=== PATIENT | female | born 1955 | race Caucasian/White ===

== ENCOUNTER → 2020-06-14 15:06 | Outpatient (BNVA) | payer OTHER, SELFPAY | PROVIDERS: PCP Family Medicine; Visit Provider Surgery Vascular Surgery | DX: Z76.89 Persons encountering health services in other specified circumstances (principal) ==

== ENCOUNTER 2020-07-22 12:47 | Outpatient (RCR) | payer OTHER, SELFPAY | END 2020-09-01 13:28 | disposition home or self-care (01) | LOC: HO.WCC 12:47 | PROVIDERS: Visit Provider Physician Assistant | DX: E11.622 Type 2 diabetes mellitus with other skin ulcer (principal); I87.012 Postthrombotic syndrome with ulcer of left lower extremity; L97.822 Non-pressure chronic ulcer of other part of left lower leg with fat layer exposed; E11.22 Type 2 diabetes mellitus with diabetic chronic kidney disease; I12.0 Hypertensive chronic kidney disease with stage 5 chronic kidney disease or end stage renal disease; N18.6 End stage renal disease; I48.91 Unspecified atrial fibrillation; Z79.01 Long term (current) use of anticoagulants; Z87.891 Personal history of nicotine dependence; E11.40 Type 2 diabetes mellitus with diabetic neuropathy, unspecified | CPT/HCPCS: 11043; 11046; 97605; 99213 ==

== ENCOUNTER 2020-12-06 05:33 | Inpatient (IN) | payer OTHER, SELFPAY ==
[2020-12-06] VITALS (11 sets, daily range): BP systolic 101–186; BP diastolic 55–90; PULSE 78–129; RESP 15–25; TEMP 37.1–39.6; O2SAT 92–98; BMI 48.4
--- NOTE | ~2020-12-06 | XR_ITS ---
EXAMINATION: XR CHEST CLINICAL INFORMATION: Weakness. COMPARISON: Chest 10/22/2019 TECHNIQUE: Frontal view of the chest was obtained. FINDINGS: The lungs are well-expanded and clear of acute process. The heart size is enlarged. Pulmonary vascularity is within normal limits. No gross bony abnormality seen. XR/XR chest 1V IMPRESSION: Unremarkable chest exam except for mild cardiomegaly.
--- NOTE | ~2020-12-06 | CT_ITS ---
EXAMINATION: CT HEAD WITHOUT CONTRAST CLINICAL INFORMATION: Multiple falls on atelectatic versus COMPARISON: None TECHNIQUE: Contiguous axial imaging was performed from the skull base to vertex without intravenous administration of contrast. This CT examination was performed using dose optimization techniques as appropriate, variously including the following: *Automated exposure control *Adjustment of mA and/or kV according to patient size (this includes techniques or standardized protocols for targeted exams where dose is matched to indication/reason for exam; i.e. extremities or head) *Use of iterative reconstruction technique DLP: 812 mGy-cm FINDINGS: There is no evidence of acute intracranial hemorrhage or territorial infarction. No abnormal mass effect or midline shift is seen. Bass to white matter differentiation is well preserved. No extra-axial fluid collections are identified. The lateral ventricles are symmetrical in size and configuration with moderate enlargement. There is no abnormal attenuation within the brain parenchyma. The osseous structures and soft tissues are normal. There is minimal mucoperiosteal thickening right sphenoid sinus. Rest of the paranasal sinuses and mastoid air cells are well-aerated. CT/CT head/brain wo con IMPRESSION: No acute intracranial process seen. Moderate cerebral volume loss. Minimal chronic inflammatory changes right sphenoid sinus.
--- NOTE | ~2020-12-06 | US_ITS ---
EXAMINATION: RIGHT LOWER EXTREMITY DEEP VENOUS ULTRASOUND CLINICAL INFORMATION: Persistent redness/swelling of the right lower extremity. COMPARISON: Right lower extremity DVT study 10/12/2019 TECHNIQUE: Duplex Doppler imaging with compression maneuvers were performed of the right lower extremity deep venous system. FINDINGS: The visualized common femoral, femoral and popliteal veins demonstrate normal compressibility and color flow without evidence of venous thrombosis. Visualized portions of the calf veins demonstrate normal color fill-in suggesting patency. There is no evidence of a Woods's cyst. Extensive subcutaneous edema throughout the right lower extremity, particularly of the calf. US/US venous duplex LE RT IMPRESSION: No evidence of deep venous thrombosis involving the right lower extremity.
--- NOTE | 2020-12-06 05:57 | ECG_ITS ---
Test Reason : AMS Blood Pressure : / mmHG Vent. Rate : 128 BPM Atrial Rate : 258 BPM P-R Int : 000 ms QRS Dur : 084 ms QT Int : 316 ms P-R-T Axes : 000 011 098 degrees QTc Int : 461 ms Atrial fibrillation with rapid ventricular response Nonspecific T wave abnormality Abnormal ECG When compared with ECG of 12-OCT-2019 00:03, Atrial fibrillation has replaced Sinus rhythm ST now depressed in Anterior leads ST no longer elevated in Lateral leads Referred By: Kate Choe Electronically Signed By:SANTO VEGAS MD
--- NOTE | 2020-12-06 06:08 | ED_ITS ---
HPI - General Adult General Chief complaint: Weakness Stated complaint: GENERAL WEAKNESS,UNABLE TO AMBULATE Time Seen by Provider: 12/06/20 05:46 Source: patient and EMS Mode of arrival: EMS Limitations: no limitations History of Present Illness HPI narrative: Patient comes to emergency room for worsening weakness. EMS and the patient states that this morning EMS was called for lift assist at the patient's residence. Patient lives at home with her . The EMS crew is familiar with the patient, they noted that today the patient is more weak than usual. Patient agrees that she has been weaker for the last 2 weeks. Patient states that she has not been sick to her knowledge. Patient did mention that f or the last few weeks she has been falling a bit more than usual, denies hitting her head, however she is on Eliquis for atrial fibrillation. Patient is noted to have wounds on her lower extremities, states that she has visiting nurses coming to change her bandage is every other day. Patient denies dysuria, denies shortness of breath, no chest pain. Related Data Home Medications Medication Instructions Recorded Confirmed amlodipine 10 mg tablet 10 mg PO BEDTIME 06/14/20 apixaban 5 mg tablet 5 mg PO BID 06/14/20 atorvastatin 40 mg tablet 40 mg PO BEDTIME 06/14/20 fluoxetine 20 mg capsule 20 mg PO DAILY 06/14/20 gabapentin 300 mg capsule 300 mg PO TID 06/14/20 gabapentin 600 mg tablet 600 mg PO TID 06/14/20 hydroxyzine HCl 25 mg tablet mg PO 06/14/20 insulin glargine 100 unit/mL (3 78 unit SUBCUT DAILY 06/14/20 mL) subcutaneous pen insulin lispro 200 unit/mL (3 mL) unit SUBCUT 06/14/20 subcutaneous pen lisinopril 5 mg tablet 5 mg PO DAILY 06/14/20 metoprolol succinate 200 mg 200 mg PO DAILY 06/14/20 tablet,extended release 24 hr pen needle, diabetic 31 gauge x #50 ea 06/14/2010/05 penicillin V potassium 500 mg 500 mg PO BID 06/14/20 tablet trazodone 100 mg tablet 100 mg PO BEDTIME 06/14/20 Allergies Allergy/AdvReac Type Severity Reaction Status Date / Time adhesive [ADHESIVE] Allergy Intermediate RASH Verified 06/14/20 15:23 dulaglutide [Trulicity] Allergy Unknown Unknown Verified 06/14/20 15:23 Review of Systems Review of Systems: Constitutional : No Weight loss, No Fever, No Chills, No Night Sweats, chronic and worsening fatigue , worsening weakness ENT/Mouth : No Hearing loss, No Ear Pain, No Nasal Congestion, No Sinus Pain, No Hoarseness, No sore throat, No Rhinorrhea, No Swallowing Difficulty Eyes: No Eye Pain, No Swelling, No Redness, No Foreign Body, No Discharge, No Vision Changes Cardiovascular : No Chest Pain, No SOB, No Dyspnea on Exertion, No Orthopnea, No Edema, No Palpitations Respiratory : No Cough, No Sputum, No Wheezing, No Smoke Exposure, No Dyspnea Gastrointestinal : No Nausea, No Vomiting, No Diarrhea, No Constipation, No abdominal Pain, No Hematochezia, No Melena Genitourinary : no irregular bleeding, No Dysuria, No Urinary Frequency, No Hematuria, No Urinary Incontinence, No Urgency, No Flank Pain, No Urinary Flow Changes, No Hesitancy Musculoskeletal : No joint pain, No Myalgias, No Joint Swelling Skin : Chronic wounds bilaterally, Neuro : No Weakness, No Numbness, No Paresthesias, No Loss of Consciousness, No Dizziness, No Headache Psych : No Anxiety/Panic, No Depression, No SI/HI/AH/VH, No Social Issues, Heme/Lymph: No Bruising, No Bleeding,No Lymphadenopathy Endocrine : No Polyuria, No Polydipsia, No Temperature Intolerance [facility] Social History Social History Smoking Status: Current every day smoker Cigarettes Per Day: 5 Years Smoked: 15 Use of substances other than those prescribed or required for medical reasons: No Advance Directives: No Advance Directives Information Provided: No Physical Exam Vital Signs: Vital Signs: Last Vital Signs Temp 103.2 F H 12/06/20 06:19 Pulse 125 H 12/06/20 07:00 Resp 25 H 12/06/20 07:00 BP 128/75 12/06/20 07:00 Pulse Ox 98 12/06/20 07:00 Oxygen Flow Rate 2 12/06/20 06:19 Body Mass Index 48.4 Appearance: Alert. Oriented X3. No acute distress. Seems weak, has trouble sitting up due to weakness Eyes: Pupils equal, round and reactive to light. ENT: Pharynx normal. Neck: Normal inspection. Neck supple. No lymph nodes noted. No crepitus CVS: Normal heart rate and rhythm. Pulses normal. Normal S1 and S2 Respiratory: No respiratory distress. Breath sounds normal. No Wheezing. No rales Abdomen: Soft and nontender. No rigidity. No distention. Skin: Skin warm and dry. See below Extremities: Bilateral lower extremity venous stasis, left lower extremity has varicose vein ulcer covered, clean, now covered. Patient has questionable c ellulitis going up the right thigh. Nontender to touch, warmer than the rest of her skin. Patient states this is at baseline for her Neuro: Oriented X 3. No motor deficit. No sensory deficit. Moving all extermities. No slurred speech. Course Course Course Narrative: Patient is weaker than usual, has a fever, at this time we do not have a specific source of infection (615am) Patient is obese, fluids are being given on an ideal weight of 50 kg for patient's height. Patient has a heart rate of 128, at this time, the heart rate is likely secondary to fever. Labs are pending. Head CT read is pending. Sign-out given to Dr. Zimmerman. Patient will likely need admission Medical Decision Making Lab Data Result diagrams: 12/06/20 06:30 12/06/20 06:30 Labs: Lab Results 12/06/20 12/06/20 12/06/20 Range/Units 05:48 06:30 06:30 WBC 13.8 H (4.8-10.8) X10*3/uL RBC 5.04 (4.20-5.50) X10*6/uL Hgb 14.4 (12.0-16.0) g/dl Hct 44.4 (37-47) % MCV 88.1 (80-98) fL MCH 28.6 (27.0-33.0) pg MCHC 32.4 (31.0-35.0) g/dl RDW 16.2 H (11.0-16.0) % Plt Count 169 (160-400) X10*3/uL MPV 10.5 (9.4-12.3) fL Immature Gran % (Auto) 0.5 H (0.0-0.4) % Neut % (Auto) 94.7 H (45-73) % Lymph % (Auto) 2.0 L (20-40) % [place] % (Auto) 2.4 (2-11) % Eos % (Auto) 0.3 (0-4) % Baso % (Auto) 0.1 (0-2) % Lymph # (Auto) 0.3 L (1.2-4.9) X10*3/uL [place] # (Auto) 0.3 (0.1-1.2) X10*3/uL Eos # (Auto) 0.0 (0.0-0.4) X10*3/uL Baso # (Auto) 0.0 (0.0-0.2) X10*3/uL Abs Immat Gran (auto) 0.07 H (0.00-0.03) X10*3/uL Absolute Neuts (auto) 13.1 H (2.0-8.3) X10*3/uL Absolute Nucleated RBC 0.000 (0.0-0.012) X10*3/uL Nucleated RBC % (auto) 0.0 (0.0-0.2) /100WBC Smear Tech's Comments VERIFIED POC Glucose 180 H (60-115) mg/dL COVID-19 (BILLY) Negative (Negative) COVID-19 Clin Com See Note ECG Data Attestation: I personally reviewed and interpreted this ECG as follows: (Atrial fibrillation, heart rate 128, no ST segment depression or elevation, no T-wave inversion, QTC 461)
[2020-12-06] MEDS: 0.9 % Sodium Chloride 1,000 ML 999 ML IVCONT ×2 (06:35→06:36)
[2020-12-06 06:37] LABS: Basophils Percent Auto 0.1 % (0-2); Eosinophils Percent Auto 0.3 % (0-4); Hematocrit 44.4 % (37-47); Hemoglobin 14.4 g/dl (12.0-16.0); Imm Gran Abs Auto 0.07 X10*3/uL (0.00-0.03); Imm Gran Pct Auto 0.5 % (0.0-0.4); Lymphocytes Absolute Auto 0.3 X10*3/uL (1.2-4.9); MANUAL DIFF FLAG SCAN; Mean Corpuscular HGB Conc 32.4 g/dl (31.0-35.0); Mean Corpuscular Hemoglobin 28.6 pg (27.0-33.0); Mean Corpuscular Volume 88.1 fL (80-98); Mean Platelet Volume 10.5 fL (9.4-12.3); Monocytes Absolute Auto 0.3 X10*3/uL (0.1-1.2); Monocytes Percent Auto 2.4 % (2-11); Neutrophils Absolute Auto 13.1 X10*3/uL (2.0-8.3); Neutrophils Percent Auto 94.7 % (45-73); Platelet Count 169 X10*3/uL (160-400); Red Blood Count 5.04 X10*6/uL (4.20-5.50); Red Cell Distribution Width 16.2 % (11.0-16.0); SCAN SMEAR FLAG 1; White Blood Count 13.8 X10*3/uL (4.8-10.8)
--- NOTE | 2020-12-06 06:38 | PC.NURSE ---
Pt to CT at this time.
[2020-12-06 06:42] LABS: Glucose, Whole Blood 180 mg/dL (60-115)
[2020-12-06 06:50] LABS: COVID-19 Test Negative (Negative); IDNOW Serial# 9DD0AD1C
[2020-12-06 06:55] LABS: SLIDE REVIEW VERIFIED
[2020-12-06] MEDS: Acetaminophen 325 MG TABLET 650 MG PO ×2 (06:58→17:55)
[2020-12-06 07:12] LABS: B Type Natriuretic Peptide 376 pg/mL (<100)
[2020-12-06 07:13] LABS: Troponin-I High Sensitivity 10.2 ng/L (<3.5-17.0)
[2020-12-06 07:20] LABS: Lactic Acid 3.3 mmol/L (0.5-2.0)
[2020-12-06 07:20] LABS: Glucose Urine UA NEG (NEG); Leukocyte Esterase Urine TRACE (NEG); Nitrite Urine NEG (NEG); UACC Culture Trigger YES; Urine Blood 1+ (NEG); Urine Ketones NEG (NEG); Urine Protein 2+ MG/DL (NEG-TRACE)
[2020-12-06 07:24] LABS: Appearance Urine CLOUDY; Color Urine YELLOW
[2020-12-06 07:32] LABS: Bacteria Urine 3+ /LPF
[2020-12-06] MEDS: Piperacillin Sodium/Tazobactam 4.5 GM in 0.9 % Sodium Chloride 100 ML IV (07:39)
[2020-12-06 08:20] LABS: Alanine Aminotransferase 18 U/L (0-31); Albumin Level 3.5 g/dL (3.5-5.0); Alkaline Phosphatase 83 U/L (39-117); Anion Gap 14 (12-20); Aspartate Amino Transferase 10 U/L (5-31); Bilirubin Direct 0.4 mg/dL (0.0-0.5); Bilirubin Total 0.7 mg/dL (0.0-1.0); Blood Urea Nitrogen 26 mg/dL (9-16); Calcium 8.7 mg/dL (8.4-10.2); Carbon Dioxide 23 mmol/L (22-29); Chloride 106 mmol/L (96-108); Creatinine Clr Calc Pharmacy 60.9; Estimated Glomerular Filt Rate 41; Glucose Random 153 mg/dL (60-115); Potassium 3.5 mmol/L (3.3-5.1); Sodium 139 mmol/L (135-145); Total Protein 6.6 g/dL (6.5-8.0)
[2020-12-06 08:35] LABS: TSH reflex Free T4 0.47 uIU/mL (0.32-4.0)
[2020-12-06 08:35] LABS: Reflex Lactate? Lactic Acid Added
[2020-12-06 09:25] LABS: ~Lactic Acid-LAB USE ONLY 2.6 mmol/L (0.5-2.0)
[2020-12-06 10:54] LABS: Reflex Lactate? 2 Y
--- NOTE | 2020-12-06 11:42 | PM.IMHP ---
History of Present Illness Date of Service: 12/06/20 Chief Complaint: weakness Ms Israel is a 65 year-old female patient of Dr Nielsen with medical history of insulin-dependent diabetes mellitus, stage 3 chronic kidney disease, diastolic heart failure, atrial fibrillation, morbid obesity, recurrent leg cellulitis, and tobacco abuse. She was also admitted to [facility] in June 2020 and again in July-August 2020 for a polymicrobial infection of the left Achilles tendon and medial gastrocnemius myositis related to a steroid injection. The wound grew MSSA from an I+D and then Proteus mirabilis plus Enterococcus faecalis from a debridement; ultimately, the infection was treated with a prolonged course of piperacillin/tazobactam. Her changes her left Achilles wound daily with wet-to-dry dressings and the wound has been filling in well. In addition, approximately 3-4 weeks ago, she underwent cystocopy with stent exchange for a recurrent kidney stone by Dr Rothman at [facility]. She took antibiotics after the procedure but does not recall which one. She was in her usual state of health yesterday in the morning and during the day, but when she went to bed at night, she noted chills and malaise. She tried to get up to go to the bathroom but was unable to do so due to generalized weakness; she usually does require the assistance of a walker but her weakness was much greater than usual. She did not note fever, dyspnea, cough, nausea, vomiting, abdominal pain, or diarrhea. Her L Achilles wound is not draining purulent material and there is no surrounding erythema or lymphangitic streaking. The right bustillos is red and swollen but not particularly painful. She denies flank pain, hematuria, or dysuria. She completed 2 doses of a COVID-19 mRNA vaccine over 2 weeks ago. In the ED, she was noted to be septic by virtue of leukocytosis and fever; severe by virtue of lactic acidosis. She was given a dose of piperacillin/tazobactam after blood and urine cultures were sent, and a total of 2L of normal saline. Review of Systems Review of Systems: Yes all other systems are reviewed and are negative [facility] Medical History Achilles tendon infection Atrial fib/flutter, transient Chronic kidney disease Hyperlipidemia Hypertension Morbid obesity Myositis Recurrent cellulitis of lower extremity Type 2 diabetes mellitus Family History Other Hypertension Surgical History (Updated 12/06/20 @ 12:10 by Helena Au MD) H/O hysterectomy for benign disease History of incision and drainage Status post debridement Social History Household Members: Spouse Housing: Condominium Do you presently have visiting nurse or other home services: Yes (for wound dressing) Smoking Status: Current every day smoker Tobacco Type: Cigarette Cigarettes Per Day: 4 Years Smoked: 15 Smoked in Last 30 Days: Yes Patient Interested in Nicotine Replacement: No Patient Given Instructions on How to Stop Smoking: No (pt not interested) Use of substances other than those prescribed or required for medical reasons: No Currently Displaying Signs/Symptoms of Drug Intoxication Withdrawal: No Any prior treatment program specific to substance use: No Have you been hit, kicked, punched, or otherwise hurt by someone within the past year? If so, by whom?: No Do you feel safe in your current relationship?: Yes Is there a partner from a previous relationship who is making you feel unsafe now?: No Are you made to feel afraid or neglected: No Spiritual Healthcare Practices: n/a Pent[employer]ostalism Healthcare Practices: n/a Cultural Healthcare Practices: n/a Advance Directives: No Advance Directives Information Provided: No Do you have thoughts of harming others: None Do you have a plan to hurt others: No Plan Recently lost weight without trying: No Patient : No : No Poor oral hygiene: No Meds Allergies Allergy/AdvReac Type Severity Reaction Status Date / Time adhesive [ADHESIVE] Allergy Intermediate RASH Verified 06/14/20 15:23 dulaglutide [Trulicity] Allergy Unknown Unknown Verified 06/14/20 15:23 Active Medications: Current Medications Generic Name Dose Route Start Last Admin Trade Name Freq PRN Reason Stop Dose Admin Acetaminophen 650 mg 12/06/20 11:31 Acetaminophen 325 Mg Tablet PO Q6H PRN Pain, Mild (Pain Scale 1-3) Docusate Sodium 100 mg 12/06/20 11:31 Docusate Sodium 100 Mg Capsule PO BID PRN Constipation Piperacillin Sod/Tazobactam 50 mls @ 100 mls/hr 12/06/20 14:00 Sod 3.375 gm/ Sodium Chloride IV Q6H [facility] Insulin Human Lispro 0 unit 12/06/20 16:30 Insulin Lispro 100 Unit/Ml 3 Ml Vial SUBCUT QIDACHS [facility] Protocol Ondansetron HCl 4 mg 12/06/20 11:31 Ondansetron Hcl 4 Mg/2 Ml Vial IVPUSH Q8H PRN Nausea and Vomiting Pharmacy Consult 1 each 12/06/20 09:12 Consult Rx Perform Med Rec MISCELLANE ONCE PRN Consult order Pharmacy Consult 1 each 12/06/20 11:34 Consult Rx Vancomycin Dosing MISCELLANE DAILY PRN Consult order Pharmacy Consult 1 each 12/06/20 11:41 Consult Rx Perform Med Rec MISCELLANE 12/06/20 11:42 ONCE ONE Sodium Chloride 3 ml 12/06/20 16:00 0.9 % Sodium Chloride Flush 3 Ml [facility]ringe [facility] Home Medications Medication Instructions Recorded Confirmed Last Taken Type amlodipine 10 mg tablet 10 mg PO BEDTIME 06/14/20 12/06/20 Unknown History apixaban 5 mg tablet 5 mg PO BID 06/14/20 12/06/20 Unknown History atorvastatin 40 mg tablet 40 mg PO BEDTIME 06/14/20 12/06/20 Unknown History fluoxetine 20 mg capsule 20 mg PO DAILY 06/14/20 12/06/20 Unknown History gabapentin 600 mg tablet 600 mg PO TID 06/14/20 12/06/20 Unknown History hydroxyzine HCl 25 mg tablet 25 mg PO QID PRN 06/14/20 12/06/20 Unknown History insulin glargine 100 unit/mL (3 52 unit SUBCUT DAILY 06/14/20 12/06/20 Unknown History mL) subcutaneous pen insulin lispro 200 unit/mL (3 mL) See Rx Instructions .ROUTE .COMPLEX 06/14/20 12/06/20 Unknown History subcutaneous pen lisinopril 5 mg tablet 5 mg PO DAILY 06/14/20 12/06/20 Unknown History metoprolol succinate 200 mg 200 mg PO DAILY 06/14/20 12/06/20 Unknown History tablet,extended release 24 hr pen needle, diabetic 31 gauge x #50 ea 06/14/20 Unknown History 3/16 trazodone 100 mg tablet 100 mg PO BEDTIME 06/14/20 12/06/20 Unknown History amlodipine 10 mg PO BEDTIME 12/06/20 12/06/20 Unknown History apixaban 5 mg PO BID 12/06/20 12/06/20 Unknown History atorvastatin 40 mg PO BEDTIME 12/06/20 12/06/20 Unknown History fluoxetine 20 mg PO DAILY 12/06/20 12/06/20 Unknown History gabapentin 1 tab PO TID 12/06/20 12/06/20 Unknown History hydroxyzine HCl 25 mg PO QID PRN 12/06/20 12/06/20 Unknown History insulin glargine 52 unit SUBCUT DAILY 12/06/20 12/06/20 Unknown History insulin lispro See Rx Instructions .ROUTE .COMPLEX 12/06/20 12/06/20 Unknown History lisinopril 5 mg PO DAILY 12/06/20 12/06/20 Unknown History metoprolol succinate 200 mg PO DAILY 12/06/20 12/06/20 Unknown History trazodone 100 mg PO BEDTIME 12/06/20 12/06/20 Unknown History Physical Exam Vital Signs and Narrative: Vital Signs: Last Vital Signs Temp 100.1 F 12/06/20 11:09 Pulse 87 12/06/20 11:09 Resp 15 12/06/20 11:09 BP 101/63 12/06/20 11:09 Pulse Ox 98 12/06/20 11:09 Oxygen Flow Rate 2 12/06/20 06:19 Body Mass Index 48.4 Gen: in no acute distress HEENT: sclera anicteric, dry mucous membranes, no oral lesions Neck: supple, no adenopathy or goiter Lungs: clear to auscultation bilaterally Heart: irregular, no murmurs Abd: soft, obese, non-tender, non-distended Ext: 1+ nonpitting edema bilaterally Skin: left Achilles wound with good granulation tissue and no purulence or lymphangitic streaking; right bustillos with erythema and induration without fluctuance or drainage Neuro: alert and oriented x3, no focal findings Psych: appropriate affect Results Labs CBC and Chem 7: 12/06/20 06:30 12/06/20 07:35 Labs: Laboratory Results - last 24 hr 12/06/20 12/06/20 12/06/20 05:48 06:29 06:30 MCV 88.1 MCH 28.6 MCHC 32.4 RDW 16.2 H Plt Count 169 MPV 10.5 Immature Gran % (Auto) 0.5 H Neut % (Auto) 94.7 H Lymph % (Auto) 2.0 L [place] % (Auto) 2.4 Eos % (Auto) 0.3 Baso % (Auto) 0.1 Lymph # (Auto) 0.3 L [place] # (Auto) 0.3 Eos # (Auto) 0.0 Baso # (Auto) 0.0 Abs Immat Gran (auto) 0.07 H Absolute Neuts (auto) 13.1 H Absolute Nucleated RBC 0.000 Nucleated RBC % (auto) 0.0 Smear Tech's Comments VERIFIED Anion Gap Estim Creat Clear Calc Estimated GFR POC Glucose 180 H Random Glucose Lactic Acid Lactic Acid Fup @ 2Hr Calcium Total Bilirubin Direct Bilirubin AST ALT Alkaline Phosphatase Troponin I High Sens B-Natriuretic Peptide 376 H Total Protein Albumin TSH Urine Color Urine Appearance Urine pH Ur Specific [place] Urine Protein Urine Glucose (UA) Urine Ketones Urine Blood Urine Nitrite Ur Leukocyte Esterase Urine RBC Urine WBC Ur Squamous Epith Cells Urine Bacteria COVID-19 (BILLY) COVID-Poshly 12/06/20 12/06/20 12/06/20 06:30 06:30 06:30 MCV MCH MCHC RDW Plt Count MPV Immature Gran % (Auto) Neut % (Auto) Lymph % (Auto) [place] % (Auto) Eos % (Auto) Baso % (Auto) Lymph # (Auto) [place] # (Auto) Eos # (Auto) Baso # (Auto) Abs Immat Gran (auto) Absolute Neuts (auto) Absolute Nucleated RBC Nucleated RBC % (auto) Smear Tech's Comments Anion Gap Estim Creat Clear Calc Estimated GFR POC Glucose Random Glucose Lactic Acid 3.3 H* Lactic Acid Fup @ 2Hr Calcium Total Bilirubin Direct Bilirubin AST ALT Alkaline Phosphatase Troponin I High Sens 10.2 B-Natriuretic Peptide Total Protein Albumin TSH Urine Color Urine Appearance Urine pH Ur Specific [place] Urine Protein Urine Glucose (UA) Urine Ketones Urine Blood Urine Nitrite Ur Leukocyte Esterase Urine RBC Urine WBC Ur Squamous Epith Cells Urine Bacteria COVID-19 (BILLY) Negative COVID-Poshly See Note 12/06/20 12/06/20 12/06/20 07:12 07:35 07:35 MCV MCH MCHC RDW Plt Count MPV Immature Gran % (Auto) Neut % (Auto) Lymph % (Auto) [place] % (Auto) Eos % (Auto) Baso % (Auto) Lymph # (Auto) [place] # (Auto) Eos # (Auto) Baso # (Auto) Abs Immat Gran (auto) Absolute Neuts (auto) Absolute Nucleated RBC Nucleated RBC % (auto) Smear Tech's Comments Anion Gap 14 Estim Creat Clear Calc 60.9 Estimated GFR 41 POC Glucose Random Glucose 153 H Lactic Acid Lactic Acid Fup @ 2Hr Calcium 8.7 Total Bilirubin 0.7 Direct Bilirubin 0.4 AST 10 ALT 18 Alkaline Phosphatase 83 Troponin I High Sens B-Natriuretic Peptide Total Protein 6.6 Albumin 3.5 TSH 0.47 Urine Color YELLOW Urine Appearance CLOUDY Urine pH 6.0 Ur Specific [place] 1.020 Urine Protein 2+ H Urine Glucose (UA) NEG Urine Ketones NEG Urine Blood 1+ H Urine Nitrite NEG Ur Leukocyte Esterase TRACE H Urine RBC 5-9 H Urine WBC 15-29 H Ur Squamous Epith Cells NONE Urine Bacteria 3+ COVID-19 (BILLY) COVID-19 [address] 12/06/20 08:51 MCV MCH MCHC RDW Plt Count MPV Immature Gran % (Auto) Neut % (Auto) Lymph % (Auto) [place] % (Auto) Eos % (Auto) Baso % (Auto) Lymph # (Auto) [place] # (Auto) Eos # (Auto) Baso # (Auto) Abs Immat Gran (auto) Absolute Neuts (auto) Absolute Nucleated RBC Nucleated RBC % (auto) Smear Tech's Comments Anion Gap Estim Creat Clear Calc Estimated GFR POC Glucose Random Glucose Lactic Acid Lactic Acid Fup @ 2Hr 2.6 H* Calcium Total Bilirubin Direct Bilirubin AST ALT Alkaline Phosphatase Troponin I High Sens B-Natriuretic Peptide Total Protein Albumin TSH Urine Color Urine Appearance Urine pH Ur Specific [place] Urine Protein Urine Glucose (UA) Urine Ketones Urine Blood Urine Nitrite Ur Leukocyte Esterase Urine RBC Urine WBC Ur Squamous Epith Cells Urine Bacteria COVID-19 (BILLY) COVID-19 Ring [facility] Imaging Radiologist's Impressions: Impressions Chest X-Ray 12/06/20 05:57 IMPRESSION: Unremarkable chest exam except for mild cardiomegaly. Head CT 12/06/20 06:00 IMPRESSION: No acute intracranial process seen. Moderate cerebral volume loss. Minimal chronic inflammatory changes right sphenoid sinus. Assessment and Plan (1) Severe sepsis: Status: Acute Ms Israel is a 65 year-old woman with history of insulin-dependent diabetes mellitus, stage 3 chronic kidney disease, diastolic heart failure, atrial fibrillation, morbid obesity, recurrent leg cellulitis, tobacco abuse; recent I+D and debridement of polymicrobial L Achilles tendon and gastrocnemius infection, and recent stent exchange and extraction of ureteral stone, presenting with weakness and found to be septic. Sources could include RLE cellulitis or urinary source with bacteremia either way; doubt related to the L Achilles wound, which appears to be healing very well. # severe sepsis - admit to [facility] - cover broadly for skin/soft tissue and urinary sources in diabetic patient with vanco + pip/woo; follow BCx + UCx; consult ID - continue fluid resuscitation, trend LA to normal # AF - continue apixaban for anticoagulation - continue metoprolol for rate control # HTN - continue metoprolol + lisinopril + amlodipine # HFpEF - appears dry; fluids as above; continue antihypertensives as above # HLD - continue atorvastatin # DM2 - basal/bolus insulin - continue gabapentin for neuropathy # mood disorder - continue trazodone + flluoxetine + hydroxyzine # VTE ppx - apixaban # code - FULL
[2020-12-06 12:09] LABS: ~Lactic Acid-LAB USE ONLY 2.2 mmol/L (0.5-2.0)
[2020-12-06 12:14] LABS: Troponin-I High Sensitivity 12.4 ng/L (<3.5-17.0)
[2020-12-06] MEDS: vancomycin HCL 1,500 MG in 0.9 % Sodium Chloride 500 ML 333.33 MG IV (12:15)
[2020-12-06 13:16] LABS: Glucose, Whole Blood 132 mg/dL (60-115)
[2020-12-06] MEDS: Lactated Ringers 1,000 ML 100 ML IVCONT (13:20)
[2020-12-06] MEDS: Piperacillin Sodium/Tazobactam 3.375 GM in 0.9 % Sodium Chloride 50 ML IV ×2 (15:05→21:10)
[2020-12-06] MEDS: Gabapentin 600 MG TABLET PO ×2 (15:27→21:10)
[2020-12-06] MEDS: 0.9 % Sodium Chloride Flush 3 ML SYRINGE IVFLUSH ×2 (15:33→21:10)
[2020-12-06 16:12] LABS: Glucose, Whole Blood 132 mg/dL (60-115)
[2020-12-06] MEDS: hydrOXYzine HCL 25 MG TABLET PO (17:59)
[2020-12-06 20:49] LABS: Glucose, Whole Blood 154 mg/dL (60-115)
[2020-12-06] MEDS: Atorvastatin Calcium 40 MG TABLET PO (21:09)
[2020-12-06] MEDS: Apixaban 5 MG TABLET PO (21:09)
[2020-12-06] MEDS: traZODone HCL 100 MG TABLET PO (21:09)
[2020-12-06] MEDS: amLODIPine Besylate 10 MG TABLET PO (21:09)
[2020-12-06] MEDS: vancomycin HCL 1,000 MG in 0.9 % Sodium Chloride 250 ML 270 MG IV (23:15)
[2020-12-06] MEDS: Metoprolol Tartrate 5 MG/5 ML VIAL IVPUSH (23:33)
[2020-12-07] VITALS (10 sets, daily range): BP systolic 114–140; BP diastolic 60–90; PULSE 76–125; RESP 19–24; TEMP 36.1–38.4; O2SAT 91–93
[2020-12-07] MEDS: dilTIAZem HCL 125 MG in 0.9 % Sodium Chloride 100 ML 10 MG IVCONT (00:52)
[2020-12-07] MEDS: Piperacillin Sodium/Tazobactam 3.375 GM in 0.9 % Sodium Chloride 50 ML IV ×3 (01:45→13:43)
[2020-12-07 06:32] LABS: Hemoglobin 12.1 g/dl (12.0-16.0); Mean Corpuscular HGB Conc 31.8 g/dl (31.0-35.0); Mean Corpuscular Hemoglobin 28.2 pg (27.0-33.0); Mean Corpuscular Volume 88.6 fL (80-98); Mean Platelet Volume 10.7 fL (9.4-12.3); Platelet Count 140 X10*3/uL (160-400); Red Blood Count 4.29 X10*6/uL (4.20-5.50); Red Cell Distribution Width 16.6 % (11.0-16.0); White Blood Count 12.6 X10*3/uL (4.8-10.8)
[2020-12-07 07:02] LABS: Blood Urea Nitrogen 35 mg/dL (9-16); Calcium 8.3 mg/dL (8.4-10.2); Creatinine Clr Calc Pharmacy 45.4; Estimated Glomerular Filt Rate 29; Glucose Random 128 mg/dL (60-115)
[2020-12-07 07:21] LABS: Anion Gap 15 (12-20); Carbon Dioxide 21 mmol/L (22-29); Chloride 106 mmol/L (96-108); Potassium 4.4 mmol/L (3.3-5.1); Sodium 138 mmol/L (135-145)
[2020-12-07 07:30] LABS: Glucose, Whole Blood 129 mg/dL (60-115)
[2020-12-07] MEDS: FLUoxetine HCl 20 MG CAPSULE PO (08:40)
[2020-12-07] MEDS: Acetaminophen 325 MG TABLET 650 MG PO (08:40)
[2020-12-07] MEDS: Metoprolol Succinate ER 100 MG TAB.ER.24H 200 MG PO (08:40)
[2020-12-07] MEDS: lisinopriL 5 MG TABLET PO (08:40)
[2020-12-07] MEDS: Apixaban 5 MG TABLET PO ×2 (08:41→20:25)
[2020-12-07] MEDS: Gabapentin 600 MG TABLET PO ×3 (08:42→20:25)
[2020-12-07] MEDS: Insulin Glargine,Hum.rec.anlog 100 UNIT/ML 10 ML VIAL 40 UNIT SUBCUT (08:44)
[2020-12-07] MEDS: 0.9 % Sodium Chloride Flush 3 ML SYRINGE IVFLUSH ×3 (09:20→23:49)
[2020-12-07 11:12] LABS: Glucose, Whole Blood 139 mg/dL (60-115)
[2020-12-07] MEDS: vancomycin HCL 750 MG in 0.9 % Sodium Chloride 250 ML 265 MG IV (11:54)
[2020-12-07 12:01] LABS: Vancomycin Random 18.3 mcg/mL (15-20)
--- NOTE | 2020-12-07 12:02 | MHC.CM.PN ---
met with pt who lives with her pt is active [facility] she reports that she would have transportation home when dcd
--- NOTE | 2020-12-07 13:58 | P.CNID_ITS ---
History of Present Illness Data of Consult Service Date: 12/07/20 Requesting physician: Helena Au Primary Care Provider: Unknown Physician HPI Reason for consult: bacteremia,gram negative urine She presents with weakness,fatigue and fever for last week. She has no shortness of breath or COVID exposure She has right leg reddened and hot but and patient say that it is always somewhat that way She has had infection in left leg and sees [facility] she reports She has seen Wound Care and had left wound wound vac in past Review of Systems Review of Systems: Yes all other systems are reviewed and are negative PENDING SALE TO [facility] Past Medical History Medical History Achilles tendon infection Atrial fib/flutter, transient Bacteremia Chronic kidney disease Hyperlipidemia Hypertension Morbid obesity Myositis Recurrent cellulitis of lower extremity Streptococcal infection group C Type 2 diabetes mellitus Family History Family History Other Hypertension Family history: reviewed and not pertinent Surgical History Surgical History H/O hysterectomy for benign disease History of incision and drainage Status post debridement Social History Social History Household Members: Spouse Housing: Condominium Do you presently have visiting nurse or other home services: Yes (for wound dressing) Cigarettes Per Day: 4 Years Smoked: 15 service: No Meds Allergies Allergy/AdvReac Type Severity Reaction Status Date / Time adhesive [ADHESIVE] Allergy Intermediate RASH Verified 06/14/20 15:23 dulaglutide [Trulicity] Allergy Unknown Unknown Verified 06/14/20 15:23 Active Medications: Current Medications Generic Name Dose Route Start Last Admin Trade Name Freq PRN Reason Stop Dose Admin Acetaminophen 650 mg 12/06/20 11:31 12/07/20 08:40 Acetaminophen 325 Mg Tablet PO 650 mg Q6H PRN Administration Pain, Mild (Pain Scale 1-3) Amlodipine Besylate 10 mg 12/06/20 21:00 12/06/20 21:09 Amlodipine Besylate 10 Mg Tablet PO 10 mg BEDTIME PIPE Administration Protocol Apixaban 5 mg 12/06/20 21:00 12/07/20 08:41 Apixaban 5 Mg Tablet PO 5 mg BID PIPE Administration Atorvastatin Calcium 40 mg 12/06/20 21:00 12/06/20 21:09 Atorvastatin Calcium 40 Mg Tablet PO 40 mg BEDTIME PIPE Administration Docusate Sodium 100 mg 12/06/20 11:31 Docusate Sodium 100 Mg Capsule PO BID PRN Constipation Fluoxetine HCl 20 mg 12/07/20 09:00 12/07/20 08:40 Fluoxetine Hcl 20 Mg Capsule PO 20 mg DAILY PIPE Administration Gabapentin 600 mg 12/06/20 15:00 12/07/20 08:42 Gabapentin 600 Mg Tablet PO 600 mg TID PIPE Administration Guaifenesin 600 mg 12/07/20 11:45 Guaifenesin La 600 Mg Tab.Er.12h PO BID PRN cough Hydroxyzine HCl 25 mg 12/06/20 14:58 12/06/20 17:59 Hydroxyzine Hcl 25 Mg Tablet PO 25 mg QID PRN Administration Anxiety Diltiazem HCl 125 mg/ Sodium 125 mls @ 0 mls/hr 12/07/20 00:30 12/07/20 08:24 Chloride IVCONT 0 mg/hr .Q0M PIPE 0 mls/hr Titration Protocol Per Protocol Insulin Glargine 40 unit 12/07/20 09:00 12/07/20 08:44 Insulin Glargine,Hum.Rec.Anlog 100 Unit/Ml 10 Ml Vial SUBCUT 40 unit DAILY [facility] Administration Insulin Human Lispro 0 unit 12/06/20 16:30 12/07/20 11:39 Insulin Lispro 100 Unit/Ml 3 Ml Vial SUBCUT Not Given QIDACHS [facility] Protocol Lisinopril 5 mg 12/07/20 09:00 12/07/20 08:40 Lisinopril 5 Mg Tablet PO 5 mg DAILY PIPE Administration Protocol Metoprolol Succinate 200 mg 12/07/20 09:00 12/07/20 08:40 Metoprolol Succinate Er 100 Mg Tab.Er.24h PO 200 mg DAILY [facility] Administration Protocol Nicotine 7 mg 12/06/20 12:15 12/07/20 09:20 Nicotine 7 Mg Patch.Td24 TRANSDERMA Not Given DAILY [facility] Ondansetron HCl 4 mg 12/06/20 11:31 Ondansetron Hcl 4 Mg/2 Ml Vial IVPUSH Q8H PRN Nausea and Vomiting Pharmacy Consult 1 each 12/06/20 09:12 Consult Rx Perform Med Rec MISCELLANE ONCE PRN Consult order Pharmacy Consult 1 each 12/06/20 11:34 Consult Rx Vancomycin Dosing MISCELLANE DAILY PRN Consult order Pharmacy Consult 1 each 12/06/20 12:38 Consult Rx Perform Med Rec MISCELLANE ONCE PRN Consult order Sodium Chloride 3 ml 12/06/20 16:00 12/07/20 09:20 0.9 % Sodium Chloride Flush 3 Ml Syringe IVFLUSH 3 ml QSHIFT PIPE Administration Trazodone HCl 100 mg 12/06/20 21:00 12/06/20 21:09 Trazodone Hcl 100 Mg Tablet PO 100 mg BEDTIME PIPE Administration Home Medications Medication Instructions Recorded Confirmed Last Taken Type apixaban 5 mg tablet 5 mg PO BID 06/14/20 12/06/20 Unknown History insulin lispro 200 unit/mL (3 mL) See Rx Instructions .ROUTE .COMPLEX 06/14/20 12/06/20 Unknown History subcutaneous pen pen needle, diabetic 31 gauge x #50 ea 06/14/20 Unknown History 10/05 amlodipine 10 mg PO BEDTIME 12/06/20 12/06/20 Unknown History atorvastatin 40 mg PO BEDTIME 12/06/20 12/06/20 Unknown History fluoxetine 20 mg PO DAILY 12/06/20 12/06/20 Unknown History gabapentin 1 tab PO TID 12/06/20 12/06/20 Unknown History hydroxyzine HCl 25 mg PO QID PRN 12/06/20 12/06/20 Unknown History insulin glargine 52 unit SUBCUT DAILY 12/06/20 12/06/20 Unknown History insulin lispro See Rx Instructions .ROUTE .COMPLEX 12/06/20 12/06/20 Unknown History metoprolol succinate 200 mg PO DAILY 12/06/20 12/06/20 Unknown History trazodone 100 mg PO BEDTIME 12/06/20 12/06/20 Unknown History Physical Exam Vital Signs: Vital Signs: Last Vital Signs Temp 101.2 F H 12/07/20 10:50 Pulse 79 12/07/20 12:00 Resp 22 H 12/07/20 12:00 BP 114/60 12/07/20 12:00 Pulse Ox 92 12/07/20 12:00 Oxygen Flow Rate 2 12/06/20 06:19 Body Mass Index 48.4 Const: General: cooperative HENMT: Head: Yes normal to inspection Mouth: Normal oral and palatal mucosa present Eyes: General: appearance normal, both eyes and all related structures Resp: Effort & Inspection: normal respiratory effort Cardio: Rate: regular rate Rhythm: regular rhythm GI: Palpation (GI): Soft to palpation and nontender Skin: Other: right leg red, left leg wrapped Results Labs CBC & Chem 7: 12/09/20 05:28 12/12/20 06:07 Labs: Short CBC 12/07/20 Range/Units 05:43 WBC 12.6 H (4.8-10.8) X10*3/uL Hgb 12.1 (12.0-16.0) g/dl Hct 38.0 (37-47) % Plt Count 140 L (160-400) X10*3/uL BMP 12/07/20 05:43 Sodium 138 Potassium 4.4 D Chloride 106 Carbon Dioxide 21 L BUN 35 H Creatinine 1.73 H Calcium 8.3 L Microbiology Microbiology Results: Microbiology 12/06/20 07:35 Blood - Venous Blood Culture - Preliminary Streptococcus group c 12/06/20 06:30 Blood - Venous Blood Culture - Preliminary Streptococcus group c 12/06/20 Unknown Urine Catheterized - Howell Catheter Urine Culture - P reliminary Gram negative elle Assessment and Plan (1) Streptococcal infection group C: Problem details: She has still reddened leg,Group C strep Status: Acute Would give Ceftriaxone cover leg,Group C Check echo if not done She has no urinary symptoms and Ceftriaxone should cover urine likely Consult Wound Clinic for left leg wound care,not healing and doing wet to dry which may likely need adjustment Lotrimin for interdigital areas (2) Bacteremia: Status: Acute
--- NOTE | 2020-12-07 14:26 | HO.PM.IMPN ---
Subjective Subjective Date of Service: 12/07/20 Interval History: Still febrile. Minimal urinary symptoms. BCx growing group C strep, UCx growing GNRs Physical Exam Vital Signs: Vital Signs: Last Vital Signs Temp 101.2 F H 12/07/20 10:50 Pulse 79 12/07/20 12:00 Resp 22 H 12/07/20 12:00 BP 114/60 12/07/20 12:00 Pulse Ox 92 12/07/20 12:00 Oxygen Flow Rate 2 12/06/20 06:19 Body Mass Index 48.4 Gen: in no acute distress HEENT: sclera anicteric, dry mucous membranes, no oral lesions Neck: supple, no adenopathy or goiter Lungs: clear to auscultation bilaterally Heart: irregular, no murmurs Abd: soft, obese, non-tender, non-distended Ext: 1+ nonpitting edema bilaterally Skin: left Achilles wound with good granulation tissue and no purulence or lymphangitic streaking; right bustillos with erythema and induration without fluctuance or drainage Neuro: alert and oriented x3, no focal findings Psych: appropriate affect Objective Data Current Medications Generic Name Dose Route Start Last Admin Trade Name Freq PRN Reason Stop Dose Admin Acetaminophen 650 mg 12/06/20 11:31 12/07/20 08:40 Acetaminophen 325 Mg Tablet PO 650 mg Q6H PRN Administration Pain, Mild (Pain Scale 1-3) Amlodipine Besylate 10 mg 12/06/20 21:00 12/06/20 21:09 Amlodipine Besylate 10 Mg Tablet PO 10 mg BEDTIME PIPE Administration Protocol Apixaban 5 mg 12/06/20 21:00 12/07/20 08:41 Apixaban 5 Mg Tablet PO 5 mg BID PIPE Administration Atorvastatin Calcium 40 mg 12/06/20 21:00 12/06/20 21:09 Atorvastatin Calcium 40 Mg Tablet PO 40 mg BEDTIME PIPE Administration Clotrimazole 1 appl 12/07/20 21:00 Clotrimazole 1 % Cream 15 Gm Tube TOPICAL BID PIPE Protocol Docusate Sodium 100 mg 12/06/20 11:31 Docusate Sodium 100 Mg Capsule PO BID PRN Constipation Fluoxetine HCl 20 mg 12/07/20 09:00 12/07/20 08:40 Fluoxetine Hcl 20 Mg Capsule PO 20 mg DAILY PIPE Administration Gabapentin 600 mg 12/06/20 15:00 12/07/20 08:42 Gabapentin 600 Mg Tablet PO 600 mg TID [facility] Administration Guaifenesin 600 mg 12/07/20 11:45 Guaifenesin La 600 Mg Tab.Er.12h PO BID PRN cough Hydroxyzine HCl 25 mg 12/06/20 14:58 12/06/20 17:59 Hydroxyzine Hcl 25 Mg Tablet PO 25 mg QID PRN Administration Anxiety Diltiazem HCl 125 mg/ Sodium 125 mls @ 0 mls/hr 12/07/20 00:30 12/07/20 08:24 Chloride IVCONT 0 mg/hr .Q0M PIPE 0 mls/hr Titration Protocol Per Protocol Ceftriaxone Sodium 1 gm/ 50 mls @ 100 mls/hr 12/07/20 15:00 Sodium Chloride IV Q24H [facility] Insulin Glargine 40 unit 12/07/20 09:00 12/07/20 08:44 Insulin Glargine,Hum.Rec.Anlog 100 Unit/Ml 10 Ml Vial SUBCUT 40 unit DAILY [facility] Administration Insulin Human Lispro 0 unit 12/06/20 16:30 12/07/20 11:39 Insulin Lispro 100 Unit/Ml 3 Ml Vial SUBCUT Not Given QIDACHS [facility] Protocol Lisinopril 5 mg 12/07/20 09:00 12/07/20 08:40 Lisinopril 5 Mg Tablet PO 5 mg DAILY [facility] Administration Protocol Metoprolol Succinate 200 mg 12/07/20 09:00 12/07/20 08:40 Metoprolol Succinate Er 100 Mg Tab.Er.24h PO 200 mg DAILY [facility] Administration Protocol Nicotine 7 mg 12/06/20 12:15 12/07/20 09:20 Nicotine 7 Mg Patch.Td24 TRANSDERMA Not Given DAILY [facility] Ondansetron HCl 4 mg 12/06/20 11:31 Ondansetron Hcl 4 Mg/2 Ml Vial IVPUSH Q8H PRN Nausea and Vomiting Pharmacy Consult 1 each 12/06/20 09:12 Consult Rx Perform Med Rec MISCELLANE ONCE PRN Consult order Pharmacy Consult 1 each 12/06/20 11:34 Consult Rx Vancomycin Dosing MISCELLANE DAILY PRN Consult order Pharmacy Consult 1 each 12/06/20 12:38 Consult Rx Perform Med Rec MISCELLANE ONCE PRN Consult order Sodium Chloride 3 ml 12/06/20 16:00 12/07/20 09:20 0.9 % Sodium Chloride Flush 3 Ml Syringe IVFLUSH 3 ml QSHIFT PIPE Administration Trazodone HCl 100 mg 12/06/20 21:00 12/06/20 21:09 Trazodone Hcl 100 Mg Tablet PO 100 mg BEDTIME PIPE Administration Labs CBC & Chem 7: 12/07/20 05:43 12/07/20 05:43 Labs: Laboratory Results WBC 12.6 X10*3/uL (4.8-10.8) H 12/07/20 05:43 RBC 4.29 X10*6/uL (4.20-5.50) 12/07/20 05:43 Hgb 12.1 g/dl (12.0-16.0) 12/07/20 05:43 Hct 38.0 % (37-47) 12/07/20 05:43 MCV 88.6 fL (80-98) 12/07/20 05:43 MCH 28.2 pg (27.0-33.0) 12/07/20 05:43 MCHC 31.8 g/dl (31.0-35.0) 12/07/20 05:43 RDW 16.6 % (11.0-16.0) H 12/07/20 05:43 Plt Count 140 X10*3/uL (160-400) L 12/07/20 05:43 MPV 10.7 fL (9.4-12.3) 12/07/20 05:43 Immature Gran % (Auto) 0.5 % (0.0-0.4) H 12/06/20 06:30 Neut % (Auto) 94.7 % (45-73) H 12/06/20 06:30 Lymph % (Auto) 2.0 % (20-40) L 12/06/20 06:30 [place] % (Auto) 2.4 % (2-11) 12/06/20 06:30 Eos % (Auto) 0.3 % (0-4) 12/06/20 06:30 Baso % (Auto) 0.1 % (0-2) 12/06/20 06:30 Lymph # (Auto) 0.3 X10*3/uL (1.2-4.9) L 12/06/20 06:30 [place] # (Auto) 0.3 X10*3/uL (0.1-1.2) 12/06/20 06:30 Eos # (Auto) 0.0 X10*3/uL (0.0-0.4) 12/06/20 06:30 Baso # (Auto) 0.0 X10*3/uL (0.0-0.2) 12/06/20 06:30 Abs Immat Gran (auto) 0.07 X10*3/uL (0.00-0.03) H 12/06/20 06:30 Absolute Neuts (auto) 13.1 X10*3/uL (2.0-8.3) H 12/06/20 06:30 Absolute Nucleated RBC 0.000 X10*3/uL (0.0-0.012) 12/07/20 05:43 Nucleated RBC % (auto) 0.0 /100WBC (0.0-0.2) 12/07/20 05:43 Smear Tech's Comments VERIFIED 12/06/20 06:30 Sodium 138 mmol/L (135-145) 12/07/20 05:43 Potassium 4.4 mmol/L (3.3-5.1) D 12/07/20 05:43 Chloride 106 mmol/L (96-108) 12/07/20 05:43 Carbon Dioxide 21 mmol/L (22-29) L 12/07/20 05:43 Anion Gap 15 (12-20) 12/07/20 05:43 BUN 35 mg/dL (9-16) H 12/07/20 05:43 Creatinine 1.73 mg/dL (0.5-1.4) H 12/07/20 05:43 Estim Creat Clear Calc 45.4 12/07/20 05:43 Estimated GFR 29 12/07/20 05:43 POC Glucose 139 mg/dL (60-115) H 12/07/20 10:58 Random Glucose 128 mg/dL (60-115) H 12/07/20 05:43 Lactic Acid 3.3 mmol/L (0.5-2.0) H* 12/06/20 06:30 Lactic Acid Fup @ 2Hr 2.6 mmol/L (0.5-2.0) H* 12/06/20 08:51 Lactic Acid Fup @ 4Hr 2.2 mmol/L (0.5-2.0) H* 12/06/20 11:37 Calcium 8.3 mg/dL (8.4-10.2) L 12/07/20 05:43 Total Bilirubin 0.7 mg/dL (0.0-1.0) 12/06/20 07:35 Direct Bilirubin 0.4 mg/dL (0.0-0.5) 12/06/20 07:35 AST 10 U/L (5-31) 12/06/20 07:35 ALT 18 U/L (0-31) 12/06/20 07:35 Alkaline Phosphatase 83 U/L (39-117) 12/06/20 07:35 Troponin I High Sens 12.4 ng/L (<3.5-17.0) 12/06/20 11:37 B-Natriuretic Peptide 376 pg/mL (<100) H 12/06/20 06:29 Total Protein 6.6 g/dL (6.5-8.0) 12/06/20 07:35 Albumin 3.5 g/dL (3.5-5.0) 12/06/20 07:35 TSH 0.47 uIU/mL (0.32-4.0) 12/06/20 07:35 Urine Color YELLOW 12/06/20 07:12 Urine Appearance CLOUDY 12/06/20 07:12 Urine pH 6.0 (5.0-8.0) 12/06/20 07:12 Ur Specific [place] 1.020 (1.005-1.025) 12/06/20 07:12 Urine Protein 2+ MG/DL (NEG-TRACE) H 12/06/20 07:12 Urine Glucose (UA) NEG MG/DL (NEG) 12/06/20 07:12 Urine Ketones NEG MG/DL (NEG) 12/06/20 07:12 Urine Blood 1+ (NEG) H 12/06/20 07:12 Urine Nitrite NEG (NEG) 12/06/20 07:12 Ur Leukocyte Esterase TRACE (NEG) H 12/06/20 07:12 Urine RBC 5-9 /HPF (0) H 12/06/20 07:12 Urine WBC 15-29 /HPF (0-4) H 12/06/20 07:12 Ur Squamous Epith Cells NONE /LPF 12/06/20 07:12 Urine Bacteria 3+ /LPF 12/06/20 07:12 Random Vancomycin 18.3 mcg/mL (15-20) 12/07/20 11:03 COVID-19 (BILLY) Negative (Negative) 12/06/20 06:30 COVID-19 Clin Com See Note 12/06/20 06:30 Impressions Chest X-Ray 12/06/20 05:57 IMPRESSION: Unremarkable chest exam except for mild cardiomegaly. Head CT 12/06/20 06:00 IMPRESSION: No acute intracranial process seen. Moderate cerebral volume loss. Minimal chronic inflammatory changes right sphenoid sinus. Microbiology Microbiology Results: Microbiology 12/06/20 07:35 Blood - Venous Blood Culture - Preliminary Streptococcus group c 12/06/20 06:30 Blood - Venous Blood Culture - Preliminary Streptococcus group c 12/06/20 Unknown Urine Catheterized - Howell Catheter Urine Culture - Preliminary Gram negative elle Assessment and Plan (1) Bacteremia: Status: Acute (2) Streptococcal infection group C: Problem details: She has bacteremia related to leg infection She has also gram negative urine Status: Acute (3) Severe sepsis: Status: Acute Assessment and Plan: hospital d#2 65 year-old woman with DM2, CKD3, diastolic CHF, AF, morbid obesity, recurrent leg cellulitis, tobacco abuse; recent I+D and debridement of polymicrobial L Achilles tendon and gastrocnemius infection; and recent ureteral stent removal for ureterolithiasis, presenting with weakness and found to be septic- bloodstream + urinary infections # severe sepsis - treat sources as below; fluid-resuscitated and now appears euvolemic # group C strep bacteremia - ID consulted, changed vancomycin to ceftriaxone, TTE, repeat BCx tomorrow # UTI - ceftriaxone as above, follow UCx # AF - continue apixaban for anticoagulation - continue metoprolol succinate for rate control [was briefly on diltiazem gtt last night] # HTN - continue metoprolol + lisinopril + amlodipine # HFpEF - continue antihypertensives as above; not fluid overloaded # HLD - continue atorvastatin # DM2 - basal/bolus insulin - continue gabapentin for neuropathy # mood disorder - continue trazodone + flluoxetine + hydroxyzine # VTE ppx - apixaban
[2020-12-07] MEDS: cefTRIAXone sodium 1 GM in 0.9 % Sodium Chloride 50 ML IV (15:18)
[2020-12-07 16:18] LABS: Glucose, Whole Blood 143 mg/dL (60-115)
[2020-12-07 20:08] LABS: Glucose, Whole Blood 175 mg/dL (60-115)
[2020-12-07] MEDS: Insulin Lispro 100 UNIT/ML 3 ML VIAL SUBCUT (20:24)
[2020-12-07] MEDS: Atorvastatin Calcium 40 MG TABLET PO (20:25)
[2020-12-07] MEDS: amLODIPine Besylate 10 MG TABLET PO (20:25)
[2020-12-07] MEDS: traZODone HCL 100 MG TABLET PO (20:26)
[2020-12-07] MEDS: Clotrimazole 1 % Cream 15 GM TUBE 1 APPL TOPICAL (20:35)
[2020-12-08] VITALS (10 sets, daily range): BP systolic 105–152; BP diastolic 55–96; PULSE 66–110; RESP 17–18; TEMP 36.3–36.9; O2SAT 89–97
[2020-12-08 06:48] LABS: Hematocrit 37.9 % (37-47); Hemoglobin 11.8 g/dl (12.0-16.0); Mean Corpuscular HGB Conc 31.1 g/dl (31.0-35.0); Mean Platelet Volume 11.2 fL (9.4-12.3); Platelet Count 137 X10*3/uL (160-400); Red Blood Count 4.21 X10*6/uL (4.20-5.50); Red Cell Distribution Width 16.7 % (11.0-16.0); White Blood Count 8.2 X10*3/uL (4.8-10.8)
[2020-12-08 07:04] LABS: Anion Gap 15 (12-20); Blood Urea Nitrogen 48 mg/dL (9-16); C Reactive Protein 28.75 mg/dL (< or = 0.50); Calcium 8.4 mg/dL (8.4-10.2); Carbon Dioxide 22 mmol/L (22-29); Chloride 106 mmol/L (96-108); Creatinine Clr Calc Pharmacy 35.2; Estimated Glomerular Filt Rate 22; Glucose Random 122 mg/dL (60-115); Potassium 4.5 mmol/L (3.3-5.1); Sodium 138 mmol/L (135-145)
[2020-12-08 07:10] LABS: Glucose, Whole Blood 120 mg/dL (60-115)
[2020-12-08] MEDS: Metoprolol Succinate ER 100 MG TAB.ER.24H 200 MG PO (08:24)
[2020-12-08] MEDS: Gabapentin 600 MG TABLET PO ×3 (08:24→21:08)
[2020-12-08] MEDS: Apixaban 5 MG TABLET PO ×2 (08:25→21:08)
[2020-12-08] MEDS: lisinopriL 5 MG TABLET PO (08:25)
[2020-12-08] MEDS: FLUoxetine HCl 20 MG CAPSULE PO (08:25)
[2020-12-08] MEDS: Insulin Glargine,Hum.rec.anlog 100 UNIT/ML 10 ML VIAL 40 UNIT SUBCUT (08:27)
[2020-12-08] MEDS: 0.9 % Sodium Chloride 1,000 ML 150 ML IVCONT ×3 (08:38→22:50)
[2020-12-08] MEDS: Clotrimazole 1 % Cream 15 GM TUBE 1 APPL TOPICAL ×2 (08:48→21:13)
[2020-12-08] MEDS: 0.9 % Sodium Chloride Flush 3 ML SYRINGE IVFLUSH ×3 (08:48→21:13)
[2020-12-08 09:42] LABS: Creatinine Urine 77.98 mg/dL; Protein/Creatinine Ratio, Ur 1.85 (<0.2); Total Protein Urine Random 144 mg/dL (<12)
--- NOTE | 2020-12-08 10:30 | CA_ITS ---
Transthoracic Echocardiogram Patient (Last, First, Middle): Alka Israel L Gender: Female Date of : 1955 Age: 65 Procedure Date: 12/08/2020 Procedure Type: Transthoracic Echocardiogram Location: [facility] [place] Height: 167.64 cm Weight: 136.08 kg BSA: 2.38 m2 Heart Rate: bpm BP: 122 / 73 mmHg Computer Forensic Specialist: NIECY Li MD: Helena Au MD Door Repairman: Stevie Duffy MD Symptoms: GPC bacteremia Study Quality: Fair ECG Rhythm: Atrial Fibrillation Conclusions: - 1. Normal LV systolic function with mild LVH with LVEF of 55 60% 2. At least mildly dilated left atrium 3. Normal cardiac valvular Doppler is 4. Moderately elevated right ventricular systolic pressure with significantly elevated right atrial pressures 5. No gross pericardial effusion 6. Technically limited study and cardiac valve structures not well visualized and vegetation cannot be entirely ruled out on this study Findings Left Ventricle Normal left ventricular size and systolic function. There is mildly increased left ventricular wall thickness. The visually estimated ejection fraction is between 55-60%. Diastolic function is indeterminate on the basis of available data. Right Ventricle The right ventricle was not well visualized. Atria The left atrium is mildly dilated. Interatrial shunt cannot be excluded. The right atrium was not well visualized. Aortic Valve The aortic valve was not well visualized. There is no aortic valve stenosis. There is no aortic valve regurgitation. Mitral Valve The mitral valve was not well visualized. There is trace mitral valve regurgitation. There is no mitral valve stenosis. Pulmonic Valve The pulmonic valve was not well visualized. Tricuspid Valve The tricuspid valve was not well visualized. There is trace tricuspid valve regurgitation. Significantly elevated right atrial pressure. Moderate pulmonary hypertension is present. Great Vessels All visible segments of the aorta are normal in size. The pulmonary artery was not well visualized. Venous The inferior vena cava is moderately dilated and does not collapse with inspiration. Pericardium/Pleural There is no evidence of pericardial effusion. Prior Study Comparison No previous study in the last 5 years for comparison Recommendations, Care & Conclusions Consider a RENAN if clinically appropriate. Measurements 2D Linear Measurements IVSd: 1.23 0.6-0.9/0.6-1.0 cm LVIDd: 4.26 3.9-5.3/4.2-5.9 cm LVIDd Index: 1.79 2.4-3.2/2.2-3.1 cm/m2 LVIDs: 2.80 2.0-3.6 cm LVPWd: 1.24 0.7-1.1 cm Ao Root: 3.30 2.1-3.5 cm LA Diam: 4.60 2.7-3.8/3.0-4.0 cm LAIDs Index: 1.93 1.5-2.3 cm/m2 LV Mass: 236.61 67-162/88-224 g LV Mass Index: 99.42 43-95/49-115 g/m2 LVOT Diam: 2.00 3.0+(-)1.3 cm 2D Systolic Function EF 4C: 55.10 >55% EF 2C: 53.40 >55% EF BiP: 54.40 >55% Aortic Valve AoV Pk Kevin: 1.45 AoV Mn Kevin: 1.03 AoV VTI: 0.27 AoV Pk Grad: 8.00 Aov Mn Grad: 5.00 SURESH Cont.VTI: 2.00 LVOT LVOT Pk Kevin: 0.85 LVOT Mn Kevin: 0.63 LVOT VTI: 0.17 LVOT Pk Grad: 3.00 LVOT Mn Grad: 2.00 LVOT Diam: 2.00 LVOT Area: 3.14 Tricuspid Valve TR Pk Kevin: 3.01 TR Pk Grad: 36.00 RA Press: 15.00 RVSP: 51.00 Great Vessels Aorta Ao Root-2D: 3.30 2.0-3.7 cm Ao Asc: 3.70 2.1-3.4 cm Ao Arch: 3.40 Updated in Other Vendor System with Status of Final Stevie Duffy MD electronically signed on 12/08/2020 3:39:11 PM with status of Final
[2020-12-08 11:05] LABS: Glucose, Whole Blood 168 mg/dL (60-115)
[2020-12-08] MEDS: Insulin Lispro 100 UNIT/ML 3 ML VIAL SUBCUT ×3 (11:47→21:08)
--- NOTE | 2020-12-08 12:03 | MHC.CM.PN ---
per rounds pt expected dc toward end of the week dc plan remains at this time home with bsvna resumption
--- NOTE | 2020-12-08 12:11 | HO.PM.IMPN ---
Subjective Subjective Date of Service: 12/08/20 Interval History: fever resolved no N/V/abd pain no dyspnea RLE about the same in terms of redness and swelling Physical Exam Vital Signs: Vital Signs: Last Vital Signs Temp 97.6 F 12/08/20 11:27 Pulse 66 12/08/20 11:27 Resp 18 12/08/20 11:27 BP 134/74 12/08/20 11:27 Pulse Ox 94 12/08/20 11:27 Oxygen Flow Rate 2 12/06/20 06:19 Body Mass Index 48.4 Gen: in no acute distress HEENT: sclera anicteric, dry mucous membranes, no oral lesions Neck: supple, no adenopathy or goiter Lungs: clear to auscultation bilaterally Heart: irregular, no murmurs Abd: soft, obese, non-tender, non-distended Ext: 1+ nonpitting edema bilaterally Skin: left Achilles wound with granulation tissue without purulence or lymphangitic streaking; right bustillos with erythema and induration without fluctuance or drainage Neuro: alert and oriented x3, no focal findings Psych: appropriate affect Objective Data Current Medications Generic Name Dose Route Start Last Admin Trade Name Freq PRN Reason Stop Dose Admin Acetaminophen 650 mg 12/06/20 11:31 12/07/20 08:40 Acetaminophen 325 Mg Tablet PO 650 mg Q6H PRN Administration Pain, Mild (Pain Scale 1-3) Amlodipine Besylate 10 mg 12/06/20 21:00 12/07/20 20:25 Amlodipine Besylate 10 Mg Tablet PO 10 mg BEDTIME PIPE Administration Protocol Apixaban 5 mg 12/06/20 21:00 12/08/20 08:25 Apixaban 5 Mg Tablet PO 5 mg BID PIPE Administration Atorvastatin Calcium 40 mg 12/06/20 21:00 12/07/20 20:25 Atorvastatin Calcium 40 Mg Tablet PO 40 mg BEDTIME PIPE Administration Clotrimazole 1 appl 12/07/20 21:00 12/08/20 08:48 Clotrimazole 1 % Cream 15 Gm Tube TOPICAL 1 appl BID PIPE Administration Protocol Docusate Sodium 100 mg 12/06/20 11:31 Docusate Sodium 100 Mg Capsule PO BID PRN Constipation Fluoxetine HCl 20 mg 12/07/20 09:00 12/08/20 08:25 Fluoxetine Hcl 20 Mg Capsule PO 20 mg DAILY PIPE Administration Gabapentin 600 mg 12/06/20 15:00 12/08/20 08:24 Gabapentin 600 Mg Tablet PO 600 mg TID PIPE Administration Guaifenesin 600 mg 12/07/20 11:45 Guaifenesin La 600 Mg Tab.Er.12h PO BID PRN cough Hydroxyzine HCl 25 mg 12/06/20 14:58 12/06/20 17:59 Hydroxyzine Hcl 25 Mg Tablet PO 25 mg QID PRN Administration Anxiety Ceftriaxone Sodium 1 gm/ 50 mls @ 100 mls/hr 12/07/20 15:00 12/07/20 15:53 Sodium Chloride IV Infused Q24H PIPE Infusion Sodium Chloride 1,000 mls @ 150 mls/hr 12/08/20 08:00 12/08/20 08:38 Ns IVCONT 150 mls/hr .Q6H40M [facility] Administration Insulin Glargine 40 unit 12/07/20 09:00 12/08/20 08:27 Insulin Glargine,Hum.Rec.Anlog 100 Unit/Ml 10 Ml Vial SUBCUT 40 unit DAILY [facility] Administration Insulin Human Lispro 0 unit 12/06/20 16:30 12/08/20 11:47 Insulin Lispro 100 Unit/Ml 3 Ml Vial SUBCUT 2 unit QIDACHS [facility] Administration Protocol Lisinopril 5 mg 12/07/20 09:00 12/08/20 08:25 Lisinopril 5 Mg Tablet PO 5 mg DAILY [facility] Administration Protocol Metoprolol Succinate 200 mg 12/07/20 09:00 12/08/20 08:24 Metoprolol Succinate Er 100 Mg Tab.Er.24h PO 200 mg DAILY [facility] Administration Protocol Nicotine 7 mg 12/06/20 12:15 12/08/20 08:52 Nicotine 7 Mg Patch.Td24 TRANSDERMA Not Given DAILY [facility] Ondansetron HCl 4 mg 12/06/20 11:31 Ondansetron Hcl 4 Mg/2 Ml Vial IVPUSH Q8H PRN Nausea and Vomiting Pharmacy Consult 1 each 12/06/20 09:12 Consult Rx Perform Med Rec MISCELLANE ONCE PRN Consult order Pharmacy Consult 1 each 12/06/20 11:34 Consult Rx Vancomycin Dosing MISCELLANE DAILY PRN Consult order Pharmacy Consult 1 each 12/06/20 12:38 Consult Rx Perform Med Rec MISCELLANE ONCE PRN Consult order Sodium Chloride 3 ml 12/06/20 16:00 12/08/20 08:48 0.9 % Sodium Chloride Flush 3 Ml Syringe IVFLUSH 3 ml QSHIFT PIPE Administration Trazodone HCl 100 mg 12/06/20 21:00 12/07/20 20:26 Trazodone Hcl 100 Mg Tablet PO 100 mg BEDTIME PIPE Administration Labs CBC & Chem 7: 12/08/20 05:33 12/08/20 05:33 Labs: Laboratory Results - last 24 hr 12/07/20 12/07/20 12/08/20 16:09 20:02 05:33 WBC 8.2 RBC 4.21 Hgb 11.8 L Hct 37.9 MCV 90.0 MCH 28.0 MCHC 31.1 RDW 16.7 H Plt Count 137 L MPV 11.2 Absolute Nucleated RBC 0.000 Nucleated RBC % (auto) 0.0 Sodium Potassium Chloride Carbon Dioxide Anion Gap BUN Creatinine Estim Creat Clear Calc Estimated GFR POC Glucose 143 H 175 H Random Glucose Calcium C-Reactive Protein U Random Total Protein Ur Random Sodium Urine Creatinine Protein/Creatinin Ratio 12/08/20 12/08/20 12/08/20 05:33 07:05 08:55 WBC RBC Hgb Hct MCV MCH MCHC RDW Plt Count MPV Absolute Nucleated RBC Nucleated RBC % (auto) Sodium 138 Potassium 4.5 Chloride 106 Carbon Dioxide 22 Anion Gap 15 BUN 48 H Creatinine 2.23 H Estim Creat Clear Calc 35.2 Estimated GFR 22 POC Glucose 120 H Random Glucose 122 H Calcium 8.4 C-Reactive Protein 28.75 H U Random Total Protein 144 H Ur Random Sodium 54.0 Urine Creatinine 77.98 Protein/Creatinin Ratio 1.85 H 12/08/20 11:02 WBC RBC Hgb Hct MCV MCH MCHC RDW Plt Count MPV Absolute Nucleated RBC Nucleated RBC % (auto) Sodium Potassium Chloride Carbon Dioxide Anion Gap BUN Creatinine Estim Creat Clear Calc Estimated GFR POC Glucose 168 H Random Glucose Calcium C-Reactive Protein U Random Total Protein Ur Random Sodium Urine Creatinine Protein/Creatinin Ratio Microbiology Microbiology Results: Microbiology 12/06/20 06:30 Blood - Venous Blood Culture - Final Streptococcus group c 12/06/20 07:35 Blood - Venous Blood Culture - Final Streptococcus group c 12/06/20 Unknown Urine Catheterized - Howell Catheter Urine Culture - Final Raoultella planticola Assessment and Plan (1) Bacteremia: Status: Acute (2) Streptococcal infection group C: Status: Acute (3) Severe sepsis: Status: Acute Assessment and Plan: hospital d#3 65 year-old woman with DM2, CKD3, diastolic CHF, AF, morbid obesity, recurrent leg cellulitis, tobacco abuse recent I+D and debridement of polymicrobial L Achilles tendon and gastrocnemius infection; and recent ureteral stent removal for ureterolithiasis, presenting with weakness and found to be septic- bloodstream + urinary infections # severe sepsis - treat sources as below # NJ - FENa 1.1, likely septic ATN. will give more IV fluid resuscitation. consult Nephrology # group C strep bacteremia - ID consulted, changed vancomycin to ceftriaxone d#2, TTE + repeat BCx pending # Raoultella planticola UTI - ceftriaxone as above # AF - continue apixaban for anticoagulation - continue metoprolol succinate for rate control # HTN - continue metoprolol + amlodipine; hold lisinopril for now # HFpEF, chronic - continue antihypertensives as above # HLD - continue atorvastatin # DM2 - basal/bolus insulin - continue gabapentin for neuropathy # mood disorder - continue trazodone + flluoxetine + hydroxyzine # tobacco abuse - NRT # morbid obesity - consider outpt bariatrics referral # VTE ppx - apixaban
[2020-12-08 16:08] LABS: Glucose, Whole Blood 153 mg/dL (60-115)
[2020-12-08] MEDS: cefTRIAXone sodium 1 GM in 0.9 % Sodium Chloride 50 ML IV (16:12)
--- NOTE | 2020-12-08 17:14 | P.CONNP_ITS ---
History of Present Illness Reason for Consult Consult date: 12/08/20 Reason for consult: NJ Chief Complaint Chief complaint: Sever sepsis History of Present Illness Narrative: Ms Israel is a 65 year-old patient with insulin-dependent diabetes mellitus as well as stage 3 chronic kidney disease among other medical issues presented to hospital with weakness. She was also admitted to [facility] in June 2020 and again in July-August 2020 for a polymicrobial infection of the left Achilles tendon and medial gastrocnemius myositis related to a steroid injection. 3-4 weeks ago, she underwent cystocopy with stent exchange for a recurrent kidney stone by Dr Rothman at [facility]. She started to have chills, malaise with generalized weakness; She did not not have fever, dyspnea, cough, nausea, vomiting, abdominal pain, or diarrhea. Her L Achilles wound is not draining purulent material and there is no surrounding erythema or lymphangitic streaking. The right bustillos is red and swollen but not particularly painful. She denies flank pain, hematuria, or dysuria. She completed 2 doses of a COVID-19 mRNA vaccine over 2 weeks ago. In the ED, she was noted to be septic by virtue of leukocytosis and fever; severe by virtue of lactic acidosis. She was given a dose of piperacillin/tazobactam after blood and urine cultures were sent, and a total of 2L of normal saline. After hospitalization she developed NJ. Nephrology was consulted to assist in her clinical care Review of Systems Review of Systems Yes all other systems are reviewed and are negative PMFSH Past Medical History Medical History (Updated 12/08/20 @ 17:21 by Shailesh Dickens MD) Achilles tendon infection Atrial fib/flutter, transient Bacteremia Chronic kidney disease Hyperlipidemia Hypertension Morbid obesity Myositis Recurrent cellulitis of lower extremity Streptococcal infection group C Type 2 diabetes mellitus Family History Family History Other Hypertension Family history: reviewed and not pertinent Surgical History Surgical History H/O hysterectomy for benign disease History of incision and drainage Status post debridement Social History Social History Household Members: Spouse Housing: Condominium Do you presently have visiting nurse or other home services: Yes (for wound dressing) Smoking Status: Current every day smoker Tobacco Type: Cigarette Cigarettes Per Day: 4 Years Smoked: 15 Smoked in Last 30 Days: Yes Patient Interested in Nicotine Replacement: No Patient Given Instructions on How to Stop Smoking: No (pt not interested) Use of substances other than those prescribed or required for medical reasons: No Currently Displaying Signs/Symptoms of Drug Intoxication Withdrawal: No Any prior treatment program specific to substance use: No Have you been hit, kicked, punched, or otherwise hurt by someone within the past year? If so, by whom?: No Do you feel safe in your current relationship?: Yes Is there a partner from a previous relationship who is making you feel unsafe now?: No Are you made to feel afraid or neglected: No Spiritual Healthcare Practices: n/a Yazidism Healthcare Practices: n/a Cultural Healthcare Practices: n/a Advance Directives: No Advance Directives Information Provided: No Do you have thoughts of harming others: None Do you have a plan to hurt others: No Plan Recently lost weight without trying: No Patient : No : No Poor oral hygiene: No service: No Meds Allergies Allergy/AdvReac Type Severity Reaction Status Date / Time adhesive [ADHESIVE] Allergy Intermediate RASH Verified 06/14/20 15:23 dulaglutide [Trulicity] Allergy Unknown Unknown Verified 06/14/20 15:23 Active Medications: Current Medications Generic Name Dose Route Start Last Admin Trade Name Freq PRN Reason Stop Dose Admin Acetaminophen 650 mg 12/06/20 11:31 12/07/20 08:40 Acetaminophen 325 Mg Tablet PO 650 mg Q6H PRN Administration Pain, Mild (Pain Scale 1-3) Amlodipine Besylate 10 mg 12/06/20 21:00 12/07/20 20:25 Amlodipine Besylate 10 Mg Tablet PO 10 mg BEDTIME PIPE Administration Protocol Apixaban 5 mg 12/06/20 21:00 12/08/20 08:25 Apixaban 5 Mg Tablet PO 5 mg BID PIPE Administration Atorvastatin Calcium 40 mg 12/06/20 21:00 12/07/20 20:25 Atorvastatin Calcium 40 Mg Tablet PO 40 mg BEDTIME PIPE Administration Clotrimazole 1 appl 12/07/20 21:00 12/08/20 08:48 Clotrimazole 1 % Cream 15 Gm Tube TOPICAL 1 appl BID PIPE Administration Protocol Docusate Sodium 100 mg 12/06/20 11:31 Docusate Sodium 100 Mg Capsule PO BID PRN Constipation Fluoxetine HCl 20 mg 12/07/20 09:00 12/08/20 08:25 Fluoxetine Hcl 20 Mg Capsule PO 20 mg DAILY PIPE Administration Gabapentin 600 mg 12/06/20 15:00 12/08/20 16:11 Gabapentin 600 Mg Tablet PO 600 mg TID PIPE Administration Guaifenesin 600 mg 12/07/20 11:45 Guaifenesin La 600 Mg Tab.Er.12h PO BID PRN cough Hydroxyzine HCl 25 mg 12/06/20 14:58 12/06/20 17:59 Hydroxyzine Hcl 25 Mg Tablet PO 25 mg QID PRN Administration Anxiety Ceftriaxone Sodium 1 gm/ 50 mls @ 100 mls/hr 12/07/20 15:00 12/08/20 16:12 Sodium Chloride IV 100 mls/hr Q24H PIPE Administration Sodium Chloride 1,000 mls @ 150 mls/hr 12/08/20 08:00 12/08/20 16:12 Ns IVCONT 150 mls/hr .Q6H40M PIPE Administration Insulin Glargine 40 unit 12/07/20 09:00 12/08/20 08:27 Insulin Glargine,Hum.Rec.Anlog 100 Unit/Ml 10 Ml Vial SUBCUT 40 unit DAILY PIPE Administration Insulin Human Lispro 0 unit 12/06/20 16:30 12/08/20 16:28 Insulin Lispro 100 Unit/Ml 3 Ml Vial SUBCUT 2 unit QIDACHS [facility] Administration Protocol Metoprolol Succinate 200 mg 12/07/20 09:00 12/08/20 08:24 Metoprolol Succinate Er 100 Mg Tab.Er.24h PO 200 mg DAILY [facility] Administration Protocol Nicotine 7 mg 12/06/20 12:15 12/08/20 08:52 Nicotine 7 Mg Patch.Td24 TRANSDERMA Not Given DAILY [facility] Ondansetron HCl 4 mg 12/06/20 11:31 Ondansetron Hcl 4 Mg/2 Ml Vial IVPUSH Q8H PRN Nausea and Vomiting Pharmacy Consult 1 each 12/06/20 09:12 Consult Rx Perform Med Rec MISCELLANE ONCE PRN Consult order Pharmacy Consult 1 each 12/06/20 11:34 Consult Rx Vancomycin Dosing MISCELLANE DAILY PRN Consult order Pharmacy Consult 1 each 12/06/20 12:38 Consult Rx Perform Med Rec MISCELLANE ONCE PRN Consult order Sodium Chloride 3 ml 12/06/20 16:00 12/08/20 16:13 0.9 % Sodium Chloride Flush 3 Ml Syringe IVFLUSH 3 ml QSHIFT [facility] Administration Trazodone HCl 100 mg 12/06/20 21:00 12/07/20 20:26 Trazodone Hcl 100 Mg Tablet PO 100 mg BEDTIME PIPE Administration Home Medications Medication Instructions Recorded Confirmed Last Taken Type amlodipine 10 mg tablet 10 mg PO BEDTIME 06/14/20 12/06/20 Unknown History apixaban 5 mg tablet 5 mg PO BID 06/14/20 12/06/20 Unknown History atorvastatin 40 mg tablet 40 mg PO BEDTIME 06/14/20 12/06/20 Unknown History fluoxetine 20 mg capsule 20 mg PO DAILY 06/14/20 12/06/20 Unknown History gabapentin 600 mg tablet 600 mg PO TID 06/14/20 12/06/20 Unknown History hydroxyzine HCl 25 mg tablet 25 mg PO QID PRN 06/14/20 12/06/20 Unknown History insulin glargine 100 unit/mL (3 52 unit SUBCUT DAILY 06/14/20 12/06/20 Unknown History mL) subcutaneous pen insulin lispro 200 unit/mL (3 mL) See Rx Instructions .ROUTE .COMPLEX 06/14/20 12/06/20 Unknown History subcutaneous pen lisinopril 5 mg tablet 5 mg PO DAILY 06/14/20 12/06/20 Unknown History metoprolol succinate 200 mg 200 mg PO DAILY 06/14/20 12/06/20 Unknown History tablet,extended release 24 hr pen needle, diabetic 31 gauge x #50 ea 06/14/20 Unknown History 3/16 trazodone 100 mg tablet 100 mg PO BEDTIME 06/14/20 12/06/20 Unknown History amlodipine 10 mg PO BEDTIME 12/06/20 12/06/20 Unknown History apixaban 5 mg PO BID 12/06/20 12/06/20 Unknown History atorvastatin 40 mg PO BEDTIME 12/06/20 12/06/20 Unknown History fluoxetine 20 mg PO DAILY 12/06/20 12/06/20 Unknown History gabapentin 1 tab PO TID 12/06/20 12/06/20 Unknown History hydroxyzine HCl 25 mg PO QID PRN 12/06/20 12/06/20 Unknown History insulin glargine 52 unit SUBCUT DAILY 12/06/20 12/06/20 Unknown History insulin lispro See Rx Instructions .ROUTE .COMPLEX 12/06/20 12/06/20 Unknown History lisinopril 5 mg PO DAILY 12/06/20 12/06/20 Unknown History metoprolol succinate 200 mg PO DAILY 12/06/20 12/06/20 Unknown History trazodone 100 mg PO BEDTIME 12/06/20 12/06/20 Unknown History Physical Exam Vital Signs: Last Vital Signs Temp 98.5 F 12/08/20 15:01 Pulse 79 12/08/20 15:01 Resp 18 12/08/20 15:01 BP 126/75 12/08/20 15:01 Pulse Ox 93 12/08/20 15:01 Oxygen Flow Rate 2 12/06/20 06:19 Body Mass Index 48.4 Const General: alert Orientation/consciousness: patient oriented x3 Neck Neck: Yes supple Resp Auscultation: diminished lung sounds Cardio Heart sounds: no rubs GI Palpation (GI): Soft to palpation Neuro General: patient oriented x3 Results Lab Results Result Diagrams: 12/08/20 05:33 12/08/20 05:33 Lab results: Chemistry 12/06/20 12/07/20 12/08/20 07:35 05:43 05:33 Sodium 139 138 138 Potassium 3.5 4.4 D 4.5 Carbon Dioxide 23 21 L 22 BUN 26 H 35 H 48 H Creatinine 1.29 1.73 H 2.23 H Calcium 8.7 8.3 L 8.4 Hematology 12/06/20 12/07/20 12/08/20 06:30 05:43 05:33 WBC 13.8 H 12.6 H 8.2 Hgb 14.4 12.1 11.8 L Plt Count 169 140 L 137 L Urinalysis 12/06/20 07:12 Urine Color YELLOW Urine Appearance CLOUDY Urine pH 6.0 Ur Specific [place] 1.020 Urine Protein 2+ H Urine Glucose (UA) NEG Urine Ketones NEG Urine Blood 1+ H Urine Nitrite NEG Ur Leukocyte Esterase TRACE H Urine RBC 5-9 H Urine WBC 15-29 H Ur Squamous Epith Cells NONE Urine Studies 12/08/20 08:55 Urine Creatinine 77.98 Assessment and Plan (1) Acute kidney injury: Problem details: Has CKD 3 at baseline NJ due to compromise in renal perfusion due to sepsis with resultant tubular injury No diuretics/ACEI/ARB/NSAID's. All medications should be dosed for GFR DD- post infectious GN/AIN- Unlikely' If creatinine goes up, shall do a renal US S as well as C3/C4 Continue current supportive care for now. Labs AM. Shall closely follow up Status: Acute Procedures Date of Service Date of Service: 12/08/20
--- NOTE | 2020-12-08 19:11 | P.CONWO_ITS ---
History of Present Illness Data of Consult Service Date: 12/08/20 Requesting physician: Helena Au Primary Care Provider: Unknown Physician This is a 65 y/o female with a history of insulin-dependent diabetes mellitus, chronic renal insufficiency, kidney stones, atrial fibrillation and CHF Who developed weakness at home and was transported to the emergency department for evaluation. Workup revealed findings consistent with sepsis and she was admitted for treatment. She has a chronic wound over the left Achilles area. Several months ago, she developed an abscess over the left Achilles tendon. She has required multiple drainage procedures and debridement. she is followed by an orthopedic surgeon at [facility]. Recently, her has a been applying wet to dry dressings daily. Both she and her reports slow improvement in the wound. She has no complaints of pain referable to it. She gives a history of diabetic neuropathy. Review of Systems Constitutional: Constitutional: Reports fatigue and Reports weakness Cardiovascular: Cardiovascular: Denies chest pain and Denies dyspnea Respiratory: Respiratory: Denies cough and Denies dyspnea Neurologic: Reports weakness Endocrine: Endocrine: Reports fatigue PMFSH Medical History Achilles tendon infection Atrial fib/flutter, transient Bacteremia Chronic kidney disease Hyperlipidemia Hypertension Morbid obesity Myositis Recurrent cellulitis of lower extremity Streptococcal infection group C Type 2 diabetes mellitus Family History Other Hypertension Family history: reviewed and not pertinent Surgical History H/O hysterectomy for benign disease History of incision and drainage Status post debridement Social History Household Members: Spouse Housing: Condominium Do you presently have visiting nurse or other home services: Yes (for wound dressing) Smoking Status: Current every day smoker Tobacco Type: Cigarette Cigarettes Per Day: 4 Years Smoked: 15 Smoked in Last 30 Days: Yes Patient Interested in Nicotine Replacement: No Patient Given Instructions on How to Stop Smoking: No (pt not interested) Use of substances other than those prescribed or required for medical reasons: No Currently Displaying Signs/Symptoms of Drug Intoxication Withdrawal: No Any prior treatment program specific to substance use: No Have you been hit, kicked, punched, or otherwise hurt by someone within the past year? If so, by whom?: No Do you feel safe in your current relationship?: Yes Is there a partner from a previous relationship who is making you feel unsafe now?: No Are you made to feel afraid or neglected: No Spiritual Healthcare Practices: n/a Sikh Healthcare Practices: n/a Cultural Healthcare Practices: n/a Advance Directives: No Advance Directives Information Provided: No Do you have thoughts of harming others: None Do you have a plan to hurt others: No Plan Recently lost weight without trying: No Patient : No : No Poor oral hygiene: No service: No Meds Allergies Allergy/AdvReac Type Severity Reaction Status Date / Time adhesive [ADHESIVE] Allergy Intermediate RASH Verified 06/14/20 15:23 dulaglutide [Trulicity] Allergy Unknown Unknown Verified 06/14/20 15:23 Active Medications: Current Medications Generic Name Dose Route Start Last Admin Trade Name Freq PRN Reason Stop Dose Admin Acetaminophen 650 mg 12/06/20 11:31 12/07/20 08:40 Acetaminophen 325 Mg Tablet PO 650 mg Q6H PRN Administration Pain, Mild (Pain Scale 1-3) Amlodipine Besylate 10 mg 12/06/20 21:00 12/07/20 20:25 Amlodipine Besylate 10 Mg Tablet PO 10 mg BEDTIME PIPE Administration Protocol Apixaban 5 mg 12/06/20 21:00 12/08/20 08:25 Apixaban 5 Mg Tablet PO 5 mg BID PIPE Administration Atorvastatin Calcium 40 mg 12/06/20 21:00 12/07/20 20:25 Atorvastatin Calcium 40 Mg Tablet PO 40 mg BEDTIME PIPE Administration Clotrimazole 1 appl 12/07/20 21:00 12/08/20 08:48 Clotrimazole 1 % Cream 15 Gm Tube TOPICAL 1 appl BID PIPE Administration Protocol Docusate Sodium 100 mg 12/06/20 11:31 Docusate Sodium 100 Mg Capsule PO BID PRN Constipation Fluoxetine HCl 20 mg 12/07/20 09:00 12/08/20 08:25 Fluoxetine Hcl 20 Mg Capsule PO 20 mg DAILY PIPE Administration Gabapentin 600 mg 12/06/20 15:00 12/08/20 16:11 Gabapentin 600 Mg Tablet PO 600 mg TID PIPE Administration Guaifenesin 600 mg 12/07/20 11:45 Guaifenesin La 600 Mg Tab.Er.12h PO BID PRN cough Hydroxyzine HCl 25 mg 12/06/20 14:58 12/06/20 17:59 Hydroxyzine Hcl 25 Mg Tablet PO 25 mg QID PRN Administration Anxiety Ceftriaxone Sodium 1 gm/ 50 mls @ 100 mls/hr 12/07/20 15:00 12/08/20 18:13 Sodium Chloride IV Infused Q24H PIPE Infusion Sodium Chloride 1,000 mls @ 150 mls/hr 12/08/20 08:00 12/08/20 16:12 Ns IVCONT 150 mls/hr .Q6H40M PIPE Administration Insulin Glargine 40 unit 12/07/20 09:00 12/08/20 08:27 Insulin Glargine,Hum.Rec.Anlog 100 Unit/Ml 10 Ml Vial SUBCUT 40 unit DAILY PIPE Administration Insulin Human Lispro 0 unit 12/06/20 16:30 12/08/20 16:28 Insulin Lispro 100 Unit/Ml 3 Ml Vial SUBCUT 2 unit QIDACHS [facility] Administration Protocol Metoprolol Succinate 200 mg 12/07/20 09:00 12/08/20 08:24 Metoprolol Succinate Er 100 Mg Tab.Er.24h PO 200 mg DAILY PIPE Administration Protocol Nicotine 7 mg 12/06/20 12:15 12/08/20 08:52 Nicotine 7 Mg Patch.Td24 TRANSDERMA Not Given DAILY PIPE Ondansetron HCl 4 mg 12/06/20 11:31 Ondansetron Hcl 4 Mg/2 Ml Vial IVPUSH Q8H PRN Nausea and Vomiting Pharmacy Consult 1 each 12/06/20 09:12 Consult Rx Perform Med Rec MISCELLANE ONCE PRN Consult order Pharmacy Consult 1 each 12/06/20 11:34 Consult Rx Vancomycin Dosing MISCELLANE DAILY PRN Consult order Pharmacy Consult 1 each 12/06/20 12:38 Consult Rx Perform Med Rec MISCELLANE ONCE PRN Consult order Sodium Chloride 3 ml 12/06/20 16:00 12/08/20 16:13 0.9 % Sodium Chloride Flush 3 Ml Syringe IVFLUSH 3 ml QSHIFT PIPE Administration Trazodone HCl 100 mg 12/06/20 21:00 12/07/20 20:26 Trazodone Hcl 100 Mg Tablet PO 100 mg BEDTIME PIPE Administration Home Medications Medication Instructions Recorded Confirmed Last Taken Type amlodipine 10 mg tablet 10 mg PO BEDTIME 06/14/20 12/06/20 Unknown History apixaban 5 mg tablet 5 mg PO BID 06/14/20 12/06/20 Unknown History atorvastatin 40 mg tablet 40 mg PO BEDTIME 06/14/20 12/06/20 Unknown History fluoxetine 20 mg capsule 20 mg PO DAILY 06/14/20 12/06/20 Unknown History gabapentin 600 mg tablet 600 mg PO TID 06/14/20 12/06/20 Unknown History hydroxyzine HCl 25 mg tablet 25 mg PO QID PRN 06/14/20 12/06/20 Unknown History insulin glargine 100 unit/mL (3 52 unit SUBCUT DAILY 06/14/20 12/06/20 Unknown History mL) subcutaneous pen insulin lispro 200 unit/mL (3 mL) See Rx Instructions .ROUTE .COMPLEX 06/14/20 12/06/20 Unknown History subcutaneous pen lisinopril 5 mg tablet 5 mg PO DAILY 06/14/20 12/06/20 Unknown History metoprolol succinate 200 mg 200 mg PO DAILY 06/14/20 12/06/20 Unknown History tablet,extended release 24 hr pen needle, diabetic 31 gauge x #50 ea 06/14/20 Unknown History 3/16 trazodone 100 mg tablet 100 mg PO BEDTIME 06/14/20 12/06/20 Unknown History amlodipine 10 mg PO BEDTIME 12/06/20 12/06/20 Unknown History apixaban 5 mg PO BID 12/06/20 12/06/20 Unknown History atorvastatin 40 mg PO BEDTIME 12/06/20 12/06/20 Unknown History fluoxetine 20 mg PO DAILY 12/06/20 12/06/20 Unknown History gabapentin 1 tab PO TID 12/06/20 12/06/20 Unknown History hydroxyzine HCl 25 mg PO QID PRN 12/06/20 12/06/20 Unknown History insulin glargine 52 unit SUBCUT DAILY 12/06/20 12/06/20 Unknown History insulin lispro See Rx Instructions .ROUTE .COMPLEX 12/06/20 12/06/20 Unknown History lisinopril 5 mg PO DAILY 12/06/20 12/06/20 Unknown History metoprolol succinate 200 mg PO DAILY 12/06/20 12/06/20 Unknown History trazodone 100 mg PO BEDTIME 12/06/20 12/06/20 Unknown History Physical Exam Vital Signs and Narrative: Vital Signs: Last Vital Signs Temp 97.3 F 12/08/20 19:09 Pulse 86 12/08/20 19:09 Resp 18 12/08/20 19:09 BP 105/65 12/08/20 19:09 Pulse Ox 92 12/08/20 19:09 Oxygen Flow Rate 2 12/06/20 06:19 Body Mass Index 48.4 Const: Other: alert, oriented, in no apparent distress Resp: Other: clear to auscultation bilaterally Cardio: Rate: regular rate Rhythm: regular rhythm Skin: Other: there is a clean, superficial, 13 x 3 cm granulating wound over the left Achilles area. Results Labs CBC and Chem 7: 12/09/20 05:28 12/09/20 05:28 Labs: Laboratory Results - last 24 hr 12/07/20 12/08/20 12/08/20 20:02 05:33 05:33 MCV 90.0 MCH 28.0 MCHC 31.1 RDW 16.7 H Plt Count 137 L MPV 11.2 Absolute Nucleated RBC 0.000 Nucleated RBC % (auto) 0.0 Anion Gap 15 Estim Creat Clear Calc 35.2 Estimated GFR 22 POC Glucose 175 H Random Glucose 122 H Calcium 8.4 C-Reactive Protein 28.75 H U Random Total Protein Ur Random Sodium Urine Creatinine Protein/Creatinin Ratio 12/08/20 12/08/20 12/08/20 07:05 08:55 11:02 MCV MCH MCHC RDW Plt Count MPV Absolute Nucleated RBC Nucleated RBC % (auto) Anion Gap Estim Creat Clear Calc Estimated GFR POC Glucose 120 H 168 H Random Glucose Calcium C-Reactive Protein U Random Total Protein 144 H Ur Random Sodium 54.0 Urine Creatinine 77.98 Protein/Creatinin Ratio 1.85 H 12/08/20 16:04 MCV MCH MCHC RDW Plt Count MPV Absolute Nucleated RBC Nucleated RBC % (auto) Anion Gap Estim Creat Clear Calc Estimated GFR POC Glucose 153 H Random Glucose Calcium C-Reactive Protein U Random Total Protein Ur Random Sodium Urine Creatinine Protein/Creatinin Ratio Assessment and Plan (1) Non-pressure chronic ulcer of ankle: Status: Acute She has a clean, healthy appearing granulating wound of the left Achil les area that, by report, has been improving slowly with the use of daily saline dressings. Her reports that there has been minimal drainage evident when he changes the dressings and that the dressing tends to be dry. Begin daily dressing changes with protective cream to intact skin edges and Hydrogel to wound bed.
[2020-12-08 20:19] LABS: Glucose, Whole Blood 172 mg/dL (60-115)
[2020-12-08] MEDS: traZODone HCL 100 MG TABLET PO (21:08)
[2020-12-08] MEDS: Atorvastatin Calcium 40 MG TABLET PO (21:09)
[2020-12-08] MEDS: amLODIPine Besylate 10 MG TABLET PO (21:11)
[2020-12-09] VITALS (9 sets, daily range): BP systolic 134–144; BP diastolic 65–80; PULSE 75–89; RESP 18–20; TEMP 36.3–37.1; O2SAT 91–94
[2020-12-09] MEDS: 0.9 % Sodium Chloride 1,000 ML 150 ML IVCONT (05:51)
[2020-12-09 06:45] LABS: Hematocrit 36.8 % (37-47); Hemoglobin 11.3 g/dl (12.0-16.0); Mean Corpuscular HGB Conc 30.7 g/dl (31.0-35.0); Mean Corpuscular Hemoglobin 27.7 pg (27.0-33.0); Mean Corpuscular Volume 90.2 fL (80-98); Mean Platelet Volume 11.2 fL (9.4-12.3); Platelet Count 148 X10*3/uL (160-400); Red Blood Count 4.08 X10*6/uL (4.20-5.50); Red Cell Distribution Width 16.5 % (11.0-16.0); White Blood Count 7.9 X10*3/uL (4.8-10.8)
[2020-12-09 06:58] LABS: Anion Gap 15 (12-20); Blood Urea Nitrogen 45 mg/dL (9-16); Calcium 8.3 mg/dL (8.4-10.2); Carbon Dioxide 19 mmol/L (22-29); Chloride 108 mmol/L (96-108); Creatinine Clr Calc Pharmacy 38.3; Estimated Glomerular Filt Rate 24; Glucose Random 133 mg/dL (60-115); Potassium 4.4 mmol/L (3.3-5.1); Sodium 138 mmol/L (135-145)
[2020-12-09 07:06] LABS: Glucose, Whole Blood 138 mg/dL (60-115)
[2020-12-09] MEDS: Apixaban 5 MG TABLET PO ×2 (08:54→20:36)
[2020-12-09] MEDS: Metoprolol Succinate ER 100 MG TAB.ER.24H 200 MG PO (08:54)
[2020-12-09] MEDS: Gabapentin 600 MG TABLET PO ×3 (08:57→20:36)
[2020-12-09] MEDS: FLUoxetine HCl 20 MG CAPSULE PO (08:57)
[2020-12-09] MEDS: Nicotine 7 MG PATCH.TD24 TRANSDERMA (08:57)
[2020-12-09] MEDS: 0.9 % Sodium Chloride Flush 3 ML SYRINGE IVFLUSH ×2 (08:59→16:00)
[2020-12-09] MEDS: Insulin Glargine,Hum.rec.anlog 100 UNIT/ML 10 ML VIAL 40 UNIT SUBCUT (09:01)
[2020-12-09] MEDS: Clotrimazole 1 % Cream 15 GM TUBE 1 APPL TOPICAL ×2 (09:03→23:09)
--- NOTE | 2020-12-09 10:17 | PM.PNNEP ---
Subjective Subjective Date of Service: 12/09/20 Interval history: Seen AM. Events noted. All recent data reviewed Physical Exam Vital Signs: Vital Signs: Last Vital Signs Temp 97.7 F 12/09/20 07:06 Pulse 89 12/09/20 08:54 Resp 18 12/09/20 07:06 BP 140/74 H 12/09/20 08:54 Pulse Ox 94 12/09/20 07:06 Oxygen Flow Rate 2 12/06/20 06:19 Body Mass Index 48.4 Const: General: no acute distress, alert and awake Orientation/consciousness: patient oriented x3 Eyes: EOM: EOMs intact bilaterally Neck: Neck: Yes supple Resp: Auscultation: diminished lung sounds Cardio: Jugular venous distension: no JVD GI: Palpation (GI): Soft to palpation Neuro: General: patient oriented x3 and moves all extremities Objective Data Labs CBC & Chem 7: 12/09/20 05:28 12/09/20 05:28 Labs: Laboratory Results - last 24 hr 12/08/20 12/08/20 12/08/20 11:02 16:04 20:06 WBC RBC Hgb Hct MCV MCH MCHC RDW Plt Count MPV Absolute Nucleated RBC Nucleated RBC % (auto) Sodium Potassium Chloride Carbon Dioxide Anion Gap BUN Creatinine Estim Creat Clear Calc Estimated GFR POC Glucose 168 H 153 H 172 H Random Glucose Calcium 12/09/20 12/09/20 12/09/20 05:28 05:28 06:56 WBC 7.9 RBC 4.08 L Hgb 11.3 L Hct 36.8 L MCV 90.2 MCH 27.7 MCHC 30.7 L RDW 16.5 H Plt Count 148 L MPV 11.2 Absolute Nucleated RBC 0.000 Nucleated RBC % (auto) 0.0 Sodium 138 Potassium 4.4 Chloride 108 Carbon Dioxide 19 L Anion Gap 15 BUN 45 H Creatinine 2.05 H Estim Creat Clear Calc 38.3 Estimated GFR 24 POC Glucose 138 H Random Glucose 133 H Calcium 8.3 L Microbiology Microbiology Results: Microbiology 12/08/20 05:33 Blood - Venous Blood Culture - Preliminary No growth after 24 hours. 12/08/20 05:43 Blood - Venous Blood Culture - Preliminary No growth after 24 hours. 12/06/20 06:30 Blood - Venous Blood Culture - Final Streptococcus group c 12/06/20 07:35 Blood - Venous Blood Culture - Final Streptococcus group c 12/06/20 Unknown Urine Catheterized - Howell Catheter Urine Culture - Final Raoultella planticola Assessment & Plan Assessment and plan (1) Acute kidney injury: Problem details: Has CKD 3 at baseline [place] due to compromise in renal perfusion due to sepsis with resultant tubular injury( marginally better) No diuretics/ACEI/ARB/NSAID's. All medications should be dosed for GFR DD- post infectious GN/AIN- Unlikely Continue current supportive care for now Labs AM. Shall closely follow up Status: Acute Time Spent With Patient Time: Total time spent is greater than 50% in coordination of care (as documented) at patient's floor/unit and/or counseling patient: Procedures Date of Service Date of Service: 12/09/20
[2020-12-09 11:01] LABS: Glucose, Whole Blood 209 mg/dL (60-115)
[2020-12-09] MEDS: Docusate Sodium 100 MG CAPSULE PO (11:55)
[2020-12-09] MEDS: Insulin Lispro 100 UNIT/ML 3 ML VIAL SUBCUT ×3 (11:55→20:37)
[2020-12-09] MEDS: 0.9 % Sodium Chloride 1,000 ML 100 ML IVCONT ×2 (11:58→23:09)
--- NOTE | 2020-12-09 14:12 | HO.PM.IMPN ---
Subjective Subjective Date of Service: 12/09/20 Interval History: afebrile no dyspnea no N/V no abd pain RLE still quite red Physical Exam Vital Signs: Vital Signs: Last Vital Signs Temp 97.4 F 12/09/20 11:03 Pulse 85 12/09/20 11:03 Resp 19 12/09/20 11:03 BP 140/79 H 12/09/20 11:03 Pulse Ox 93 12/09/20 11:03 Oxygen Flow Rate 2 12/06/20 06:19 Body Mass Index 48.4 Gen: in no acute distress HEENT: sclera anicteric, dry mucous membranes, no oral lesions Neck: supple, no adenopathy or goiter Lungs: clear to auscultation bilaterally Heart: irregular, no murmurs Abd: soft, obese, non-tender, non-distended Ext: 1+ nonpitting edema bilaterally Skin: left Achilles wound with granulation tissue without purulence or lymphangitic streaking; right bustillos with erythema and induration without fluctuance or drainage Neuro: alert and oriented x3, no focal findings Psych: appropriate affect Objective Data Current Medications Generic Name Dose Route Start Last Admin Trade Name Freq PRN Reason Stop Dose Admin Acetaminophen 650 mg 12/06/20 11:31 12/07/20 08:40 Acetaminophen 325 Mg Tablet PO 650 mg Q6H PRN Administration Pain, Mild (Pain Scale 1-3) Amlodipine Besylate 10 mg 12/06/20 21:00 12/08/20 21:11 Amlodipine Besylate 10 Mg Tablet PO 10 mg BEDTIME PIPE Administration Protocol Apixaban 5 mg 12/06/20 21:00 12/09/20 08:54 Apixaban 5 Mg Tablet PO 5 mg BID PIPE Administration Atorvastatin Calcium 40 mg 12/06/20 21:00 12/08/20 21:09 Atorvastatin Calcium 40 Mg Tablet PO 40 mg BEDTIME PIPE Administration Clotrimazole 1 appl 12/07/20 21:00 12/09/20 09:03 Clotrimazole 1 % Cream 15 Gm Tube TOPICAL 1 appl BID PIPE Administration Protocol Docusate Sodium 100 mg 12/06/20 11:31 12/09/20 11:55 Docusate Sodium 100 Mg Capsule PO 100 mg BID PRN Administration Constipation Fluoxetine HCl 20 mg 12/07/20 09:00 12/09/20 08:57 Fluoxetine Hcl 20 Mg Capsule PO 20 mg DAILY PIPE Administration Gabapentin 600 mg 12/06/20 15:00 12/09/20 08:57 Gabapentin 600 Mg Tablet PO 600 mg TID PIPE Administration Guaifenesin 600 mg 12/07/20 11:45 Guaifenesin La 600 Mg Tab.Er.12h PO BID PRN cough Hydroxyzine HCl 25 mg 12/06/20 14:58 12/06/20 17:59 Hydroxyzine Hcl 25 Mg Tablet PO 25 mg QID PRN Administration Anxiety Ceftriaxone Sodium 1 gm/ 50 mls @ 100 mls/hr 12/07/20 15:00 12/08/20 18:13 Sodium Chloride IV Infused Q24H PIPE Infusion Sodium Chloride 1,000 mls @ 100 mls/hr 12/08/20 08:00 12/09/20 11:58 Ns IVCONT 100 mls/hr .Q10H PIPE Administration Insulin Glargine 40 unit 12/07/20 09:00 12/09/20 09:01 Insulin Glargine,Hum.Rec.Anlog 100 Unit/Ml 10 Ml Vial SUBCUT 40 unit DAILY PIPE Administration Insulin Human Lispro 0 unit 12/06/20 16:30 12/09/20 11:55 Insulin Lispro 100 Unit/Ml 3 Ml Vial SUBCUT 4 unit QIDACHS [facility]ENDING [facility] TO [facility] Administration Protocol Metoprolol Succinate 200 mg 12/07/20 09:00 12/09/20 08:54 Metoprolol Succinate Er 100 Mg Tab.Er.24h PO 200 mg DAILY PIPE Administration Protocol Nicotine 7 mg 12/06/20 12:15 12/09/20 08:57 Nicotine 7 Mg Patch.Td24 TRANSDERMA 7 mg DAILY PIPE Administration Ondansetron HCl 4 mg 12/06/20 11:31 Ondansetron Hcl 4 Mg/2 Ml Vial IVPUSH Q8H PRN Nausea and Vomiting Pharmacy Consult 1 each 12/06/20 09:12 Consult Rx Perform Med Rec MISCELLANE ONCE PRN Consult order Pharmacy Consult 1 each 12/06/20 11:34 Consult Rx Vancomycin Dosing MISCELLANE DAILY PRN Consult order Pharmacy Consult 1 each 12/06/20 12:38 Consult Rx Perform Med Rec MISCELLANE ONCE PRN Consult order Polyethylene Glycol 17 gm 12/09/20 11:22 Polyethylene Glycol 3350 17 Gm Powd.Pack PO DAILY PRN constipation Sodium Chloride 3 ml 12/06/20 16:00 12/09/20 08:59 0.9 % Sodium Chloride Flush 3 Ml Syringe IVFLUSH 3 ml QSHIFT PIPE Administration Trazodone HCl 100 mg 12/06/20 21:00 12/08/20 21:08 Trazodone Hcl 100 Mg Tablet PO 100 mg BEDTIME PIPE Administration Labs CBC & Chem 7: 12/09/20 05:28 12/09/20 05:28 Labs: Laboratory Results - last 24 hr 12/08/20 12/08/20 12/09/20 16:04 20:06 05:28 WBC 7.9 RBC 4.08 L Hgb 11.3 L Hct 36.8 L MCV 90.2 MCH 27.7 MCHC 30.7 L RDW 16.5 H Plt Count 148 L MPV 11.2 Absolute Nucleated RBC 0.000 Nucleated RBC % (auto) 0.0 Sodium Potassium Chloride Carbon Dioxide Anion Gap BUN Creatinine Estim Creat Clear Calc Estimated GFR POC Glucose 153 H 172 H Random Glucose Calcium 12/09/20 12/09/20 12/09/20 05:28 06:56 10:51 WBC RBC Hgb Hct MCV MCH MCHC RDW Plt Count MPV Absolute Nucleated RBC Nucleated RBC % (auto) Sodium 138 Potassium 4.4 Chloride 108 Carbon Dioxide 19 L Anion Gap 15 BUN 45 H Creatinine 2.05 H Estim Creat Clear Calc 38.3 Estimated GFR 24 POC Glucose 138 H 209 H Random Glucose 133 H Calcium 8.3 L TTE 12/08/20 1. Normal LV systolic function with mild LVH with LVEF of 55 60% 2. At least mildly dilated left atrium 3. Normal cardiac valvular Doppler is 4. Moderately elevated right ventricular systolic pressure with significantly elevated right atrial pressures 5. No gross pericardial effusion 6. Technically limited study and cardiac valve structures not well visualized and vegetation cannot be entirely ruled out on this study Microbiology Microbiology Results: Microbiology 12/08/20 05:33 Blood - Venous Blood Culture - Preliminary No growth after 24 hours. 12/08/20 05:43 Blood - Venous Blood Culture - Preliminary No growth after 24 hours. 12/06/20 06:30 Blood - Venous Blood Culture - Final Streptococcus group c 12/06/20 07:35 Blood - Venous Blood Culture - Final Streptococcus group c 12/06/20 Unknown Urine Catheterized - Howell Catheter Urine Culture - Final Raoultella planticola Assessment and Plan (1) Bacteremia: Status: Acute (2) Streptococcal infection group C: Status: Acute (3) Severe sepsis: Status: Acute Assessment and Plan: hospital d#3 65 year-old woman with DM2, CKD3, diastolic CHF, AF, morbid obesity, recurrent leg cellulitis, tobacco abuse recent I+D and debridement of polymicrobial L Achilles tendon and gastrocnemius infection; and recent ureteral stent removal for ureterolithiasis, presenting with weakness and found to be septic- bloodstream + urinary infections # severe sepsis - treat sources as below # group C strep bacteremia - ID consulted, changed vancomycin to ceftriaxone d#3, TTE no veg though limited study; repeat BCx pending # Raoultella planticola UTI - ceftriaxone as above # [place] - FENa 1.1, likely septic ATN, improving, continue IV fluids, hold lisinopril, Nephrology following # s/p I+D and debridement of polymicrobial L Achilles tendon and gastrocnemius infection - excellent granulation tissue. per Wound Care consult: daily dressing changes with protective cream to intact skin edges and Hydrogel to wound bed # AF - continue apixaban for anticoagulation - continue metoprolol succinate for rate control # HTN - continue metoprolol + amlodipine; hold lisinopril for now # HFpEF, chronic - continue antihypertensives as above # HLD - continue atorvastatin # DM2 - basal/bolus insulin - continue gabapentin for neuropathy # mood disorder - continue trazodone + flluoxetine + hydroxyzine # tobacco abuse - NRT # morbid obesity - consider outpt bariatrics referral # VTE ppx - apixaban # dispo - anticipate home with [facility]
[2020-12-09 15:52] LABS: Glucose, Whole Blood 189 mg/dL (60-115)
[2020-12-09] MEDS: cefTRIAXone sodium 1 GM in 0.9 % Sodium Chloride 50 ML IV (16:00)
--- NOTE | 2020-12-09 18:56 | PC.NURSE ---
Assumed care around 1500. Upon assessment, found right lower extremity to bet very warm to the tough and red. Notified . Bedside US of lower extremity ordered and completed. Awaiting results. Reported to night RN.
[2020-12-09 19:57] LABS: Glucose, Whole Blood 177 mg/dL (60-115)
[2020-12-09] MEDS: Acetaminophen 325 MG TABLET 650 MG PO (20:35)
[2020-12-09] MEDS: traZODone HCL 100 MG TABLET PO (20:35)
[2020-12-09] MEDS: guaiFENesin LA 600 MG TAB.ER.12H PO (20:35)
[2020-12-09] MEDS: Atorvastatin Calcium 40 MG TABLET PO (20:36)
[2020-12-09] MEDS: amLODIPine Besylate 10 MG TABLET PO (20:37)
[2020-12-10] VITALS (8 sets, daily range): BP systolic 113–142; BP diastolic 55–86; PULSE 68–84; RESP 18–20; TEMP 36.1–37.1; O2SAT 92–96
[2020-12-10 06:56] LABS: Anion Gap 11 (12-20); Blood Urea Nitrogen 39 mg/dL (9-16); C Reactive Protein 13.47 mg/dL (< or = 0.50); Calcium 8.5 mg/dL (8.4-10.2); Carbon Dioxide 21 mmol/L (22-29); Chloride 110 mmol/L (96-108); Creatinine Clr Calc Pharmacy 42.5; Estimated Glomerular Filt Rate 27; Glucose Random 148 mg/dL (60-115); Potassium 4.4 mmol/L (3.3-5.1); Sodium 138 mmol/L (135-145)
[2020-12-10 07:13] LABS: Glucose, Whole Blood 147 mg/dL (60-115)
[2020-12-10] MEDS: Nicotine 7 MG PATCH.TD24 TRANSDERMA (08:08)
[2020-12-10] MEDS: 0.9 % Sodium Chloride Flush 3 ML SYRINGE IVFLUSH ×3 (08:08→23:21)
[2020-12-10] MEDS: Metoprolol Succinate ER 100 MG TAB.ER.24H 200 MG PO (08:11)
[2020-12-10] MEDS: Gabapentin 600 MG TABLET PO ×3 (08:11→19:46)
[2020-12-10] MEDS: Insulin Glargine,Hum.rec.anlog 100 UNIT/ML 10 ML VIAL 40 UNIT SUBCUT (08:12)
[2020-12-10] MEDS: FLUoxetine HCl 20 MG CAPSULE PO (08:12)
[2020-12-10] MEDS: Apixaban 5 MG TABLET PO ×2 (08:12→19:46)
[2020-12-10] MEDS: Clotrimazole 1 % Cream 15 GM TUBE 1 APPL TOPICAL ×2 (08:13→20:34)
[2020-12-10] MEDS: 0.9 % Sodium Chloride 1,000 ML 50 ML IVCONT (08:28)
[2020-12-10] MEDS: guaiFENesin LA 600 MG TAB.ER.12H PO ×2 (08:28→21:00)
[2020-12-10 11:08] LABS: Glucose, Whole Blood 224 mg/dL (60-115)
[2020-12-10] MEDS: Insulin Lispro 100 UNIT/ML 3 ML VIAL SUBCUT ×3 (11:25→21:01)
--- NOTE | 2020-12-10 12:08 | MHC.CM.PN ---
per rounds dc likely on sat plan home no services
--- NOTE | 2020-12-10 12:29 | P.PNNP_ITS ---
Subjective Subjective Date of Service: 12/10/20 Interval history: Events noted. All recent data reviewed. D/W Med Attending Physical Exam 2 Vital Signs: Vital Signs: Last Vital Signs Temp 98.8 F 12/10/20 11:16 Pulse 81 12/10/20 11:16 Resp 20 12/10/20 11:16 BP 113/55 L 12/10/20 11:16 Pulse Ox 94 12/10/20 11:16 Oxygen Flow Rate 2 12/06/20 06:19 Body Mass Index 48.4 Const: General: no acute distress Orientation/consciousness: patient oriented x3 Neck: Neck: Yes supple Resp: Auscultation: diminished lung sounds Cardio: Rate: regular rate GI: Palpation (GI): Soft to palpation Neuro: General: patient oriented x3 and moves all extremities Objective Data Labs CBC & Chem 7: 12/09/20 05:28 12/10/20 05:20 Labs: Laboratory Results - last 24 hr 12/09/20 12/09/20 12/10/20 15:46 19:48 05:20 Sodium 138 Potassium 4.4 Chloride 110 H Carbon Dioxide 21 L Anion Gap 11 L BUN 39 H Creatinine 1.85 H Estim Creat Clear Calc 42.5 Estimated GFR 27 POC Glucose 189 H 177 H Random Glucose 148 H Calcium 8.5 C-Reactive Protein 13.47 H 12/10/20 12/10/20 07:01 10:54 Sodium Potassium Chloride Carbon Dioxide Anion Gap BUN Creatinine Estim Creat Clear Calc Estimated GFR POC Glucose 147 H 224 H Random Glucose Calcium C-Reactive Protein Microbiology Microbiology Results: Microbiology 12/08/20 05:33 Blood - Venous Blood Culture - Preliminary No growth after 48 hours. 12/08/20 05:43 Blood - Venous Blood Culture - Preliminary No growth after 48 hours. 12/06/20 06:30 Blood - Venous Blood Culture - Final Streptococcus group c 12/06/20 07:35 Blood - Venous Blood Culture - Final Streptococcus group c 12/06/20 Unknown Urine Catheterized - Howell Catheter Urine Culture - Final Raoultella planticola Assessment & Plan Assessment and plan (1) Acute kidney injury: Status: Acute Assessment and Plan: Has CKD 3 at baseline [place] due to compromise in renal perfusion due to sepsis with resultant tubular injury(improving) No diuretics/ACEI/ARB/NSAID's. All medications should be dosed for GFR DD- post infectious GN/AIN- Unlikely Continue current supportive care for now Labs AM. Shall closely follow up Time Spent With Patient Time: Total time spent is greater than 50% in coordination of care (as documented) at patient's floor/unit and/or counseling patient: Procedures Date of Service Date of Service: 12/10/20
--- NOTE | 2020-12-10 14:51 | P.PNIM_ITS ---
Subjective Subjective Date of Service: 12/10/20 Interval History: no fever RLE still hot, red Physical Exam Vital Signs: Vital Signs: Last Vital Signs Temp 98.8 F 12/10/20 11:16 Pulse 81 12/10/20 11:16 Resp 20 12/10/20 11:16 BP 113/55 L 12/10/20 11:16 Pulse Ox 94 12/10/20 11:16 Oxygen Flow Rate 2 12/06/20 06:19 Body Mass Index 48.4 Gen: in no acute distress HEENT: sclera anicteric, dry mucous membranes, no oral lesions Neck: supple, no adenopathy or goiter Lungs: clear to auscultation bilaterally Heart: irregular, no murmurs Abd: soft, obese, non-tender, non-distended Ext: 1+ nonpitting edema bilaterally Skin: left Achilles wound with granulation tissue without purulence or lymphangitic streaking; right bustillos with erythema and induration without fluctuance or drainage Neuro: alert and oriented x3, no focal findings Psych: appropriate affect Objective Data Current Medications Generic Name Dose Route Start Last Admin Trade Name Freq PRN Reason Stop Dose Admin Acetaminophen 650 mg 12/06/20 11:31 12/09/20 20:35 Acetaminophen 325 Mg Tablet PO 650 mg Q6H PRN Administration Pain, Mild (Pain Scale 1-3) Amlodipine Besylate 10 mg 12/06/20 21:00 12/09/20 20:37 Amlodipine Besylate 10 Mg Tablet PO 10 mg BEDTIME PIPE Administration Protocol Apixaban 5 mg 12/06/20 21:00 12/10/20 08:12 Apixaban 5 Mg Tablet PO 5 mg BID PIPE Administration Atorvastatin Calcium 40 mg 12/06/20 21:00 12/09/20 20:36 Atorvastatin Calcium 40 Mg Tablet PO 40 mg BEDTIME PIPE Administration Clotrimazole 1 appl 12/07/20 21:00 12/10/20 08:13 Clotrimazole 1 % Cream 15 Gm Tube TOPICAL 1 appl BID PIPE Administration Protocol Docusate Sodium 100 mg 12/06/20 11:31 12/09/20 11:55 Docusate Sodium 100 Mg Capsule PO 100 mg BID PRN Administration Constipation Fluoxetine HCl 20 mg 12/07/20 09:00 12/10/20 08:12 Fluoxetine Hcl 20 Mg Capsule PO 20 mg DAILY PIPE Administration Gabapentin 600 mg 12/06/20 15:00 12/10/20 08:11 Gabapentin 600 Mg Tablet PO 600 mg TID PIPE Administration Guaifenesin 600 mg 12/07/20 11:45 12/10/20 08:28 Guaifenesin La 600 Mg Tab.Er.12h PO 600 mg BID PRN Administration cough Hydroxyzine HCl 25 mg 12/06/20 14:58 12/06/20 17:59 Hydroxyzine Hcl 25 Mg Tablet PO 25 mg QID PRN Administration Anxiety Ceftriaxone Sodium 1 gm/ 50 mls @ 100 mls/hr 12/07/20 15:00 12/09/20 16:35 Sodium Chloride IV Infused Q24H PIPE Infusion Sodium Chloride 1,000 mls @ 50 mls/hr 12/08/20 08:00 12/10/20 14:24 Ns IVCONT Not Given .Q20H [facility] Insulin Glargine 40 unit 12/07/20 09:00 12/10/20 08:12 Insulin Glargine,Hum.Rec.Anlog 100 Unit/Ml 10 Ml Vial SUBCUT 40 unit DAILY [facility] Administration Insulin Human Lispro 0 unit 12/06/20 16:30 12/10/20 11:25 Insulin Lispro 100 Unit/Ml 3 Ml Vial SUBCUT 4 unit QIDACHS [facility] Administration Protocol Metoprolol Succinate 200 mg 12/07/20 09:00 12/10/20 08:11 Metoprolol Succinate Er 100 Mg Tab.Er.24h PO 200 mg DAILY [facility] Administration Protocol Nicotine 7 mg 12/06/20 12:15 12/10/20 08:08 Nicotine 7 Mg Patch.Td24 TRANSDERMA 7 mg DAILY [facility] Administration Ondansetron HCl 4 mg 12/06/20 11:31 Ondansetron Hcl 4 Mg/2 Ml Vial IVPUSH Q8H PRN Nausea and Vomiting Pharmacy Consult 1 each 12/06/20 09:12 Consult Rx Perform Med Rec MISCELLANE ONCE PRN Consult order Pharmacy Consult 1 each 12/06/20 11:34 Consult Rx Vancomycin Dosing MISCELLANE DAILY PRN Consult order Pharmacy Consult 1 each 12/06/20 12:38 Consult Rx Perform Med Rec MISCELLANE ONCE PRN Consult order Polyethylene Glycol 17 gm 12/09/20 11:22 Polyethylene Glycol 3350 17 Gm Powd.Pack PO DAILY PRN constipation Sodium Chloride 3 ml 12/06/20 16:00 12/10/20 08:08 0.9 % Sodium Chloride Flush 3 Ml Syringe IVFLUSH 3 ml QSHIFT PIPE Administration Trazodone HCl 100 mg 12/06/20 21:00 12/09/20 20:35 Trazodone Hcl 100 Mg Tablet PO 100 mg BEDTIME PIPE Administration Labs CBC & Chem 7: 12/09/20 05:28 12/10/20 05:20 Labs: Laboratory Results - last 24 hr 12/09/20 12/09/20 12/10/20 15:46 19:48 05:20 Sodium 138 Potassium 4.4 Chloride 110 H Carbon Dioxide 21 L Anion Gap 11 L BUN 39 H Creatinine 1.85 H Estim Creat Clear Calc 42.5 Estimated GFR 27 POC Glucose 189 H 177 H Random Glucose 148 H Calcium 8.5 C-Reactive Protein 13.47 H 12/10/20 12/10/20 07:01 10:54 Sodium Potassium Chloride Carbon Dioxide Anion Gap BUN Creatinine Estim Creat Clear Calc Estimated GFR POC Glucose 147 H 224 H Random Glucose Calcium C-Reactive Protein Microbiology Microbiology Results: Microbiology 12/08/20 05:33 Blood - Venous Blood Culture - Preliminary No growth after 48 hours. 12/08/20 05:43 Blood - Venous Blood Culture - Preliminary No growth after 48 hours. 12/06/20 06:30 Blood - Venous Blood Culture - Final Streptococcus group c 12/06/20 07:35 Blood - Venous Blood Culture - Final Streptococcus group c 12/06/20 Unknown Urine Catheterized - Howell Catheter Urine Culture - Final Raoultella planticola Assessment and Plan (1) Bacteremia: Status: Acute (2) Streptococcal infection group C: Status: Acute (3) Severe sepsis: Status: Acute Assessment and Plan: hospital d#4 65 year-old woman with DM2, CKD3, diastolic CHF, AF, morbid obesity, recurrent leg cellulitis, tobacco abuse recent I+D and debridement of polymicrobial L Achilles tendon and gastrocnemius infection; and recent ureteral stent removal for ureterolithiasis, presenting with weakness and found to be septic- bloodstream + urinary infections # severe sepsis - treat sources as below # group C strep bacteremia associated with cellulitis/erysipelas - ID consulted, changed vancomycin to ceftriaxone d#4, TTE no veg though limited study; repeat BCx cleared; per ID do not need to pursue RENAN; will add clindamycin to shut down toxin production from strep # Raoultella planticola UTI - ceftriaxone as above # [place] - FENa 1.1, likely septic ATN, improving; decrease IV fluids, continue to hold lisinopril, Nephrology following # s/p I+D and debridement of polymicrobial L Achilles tendon and gastrocnemius infection - excellent granulation tissue. per Wound Care consult: daily dressing changes with protective cream to intact skin edges and Hydrogel to wound bed # AF - continue apixaban for anticoagulation - continue metoprolol succinate for rate control # HTN - continue metoprolol + amlodipine; hold lisinopril for now # HFpEF, chronic - continue antihypertensives as above # HLD - continue atorvastatin # DM2 - basal/bolus insulin - continue gabapentin for neuropathy # mood disorder - continue trazodone + flluoxetine + hydroxyzine # tobacco abuse - NRT # morbid obesity - consider outpt bariatrics referral # VTE ppx - apixaban # dispo - anticipate home with [facility]
[2020-12-10] MEDS: cefTRIAXone sodium 1 GM in 0.9 % Sodium Chloride 50 ML IV (15:24)
--- NOTE | 2020-12-10 16:09 | PM.IDPN ---
Subjective Subjective Date of Service: 12/10/20 Interval History: she still has some redness right leg Critical Care Time (minutes): 15 Objective Data Labs CBC & Chem 7: 12/09/20 05:28 12/12/20 06:07 Labs: Laboratory Results - last 24 hr 12/09/20 12/10/20 12/10/20 19:48 05:20 07:01 Sodium 138 Potassium 4.4 Chloride 110 H Carbon Dioxide 21 L Anion Gap 11 L BUN 39 H Creatinine 1.85 H Estim Creat Clear Calc 42.5 Estimated GFR 27 POC Glucose 177 H 147 H Random Glucose 148 H Calcium 8.5 C-Reactive Protein 13.47 H 12/10/20 10:54 Sodium Potassium Chloride Carbon Dioxide Anion Gap BUN Creatinine Estim Creat Clear Calc Estimated GFR POC Glucose 224 H Random Glucose Calcium C-Reactive Protein Microbiology Microbiology Results: Microbiology 12/08/20 05:33 Blood - Venous Blood Culture - Preliminary No growth after 48 hours. 12/08/20 05:43 Blood - Venous Blood Culture - Preliminary No growth after 48 hours. 12/06/20 06:30 Blood - Venous Blood Culture - Final Streptococcus group c 12/06/20 07:35 Blood - Venous Blood Culture - Final Streptococcus group c 12/06/20 Unknown Urine Catheterized - Howell Catheter Urine Culture - Final Raoultella planticola Physical Exam Vital Signs: Vital Signs: Last Vital Signs Temp 97.4 F 12/10/20 15:11 Pulse 78 12/10/20 15:11 Resp 18 12/10/20 15:11 BP 139/81 12/10/20 15:11 Pulse Ox 94 12/10/20 15:11 Oxygen Flow Rate 2 12/06/20 06:19 Body Mass Index 48.4 Const: General: cooperative Eyes: General: appearance normal, both eyes and all related structures Resp: Effort & Inspection: normal respiratory effort Cardio: Rate: regular rate Rhythm: regular rhythm GI: Palpation (GI): Soft to palpation and nontender Extrem: Other: reddened right leg Assessment and Plan Assessment and plan (1) Streptococcal infection group C: Problem details: She has still reddened leg,Group C strep Status: Acute Assessment and Plan: Continue Ceftriaxone and then po Ceftin total 14 days outpatient Clindamycin 600 mg IV every 8 hours next 2-3 days and also topical steroids to leg 7 days (2) Severe sepsis: Status: Acute Time Spent With Patient Time: Total time spent is greater than 50% in coordination of care (as documented) at patient's floor/unit and/or counseling patient: Time with patient: 15 - 24 minutes
[2020-12-10] MEDS: Clindamycin Phosphate/D5W 600 MG/50 ML PIGGYBACK 100 MG IV ×2 (16:12→23:10)
[2020-12-10 16:14] LABS: Glucose, Whole Blood 163 mg/dL (60-115)
[2020-12-10] MEDS: traZODone HCL 100 MG TABLET PO (19:46)
[2020-12-10] MEDS: amLODIPine Besylate 10 MG TABLET PO (19:46)
[2020-12-10] MEDS: Atorvastatin Calcium 40 MG TABLET PO (19:46)
[2020-12-10 20:24] LABS: Glucose, Whole Blood 193 mg/dL (60-115)
[2020-12-10] MEDS: Acetaminophen 325 MG TABLET 650 MG PO (23:10)
[2020-12-11] VITALS (7 sets, daily range): BP systolic 111–138; BP diastolic 55–96; PULSE 67–79; RESP 18–22; TEMP 36–37.1; O2SAT 92–95
[2020-12-11] MEDS: Acetaminophen 325 MG TABLET 650 MG PO (05:03)
[2020-12-11] MEDS: 0.9 % Sodium Chloride 1,000 ML 50 ML IVCONT (05:03)
[2020-12-11] MEDS: Clindamycin Phosphate/D5W 600 MG/50 ML PIGGYBACK 100 MG IV ×2 (06:19→14:43)
[2020-12-11 07:44] LABS: Glucose, Whole Blood 171 mg/dL (60-115)
[2020-12-11] MEDS: Gabapentin 600 MG TABLET PO ×3 (07:54→20:52)
[2020-12-11] MEDS: FLUoxetine HCl 20 MG CAPSULE PO (07:54)
[2020-12-11] MEDS: Insulin Glargine,Hum.rec.anlog 100 UNIT/ML 10 ML VIAL 40 UNIT SUBCUT (07:54)
[2020-12-11] MEDS: Apixaban 5 MG TABLET PO ×2 (07:54→20:51)
[2020-12-11] MEDS: Insulin Lispro 100 UNIT/ML 3 ML VIAL SUBCUT ×4 (07:54→20:52)
[2020-12-11] MEDS: 0.9 % Sodium Chloride Flush 3 ML SYRINGE IVFLUSH ×3 (07:54→20:52)
[2020-12-11] MEDS: Clotrimazole 1 % Cream 15 GM TUBE 1 APPL TOPICAL ×2 (07:55→20:56)
[2020-12-11] MEDS: Metoprolol Succinate ER 100 MG TAB.ER.24H 200 MG PO (07:56)
[2020-12-11 08:17] LABS: Anion Gap 12 (12-20); Blood Urea Nitrogen 38 mg/dL (9-16); Calcium 8.4 mg/dL (8.4-10.2); Carbon Dioxide 19 mmol/L (22-29); Chloride 110 mmol/L (96-108); Creatinine Clr Calc Pharmacy 42.2; Estimated Glomerular Filt Rate 27; Glucose Random 178 mg/dL (60-115); Potassium 4.3 mmol/L (3.3-5.1); Sodium 137 mmol/L (135-145)
[2020-12-11] MEDS: Triamcinolone Acet 0.5 % Oint 15 GM TUBE 1 APPL TOPICAL ×2 (10:35→20:56)
[2020-12-11 11:22] LABS: Glucose, Whole Blood 210 mg/dL (60-115)
[2020-12-11] MEDS: cefTRIAXone sodium 1 GM in 0.9 % Sodium Chloride 50 ML IV (14:43)
--- NOTE | 2020-12-11 15:43 | HO.PM.IMPN ---
Subjective Subjective Date of Service: 12/11/20 Interval History: afebrile RLE still quite red/swollen no nausea/vomiting/diarrhea Physical Exam Vital Signs: Vital Signs: Last Vital Signs Temp 97.2 F 12/11/20 15:17 Pulse 73 12/11/20 15:17 Resp 19 12/11/20 15:17 BP 118/58 L 12/11/20 15:17 Pulse Ox 92 12/11/20 15:17 Oxygen Flow Rate 2 12/06/20 06:19 Body Mass Index 48.4 Gen: in no acute distress HEENT: sclera anicteric, dry mucous membranes, no oral lesions Neck: supple, no adenopathy or goiter Lungs: clear to auscultation bilaterally Heart: irregular, no murmurs Abd: soft, obese, non-tender, non-distended Ext: trace nonpitting edema bilaterally Skin: left Achilles wound with granulation tissue without purulence or lymphangitic streaking; right bustillos with erythema and induration without fluctuance or drainage Neuro: alert and oriented x3, no focal findings Psych: appropriate affect Objective Data Current Medications Generic Name Dose Route Start Last Admin Trade Name Freq PRN Reason Stop Dose Admin Acetaminophen 650 mg 12/06/20 11:31 12/11/20 05:03 Acetaminophen 325 Mg Tablet PO 650 mg Q6H PRN Administration Pain, Mild (Pain Scale 1-3) Amlodipine Besylate 10 mg 12/06/20 21:00 12/10/20 19:46 Amlodipine Besylate 10 Mg Tablet PO 10 mg BEDTIME PIPE Administration Protocol Apixaban 5 mg 12/06/20 21:00 12/11/20 07:54 Apixaban 5 Mg Tablet PO 5 mg BID PIPE Administration Atorvastatin Calcium 40 mg 12/06/20 21:00 12/10/20 19:46 Atorvastatin Calcium 40 Mg Tablet PO 40 mg BEDTIME PIPE Administration Clotrimazole 1 appl 12/07/20 21:00 12/11/20 07:55 Clotrimazole 1 % Cream 15 Gm Tube TOPICAL 1 appl BID PIPE Administration Protocol Docusate Sodium 100 mg 12/06/20 11:31 12/09/20 11:55 Docusate Sodium 100 Mg Capsule PO 100 mg BID PRN Administration Constipation Fluoxetine HCl 20 mg 12/07/20 09:00 12/11/20 07:54 Fluoxetine Hcl 20 Mg Capsule PO 20 mg DAILY PIPE Administration Gabapentin 600 mg 12/06/20 15:00 12/11/20 14:43 Gabapentin 600 Mg Tablet PO 600 mg TID PIPE Administration Guaifenesin 600 mg 12/07/20 11:45 12/10/20 21:00 Guaifenesin La 600 Mg Tab.Er.12h PO 600 mg BID PRN Administration cough Hydroxyzine HCl 25 mg 12/06/20 14:58 12/06/20 17:59 Hydroxyzine Hcl 25 Mg Tablet PO 25 mg QID PRN Administration Anxiety Ceftriaxone Sodium 1 gm/ 50 mls @ 100 mls/hr 12/07/20 15:00 12/11/20 15:24 Sodium Chloride IV Infused Q24H PIPE Infusion Sodium Chloride 1,000 mls @ 50 mls/hr 12/08/20 08:00 12/11/20 05:03 Ns IVCONT 50 mls/hr .Q20H PIPE Administration Clindamycin Phosphate 600 mg in 50 mls @ 100 mls/hr 12/10/20 15:00 12/11/20 15:23 Cleocin IV Infused Q8H PIPE Infusion Insulin Glargine 40 unit 12/07/20 09:00 12/11/20 07:54 Insulin Glargine,Hum.Rec.Anlog 100 Unit/Ml 10 Ml Vial SUBCUT 40 unit DAILY [facility] Administration Insulin Human Lispro 0 unit 12/06/20 16:30 12/11/20 11:39 Insulin Lispro 100 Unit/Ml 3 Ml Vial SUBCUT 4 unit QIDACHS [facility] Administration Protocol Metoprolol Succinate 200 mg 12/07/20 09:00 12/11/20 07:56 Metoprolol Succinate Er 100 Mg Tab.Er.24h PO 200 mg DAILY PIPE Administration Protocol Nicotine 7 mg 12/06/20 12:15 12/11/20 07:56 Nicotine 7 Mg Patch.Td24 TRANSDERMA Not Given DAILY [facility] Ondansetron HCl 4 mg 12/06/20 11:31 Ondansetron Hcl 4 Mg/2 Ml Vial IVPUSH Q8H PRN Nausea and Vomiting Pharmacy Consult 1 each 12/06/20 09:12 Consult Rx Perform Med Rec MISCELLANE ONCE PRN Consult order Pharmacy Consult 1 each 12/06/20 11:34 Consult Rx Vancomycin Dosing MISCELLANE DAILY PRN Consult order Pharmacy Consult 1 each 12/06/20 12:38 Consult Rx Perform Med Rec MISCELLANE ONCE PRN Consult order Polyethylene Glycol 17 gm 12/09/20 11:22 Polyethylene Glycol 3350 17 Gm Powd.Pack PO DAILY PRN constipation Sodium Chloride 3 ml 12/06/20 16:00 12/11/20 14:43 0.9 % Sodium Chloride Flush 3 Ml Syringe IVFLUSH 3 ml QSHIFT PIPE Administration Trazodone HCl 100 mg 12/06/20 21:00 12/10/20 19:46 Trazodone Hcl 100 Mg Tablet PO 100 mg BEDTIME PIPE Administration Triamcinolone Acetonide 1 appl 12/11/20 09:00 12/11/20 10:35 Triamcinolone Acet 0.5 % Oint 15 Gm Tube TOPICAL 1 appl BID PIPE Administration Labs CBC & Chem 7: 12/09/20 05:28 12/11/20 06:16 Microbiology Microbiology Results: Microbiology 12/08/20 05:33 Blood - Venous Blood Culture - Preliminary No growth after 48 hours. 12/08/20 05:43 Blood - Venous Blood Culture - Preliminary No growth after 48 hours. 12/06/20 06:30 Blood - Venous Blood Culture - Final Streptococcus group c 12/06/20 07:35 Blood - Venous Blood Culture - Final Streptococcus group c 12/06/20 Unknown Urine Catheterized - Howell Catheter Urine Culture - Final Raoultella planticola Assessment and Plan (1) Bacteremia: Status: Acute (2) Streptococcal infection group C: Status: Acute (3) Severe sepsis: Status: Acute Assessment and Plan: hospital d#6 65 year-old woman with DM2, CKD3, diastolic CHF, AF, morbid obesity, recurrent leg cellulitis, tobacco abuse recent I+D and debridement of polymicrobial L Achilles tendon and gastrocnemius infection; and recent ureteral stent removal for ureterolithiasis, presenting with weakness and found to be septic- bloodstream + urinary infections # severe sepsis - treat sources as below # group C strep bacteremia associated with cellulitis/erysipelas - ID consulted, changed vancomycin to ceftriaxone d#5, TTE no veg though limited study; repeat BCx cleared; per ID do not need to pursue RENAN; clindamcyin d#2/3 to shut down toxin production from strep # Raoultella planticola UTI - ceftriaxone as above # [place] - FENa 1.1, likely septic ATN; recheck BMP tomorrow; continue IV fluids, continue to hold lisinopril, Nephrology following # s/p I+D and debridement of polymicrobial L Achilles tendon and gastrocnemius infection - excellent granulation tissue. per Wound Care consult: daily dressing changes with protective cream to intact skin edges and Hydrogel to wound bed # AF - continue apixaban for anticoagulation - continue metoprolol succinate for rate control # HTN - continue metoprolol + amlodipine; held lisinopril # HFpEF, chronic - continue antihypertensives as above # HLD - continue atorvastatin # DM2 - basal/bolus insulin - continue gabapentin for neuropathy # mood disorder - continue trazodone + flluoxetine + hydroxyzine # tobacco abuse - NRT # morbid obesity - consider outpt bariatrics referral # VTE ppx - apixaban # dispo - anticipate home with VNA tomorrow
--- NOTE | 2020-12-11 15:51 | P.PNNP_ITS ---
Subjective Subjective Date of Service: 12/11/20 Interval history: Ongoing Abx CKD at baseline Physical Exam Vital Signs: Vital Signs: Last Vital Signs Temp 97.2 F 12/11/20 15:17 Pulse 73 12/11/20 15:17 Resp 19 12/11/20 15:17 BP 118/58 L 12/11/20 15:17 Pulse Ox 92 12/11/20 15:17 Oxygen Flow Rate 2 12/06/20 06:19 Body Mass Index 48.4 Const: General: no acute distress, alert and awake Orientation/c onsciousness: patient oriented x3 Eyes: EOM: EOMs intact bilaterally Neck: Neck: Yes supple Resp: Auscultation: diminished lung sounds Cardio: Jugular venous distension: no JVD Rate: regular rate Heart soun ds: no rubs GI: Palpation (GI): Soft to palpation Neuro: General: patient oriented x3 and moves all extremities Objective Data Labs CBC & Chem 7: 12/09/20 05:28 12/11/20 06:16 Labs: Laboratory Results - last 24 hr 12/10/20 12/10/20 12/11/20 16:05 20:21 06:16 Sodium 137 Potassium 4.3 Chloride 110 H Carbon Dioxide 19 L Anion Gap 12 BUN 38 H Creatinine 1.86 H Estim Creat Clear Calc 42.2 Estimated GFR 27 POC Glucose 163 H 193 H Random Glucose 178 H Calcium 8.4 12/11/20 12/11/20 07:24 11:15 Sodium Potassium Chloride Carbon Dioxide Anion Gap BUN Creatinine Estim Creat Clear Calc Estimated GFR POC Glucose 171 H 210 H Random Glucose Calcium Microbiology Microbiology Results: Microbiology 12/08/20 05:33 Blood - Venous Blood Culture - Preliminary No growth after 48 hours. 12/08/20 05:43 Blood - Venous Blood Culture - Preliminary No growth after 48 hours. 12/06/20 06:30 Blood - Venous Blood Culture - Final Streptococcus group c 12/06/20 07:35 Blood - Venous Blood Culture - Final Streptococcus group c 12/06/20 Unknown Urine Catheterized - Howell Catheter Urine Culture - Final Raoultella planticola Assessment & Plan Assessment and plan (1) Acute kidney injury: Status: Acute Assessment and Plan: Has CKD 3 at baseline [place] resolved Continue sepsis management Conservative care Time Spent With Patient Time: Total time spent is greater than 50% in coordination of care (as d ocumented) at patient's floor/unit and/or counseling patient: Procedures Date of Service Date of Service: 12/11/20
[2020-12-11 16:25] LABS: Glucose, Whole Blood 164 mg/dL (60-115)
--- NOTE | 2020-12-11 18:26 | PC.NURSE ---
Patient OOB to recliner with 2 assist and walker. Patient had 3 loose bowel movements today; patient has difficulty with holding it and would begin defecating before sitting on the commode. Dressings changed to lower extremities, new ointment added to assist with redness/cellulitis. No further issues.
[2020-12-11 20:27] LABS: Glucose, Whole Blood 197 mg/dL (60-115)
[2020-12-11] MEDS: amLODIPine Besylate 10 MG TABLET PO (20:51)
[2020-12-11] MEDS: Atorvastatin Calcium 40 MG TABLET PO (20:51)
[2020-12-11] MEDS: traZODone HCL 100 MG TABLET PO (20:51)
[2020-12-12] MEDS: Clindamycin Phosphate/D5W 600 MG/50 ML PIGGYBACK 100 MG IV ×2 (00:56→07:46)
[2020-12-12] MEDS: 0.9 % Sodium Chloride 1,000 ML 50 ML IVCONT ×2 (01:21→06:22)
[2020-12-12 03:16] VITALS: BP 138/64; PULSE 70; RESP 20; TEMP 37.1; O2SAT 92
[2020-12-12 07:13] LABS: Anion Gap 13 (12-20); Blood Urea Nitrogen 39 mg/dL (9-16); C Reactive Protein 6.82 mg/dL (< or = 0.50); Carbon Dioxide 20 mmol/L (22-29); Chloride 109 mmol/L (96-108); Creatinine Clr Calc Pharmacy 40.9; Estimated Glomerular Filt Rate 26; Glucose Random 149 mg/dL (60-115); Potassium 4.3 mmol/L (3.3-5.1); Sodium 138 mmol/L (135-145)
[2020-12-12 07:16] LABS: Glucose, Whole Blood 154 mg/dL (60-115)
[2020-12-12 07:20] LABS: Calcium 8.9 mg/dL (8.4-10.2)
[2020-12-12 07:33] VITALS: BP 138/74; PULSE 76; RESP 20; TEMP 36.4; O2SAT 96
[2020-12-12] MEDS: Insulin Glargine,Hum.rec.anlog 100 UNIT/ML 10 ML VIAL 40 UNIT SUBCUT (07:45)
[2020-12-12] MEDS: Insulin Lispro 100 UNIT/ML 3 ML VIAL SUBCUT ×2 (07:45→12:07)
[2020-12-12] MEDS: 0.9 % Sodium Chloride Flush 3 ML SYRINGE IVFLUSH (07:45)
[2020-12-12 07:46] VITALS: BP 138/74; PULSE 76
[2020-12-12] MEDS: Metoprolol Succinate ER 100 MG TAB.ER.24H 200 MG PO (07:46)
[2020-12-12] MEDS: FLUoxetine HCl 20 MG CAPSULE PO (07:46)
[2020-12-12] MEDS: Gabapentin 600 MG TABLET PO (07:46)
[2020-12-12] MEDS: Clotrimazole 1 % Cream 15 GM TUBE 1 APPL TOPICAL (07:47)
[2020-12-12] MEDS: Apixaban 5 MG TABLET PO (07:47)
[2020-12-12] MEDS: Triamcinolone Acet 0.5 % Oint 15 GM TUBE 1 APPL TOPICAL (07:47)
--- NOTE | 2020-12-12 10:50 | W.MHC.F2F ---
Service Date Service Date: 12/12/20 Encounter Date of encounter: 12/12/20 Reasons for Services Signs and symptoms assessed: wound care medication management Reason for penitentiary: diabetic teaching, medication management, medication treatment and teach disease management Reason for physical therapy: home safety and mobility, therapeutic exercises, restore joint function, gait/transfer training, assess need for DME, ADL training and energy conservation Homebound: Leaving the home is medically contraindicated at this time without the asist of a device and/or another person due th the listed conditions above and below. Reason homebound: unsteady gait / fall risk, immunosuppression / infection risk and weakness related to hospital stay Homebound supporting statement: wound care instructions: daily dressing changes with protective cream to intact skin edges and Hydrogel to wound bed home PT Certification: Based on the above findings, I certify that this patient is confined to the home and needs intermittent penitentiary care, physical therapy and/or speech therapy, or continues to need occupational therapy. The patient is under my care, and I have initiated the establishment of the plan of care. The patient will be followed by a physician who will periodically review the plan of care.
--- NOTE | 2020-12-12 11:12 | PM.DS ---
DS: Providers Provider Date of Service: 12/12/20 Date of admission: 12/06/20 11:32 Primary care physician: Femi Nielsen MD Consults: 12/06/20 12:11 Consult to Infectious Diseases Routine Consulting Provider: Randa Luke Reason for consultation: sepsis- urinary versus RLE cellultiis 12/07/20 14:27 Consult to Wound Care Routine Consulting Provider: [facility] Wound Care Management Reason for consultation: L achilles wound from abscess/myositis 12/08/20 07:39 Consult to Nephrology Routine Consulting Provider: [facility] Reason for consultation: [place]. ?septic ATN DS: Diagnosis Discharge Diagnosis (1) Severe sepsis: Status: Acute (2) Bacteremia: Status: Acute (3) Streptococcal infection group C: Status: Acute Problem details: She has still reddened leg,Group C strep (4) Recurrent cellulitis of lower extremity: Status: Acute (5) Achilles tendon infection: Status: Acute (6) Urinary tract infection: Status: Acute (7) Acute on chronic kidney failure: Status: Acute DS: Medications Discharge Medications Home Medications: Home Medications Medication Instructions Recorded Confirmed apixaban 5 mg tablet 5 mg PO BID 06/14/20 12/06/20 insulin lispro 200 unit/mL (3 mL) See Rx Instructions .ROUTE .COMPLEX 06/14/20 12/06/20 subcutaneous pen pen needle, diabetic 31 gauge x #50 ea 06/14/2010/05 amlodipine 10 mg PO BEDTIME 12/06/20 12/06/20 atorvastatin 40 mg PO BEDTIME 12/06/20 12/06/20 fluoxetine 20 mg PO DAILY 12/06/20 12/06/20 gabapentin 1 tab PO TID 12/06/20 12/06/20 hydroxyzine HCl 25 mg PO QID PRN 12/06/20 12/06/20 insulin glargine 52 unit SUBCUT DAILY 12/06/20 12/06/20 insulin lispro See Rx Instructions .ROUTE .COMPLEX 12/06/20 12/06/20 metoprolol succinate 200 mg PO DAILY 12/06/20 12/06/20 trazodone 100 mg PO BEDTIME 12/06/20 12/06/20 Previous Rx's Medication Instructions Recorded cefuroxime axetil 500 mg PO BID #18 tab 12/12/20 nicotine 7 mg TRANSDERMAL DAILY #30 ea 12/12/20 polyethylene glycol 3350 17 g PO DAILY PRN #30 ea 12/12/20 triamcinolone acetonide 1 appl TOPICAL BID #60 g 12/12/20 DS: Summary Hospital Course Hospital Course: From my admission history and physical 12/06/20: Ms Israel is a 65 year-old female patient of Dr Nielsen with medical history of insulin-dependent diabetes mellitus, stage 3 chronic kidney disease, diastolic heart failure, atrial fibrillation, morbid obesity, recurrent leg cellulitis, and tobacco abuse. She was also admitted to [facility] in June 2020 and again in July-August 2020 for a polymicrobial infection of the left Achilles tendon and medial gastrocnemius myositis related to a steroid injection. The wound grew MSSA from an I+D and then Proteus mirabilis plus Enterococcus faecalis from a debridement; ultimately, the infection was treated with a prolonged course of piperacillin/tazobactam. Her changes her left Achilles wound daily with wet-to-dry dressings and the wound has been filling in well. In addition, approximately 3-4 weeks ago, she underwent cystocopy with stent exchange for a recurrent kidney stone by Dr Rothman at [facility]. She took antibiotics after the procedure but does not recall which one. She was in her usual state of health yesterday in the morning and during the day, but when she went to bed at night, she noted chills and malaise. She tried to get up to go to the bathroom but was unable to do so due to generalized weakness; she usually does require the assistance of a walker but her weakness was much greater than usual. She did not note fever, dyspnea, cough, nausea, vomiting, abdominal pain, or diarrhea. Her L Achilles wound is not draining purulent material and there is no surrounding erythema or lymphangitic streaking. The right bustillos is red and swollen but not particularly painful. She denies flank pain, hematuria, or dysuria. She completed 2 doses of a COVID-19 mRNA vaccine over 2 weeks ago. In the ED, she was noted to be septic by virtue of leukocytosis and fever; severe by virtue of lactic acidosis. She was given a dose of piperacillin/tazobactam after blood and urine cultures were sent, and a total of 2L of normal saline. The patient [facility] on vancomycin and pipercaillin/tazobactam and was noted to be febrile to 103.2. Blood cultures grew Group C Streptococcus, and urine culture grew Raoultella planticola. The streptococcal bacteremia was thought secondary to RLE cellulitis. ID was consulted, and antibiotic coverage was narrowed to ceftriaxone to cover both infections. TTE did not show vegetations, though it was a very limited study. However, repeat blood culture cleared. Her fever resolved. She had persistent RLE redness and swelling and was given 3 days of clindamycin to shut down streptococcal toxin production; she was also given topical steroid. She was also noted to have NJ superimposed on CKD3, likely due to septic ATN [FENa 1.1] versus prerenal state; serum creatinine returned to baseline of around 1.8-1.9 with IV fluid hydration and stopping lisinopril. As regards her wound on her left calf from debridement of the Achilles and gastrocnemius infection, she was thought to have excellent granulation tissue and routine wound care was continued. She was discharged home with VNA services and should complete 9 more days of beta-lactam therapy with cefuroxime, for a total of 14 days of IV+PO therapy. A repeat basic metabolic panel in one week shuld be checked given her renal insufficiency. Time Spent with Patient Time attestation: Total time spent providing and/or coordinating discharge services: 40 Discharge coordination time: Greater than 30 minutes Quality: Stroke Does the patient have a stroke diagnosis?: No Physical Exam Vital Signs: Vital Signs: Last Vital Signs Temp 97.6 F 12/12/20 07:33 Pulse 76 12/12/20 07:46 Resp 20 12/12/20 07:33 BP 138/74 12/12/20 07:46 Pulse Ox 96 12/12/20 07:33 Oxygen Flow Rate 2 12/06/20 06:19 Body Mass Index 48.4 Gen: in no acute distress HEENT: sclera anicteric, dry mucous membranes, no oral lesions Neck: supple, no adenopathy or goiter Lungs: clear to auscultation bilaterally Heart: irregular, no murmurs Abd: soft, obese, non-tender, non-distended Ext: trace nonpitting edema bilaterally Skin: left Achilles wound with granulation tissue without purulence or lymphangitic streaking; right bustillos with erythema and induration without fluctuance or drainage Neuro: alert and oriented x3, no focal findings Psych: appropriate affect DS: Data Data Completed and Pending Completed studies during hospitalization [Text1]: Laboratory Results WBC 7.9 X10*3/uL (4.8-10.8) 12/09/20 05:28 RBC 4.08 X10*6/uL (4.20-5.50) L 12/09/20 05:28 Hgb 11.3 g/dl (12.0-16.0) L 12/09/20 05:28 Hct 36.8 % (37-47) L 12/09/20 05:28 MCV 90.2 fL (80-98) 12/09/20 05:28 MCH 27.7 pg (27.0-33.0) 12/09/20 05:28 MCHC 30.7 g/dl (31.0-35.0) L 12/09/20 05:28 RDW 16.5 % (11.0-16.0) H 12/09/20 05:28 Plt Count 148 X10*3/uL (160-400) L 12/09/20 05:28 MPV 11.2 fL (9.4-12.3) 12/09/20 05:28 Immature Gran % (Auto) 0.5 % (0.0-0.4) H 12/06/20 06:30 Neut % (Auto) 94.7 % (45-73) H 12/06/20 06:30 Lymph % (Auto) 2.0 % (20-40) L 12/06/20 06:30 [place] % (Auto) 2.4 % (2-11) 12/06/20 06:30 Eos % (Auto) 0.3 % (0-4) 12/06/20 06:30 Baso % (Auto) 0.1 % (0-2) 12/06/20 06:30 Lymph # (Auto) 0.3 X10*3/uL (1.2-4.9) L 12/06/20 06:30 [place] # (Auto) 0.3 X10*3/uL (0.1-1.2) 12/06/20 06:30 Eos # (Auto) 0.0 X10*3/uL (0.0-0.4) 12/06/20 06:30 Baso # (Auto) 0.0 X10*3/uL (0.0-0.2) 12/06/20 06:30 Abs Immat Gran (auto) 0.07 X10*3/uL (0.00-0.03) H 12/06/20 06:30 Absolute Neuts (auto) 13.1 X10*3/uL (2.0-8.3) H 12/06/20 06:30 Absolute Nucleated RBC 0.000 X10*3/uL (0.0-0.012) 12/09/20 05:28 Nucleated RBC % (auto) 0.0 /100WBC (0.0-0.2) 12/09/20 05:28 Smear Tech's Comments VERIFIED 12/06/20 06:30 Sodium 138 mmol/L (135-145) 12/12/20 06:07 Potassium 4.3 mmol/L (3.3-5.1) 12/12/20 06:07 Chloride 109 mmol/L (96-108) H 12/12/20 06:07 Carbon Dioxide 20 mmol/L (22-29) L 12/12/20 06:07 Anion Gap 13 (12-20) 12/12/20 06:07 BUN 39 mg/dL (9-16) H 12/12/20 06:07 Creatinine 1.92 mg/dL (0.5-1.4) H 12/12/20 06:07 Estim Creat Clear Calc 40.9 12/12/20 06:07 Estimated GFR 26 12/12/20 06:07 POC Glucose 154 mg/dL (60-115) H 12/12/20 07:01 Random Glucose 149 mg/dL (60-115) H 12/12/20 06:07 Lactic Acid 3.3 mmol/L (0.5-2.0) H* 12/06/20 06:30 Lactic Acid Fup @ 2Hr 2.6 mmol/L (0.5-2.0) H* 12/06/20 08:51 Lactic Acid Fup @ 4Hr 2.2 mmol/L (0.5-2.0) H* 12/06/20 11:37 Calcium 8.9 mg/dL (8.4-10.2) 12/12/20 06:07 Total Bilirubin 0.7 mg/dL (0.0-1.0) 12/06/20 07:35 Direct Bilirubin 0.4 mg/dL (0.0-0.5) 12/06/20 07:35 AST 10 U/L (5-31) 12/06/20 07:35 ALT 18 U/L (0-31) 12/06/20 07:35 Alkaline Phosphatase 83 U/L (39-117) 12/06/20 07:35 Troponin I High Sens 12.4 ng/L (<3.5-17.0) 12/06/20 11:37 C-Reactive Protein 6.82 mg/dL (< or = 0.50) H 12/12/20 06:07 B-Natriuretic Peptide 376 pg/mL (<100) H 12/06/20 06:29 Total Protein 6.6 g/dL (6.5-8.0) 12/06/20 07:35 Albumin 3.5 g/dL (3.5-5.0) 12/06/20 07:35 TSH 0.47 uIU/mL (0.32-4.0) 12/06/20 07:35 Urine Color YELLOW 12/06/20 07:12 Urine Appearance CLOUDY 12/06/20 07:12 Urine pH 6.0 (5.0-8.0) 12/06/20 07:12 Ur Specific [place] 1.020 (1.005-1.025) 12/06/20 07:12 Urine Protein 2+ MG/DL (NEG-TRACE) H 12/06/20 07:12 Urine Glucose (UA) NEG MG/DL (NEG) 12/06/20 07:12 Urine Ketones NEG MG/DL (NEG) 12/06/20 07:12 Urine Blood 1+ (NEG) H 12/06/20 07:12 Urine Nitrite NEG (NEG) 12/06/20 07:12 Ur Leukocyte Esterase TRACE (NEG) H 12/06/20 07:12 Urine RBC 5-9 /HPF (0) H 12/06/20 07:12 Urine WBC 15-29 /HPF (0-4) H 12/06/20 07:12 Ur Squamous Epith Cells NONE /LPF 12/06/20 07:12 Urine Bacteria 3+ /LPF 12/06/20 07:12 U Random Total Protein 144 mg/dL (<12) H 12/08/20 08:55 Ur Random Sodium 54.0 mmol/L 12/08/20 08:55 Urine Creatinine 77.98 mg/dL 12/08/20 08:55 Protein/Creatinin Ratio 1.85 (<0.2) H 12/08/20 08:55 Random Vancomycin 18.3 mcg/mL (15-20) 12/07/20 11:03 COVID-19 (BILLY) Negative (Negative) 12/06/20 06:30 COVID-19 Clin Com See Note 12/06/20 06:30 Impressions Chest X-Ray 12/06/20 05:57 IMPRESSION: Unremarkable chest exam except for mild cardiomegaly. Head CT 12/06/20 06:00 IMPRESSION: No acute intracranial process seen. Moderate cerebral volume loss. Minimal chronic inflammatory changes right sphenoid sinus. Venous Duplex 12/09/20 17:52 IMPRESSION: No evidence of deep venous thrombosis involving the right lower extremity. Discharge Plan Discharge Patient Disposition: Home Health Service Discharge Diagnosis: bacteremia, cellulitis, UTI, acute kidney injury Referrals: Randa Luke MD [Physician] - 1 Week Discharge Medications: New nicotine 7 mg/24 hr Patch 24 Hour 7 mg transdermal DAILY Qty: 30 RF: 0 polyethylene glycol 3350 17 gram Powder In Packet 17 g PO DAILY PRN (Reason: constipation) Qty: 30 RF: 0 triamcinolone acetonide 0.5 % Ointment 1 appl topical BID Qty: 60 RF: 0 cefuroxime axetil 500 mg tablet 500 mg PO BID Qty: 18 RF: 0 Continued atorvastatin 40 mg Tablet 40 mg PO BEDTIME RF: 0 gabapentin 600 mg tablet 1 tab PO TID RF: 0 insulin glargine 100 unit/mL Solution 52 unit SUBCUT DAILY RF: 0 metoprolol succinate 200 mg Tablet Extended Release 24 Hr 200 mg PO DAILY RF: 0 trazodone 100 mg Tablet 100 mg PO BEDTIME RF: 0 amlodipine 10 mg Tablet 10 mg PO BEDTIME RF: 0 hydroxyzine HCl 25 mg Tablet 25 mg PO QID PRN (Reason: Anxiety) RF: 0 fluoxetine 20 mg Capsule 20 mg PO DAILY RF: 0 insulin lispro 200 unit/mL (3 mL) Insulin Pen See Rx Instructions .ROUTE .COMPLEX RF: 0 Discontinued lisinopril 5 mg Tablet 5 mg PO DAILY RF: 0 apixaban 5 mg Tablet 5 mg PO BID RF: 0 fluoxetine 20 mg capsule 20 mg PO DAILY RF: 0 hydroxyzine HCl 25 mg tablet 25 mg PO QID PRN (Reason: Anxiety) RF: 0 lisinopril 5 mg tablet 5 mg PO DAILY RF: 0 atorvastatin 40 mg tablet 40 mg PO BEDTIME RF: 0 gabapentin 600 mg tablet 600 mg PO TID RF: 0 trazodone 100 mg tablet 100 mg PO BEDTIME RF: 0 Lantus Solostar U-100 Insulin 100 unit/mL (3 mL) insulin pen 52 unit subcut DAILY RF: 0 metoprolol succinate 200 mg tablet extended release 24 hr 200 mg PO DAILY RF: 0 amlodipine 10 mg tablet 10 mg PO BEDTIME RF: 0 Discharge Orders: Discharge Order (Routine); Ordered 12/12/20 Ordered By: Helena Au Diet: diabetic diet and low salt diet Activity on Discharge: As tolerated Stand Alone Forms: Patient Portal Discharge page, Work/School Release Other Ambulatory Orders: Basic Metabolic Panel (Routine) Timeframe: 1 Week Facility: [facility] - Location: Laboratory Ordered By: Helena Au Care Plan Goals: resolution of infection healing of left calf wound kidney health smoking cessation Health Concerns: bacteremia, cellulitis, UTI left calf wound acute/chronic kidney injury tobacco abuse Plan of Treatment: take cefuroxime 500 mg twice daily for 9 days. can apply triamcinolone cream to area of cellulitis on R leg follow up with ID specialist Coleen Luke in 1 week: [facility] [address] [place] [address], [address], [facility] [id number] wound care to left calf wound: daily dressing changes with protective cream to intact skin edges and Hydrogel to wound bed stop lisinopril. recheck basic metabolic panel in 1 week. stop smoking; use nicotine patch to help you Assessment: as above Patient Instructions: Cigarette Smoking and Your Health (GEN), Bacteremia (DC)
--- NOTE | 2020-12-12 11:49 | MHC.CM.PN ---
PT CLEARED TO DC HOME TODAY WITH PO ANTIBIOTICS. PT WILL RESUME [facility]. BS VNA NOTIFIED OF DC, AND DC SUMMARY SENT, VIA [employer].
[2020-12-12 11:56] LABS: Glucose, Whole Blood 192 mg/dL (60-115)
== END 2020-12-12 13:53 | disposition home health service (06) | DRG 720 ==
LOC: HO.ED 09:12 → HO.EDOVER 11:43 → HO.IMC 12:04
PROVIDERS: Admitting Provider Family Medicine; Emergency Provider Emergency Medicine; PCP Family Medicine; Visit Provider Family Medicine
DX: A40.8 Other streptococcal sepsis (principal); N17.0 Acute kidney failure with tubular necrosis; R65.20 Severe sepsis without septic shock; E11.22 Type 2 diabetes mellitus with diabetic chronic kidney disease; I13.0 Hypertensive heart and chronic kidney disease with heart failure and stage 1 through stage 4 chronic kidney disease, or unspecified chronic kidney disease; I50.32 Chronic diastolic (congestive) heart failure; L03.115 Cellulitis of right lower limb; N18.30 Chronic kidney disease, stage 3 unspecified; E66.01 Morbid (severe) obesity due to excess calories; N39.0 Urinary tract infection, site not specified; L97.529 Non-pressure chronic ulcer of other part of left foot with unspecified severity; I48.91 Unspecified atrial fibrillation; F39 Unspecified mood [affective] disorder; Z68.42 Body mass index [BMI] 45.0-49.9, adult; E78.5 Hyperlipidemia, unspecified; Z20.822 Contact with and (suspected) exposure to COVID-19; Z79.01 Long term (current) use of anticoagulants; Z79.4 Long term (current) use of insulin; Z79.899 Other long term (current) drug therapy
CPT/HCPCS: 36415; 70450; 71045; 80048; 80076; 80202; 81001; 81003; 82947; 83605; 83880; 84156; 84300; 84443; 84484; 85025; 85027; 86140; 87040; 87086; 87088; 87147; 87186; 87205; 87635; 93005; 93306; 93971; 96361; 96365; 96375; 97110; 97116; 97162; 97530; 99285; J0696; J2543; J3370

== ENCOUNTER 2022-12-01 12:30 | Outpatient (REF) | payer MEDICARE, OTHER, SELFPAY ==
--- NOTE | ~2022-12-01 | US_ITS ---
EXAMINATION: US VENOUS ULTRASOUND WITH DOPPLER LOWER EXTREMITY, BILATERAL US VENOUS ULTRASOUND LOWER EXTREMITY, (Reflux Exam), BILATERAL CLINICAL INFORMATION: Post bilateral RFA. COMPARISON: Previous exams most recent November 2020 TECHNIQUE: Color flow triplex imaging and compression Doppler was performed to evaluate both the deep and the superficial systems bilaterally. To evaluate the superficial system, the examination was performed in the upright position. Color-flow Doppler ultrasound and compression ultrasound were utilized. In addition, maneuvers were utilized to demonstrate reflux. FINDINGS: 1. DEEP VENOUS ULTRASOUND OF THE RIGHT LOWER EXTREMITY: Respiratory variation, normal compression and augmented flow are noted in the right common femoral vein as well as the right popliteal vein and there is no evidence of deep venous thrombosis at these locations. There is no evidence of reflux in the deep system in either the common femoral vein or the popliteal vein. There is no evidence of a Woods's cyst. 2. SUPERFICIAL ULTRASOUND WITH DOPPLER OF RIGHT LOWER EXTREMITY: The right great saphenous vein at the saphenofemoral junction measures 8 mm, at the mid thigh 2 mm, [id number]-[id number] 2 mm, [id number]-pgi-[id number] 3 mm, at mid calf 3 mm and at the ankle measures 2 mm. There is no reflux demonstrated in the right great saphenous vein. The right small saphenous vein measures 2-5 mm and shows no reflux. 2 small perforators in the proximal and mid calf measuring 3 mm without reflux. 3. DEEP VENOUS ULTRASOUND OF THE LEFT LOWER EXTREMITY: Respiratory variation, normal compression and augmented flow are noted in the left common femoral vein as well as the left popliteal vein and there is no evidence of deep venous thrombosis at these locations. There is no evidence of reflux in the deep system in either the common femoral vein or the popliteal vein. . There is no evidence of a Woods's cyst. 4. SUPERFICIAL ULTRASOUND WITH DOPPLER OF LEFT LOWER EXTREMITY: Left great saphenous vein at the saphenofemoral junction measures 8 mm, at the mid thigh 2 mm, grlwa-psi-pwvo 3 mm, eklkw-iua-[id number] 3 mm, at mid calf 4 mm and at the ankle measures 4 mm. There is reflux in the left greater saphenous vein measuring 1.3 cm at the ankle. The left small saphenous vein measures 3 mm and shows no reflux. 3 small perforators measuring 2 mm in the mid thigh and 3 mm in the mid calf without reflux. US/US venous duplex LE BI IMPRESSION: RIGHT: No evidence of DVT or deep venous reflux. Post RFA to the right greater saphenous vein. No right greater saphenous vein reflux. LEFT: No evidence of DVT or deep venous reflux. Post RFA to the left greater saphenous vein. Left greater saphenous vein reflux measuring 1.3 seconds at the ankle.
== END 2022-12-01 12:31 | disposition home or self-care (01) ==
LOC: HO.US 12:30
PROVIDERS: PCP Family Medicine; Visit Provider Surgery Vascular Surgery
DX: I83.893 Varicose veins of bilateral lower extremities with other complications (principal)
CPT/HCPCS: 93970

== ENCOUNTER → 2022-12-04 11:16 | Outpatient (BNVA) | payer OTHER, MEDICARE, SELFPAY | PROVIDERS: PCP Family Medicine; Visit Provider Surgery Vascular Surgery ==

== ENCOUNTER 2023-10-21 17:40 | Emergency (ER) | payer MEDICARE, OTHER, SELFPAY ==
--- NOTE | ~2023-10-21 | CT_ITS ---
EXAMINATION: CT CHEST WITHOUT CONTRAST CLINICAL INFORMATION: Reason for Exam abnormal chest xray haziness noted sob COMPARISON: Chest x-ray from the same day TECHNIQUE: Multidetector volumetric CT imaging of the chest was done. Axial MIP volume rendering provided. Sagittal and coronal reformatted images were obtained. This CT examination was performed using dose optimization techniques as appropriate, variously including the following: *Automated exposure control *Adjustment of mA and/or kV according to patient size (this includes techniques or standardized protocols for targeted exams where dose is matched to indication/reason for exam; i.e. extremities or head) *Use of iterative reconstruction technique DLP: 441 mGy-cm FINDINGS: LUNGS: Scattered curvilinear opacities bilaterally favor atelectasis. No additional focal consolidation is seen. MEDIASTINUM: Thyroid gland appears enlarged and multinodular. Discrete nodules are suboptimally assessed on CT though are suspected to measure up to at least 2 cm in the right lobe. There are subcentimeter mediastinal lymph nodes within the range of normal variation. Mild cardiomegaly without pericardial effusion. Scattered calcification along the aorta. CORONARY ARTERY CALCIFICATION: Present PLEURA: No pneumothorax or pleural effusion. AXILLA: No lymphadenopathy. UPPER ABDOMEN: Visualized spleen appears enlarged measuring up to approximately 14.3 cm in the axial plane. 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 OSSEOUS STRUCTURES: Multilevel degenerative changes in the spine. CT/CT chest wo IV con IMPRESSION: 1. Scattered curvilinear opacities bilaterally favor atelectasis. No additional focal consolidation. 2. Enlarged, multinodular thyroid gland. Further workup with nonemergent ultrasound is recommended. 3. Mild cardiomegaly. 4. Splenomegaly.
--- NOTE | ~2023-10-21 | XR_ITS ---
EXAMINATION: XR CHEST CLINICAL INFORMATION: Altered mental status. Shortness of breath COMPARISON: Frontal view 12/06/20 TECHNIQUE: Upright frontal portable view of the chest was obtained. FINDINGS: Devices overlie the patient. Lordotic projection with mild rotation to left. There is some tortuosity aorta. Cardiac size is mildly prominent but unchanged. There is no hilar mass. There is no alveolar edema. Hazy density in the left lower chest unchanged. No definite new focal pneumonia. No significant pleural fluid or pneumothorax. XR/XR chest 1V IMPRESSION: Unchanged hazy density in the left lower chest. No new pneumonia. No alveolar edema
--- NOTE | ~2023-10-21 | XR_ITS ---
EXAMINATION: XR FOOT, RIGHT CLINICAL INFORMATION: Right great toe pain COMPARISON: Right foot radiographs 01/29/2023 TECHNIQUE: AP, lateral, and oblique views of the right foot. FINDINGS: The previously seen ulcer at the plantar surface of the distal right great toe is no longer seen. There is an ovoid 1.6 x 0.9 cm soft tissue density seen here that slightly bulges. Please correlate with physical exam. The bones are unremarkable. No fracture. Alignment is anatomic. Joint spaces are maintained. XR/XR foot RT 2V IMPRESSION: 1. No acute osseous abnormality. 2. The previously seen ulcer at the plantar surface of the distal right great toe is no longer seen. There is an ovoid 1.6 x 0.9 cm soft tissue density seen here that slightly bulges. Please correlate with physical exam.
[2023-10-21 17:45] VITALS: BP 134/67; PULSE 66; O2SAT 94
[2023-10-21 17:46] VITALS: BP 148/63; PULSE 63; RESP 16; TEMP 37.3; O2SAT 94; BMI 46.1
--- NOTE | 2023-10-21 17:55 | ECG_ITS ---
Test Reason : AFIB Blood Pressure : / mmHG Vent. Rate : 068 BPM Atrial Rate : 068 BPM P-R Int : 142 ms QRS Dur : 088 ms QT Int : 416 ms P-R-T Axes : 075 013 044 degrees QTc Int : 442 ms Normal sinus rhythm Normal ECG When compared with ECG of 06-DEC-2020 06:03, Sinus rhythm has replaced Atrial fibrillation Vent. rate has decreased BY [address] no longer depressed in Anterior leads Nonspecific T wave abnormality, improved in Lateral leads Referred By: Generic ED Physician Electronically Signed By:SANTO VEGAS MD
--- NOTE | 2023-10-21 18:12 | ED_ITS ---
HPI - General Adult General Chief complaint: General Medical Stated complaint: FEVER (100.7), ?UTI Time Seen by Provider: 10/21/23 18:11 Source: patient, family and EMS Mode of arrival: EMS Limitations: other (poor historian ) History of Present Illness HPI narrative: 68 year old female hx of hypertension, hyperlipidemia, obesity, CKD, diabetes, atrial fibrillation and on apixaban presents from home via ambulance w/ concerns of fevers at home, fatigue, maliase, myalgias, feeling out of it and fuzzy X a few days. Also reporting a wound to the right great toe that doesnt seem to be improving has been present for months being followed by wound care for it for months. No trauma to this great toe. Denies cp, sob, nausea, vomiting, abd pain, headache, vision changes, dizziness. daughter reports troy had a fever of 100.7F today, advised mom to seek medical attention as she is prone to infections. Related Data Home Medications Medication Instructions Recorded Confirmed apixaban 5 mg tablet 5 mg PO BID 06/14/20 12/06/20 insulin lispro 200 unit/mL (3 mL) See Rx Instructions .Route .COMPLEX 06/14/20 12/06/20 subcutaneous pen pen needle, diabetic 31 gauge x #50 ea 06/14/2010/05 amlodipine 10 mg tablet 10 mg PO BEDTIME 12/06/20 12/06/20 atorvastatin 40 mg tablet 40 mg PO BEDTIME 12/06/20 12/06/20 fluoxetine 20 mg capsule 20 mg PO DAILY 12/06/20 12/06/20 gabapentin 600 mg tablet 1 tab PO TID 12/06/20 12/06/20 hydroxyzine HCl 25 mg tablet 25 mg PO QID PRN Anxiety 12/06/20 12/06/20 insulin glargine 100 unit/mL 52 unit subcut DAILY 12/06/20 12/06/20 subcutaneous solution insulin lispro 200 unit/mL (3 mL) See Rx Instructions .Route .COMPLEX 12/06/20 12/06/20 subcutaneous pen metoprolol succinate 200 mg 200 mg PO DAILY 12/06/20 12/06/20 tablet,extended release 24 hr trazodone 100 mg tablet 100 mg PO BEDTIME 12/06/20 12/06/20 silver sulfadiazine 1 % topical appl topical 12/04/22 cream Previous Rx's Medication Instructions Recorded cefuroxime axetil 500 mg tablet 500 mg PO BID #18 tabs 12/12/20 nicotine 7 mg/24 hr daily 7 mg transdermal DAILY #30 ea 12/12/20 transdermal patch polyethylene glycol 3350 17 gram 17 g PO DAILY PRN constipation #30 12/12/20 oral powder packet ea triamcinolone acetonide 0.5 % 1 appl topical BID #60 grams 12/12/20 topical ointment cefuroxime axetil 250 mg tablet 250 mg PO BID 7 days #14 tabs 10/21/23 Allergies Allergy/AdvReac Type Severity Reaction Status Date / Time adhesive [ADHESIVE] Allergy Intermediate RASH Verified 12/04/22 11:26 dulaglutide [Trulicity] Allergy Unknown Unknown Verified 12/04/22 11:26 Review of Systems 2 Review of Systems: Yes all other systems are reviewed and are negative [facility] Past Medical History Attestation statement: The following information was validated with the patient. Source: old records reviewed and nursing notes reviewed Medical History Bacteremia Streptococcal infection group C Morbid obesity Myositis Achilles tendon infection Hyperlipidemia Chronic kidney disease Recurrent cellulitis of lower extremity Hypertension Type 2 diabetes mellitus Atrial fib/flutter, transient Surgical History H/O hysterectomy for benign disease Status post debridement History of incision and drainage Family History Family History Other Hypertension Social History Social History Household Members: Spouse Housing: Condominium Do you presently have visiting nurse or other home services: Yes (for wound dressing) Cigarettes Per Day: 4 Years Smoked: 15 Smoked in Last 30 Days: Yes Use of substances other than those prescribed or required for medical reasons: No Advance Directives: No Advance Directives Information Provided: No service: No Physical Exam ED Vital Signs: Vital Signs - 24 hr 10/21/23 17:46 10/21/23 23:17 Temperature 99.2 F 98.6 F Pulse Rate 63 80 Respiratory Rate 16 14 Blood Pressure 148/63 H 153/60 H Pulse Oximetry 94 91 L Oxygen Delivery Method Room Air Room Air BMI result Body Mass Index 46.1 vss Appearance: Alert.? Oriented X3.? No acute distress.? Head: Normocephalic, atraumatic, no step-offs or deformities Eyes: Pupils equal, round and reactive to light.? CVS: Normal heart rate and rhythm.? Pulses normal.? Respiratory: No respiratory distress.? Breath sounds normal.? Abdomen: Soft and nontender.? Skin: Skin warm and dry.? Normal skin color.? Normal skin turgor.? Extremities: No lower extremity edema.? No calf ttp. 5/5 strength to bilateral upper and lower extremities + wound to r great to images below. Full rom to all toes Neuro: Oriented X 3.? No motor deficit.? No sensory deficit. CN 2-12 intact Course Reevaluation(s) Reevaluation #1: CBC unremarkable. ESR 23. Chemistry with an elevated BUN and creatinine, patient does have a slightly elevated BUN and creatinine at baseline however today slightly higher will give IV fluids this is likely secondary to poor p.o. intake/dehydration. CRP elevated at 3.49, chronically elevated once again. BNP elevated to 222, lower than baseline. Troponin 12.8 with a nonischemic EKG. Flu/COVID/RSV negative. Pending urine, chest xray, repeat trop, foot xray. Time: 20:39 Reevaluation #2: UA positive for infection. White blood cells, red blood cells, leukocyte esterases. Patient with history of complicated UTIs. Will give IV antibiotics and speak to hospitalist for admission . Time: 22:42 Reevaluation #3: Hospitalist Dr. Lazo evaluated patient states no need for admission. CT scan pending he recommends dc home as long as CT normal. Time: 23:41 Additional Reevaluation(s): CT chest scattered curve linear opacities bilaterally which favor atelectasis unlikely focal consolidation unlikely pneumonia patient without URI symptoms. Enlarged multinodular thyroid gland. Recommend outpatient ultrasound. Mild cardiomegaly. Splenomegaly. Patient 91% with sleeping. However when she wakes up saturating well on room air. Patient was seen by hospitalist do not feels though patient requires admission Educated patient on diagnosis and treatment plan, answered all question, patient verbalizes understanding. At this time patient will be discharged home, advised to return with new or worsening symptoms. Educated on worrisome signs and symptoms and when to return. At this time I feel comfortable discharge home. 0030 Nursing went to go discharge patient now stating she feels too weak to go home, daughter at bedside who states she does not live with patient. For this reason, patient will be placed into physician observation to allow more time to be evaluated by physical therapy and case management. Ceftin ordered. Medications Administered Discontinued Medications Generic Name Dose Route Start Last Admin Trade Name Freq PRN Reason Stop Dose Admin Ceftriaxone Sodium 1 gm/ 50 mls @ 100 mls/hr 10/21/23 22:42 10/21/23 23:08 Sodium Chloride IV 10/21/23 23:11 100 mls/hr ONCE ONE Administration Medical Decision Making Medical Decision Making [facility] Narrative: 1838 68 year old female presents w/ feeling fuzzy at home and r great toe diabetic ulcer that has been worsening PE- wound to r great to images below. Full ROM to all toes Hx and pE concerning for UTI and chronic r great toe diabetic ulcer. Unlikely sepsis, pylo, acute abdomen, ich, stroke, posterior stroke, osteomyelitis, cellulitis. Will rule out metabolic derangements, dysrhythmia. Will rule out viral illness. History and physical exam not consistent with meningitis or encephalitis Plan- labs, imaging, UA Differential Diagnosis Differential Diagnoses: The differential diagnosis associated with the presentation includes Hx and pE concerning for UTI and chronic r great toe diabetic ulcer. Unlikley sepsis, pylo, acute abdomen, ich, stroke, posterior stroke, osteomyelitis, cellulitis. Will rule out metabolic derangements, dysrhythmia. Will rule out viral illness. History and physical exam not consistent with meningitis or encephalitis Admission/Observation Consideration of admission/observation: Escalation of care including admission/observation considered Consult Healthcare Provider Management of the patient was discussed with: Hospitalist Lab Data [facility] Lab Attestation statement: I reviewed the patient's lab results. 10/21/23 18:41 10/21/23 18:41 Labs: Lab Results 10/21/23 10/21/23 10/21/23 Range/Units 18:31 18:41 19:36 WBC 10.7 (4.8-10.8) X10*3/uL RBC 4.27 (4.20-5.50) X10*6/uL Hgb 13.3 (12.0-16.0) g/dl Hct 39.9 (37.0-47.0) % MCV 93.4 (80.0-98.0) fL MCH 31.1 (27.0-33.0) pg MCHC 33.3 (31.0-35.0) g/dl RDW 14.1 (11.0-16.0) % Plt Count 148 L (160-400) X10*3/uL MPV 10.4 (9.4-12.3) fL Immature Gran % (Auto) 0.5 H (0.0-0.4) % Neut % (Auto) 89.4 H (45-73) % Lymph % (Auto) 3.8 L (20-40) % [place] % (Auto) 5.7 (2-11) % Eos % (Auto) 0.3 (0-4) % Baso % (Auto) 0.3 (0-2) % Lymph # (Auto) 0.4 L (1.2-4.9) X10*3/uL [place] # (Auto) 0.6 (0.1-1.2) X10*3/uL Eos # (Auto) 0.0 (0.0-0.4) X10*3/uL Baso # (Auto) 0.0 (0.0-0.2) X10*3/uL Abs Immat Gran (auto) 0.05 H (0.00-0.03) X10*3/uL Absolute Neuts (auto) 9.6 H (2.0-8.3) x10*3/uL Absolute Nucleated RBC 0.000 (0.0-0.012) X10*3/uL Nucleated RBC % (auto) 0.0 (0.0-0.2) /100WBC ESR 23 H (0-20) MM/HR Sodium 141 (135-145) mmol/L Potassium 4.5 (3.3-5.1) mmol/L Chloride 109 H (96-108) mmol/L Carbon Dioxide 25 (22-29) mmol/L Anion Gap 12 (12-20) BUN 40 H (9-16) mg/dL Creatinine 2.05 H (0.5-1.4) mg/dL Estim Creat Clear Calc 35.7 Estimated GFR 24 POC Glucose 74 (60-115) mg/dL Random Glucose 75 (60-115) mg/dL Lactic Acid 1.4 (0.5-2.0) mmol/L Calcium 9.6 D (8.4-10.2) mg/dL Magnesium 1.9 (1.6-2.6) mg/dL Total Bilirubin 0.6 (0.0-1.0) mg/dL AST 10 (5-31) U/L ALT 11 (0-31) U/L Alkaline Phosphatase 87 (39-117) U/L Total Creatine Kinase 29 (26-140) U/L Troponin I High Sens 12.8 (<3.5-17.0) ng/L C-Reactive Protein 3.49 H (< or = 0.50) mg/dL B-Natriuretic Peptide 222 H (<100) pg/mL Total Protein 7.2 (6.5-8.0) g/dL Albumin 3.6 (3.5-5.0) g/dL Urine Color Urine Appearance Urine pH (5.0-9.0) Ur Specific [place] (1.005-1.025) Urine Protein (Neg-Trace) mg/dL Urine Glucose (UA) (Negative) mg/dL Urine Ketones (Negative) mg/dL Urine Blood (Negative) Urine Nitrite (Negative) Ur Leukocyte Esterase (Negative) Urine RBC (0-2) /HPF Urine WBC (0-5) /HPF Ur Squamous Epith Cells (0-2) /HPF Urine Bacteria (None Seen) Hyaline Casts (0-2) /LPF Urine Yeast Influenza Type A (PCR) NEGATIVE (Negative) Influenza Type B (PCR) NEGATIVE (Negative) RSV RNA Qual (PCR) NEGATIVE (Negative) SARS-CoV-2 RNA (RT-PCR) NEGATIVE (Negative) 10/21/23 10/21/23 Range/Units 22:00 22:03 WBC (4.8-10.8) X10*3/uL RBC (4.20-5.50) X10*6/uL Hgb (12.0-16.0) g/dl Hct (37.0-47.0) % MCV (80.0-98.0) fL MCH (27.0-33.0) pg MCHC (31.0-35.0) g/dl RDW (11.0-16.0) % Plt Count (160-400) X10*3/uL MPV (9.4-12.3) fL Immature Gran % (Auto) (0.0-0.4) % Neut % (Auto) (45-73) % Lymph % (Auto) (20-40) % [place] % (Auto) (2-11) % Eos % (Auto) (0-4) % Baso % (Auto) (0-2) % Lymph # (Auto) (1.2-4.9) X10*3/uL [place] # (Auto) (0.1-1.2) X10*3/uL Eos # (Auto) (0.0-0.4) X10*3/uL Baso # (Auto) (0.0-0.2) X10*3/uL Abs Immat Gran (auto) (0.00-0.03) X10*3/uL Absolute Neuts (auto) (2.0-8.3) x10*3/uL Absolute Nucleated RBC (0.0-0.012) X10*3/uL Nucleated RBC % (auto) (0.0-0.2) /100WBC ESR (0-20) MM/HR Sodium (135-145) mmol/L Potassium (3.3-5.1) mmol/L Chloride (96-108) mmol/L Carbon Dioxide (22-29) mmol/L Anion Gap (12-20) BUN (9-16) mg/dL Creatinine (0.5-1.4) mg/dL Estim Creat Clear Calc Estimated GFR POC Glucose (60-115) mg/dL Random Glucose (60-115) mg/dL Lactic Acid (0.5-2.0) mmol/L Calcium (8.4-10.2) mg/dL Magnesium (1.6-2.6) mg/dL Total Bilirubin (0.0-1.0) mg/dL AST (5-31) U/L ALT (0-31) U/L Alkaline Phosphatase (39-117) U/L Total Creatine Kinase (26-140) U/L Troponin I High Sens 14.5 (<3.5-17.0) ng/L C-Reactive Protein (< or = 0.50) mg/dL B-Natriuretic Peptide (<100) pg/mL Total Protein (6.5-8.0) g/dL Albumin (3.5-5.0) g/dL Urine Color Yellow Urine Appearance Turbid Urine pH 6.0 (5.0-9.0) Ur Specific [place] 1.020 (1.005-1.025) Urine Protein 300 (3+) H (Neg-Trace) mg/dL Urine Glucose (UA) 100 H (Negative) mg/dL Urine Ketones Negative (Negative) mg/dL Urine Blood Moderate (2+) H (Negative) Urine Nitrite Negative (Negative) Ur Leukocyte Esterase Large (3+) H (Negative) Urine RBC >20 H (0-2) /HPF Urine WBC >50 H (0-5) /HPF Ur Squamous Epith Cells 3-5 (0-2) /HPF Urine Bacteria Trace (None Seen) Hyaline Casts 3-5 (0-2) /LPF Urine Yeast Present Influenza Type A (PCR) (Negative) Influenza Type B (PCR) (Negative) RSV RNA Qual (PCR) (Negative) SARS-CoV-2 RNA (RT-PCR) (Negative) Independent Interpretation I performed an independent interpretation of an: EKG (When compared with ECG of 06-DEC-2020 06:03, Sinus rhythm has replaced Atrial fibrillation Vent. rate has decreased BY [address] no longer depressed in Anterior leads Nonspecific T wave abnormality, improved in Lateral leads) and Plain X-Ray Radiology Impression Discussion of test interpretation with radiology: I have reviewed the radiologist's reading. External Record Review External record reviewed: Inpatient record, Office record, Outpatient record, Prior outpatient labs, Prior outpatient radiology, Primary care record and Outside ED record Prescription Management I considered prescription management with: Antibiotic (ceftriaxone given here ) Chronic Conditions Patient?s care impacted by: Diabetes, Hypertension and Other (Hypertension, hyperlipidemia, obesity, CKD, diabetes, atrial fibrillation and on apixaban) Critical Care Time Critical Care Time Critical Care Time: Yes Total Critical Care Time: 35 Attestation: I attest to this time spent taking care of the patient, obtaining history, physical, reviewing labs, imaging, speaking to my attending, speaking to specialist. Discharge Plan Discharge Clinical Impression: Acute UTI, Fever, [place] (acute kidney injury), Wound of foot, Thyroid nodule Patient Disposition: Still a Patient Instructions: Acute Kidney Injury (DC), Fever in Adults (ED), Wound Healing and Your Diet (ED), Thyroid Nodules (ED), Urinary Tract Infection in Older Adults (ED) Additional Instructions: Take your medications as prescribed. If you were prescribed antibiotics today, it is important that you take your medication to their entirety, do not skip any doses, do not finish them early. Follow-up with your primary care provider this week. Return to the emergency department with new or worsening symptoms. Such as fevers, chills, chest pain, shortness of breath, nausea, vomiting, dizziness, headache, vision changes, lethargy In case of emergency call 911 Please follow-up with wound care. You were noted to have a thyroid nodule, please follow-up with PCP you will likely require ultrasound for further investigation of this. You can take ibuprofen every 6 hours Tylenol every 4 as needed for fever, pain or discomfort. XR/XR chest 1V IMPRESSION: Unchanged hazy density in the left lower chest. No new pneumonia. No alveolar edema XR/XR foot RT 2V IMPRESSION: 1. No acute osseous abnormality. 2. The previously seen ulcer at the plantar surface of the distal right great toe is no longer seen. There is an ovoid 1.6 x 0.9 cm soft tissue density seen here that slightly bulges. Please correlate with physical exam. CT/CT chest wo IV con IMPRESSION: 1. Scattered curvilinear opacities bilaterally favor atelectasis. No additional focal consolidation. 2. Enlarged, multinodular thyroid gland. Further workup with nonemergent ultrasound is recommended. 3. Mild cardiomegaly. 4. Splenomegaly. Prescriptions: New cefuroxime axetil 250 mg tablet 250 mg PO BID 7 Days Qty: 14 0RF No Action atorvastatin 40 mg Tablet 40 mg PO BEDTIME gabapentin 600 mg tablet 1 tab PO TID insulin glargine 100 unit/mL Solution 52 unit SUBCUT DAILY metoprolol succinate 200 mg Tablet Extended Release 24 Hr 200 mg PO DAILY trazodone 100 mg Tablet 100 mg PO BEDTIME amlodipine 10 mg Tablet 10 mg PO BEDTIME hydroxyzine HCl 25 mg Tablet 25 mg PO QID PRN (Reason: Anxiety) fluoxetine 20 mg Capsule 20 mg PO DAILY insulin lispro 200 unit/mL (3 mL) Insulin Pen See Rx Instructions .ROUTE .COMPLEX Rx Instructions: SLIDING SCALE nicotine 7 mg/24 hr Patch 24 Hour 7 mg transdermal DAILY Qty: 30 0RF polyethylene glycol 3350 17 gram Powder In Packet 17 g PO DAILY PRN (Reason: constipation) Qty: 30 0RF triamcinolone acetonide 0.5 % Ointment 1 appl topical BID Qty: 60 0RF cefuroxime axetil 500 mg tablet 500 mg PO BID Qty: 18 0RF insulin lispro 200 unit/mL (3 mL) insulin pen See Rx Instructions .ROUTE .COMPLEX Rx Instructions: sliding scale apixaban 5 mg tablet 5 mg PO BID (DME) pen needle, diabetic 31 gauge x 3/16 needle See Rx Instructions subcut QID Qty: 50 Rx Instructions: As directed silver sulfadiazine 1 % cream topical Referrals: [facility] [place] Wound Care Management [Provider Group] - 1 day Physician,Unknown J [Primary Care Provider] - 1 day Stand Alone Forms: Work/School Release
[2023-10-21 18:47] LABS: MANUAL DIFF FLAG NO
[2023-10-21 18:47] LABS: Glucose, Whole Blood 74 mg/dL (60-115)
[2023-10-21 18:48] LABS: Basophils Percent Auto 0.3 % (0-2); Eosinophils Percent Auto 0.3 % (0-4); Hematocrit 39.9 % (37.0-47.0); Hemoglobin 13.3 g/dl (12.0-16.0); Imm Gran Abs Auto 0.05 X10*3/uL (0.00-0.03); Imm Gran Pct Auto 0.5 % (0.0-0.4); Lymphocytes Absolute Auto 0.4 X10*3/uL (1.2-4.9); Lymphocytes Percent Auto 3.8 % (20-40); Mean Corpuscular HGB Conc 33.3 g/dl (31.0-35.0); Mean Corpuscular Hemoglobin 31.1 pg (27.0-33.0); Mean Corpuscular Volume 93.4 fL (80.0-98.0); Mean Platelet Volume 10.4 fL (9.4-12.3); Monocytes Absolute Auto 0.6 X10*3/uL (0.1-1.2); Monocytes Percent Auto 5.7 % (2-11); Neutrophils Absolute Auto 9.6 x10*3/uL (2.0-8.3); Neutrophils Percent Auto 89.4 % (45-73); Platelet Count 148 X10*3/uL (160-400); Red Blood Count 4.27 X10*6/uL (4.20-5.50); Red Cell Distribution Width 14.1 % (11.0-16.0); White Blood Count 10.7 X10*3/uL (4.8-10.8)
--- NOTE | 2023-10-21 18:53 | PC.NURSE ---
Patient IV line placed, labs drawn, POC 74 oncoming nurse Shahida made aware, patient diabetic has not eaten today, alert and oriented talking in full sentences resting quietly on stretcher with daughter at bedside.
[2023-10-21 18:57] LABS: Lactic Acid 1.4 mmol/L (0.5-2.0)
[2023-10-21 19:03] LABS: Alanine Aminotransferase 11 U/L (0-31); Albumin Level 3.6 g/dL (3.5-5.0); Alkaline Phosphatase 87 U/L (39-117); Anion Gap 12 (12-20); Aspartate Amino Transferase 10 U/L (5-31); Bilirubin Total 0.6 mg/dL (0.0-1.0); Blood Urea Nitrogen 40 mg/dL (9-16); C Reactive Protein 3.49 mg/dL (< or = 0.50); Calcium 9.6 mg/dL (8.4-10.2); Carbon Dioxide 25 mmol/L (22-29); Chloride 109 mmol/L (96-108); Creatinine Clr Calc Pharmacy 35.7; Estimated Glomerular Filt Rate 24; Glucose Random 75 mg/dL (60-115); Magnesium 1.9 mg/dL (1.6-2.6); Potassium 4.5 mmol/L (3.3-5.1); Sodium 141 mmol/L (135-145); Total Protein 7.2 g/dL (6.5-8.0)
[2023-10-21 19:08] LABS: B Type Natriuretic Peptide 222 pg/mL (<100)
[2023-10-21 19:24] LABS: Influenza A PCR NEGATIVE (Negative); Influenza B PCR NEGATIVE (Negative); Resp Syncy Virus RNA Qual PCR NEGATIVE (Negative); SARS COV2 PCR INHOUSE NEGATIVE (Negative)
[2023-10-21 20:15] LABS: Troponin-I High Sensitivity 12.8 ng/L (<3.5-17.0)
[2023-10-21 20:23] LABS: Erythrocyte Sedimentation Rate 23 MM/HR (0-20)
[2023-10-21 22:13] LABS: Appearance Urine Turbid; Color Urine Yellow; Glucose Urine UA 100 mg/dL (Negative); Leukocyte Esterase Urine Large (3+) (Negative); Nitrite Urine Negative (Negative); UMIC TRIGGER UACC YES; Urine Blood Moderate (2+) (Negative); Urine Ketones Negative (Negative); Urine Protein 300 (3+) mg/dL (Neg-Trace)
[2023-10-21 22:31] LABS: Troponin-I High Sensitivity 14.5 ng/L (<3.5-17.0)
[2023-10-21 22:37] LABS: Bacteria Urine Trace (None Seen); RBC Urine >20 /HPF (0-2); UACC Culture Trigger YES; WBC Urine >50 /HPF (0-5)
[2023-10-21] MEDS: cefTRIAXone sodium 1 GM in 0.9 % Sodium Chloride 50 ML IV (23:08)
[2023-10-21 23:17] VITALS: BP 153/60; PULSE 80; RESP 14; TEMP 37; O2SAT 91
--- NOTE | 2023-10-22 00:37 | PC.NURSE ---
This RN at bedside for discharge. Pt reports feeling extremely weak, unable to get out of bed to the commode without a 2 assist. Daughter at bedside states that pt lives home alone. Pt and daughter concerned for pts safety if discharged home. T/w speaking to Shelbie who placed orders for PT/CM. Pt and daughter made aware of plan.
[2023-10-22 02:02] VITALS: BP 166/69; PULSE 79; RESP 16; TEMP 37.7; O2SAT 91
[2023-10-22 06:23] VITALS: BP 167/71; PULSE 93; RESP 16; O2SAT 90
[2023-10-22 06:29] VITALS: TEMP 37
[2023-10-22 08:01] LABS: Glucose, Whole Blood 162 mg/dL (60-115)
[2023-10-22] MEDS: cefuroxime axetiL 250 MG TABLET PO (08:32)
[2023-10-22 08:39] VITALS: BP 154/61; PULSE 83; O2SAT 95
--- NOTE | 2023-10-22 08:41 | PC.NURSE ---
Pharmacy called for med rec, will complete when able.
--- NOTE | 2023-10-22 09:30 | PHA.MEDREC ---
Pharmacy Consult ? Medication Reconciliation Pharmacy has completed the medication reconciliation. Patient able to name all medications and doses unprompted, takes most at night. Stated she is on Eliquis BID despite no recent claim history, explained that her passed and she has been using his.
--- NOTE | 2023-10-22 09:31 | PHA.MEDREC ---
Pharmacy Consult ? Medication Reconciliation Pharmacy has completed the medication reconciliation. Confirmed medications with patient. She reports that she has been using her husbands Eliquis 5mg (he this past year) so claim history does not match.
--- NOTE | 2023-10-22 10:23 | MHC.CM.ED ---
Addendum entered by Lana Bauer 10/22/23 10:45: [facility] is not able to accept patient due to staffing. [facility] is able to accept patient. Patient agreeable. Original Note: Received case management consult overnight. Patient came to the ER due to a fever. Physical therapy eval completed. Home with therapy is recommended. Met with patient in regards to discharge planning. Patient lives alone, ambulates with a walker in the house and a cane when out of the house, and has a home health aide from [facility]. PCP verified as Lacy Nielsen. Patient has received 6 Pfizer vaccines. Patient has been active with [facility] in the past and requested referral made to them. Referral made via [facility]. Patient's daughter will be here around 1045am to transport her home. Patient, Nighat RN and Briseida HEAD aware. Continue to monitor for d/c needs.
[2023-10-22 10:45] VITALS: BP 154/61; PULSE 83; RESP 20; TEMP 37.6; O2SAT 95
[2023-10-22 10:57] VITALS: BP 154/61; PULSE 80; RESP 18; TEMP 37.6; O2SAT 95
--- NOTE | 2023-10-23 08:14 | MHC.CM.ED ---
Received notification from [facility] that patient is active with [facility]. T/W reached out to [facility]. Patient is active with alf. Agency will add physical therapy.
== END 2023-10-22 11:04 | disposition home or self-care (01) ==
PROVIDERS: Physician Assistant; Emergency Provider Emergency Medicine Emergency Medical Services; PCP Family Medicine
DX: N39.0 Urinary tract infection, site not specified (principal); N17.9 Acute kidney failure, unspecified; E11.621 Type 2 diabetes mellitus with foot ulcer; L97.519 Non-pressure chronic ulcer of other part of right foot with unspecified severity; R78.81 Bacteremia; E04.1 Nontoxic single thyroid nodule; E11.22 Type 2 diabetes mellitus with diabetic chronic kidney disease; I12.9 Hypertensive chronic kidney disease with stage 1 through stage 4 chronic kidney disease, or unspecified chronic kidney disease; N18.9 Chronic kidney disease, unspecified; I48.91 Unspecified atrial fibrillation; Z79.01 Long term (current) use of anticoagulants
CPT/HCPCS: 0241U; 36415; 71045; 71250; 73620; 80053; 81001; 82550; 82947; 83605; 83735; 83880; 84484; 85025; 85652; 86140; 87040; 87086; 87147; 87205; 93005; 97161; 99285; J0696

== ENCOUNTER → 2023-10-21 17:55 | Outpatient (BNV) | payer MEDICARE, OTHER, SELFPAY | PROVIDERS: Emergency Provider Emergency Medicine Emergency Medical Services; Visit Provider Internal Medicine Cardiovascular Disease | DX: I48.91 Unspecified atrial fibrillation (principal) | CPT/HCPCS: 93010 ==

== ENCOUNTER 2023-10-25 14:14 | Inpatient (IN) | payer MEDICARE, OTHER, SELFPAY ==
--- NOTE | ~2023-10-25 | XR_ITS ---
EXAMINATION: XR CHEST CLINICAL INFORMATION: Bacteremia COMPARISON: Chest 10/21/2023 TECHNIQUE: AP upright portable view of the chest was obtained. 4:21 PM FINDINGS: The lungs are well expanded. Again seen is hazy density in the left lower chest. The cardiomediastinal silhouette is stable. No pleural effusion. No acute osseous abnormality. XR/XR chest 1V IMPRESSION: No significant change in hazy density in the left lower chest.
[2023-10-25 14:22] VITALS: BP 172/83; PULSE 60; RESP 16; TEMP 36; O2SAT 94; BMI 43.6
--- NOTE | 2023-10-25 14:31 | ED_ITS ---
HPI - Recheck/Abnormal Lab/Rx General Chief Complaint: Recheck/Abnormal Lab/Rx Stated Complaint: lab work Time Seen by Provider: 10/25/23 15:27 Source: patient and old records reviewed Mode of arrival: ambulatory Limitations: no limitations History of Present Illness HPI narrative: 68 yo female with PMH of DM, HTN, afib on eliquis, chronic R foot wounds including R great toe ulcer here with call back from positive blood culture just had labs done 10/20 and urine culture - was sent out from ED on ceftin 250mg BID - has had persistent chills and fatigue up until Sunday. She notes she is feeling better today. She has no new rash, no dysuria, no cough. CT scan of chest no focal consolidation and UA culture negative. No obvious source of infection. MD complaint: abnormal lab Initial visit (ago): day(s) (10/20) Initial visit for: other (not feeling well) Returns today for: needs IV antibiotics Symptoms since prior visit: no new symptoms Context: called for abnormal lab result Associated symptoms: none Treatments prior to arrival: other (in 250mg BID) Related Data Home Medications ?Medication ?Instructions ?Recorded ?Confirmed amlodipine 10 mg tablet 10 mg PO BEDTIME 10/22/23 10/22/23 apixaban 5 mg tablet (Eliquis) 5 mg PO BID 10/22/23 10/22/23 atorvastatin 40 mg tablet 40 mg PO BEDTIME 10/22/23 10/22/23 gabapentin 600 mg tablet 1,800 mg PO BEDTIME 10/22/23 10/22/23 hydroxyzine HCl 25 mg tablet 25 mg PO QID PRN Anxiety 10/22/23 10/22/23 insulin aspart See Protocol subcut DAILY 10/22/23 10/22/23 (niacinamide)(U-100) 100 unit/mL(3 mL) subcutaneous pen (Fiasp FlexTouch U-100 Insulin) insulin glargine 100 unit/mL (3 45 unit subcut BEDTIME 10/22/23 10/22/23 mL) subcutaneous pen (Lantus Solostar U-100 Insulin) metoprolol succinate 50 mg 75 mg PO BEDTIME 10/22/23 10/22/23 tablet,extended release 24 hr tirzepatide 5 mg/0.5 mL 5 mg subcut TU 10/22/23 10/22/23 subcutaneous pen injector (Sintia) trazodone 100 mg tablet 100 mg PO BEDTIME 10/22/23 10/22/23 Previous Rx's ?Medication ?Instructions ?Recorded cefuroxime axetil 250 mg tablet 250 mg PO BID 7 days #14 tabs 10/22/23 Allergies Allergy/AdvReac Type Severity Reaction Status Date / Time adhesive [ADHESIVE] Allergy Intermediate RASH Verified 10/25/23 14:24 amitriptyline Allergy Rash Verified 10/25/23 14:24 Review of Systems 2 Review of Systems: Constitutional : No Fever, pos Chills, pos Fatigue ENT/Mouth : No sore throat, No Rhinorrhea Eyes: No Eye Pain, No Swelling, No Redness Cardiovascular : No Chest Pain, No SOB, No Dyspnea on Exertion Respiratory : No Cough, No Sputum Gastrointestinal : No Nausea, No Vomiting, No Diarrhea, No abdominal Pain Genitourinary : No Dysuria, No Urinary Frequency, No Hematuria, Musculoskeletal : No joint pain, No Myalgias, No Joint Swelling Skin : No Skin Lesions, No rash Neuro : No Weakness, No Numbness, No Dizziness, positive Headache Psych : No Anxiety/Panic, No Depression All other systems reviewed and are negative [facility] Past Medical History Attestation statement: The following information was validated with the patient. Source: old records reviewed Medical History Bacteremia Streptococcal infection group C Morbid obesity Myositis Achilles tendon infection Hyperlipidemia Chronic kidney disease Recurrent cellulitis of lower extremity Hypertension Type 2 diabetes mellitus Atrial fib/flutter, transient Surgical History H/O hysterectomy for benign disease Status post debridement History of incision and drainage Family History Family History Other Hypertension Social History Social History Household Members: Spouse Housing: Condominium Do you presently have visiting nurse or other home services: Yes (for wound dressing) Cigarettes Per Day: 4 Years Smoked: 15 Advance Directives: No Advance Directives Information Provided: No service: No Physical Exam 2 Vital Signs: Vital Signs: Last Vital Signs Temp 97.9 F 10/25/23 15:38 Pulse 56 10/25/23 15:38 Resp 16 10/25/23 15:38 BP 152/70 H 10/25/23 15:38 Pulse Ox 95 10/25/23 15:38 O2 Del Method Room Air 10/25/23 15:38 BMI result Body Mass Index 43.6 Appearance: Alert. Oriented X3. No acute distress. Eyes: Pupils equal, round and reactive to light. ENT: Pharynx normal. Neck: Normal inspection. Neck supple. CVS: Normal heart rate and rhythm. Pulses normal. Respiratory: No respiratory distress. Breath sounds normal. Abdomen: Soft and nontender. Obese Skin: Skin warm and dry. Normal skin color. Normal skin turgor. Extremities: 1+ bilateral LE edema soles of feet no open wound other than chronic R great toe ulcer no purulence no drainage no ext erythema packed and cleaned - recovered with sterile dressing Neuro: Oriented X 3. No motor deficit. No sensory deficit. Course Course Course Narrative: RME:? 68 yo female hx of hypertension, hyperlipidemia, obesity, CKD, diabetes, atrial fibrillation and on apixaban here after receiving call for positive blood cultures showing group B strep obtained on 10/21/23. she was discharged home on ceftin for suspected UTI which she has been taking as prescribed. urine culture returned negative. she has no complaints and states symptoms have improved since being discharged. labs, lactic, blood cultures ordered Full HPI, ROS and PE to be performed by the primary ED provider. Medical Decision Making Medical Decision Making [facility] Narrative: 68 yo female with PMH of DM, HTN, afib on eliquis, chronic R foot wounds including R great toe ulcer that she is seeing wound care for - seen here 10/20 treated for UTI had chills fatigue low grade temps - UA treated with ceftin 250mg BID still felt poorly up until Sunday now blood cultures 2/2 Group B strep without a source. Culture of urine negative, no cellulitis, no known source. Will start on ceftriaxone and repeat cultures. Differential Diagnosis Differential Diagnoses: The differential diagnosis associated with the presentation includes bacteremia no known source Admission/Observation Consideration of admission/observation: Escalation of care including admission/observation considered admit for culture surveillance Consult Healthcare Provider Management of the patient was discussed with: Hospitalist (will admit) Lab Data [facility] Lab Attestation statement: I reviewed the patient's lab results. 10/25/23 14:45 10/25/23 14:45 Labs: Lab Results 10/25/23 10/25/23 Range/Units 14:45 14:46 WBC 10.0 (4.8-10.8) X10*3/uL RBC 4.23 (4.20-5.50) X10*6/uL Hgb 13.2 (12.0-16.0) g/dl Hct 39.7 (37.0-47.0) % MCV 93.9 (80.0-98.0) fL MCH 31.2 (27.0-33.0) pg MCHC 33.2 (31.0-35.0) g/dl RDW 14.0 (11.0-16.0) % Plt Count 195 D (160-400) X10*3/uL MPV 10.0 (9.4-12.3) fL Immature Gran % (Auto) 0.4 (0.0-0.4) % Neut % (Auto) 78.5 H (45-73) % Lymph % (Auto) 13.3 L (20-40) % [place] % (Auto) 5.6 (2-11) % Eos % (Auto) 1.9 (0-4) % Baso % (Auto) 0.3 (0-2) % Lymph # (Auto) 1.3 (1.2-4.9) X10*3/uL [place] # (Auto) 0.6 (0.1-1.2) X10*3/uL Eos # (Auto) 0.2 (0.0-0.4) X10*3/uL Baso # (Auto) 0.0 (0.0-0.2) X10*3/uL Abs Immat Gran (auto) 0.04 H (0.00-0.03) X10*3/uL Absolute Neuts (auto) 7.8 (2.0-8.3) x10*3/uL Absolute Nucleated RBC 0.000 (0.0-0.012) X10*3/uL Nucleated RBC % (auto) 0.0 (0.0-0.2) /100WBC Sodium 138 (135-145) mmol/L Potassium 4.3 (3.3-5.1) mmol/L Chloride 107 (96-108) mmol/L Carbon Dioxide 21 L (22-29) mmol/L Anion Gap 14 (12-20) BUN 38 H (9-16) mg/dL Creatinine 1.88 H (0.5-1.4) mg/dL Estim Creat Clear Calc 37.7 Estimated GFR 27 Random Glucose 217 H (60-115) mg/dL Lactic Acid 2.1 H* (0.5-2.0) mmol/L Calcium 9.5 (8.4-10.2) mg/dL Total Bilirubin 0.3 (0.0-1.0) mg/dL AST 12 (5-31) U/L ALT 20 (0-31) U/L Alkaline Phosphatase 85 (39-117) U/L Total Protein 7.1 (6.5-8.0) g/dL Albumin 3.5 (3.5-5.0) g/dL Independent Interpretation I performed an independent interpretation of an: Plain X-Ray (left lung haziness) and CT Scan (CT chest from 10/20 no focal consolidation) Radiology Impression Discussion of test interpretation with radiology: I have reviewed the radiologist's reading. External Record Review External record reviewed: Inpatient record Discharge Plan Discharge Clinical Impression: Bacteremia due to group B Streptococcus, Acidosis, lactic Patient Disposition: Admitted As Inpatient Prescriptions: No Action atorvastatin 40 mg tablet 40 mg PO BEDTIME gabapentin 600 mg tablet 1,800 mg PO BEDTIME metoprolol succinate 50 mg tablet extended release 24 hr 75 mg PO BEDTIME trazodone 100 mg tablet 100 mg PO BEDTIME amlodipine 10 mg tablet 10 mg PO BEDTIME hydroxyzine HCl 25 mg tablet 25 mg PO QID PRN (Reason: Anxiety) Mounjaro 5 mg/0.5 mL pen injector 5 mg subcut TU Eliquis 5 mg tablet 5 mg PO BID insulin glargine [Lantus Solostar U-100 Insulin] 100 unit/mL (3 mL) Insulin Pen 45 unit SUBCUT BEDTIME Fiasp FlexTouch U-100 Insulin 100 unit/mL (3 mL) insulin pen See Protocol SUBCUT DAILY Protocol: Insulin Correction Scale Less than or equal to 110 ---- Give (units): 0 111 to 150 Give (units): 0 151 to 200 Give (units): 2 201 to 250 Give (units): 4 251 to 300 Give (units): 6 301 to 350 Give (units): 8 Greater than 350 Give (units): 10 Call if Blood Glucose > : 350 cefuroxime axetil 250 mg tablet 250 mg PO BID 7 Days Qty: 14 0RF Print Language: Welsh
[2023-10-25 14:51] LABS: MANUAL DIFF FLAG NO
[2023-10-25 14:53] LABS: Basophils Percent Auto 0.3 % (0-2); Eosinophils Absolute Auto 0.2 X10*3/uL (0.0-0.4); Eosinophils Percent Auto 1.9 % (0-4); Hematocrit 39.7 % (37.0-47.0); Hemoglobin 13.2 g/dl (12.0-16.0); Imm Gran Abs Auto 0.04 X10*3/uL (0.00-0.03); Imm Gran Pct Auto 0.4 % (0.0-0.4); Lymphocytes Absolute Auto 1.3 X10*3/uL (1.2-4.9); Lymphocytes Percent Auto 13.3 % (20-40); Mean Corpuscular HGB Conc 33.2 g/dl (31.0-35.0); Mean Corpuscular Hemoglobin 31.2 pg (27.0-33.0); Mean Corpuscular Volume 93.9 fL (80.0-98.0); Monocytes Absolute Auto 0.6 X10*3/uL (0.1-1.2); Monocytes Percent Auto 5.6 % (2-11); Neutrophils Absolute Auto 7.8 x10*3/uL (2.0-8.3); Neutrophils Percent Auto 78.5 % (45-73); Platelet Count 195 X10*3/uL (160-400); Red Blood Count 4.23 X10*6/uL (4.20-5.50)
[2023-10-25 15:05] LABS: Lactic Acid 2.1 mmol/L (0.5-2.0)
[2023-10-25 15:15] LABS: Alanine Aminotransferase 20 U/L (0-31); Albumin Level 3.5 g/dL (3.5-5.0); Alkaline Phosphatase 85 U/L (39-117); Anion Gap 14 (12-20); Aspartate Amino Transferase 12 U/L (5-31); Blood Urea Nitrogen 38 mg/dL (9-16); Calcium 9.5 mg/dL (8.4-10.2); Carbon Dioxide 21 mmol/L (22-29); Chloride 107 mmol/L (96-108); Creatinine Clr Calc Pharmacy 37.7; Estimated Glomerular Filt Rate 27; Glucose Random 217 mg/dL (60-115); Potassium 4.3 mmol/L (3.3-5.1); Sodium 138 mmol/L (135-145); Total Protein 7.1 g/dL (6.5-8.0)
[2023-10-25 15:20] LABS: Bilirubin Total 0.3 mg/dL (0.0-1.0)
[2023-10-25 15:38] VITALS: BP 152/70; PULSE 56; RESP 16; TEMP 36.6; O2SAT 95
--- NOTE | 2023-10-25 15:40 | MHC.EDTECH ---
THIS PCT JUST ASSUMED CARE OF PATIENT ,VITALS TAKEN ,PT WANTED TO SIT IN A RECLINER INSTEAD OF THE STRETCHER .CALL ASHLEY WITHIN PT REACH .
--- NOTE | 2023-10-25 16:31 | MHC.EDTECH ---
Patient 2nd sets of blood culture drawn ,rsv/covid swab collected and sent to lab .
[2023-10-25 16:50] LABS: Reflex Lactate? Lactic Acid Added
[2023-10-25 17:12] LABS: Influenza A PCR NEGATIVE (Negative); Influenza B PCR NEGATIVE (Negative); Resp Syncy Virus RNA Qual PCR NEGATIVE (Negative); SARS COV2 PCR INHOUSE NEGATIVE (Negative)
--- NOTE | 2023-10-25 17:26 | PHA.MEDREC ---
Pharmacy Consult ? Medication Reconciliation Pharmacy has completed the medication reconciliation. Patient reported all medications. Reported 3 tablet of Gabapentin 600 mg at bedtime. Reports Irina is from [facility]. Itzel DiazD
[2023-10-25 18:00] VITALS: BP 148/68; PULSE 55; RESP 16; TEMP 36.5; O2SAT 97
[2023-10-25] MEDS: cefTRIAXone sodium 1 GM in 0.9 % Sodium Chloride 50 ML IV (18:01)
[2023-10-25 18:05] LABS: ~Lactic Acid-LAB USE ONLY 1.5 mmol/L (0.5-2.0)
[2023-10-25] MEDS: 0.9 % Sodium Chloride 500 ML IV (18:05)
--- NOTE | 2023-10-25 18:28 | P.HPHOSP_ITS ---
History of Present Illness Date of Service: 10/25/23 Chief Complaint: Bacteremia A 68 years old lady with PMH of DM, HTN, Afib on Eliquis , Rt foot wound among others who presents to the hospital after being called for positive blood culture. The patient was called home as her blood culture from 10/20 turned positive for grp B streptococcus. The patient reports that she was feeling sick until Sunday but since then she has been doing ok as she is still taking Ceftin as prescribed. No chest pain, palpitations, SOB, nausea, vomiting, diarrhea or urinary symptoms. UTI treated and symptoms resolved by Sunday. She reports right big toe ulcer that has been taken care of at the wound clinic. Admitted for further evaluation and treatment. Review of Systems 2 Review of Systems: No fever, chills or weakness No chest pain, palpitation No shortness of breath or coughing No abdominal pain, nausea or vomiting No urinary symptoms No any rash or wounds PMFSH Medical History Bacteremia Streptococcal infection group C Morbid obesity Myositis Achilles tendon infection Hyperlipidemia Chronic kidney disease Recurrent cellulitis of lower extremity Hypertension Type 2 diabetes mellitus Atrial fib/flutter, transient Family History Other Hypertension Surgical History H/O hysterectomy for benign disease Status post debridement History of incision and drainage Social History Household Members: Children [facility] Do you presently have visiting nurse or other home services: Yes Patient Tobacco Use Status: Former Tobacco user Cigarettes Per Day: 5 Years Smoked: 20 service: No Meds Allergies Allergy/AdvReac Type Severity Reaction Status Date / Time adhesive [ADHESIVE] Allergy Intermediate RASH Verified 10/25/23 14:24 amitriptyline Allergy Rash Verified 10/25/23 14:24 Active Medications: Current Medications Acetaminophen (Acetaminophen 325 Mg Tablet) 650 mg PO Q6H PRN PRN Reason: Pain, Mild (Pain Scale 1-3) Amlodipine Besylate (Amlodipine Besylate 10 Mg Tablet) 10 mg PO BEDTIME PIPE; Protocol Apixaban (Apixaban 5 Mg Tablet) 5 mg PO BID PIPE Atorvastatin Calcium (Atorvastatin Calcium 40 Mg Tablet) 40 mg PO BEDTIME PIPE Gabapentin (Gabapentin 600 Mg Tablet) 1,800 mg PO BEDTIME PIPE Hydroxyzine HCl (Hydroxyzine Hcl 25 Mg Tablet) 25 mg PO BEDTIME PIPE Ceftriaxone Sodium 1 gm/ (Sodium Chloride) 50 mls @ 100 mls/hr IV Q24H PIPE Insulin Glargine (Insulin Glargine,Hum.Rec.Anlog 100 Unit/Ml 10 Ml Vial) 35 unit SUBCUT BEDTIME PIPE Insulin Human Lispro (Insulin Lispro 100 Unit/Ml 3 Ml Vial) 0 unit SUBCUT QIDACHS PIPE; Protocol Metoprolol Succinate (Metoprolol Succinate Er 25 Mg Tab.Er.24h) 75 mg PO BEDTIME PIPE; Protocol Ondansetron HCl (Ondansetron Hcl 4 Mg/2 Ml Vial) 4 mg IVPUSH Q8H PRN PRN Reason: Nausea and Vomiting Sodium Chloride (0.9 % Sodium Chloride Flush 3 Ml Syringe) 3 ml IVFLUSH QSHIFT PIPE Trazodone HCl (Trazodone Hcl 100 Mg Tablet) 100 mg PO BEDTIME [facility] Home Medications ?Medication ?Instructions ?Recorded ?Confirmed ?Last Taken ?Type amlodipine 10 mg tablet 10 mg PO BEDTIME 10/22/23 10/25/23 10/24/23 History apixaban 5 mg tablet (Eliquis) 5 mg PO BID 10/22/23 10/25/23 10/25/23 History atorvastatin 40 mg tablet 40 mg PO BEDTIME 10/22/23 10/25/23 10/24/23 History gabapentin 600 mg tablet 1,800 mg PO BEDTIME 10/22/23 10/25/23 10/24/23 History hydroxyzine HCl 25 mg tablet 25 - 50 mg PO BEDTIME 10/22/23 10/25/23 10/24/23 History insulin aspart See Protocol subcut TIDAC 10/22/23 10/25/23 10/25/23 History (niacinamide)(U-100) 100 unit/mL(3 mL) subcutaneous pen (Fiasp FlexTouch U-100 Insulin) insulin glargine 100 unit/mL (3 45 unit subcut BEDTIME 10/22/23 10/25/23 10/24/23 History mL) subcutaneous pen (Lantus Solostar U-100 Insulin) metoprolol succinate 50 mg 75 mg PO BEDTIME 10/22/23 10/25/23 10/24/23 History tablet,extended release 24 hr tirzepatide 5 mg/0.5 mL 5 mg subcut WE 10/22/23 10/25/23 10/24/23 History subcutaneous pen injector (Mounjaro) trazodone 100 mg tablet 100 mg PO BEDTIME 10/22/23 10/25/23 10/24/23 History Probiotic 1 gummy PO DAILY 10/25/23 10/25/23 10/25/23 History Physical Exam 2 Vital Signs and Narrative: Vital Signs: Last Vital Signs Temp 97.7 F 10/25/23 18:00 Pulse 55 10/25/23 18:00 Resp 16 10/25/23 18:00 BP 148/68 H 10/25/23 18:00 Pulse Ox 97 10/25/23 18:00 O2 Del Method Room Air 10/25/23 18:00 BMI result Body Mass Index 43.6 Const: Other: Constitutional : Awake, interactive, morbidly obese, not in distress Neck : Normal inspection, Supple Cardiovascular : RRR, no JVP, no lower extremity edema Respiratory : good bilateral air entry, no crackles, wheezes or rhonchi Gastrointestinal: soft, lax, Normal bowel sounds, Non tender Skin : Warm, Dry, clean toe wound , covered with dressing Neurological : Alert & oriented x3, No focal deficit Results Labs 10/26/23 05:41 10/26/23 05:41 Labs: Laboratory Results - last 24 hr 10/25/23 10/25/23 10/25/23 14:45 14:46 16:27 MCV 93.9 MCH 31.2 MCHC 33.2 RDW 14.0 Plt Count 195 D MPV 10.0 Immature Gran % (Auto) 0.4 Neut % (Auto) 78.5 H Lymph % (Auto) 13.3 L [place] % (Auto) 5.6 Eos % (Auto) 1.9 Baso % (Auto) 0.3 Lymph # (Auto) 1.3 [place] # (Auto) 0.6 Eos # (Auto) 0.2 Baso # (Auto) 0.0 Abs Immat Gran (auto) 0.04 H Absolute Neuts (auto) 7.8 Absolute Nucleated RBC 0.000 Nucleated RBC % (auto) 0.0 Anion Gap 14 Estim Creat Clear Calc 37.7 Estimated GFR 27 Random Glucose 217 H Lactic Acid 2.1 H* Lactic Acid F/U @ 2Hr Calcium 9.5 Total Bilirubin 0.3 AST 12 ALT 20 Alkaline Phosphatase 85 Total Protein 7.1 Albumin 3.5 Influenza Type A (PCR) NEGATIVE Influenza Type B (PCR) NEGATIVE RSV RNA Qual (PCR) NEGATIVE SARS-CoV-2 RNA (RT-PCR) NEGATIVE 10/25/23 17:40 MCV MCH MCHC RDW Plt Count MPV Immature Gran % (Auto) Neut % (Auto) Lymph % (Auto) [place] % (Auto) Eos % (Auto) Baso % (Auto) Lymph # (Auto) [place] # (Auto) Eos # (Auto) Baso # (Auto) Abs Immat Gran (auto) Absolute Neuts (auto) Absolute Nucleated RBC Nucleated RBC % (auto) Anion Gap Estim Creat Clear Calc Estimated GFR Random Glucose Lactic Acid Lactic Acid F/U @ 2Hr 1.5 Calcium Total Bilirubin AST ALT Alkaline Phosphatase Total Protein Albumin Influenza Type A (PCR) Influenza Type B (PCR) RSV RNA Qual (PCR) SARS-CoV-2 RNA (RT-PCR) Imaging Radiologist's Impressions: Impressions Chest X-Ray 10/25/23 16:24 IMPRESSION: No significant change in hazy density in the left lower chest. Assessment and Plan (1) Bacteremia due to group B Streptococcus: Status: Acute Plan A 68 years old lady with PMH of DM, HTN, Afib on Eliquis , Rt foot wound among others who presents to the hospital after being called for positive blood culture. Streptococcus B bacteremia PEnding repeat cultures Ceftriaxone 2gm daily ID evaluation PAF Continue Eliquis and Metoprolol HTN Amlodipine DM 2 Insulin Gabapentin for neuropathy Mood disorder home medications Obesity advised weight loss DVT PPx Eliquis The patient will likely need 2 overnight hospital stay for Bacteremia management with IV antibiotics pending ID evaluation Quality Stroke Does the patient have a stroke diagnosis?: No VTE Prior VTE?: No VTE Risk Level:: Medical - moderate - high VTE Device Contraindication: Treatment Not Indicated VTE Drug Contraindication: N/A - Med Ordered
[2023-10-25 18:57] LABS: Glucose, Whole Blood 173 mg/dL (60-115)
[2023-10-25 19:10] LABS: Appearance Urine Cloudy; Color Urine Yellow; Glucose Urine UA 250 mg/dL (Negative); Leukocyte Esterase Urine Small (1+) (Negative); Nitrite Urine Negative (Negative); UMIC TRIGGER UACC YES; Urine Blood Small (1+) (Negative); Urine Ketones Negative (Negative); Urine Protein 300 (3+) mg/dL (Neg-Trace)
[2023-10-25 19:48] LABS: Bacteria Urine None Seen (None Seen); Hyaline Casts Urine 0-2 /LPF (0-2); UACC Culture Trigger YES; WBC Urine >50 /HPF (0-5)
[2023-10-25 20:00] VITALS: BP 155/77; PULSE 65; RESP 16; TEMP 36.8; O2SAT 94
[2023-10-25 20:06] LABS: Troponin-I High Sensitivity 4.1 ng/L (<3.5-17.0)
[2023-10-25 20:58] LABS: Glucose, Whole Blood 255 mg/dL (60-115)
[2023-10-25 21:41] VITALS: BP 151/87; PULSE 68; RESP 18; TEMP 36.3; O2SAT 95
[2023-10-25 21:48] VITALS: BMI 45.5
[2023-10-25 21:55] LABS: Glucose, Whole Blood 267 mg/dL (60-115)
[2023-10-25] MEDS: amLODIPine Besylate 10 MG TABLET PO (21:58)
[2023-10-25] MEDS: Apixaban 5 MG TABLET PO (21:58)
[2023-10-25] MEDS: Metoprolol Succinate ER 25 MG TAB.ER.24H 75 MG PO (21:58)
[2023-10-25] MEDS: Insulin Glargine,Hum.rec.anlog 100 UNIT/ML 10 ML VIAL 35 UNIT SUBCUT (21:58)
[2023-10-25] MEDS: Atorvastatin Calcium 40 MG TABLET PO (21:58)
[2023-10-25] MEDS: Gabapentin 600 MG TABLET 1800 MG PO (21:58)
[2023-10-25] MEDS: Insulin Lispro 100 UNIT/ML 3 ML VIAL SUBCUT (21:59)
[2023-10-25] MEDS: traZODone HCL 100 MG TABLET PO (23:42)
[2023-10-25] MEDS: hydrOXYzine HCL 25 MG TABLET PO (23:42)
[2023-10-26 03:12] VITALS: BP 145/73; PULSE 71; RESP 20; TEMP 36.2; O2SAT 94
[2023-10-26] MEDS: Acetaminophen 325 MG TABLET 650 MG PO (06:11)
[2023-10-26 06:22] LABS: MANUAL DIFF FLAG NO
[2023-10-26 06:28] LABS: Basophils Percent Auto 0.2 % (0-2); Eosinophils Absolute Auto 0.2 X10*3/uL (0.0-0.4); Eosinophils Percent Auto 2.1 % (0-4); Hematocrit 37.7 % (37.0-47.0); Hemoglobin 12.6 g/dl (12.0-16.0); Imm Gran Abs Auto 0.06 X10*3/uL (0.00-0.03); Imm Gran Pct Auto 0.6 % (0.0-0.4); Lymphocytes Absolute Auto 1.6 X10*3/uL (1.2-4.9); Lymphocytes Percent Auto 16.8 % (20-40); Mean Corpuscular HGB Conc 33.4 g/dl (31.0-35.0); Mean Corpuscular Hemoglobin 31.2 pg (27.0-33.0); Mean Corpuscular Volume 93.3 fL (80.0-98.0); Mean Platelet Volume 10.1 fL (9.4-12.3); Monocytes Absolute Auto 0.7 X10*3/uL (0.1-1.2); Monocytes Percent Auto 7.2 % (2-11); Neutrophils Absolute Auto 6.9 x10*3/uL (2.0-8.3); Neutrophils Percent Auto 73.1 % (45-73); Platelet Count 184 X10*3/uL (160-400); Red Blood Count 4.04 X10*6/uL (4.20-5.50); Red Cell Distribution Width 13.6 % (11.0-16.0); White Blood Count 9.4 X10*3/uL (4.8-10.8)
[2023-10-26 06:43] LABS: Anion Gap 12 (12-20); Blood Urea Nitrogen 37 mg/dL (9-16); Calcium 9.2 mg/dL (8.4-10.2); Carbon Dioxide 25 mmol/L (22-29); Chloride 109 mmol/L (96-108); Creatinine Clr Calc Pharmacy 44.8; Estimated Glomerular Filt Rate 32; Glucose Random 76 mg/dL (60-115); Potassium 3.7 mmol/L (3.3-5.1); Sodium 142 mmol/L (135-145)
[2023-10-26 07:42] VITALS: BP 146/68; PULSE 59; RESP 18; TEMP 36.2; O2SAT 92
[2023-10-26 07:47] LABS: Glucose, Whole Blood 82 mg/dL (60-115)
[2023-10-26] MEDS: Apixaban 5 MG TABLET PO (08:37)
[2023-10-26] MEDS: 0.9 % Sodium Chloride Flush 3 ML SYRINGE IVFLUSH (08:37)
--- NOTE | 2023-10-26 08:49 | MHC.CM.PN ---
IMM 10/26/23, Pt lives alone, she has home health aid services one day a week from [facility], for DME, she has a cane and a walker. HCP to be completed here. Her daughter will transport home at DC. PCP: Femi Nielsen. CM to follow and assist with DC planning.
[2023-10-26 11:36] LABS: Glucose, Whole Blood 180 mg/dL (60-115)
[2023-10-26] MEDS: Insulin Lispro 100 UNIT/ML 3 ML VIAL SUBCUT (11:42)
--- NOTE | 2023-10-26 13:02 | PM.DS ---
DS: Providers Provider Date of Service: 10/26/23 Date of admission: 10/25/23 18:22 Primary care physician: Femi Nielsen MD Consults: 10/25/23 18:15 Consult to Infectious Diseases Routine [place]ing [place] [facility] [place] Reason for consultation: Grp B strep Bacteremia, no clear source. DS: Diagnosis Discharge Diagnosis (1) Bacteremia due to group B Streptococcus: Status: Acute DS: Summary Hospital Course Hospital Course: Admission note A 68 years old lady with PMH of DM, HTN, Afib on Eliquis , Rt foot wound among others who presents to the hospital after being called for positive blood culture. The patient was called home as her blood culture from 10/20 turned positive for grp B streptococcus. The patient reports that she was feeling sick until Sunday but since then she has been doing ok as she is still taking Ceftin as prescribed. No chest pain, palpitations, SOB, nausea, vomiting, diarrhea or urinary symptoms. UTI treated and symptoms resolved by Sunday. She reports right big toe ulcer that has been taken care of at the wound clinic. Admitted for further evaluation and treatment. Hospital course The patient was admitted for evaluation of positive blood culture growing Streptococcus B from 10/20. started on Ceftriaxone 2 gm daily as Infectious specialist consulted who recommended to do another week of Ceftin PO as the patient has no sings of sepsis and has been improving steadily over the last week on PO Ceftin. Discharge Plan Continue Ceftin for 7 more days Come back to the hospital with any fever or lethargy Time Attestation Discharge Coordination Time (in mins): 34 Quality: Safe Use of Opioids Does Pt have an Active Cancer Diagnosis on the Problem List?: No Quality: Stroke Does the patient have a stroke diagnosis?: No Physical Exam Vital Signs: Vital Signs: Last Vital Signs Temp 97.2 F 10/26/23 07:42 Pulse 59 10/26/23 07:42 Resp 18 10/26/23 07:42 BP 146/68 H 10/26/23 07:42 Pulse Ox 92 10/26/23 07:42 O2 Del Method Room Air 10/26/23 07:42 BMI result Body Mass Index 45.5 Const: Other: Constitutional : Awake, interactive, morbidly obese, not in distress Neck : Normal inspection, Supple Cardiovascular : RRR, no JVP, no lower extremity edema Respiratory : good bilateral air entry, no crackles, wheezes or rhonchi Gastrointestinal: soft, lax, Normal bowel sounds, Non tender Skin : Warm, Dry, clean toe wound , covered with dressing Neurological : Alert & oriented x3, No focal deficit DS: Data Data Completed and Pending Labs on day of discharge: Laboratory Results - last 24 hr 10/25/23 10/25/23 10/25/23 14:45 14:46 16:27 WBC 10.0 RBC 4.23 Hgb 13.2 Hct 39.7 MCV 93.9 MCH 31.2 MCHC 33.2 RDW 14.0 Plt Count 195 D MPV 10.0 Immature Gran % (Auto) 0.4 Neut % (Auto) 78.5 H Lymph % (Auto) 13.3 L [place] % (Auto) 5.6 Eos % (Auto) 1.9 Baso % (Auto) 0.3 Lymph # (Auto) 1.3 [place] # (Auto) 0.6 Eos # (Auto) 0.2 Baso # (Auto) 0.0 Abs Immat Gran (auto) 0.04 H Absolute Neuts (auto) 7.8 Absolute Nucleated RBC 0.000 Nucleated RBC % (auto) 0.0 Sodium 138 Potassium 4.3 Chloride 107 Carbon Dioxide 21 L Anion Gap 14 BUN 38 H Creatinine 1.88 H Estim Creat Clear Calc 37.7 Estimated GFR 27 POC Glucose Random Glucose 217 H Lactic Acid 2.1 H* Lactic Acid F/U @ 2Hr Calcium 9.5 Total Bilirubin 0.3 AST 12 ALT 20 Alkaline Phosphatase 85 Troponin I High Sens Total Protein 7.1 Albumin 3.5 Urine Color Urine Appearance Urine pH Ur Specific Cherry Log Urine Protein Urine Glucose (UA) Urine Ketones Urine Blood Urine Nitrite Ur Leukocyte Esterase Urine RBC Urine WBC Ur Squamous Epith Cells Urine Bacteria Hyaline Casts Urine Yeast Influenza Type A (PCR) NEGATIVE Influenza Type B (PCR) NEGATIVE RSV RNA Qual (PCR) NEGATIVE SARS-CoV-2 RNA (RT-PCR) NEGATIVE 10/25/23 10/25/23 10/25/23 17:40 18:53 18:59 WBC RBC Hgb Hct MCV MCH MCHC RDW Plt Count MPV Immature Gran % (Auto) Neut % (Auto) Lymph % (Auto) [place] % (Auto) Eos % (Auto) Baso % (Auto) Lymph # (Auto) [place] # (Auto) Eos # (Auto) Baso # (Auto) Abs Immat Gran (auto) Absolute Neuts (auto) Absolute Nucleated RBC Nucleated RBC % (auto) Sodium Potassium Chloride Carbon Dioxide Anion Gap BUN Creatinine Estim Creat Clear Calc Estimated GFR POC Glucose 173 H Random Glucose Lactic Acid Lactic Acid F/U @ 2Hr 1.5 Calcium Total Bilirubin AST ALT Alkaline Phosphatase Troponin I High Sens Total Protein Albumin Urine Color Yellow Urine Appearance Cloudy Urine pH 6.0 Ur Specific Cherry Log 1.020 Urine Protein 300 (3+) H Urine Glucose (UA) 250 H Urine Ketones Negative Urine Blood Small (1+) H Urine Nitrite Negative Ur Leukocyte Esterase Small (1+) H Urine RBC 3-5 H Urine WBC >50 H Ur Squamous Epith Cells 3-5 Urine Bacteria None Seen Hyaline Casts 0-2 Urine Yeast Present Influenza Type A (PCR) Influenza Type B (PCR) RSV RNA Qual (PCR) SARS-CoV-2 RNA (RT-PCR) 10/25/23 10/25/23 10/25/23 19:41 20:55 21:51 WBC RBC Hgb Hct MCV MCH MCHC RDW Plt Count MPV Immature Gran % (Auto) Neut % (Auto) Lymph % (Auto) [place] % (Auto) Eos % (Auto) Baso % (Auto) Lymph # (Auto) [place] # (Auto) Eos # (Auto) Baso # (Auto) Abs Immat Gran (auto) Absolute Neuts (auto) Absolute Nucleated RBC Nucleated RBC % (auto) Sodium Potassium Chloride Carbon Dioxide Anion Gap BUN Creatinine Estim Creat Clear Calc Estimated GFR POC Glucose 255 H 267 H Random Glucose Lactic Acid Lactic Acid F/U @ 2Hr Calcium Total Bilirubin AST ALT Alkaline Phosphatase Troponin I High Sens 4.1 D Total Protein Albumin Urine Color Urine Appearance Urine pH Ur Specific Cherry Log Urine Protein Urine Glucose (UA) Urine Ketones Urine Blood Urine Nitrite Ur Leukocyte Esterase Urine RBC Urine WBC Ur Squamous Epith Cells Urine Bacteria Hyaline Casts Urine Yeast Influenza Type A (PCR) Influenza Type B (PCR) RSV RNA Qual (PCR) SARS-CoV-2 RNA (RT-PCR) 10/26/23 10/26/23 10/26/23 05:41 07:41 11:30 WBC 9.4 RBC 4.04 L Hgb 12.6 Hct 37.7 MCV 93.3 MCH 31.2 MCHC 33.4 RDW 13.6 Plt Count 184 MPV 10.1 Immature Gran % (Auto) 0.6 H Neut % (Auto) 73.1 H Lymph % (Auto) 16.8 L [place] % (Auto) 7.2 Eos % (Auto) 2.1 Baso % (Auto) 0.2 Lymph # (Auto) 1.6 [place] # (Auto) 0.7 Eos # (Auto) 0.2 Baso # (Auto) 0.0 Abs Immat Gran (auto) 0.06 H Absolute Neuts (auto) 6.9 Absolute Nucleated RBC 0.000 Nucleated RBC % (auto) 0.0 Sodium 142 Potassium 3.7 Chloride 109 H Carbon Dioxide 25 Anion Gap 12 BUN 37 H Creatinine 1.62 H Estim Creat Clear Calc 44.8 Estimated GFR 32 POC Glucose 82 180 H Random Glucose 76 Lactic Acid Lactic Acid F/U @ 2Hr Calcium 9.2 Total Bilirubin AST ALT Alkaline Phosphatase Troponin I High Sens Total Protein Albumin Urine Color Urine Appearance Urine pH Ur Specific Cherry Log Urine Protein Urine Glucose (UA) Urine Ketones Urine Blood Urine Nitrite Ur Leukocyte Esterase Urine RBC Urine WBC Ur Squamous Epith Cells Urine Bacteria Hyaline Casts Urine Yeast Influenza Type A (PCR) Influenza Type B (PCR) RSV RNA Qual (PCR) SARS-CoV-2 RNA (RT-PCR) Imaging Chest x-ray: Radiologist's impression: ITS Impressions Chest X-Ray 10/25/23 16:24 IMPRESSION: No significant change in hazy density in the left lower chest. Discharge Plan Discharge Anticipated Discharge Date/Time: 10/26/23 12:59 Patient Disposition: Home, Self-Care Discharge Diagnosis: Streptococcus bacteremia Referrals: Femi Nielsen MD [Primary Care Provider] - 1 Week Discharge Medications: New cefuroxime axetil 500 mg tablet 500 mg PO BID Qty: 14 0RF Continued atorvastatin 40 mg tablet 40 mg PO BEDTIME gabapentin 600 mg tablet 1,800 mg PO BEDTIME metoprolol succinate 50 mg tablet extended release 24 hr 75 mg PO BEDTIME trazodone 100 mg tablet 100 mg PO BEDTIME amlodipine 10 mg tablet 10 mg PO BEDTIME hydroxyzine HCl 25 mg tablet 25 - 50 mg PO BEDTIME Mounjaro 5 mg/0.5 mL pen injector 5 mg subcut WE Eliquis 5 mg tablet 5 mg PO BID insulin glargine [Lantus Solostar U-100 Insulin] 100 unit/mL (3 mL) Insulin Pen 45 unit SUBCUT BEDTIME Fiasp FlexTouch U-100 Insulin 100 unit/mL (3 mL) insulin pen See Protocol SUBCUT TIDAC Protocol: Insulin Correction Scale Less than or equal to 110 ---- Give (units): 0 111 to 150 Give (units): 0 151 to 200 Give (units): 2 201 to 250 Give (units): 4 251 to 300 Give (units): 6 301 to 350 Give (units): 8 Greater than 350 Give (units): 10 Call MD if Blood Glucose > : 350 Probiotic 1 gummy PO DAILY Discontinued cefuroxime axetil 250 mg tablet 250 mg PO BID 7 Days Qty: 14 0RF Rx Instructions: x 7 days, finish 10/28/22 Discharge Orders: Discharge Order (Routine); Ordered 10/26/23 Ordered By: Aneesh Denise Diet: Advance to usual diet Activity on Discharge: As tolerated Stand Alone Forms: Patient Portal Discharge page Print Language: French Care Plan Goals: Read below Health Concerns: Read below Plan of Treatment: Read below Assessment: Continue Ceftin for 7 more days for treatment of positive blood culture growing Group B Streptococcus Come back to the hospital with any fever or lethargy
--- NOTE | 2023-10-26 13:02 | MHC.CM.PN ---
Pt has been medically cleared for DC, her daughter will come to pick her up and she will resume her prior home care services.
[2023-10-26] MEDS: cefuroxime axetiL 500 MG TABLET PO (13:20)
== END 2023-10-26 15:10 | disposition home health service (06) | DRG 872 ==
LOC: HO.ED 16:52 → HO.EDOVER 18:28 → HO.IMC 20:02
PROVIDERS: Physician Assistant Medical; Admitting Provider Student in an Organized Health Care Education/Training Program; Emergency Provider Emergency Medicine; PCP Family Medicine; Visit Provider Student in an Organized Health Care Education/Training Program
DX: R78.81 Bacteremia (principal); Z68.42 Body mass index [BMI] 45.0-49.9, adult; B95.1 Streptococcus, group B, as the cause of diseases classified elsewhere; E66.01 Morbid (severe) obesity due to excess calories; I10 Essential (primary) hypertension; E11.621 Type 2 diabetes mellitus with foot ulcer; L97.519 Non-pressure chronic ulcer of other part of right foot with unspecified severity; I48.0 Paroxysmal atrial fibrillation; Z20.822 Contact with and (suspected) exposure to COVID-19; Z87.891 Personal history of nicotine dependence; Z79.4 Long term (current) use of insulin; Z79.01 Long term (current) use of anticoagulants; Z79.899 Other long term (current) drug therapy
CPT/HCPCS: 0241U; 36415; 71045; 80048; 80053; 81001; 82947; 83605; 84484; 85025; 87040; 87086; 99285; J0696

== ENCOUNTER → 2023-10-25 18:22 | Outpatient (BNV) | payer MEDICARE, OTHER, SELFPAY | PROVIDERS: Admitting Provider Student in an Organized Health Care Education/Training Program; Emergency Provider Emergency Medicine; PCP Family Medicine; Visit Provider Student in an Organized Health Care Education/Training Program | DX: R78.81 Bacteremia (principal); B95.1 Streptococcus, group B, as the cause of diseases classified elsewhere | CPT/HCPCS: 99223; 99239 ==

== ENCOUNTER → 2024-01-09 15:54 | Outpatient (RCR) | payer MEDICARE, OTHER, SELFPAY ==
--- NOTE | ~2024-01-09 | XR_ITS ---
EXAMINATION: XR FOOT, RIGHT CLINICAL INFORMATION: Nonhealing wound right foot, attention great toe COMPARISON: None available. TECHNIQUE: AP, lateral, and oblique views of the right foot. FINDINGS: The bones are normal. No fracture. Alignment is anatomic. Joint spaces are maintained. Best visualized on lateral radiograph there is a soft tissue ulcer at the plantar surface of the right great toe at the level of the interphalangeal joint. There is no soft tissue gas. There is no radiopaque foreign body. There is no clear extension to the level of the bone. There are no bony erosions or abnormal lucency. XR/XR foot RT min 3V IMPRESSION: Soft tissue ulcer at the plantar surface of the right great toe without bony abnormality.
== END | disposition home or self-care (01) ==
LOC: HO.WCC 12-19 13:55
PROVIDERS: PCP Family Medicine; Visit Provider Physician Assistant
DX: Z09 Encounter for follow-up examination after completed treatment for conditions other than malignant neoplasm (principal); E11.22 Type 2 diabetes mellitus with diabetic chronic kidney disease; I12.9 Hypertensive chronic kidney disease with stage 1 through stage 4 chronic kidney disease, or unspecified chronic kidney disease; N18.9 Chronic kidney disease, unspecified; E11.40 Type 2 diabetes mellitus with diabetic neuropathy, unspecified; Z87.891 Personal history of nicotine dependence; Z87.2 Personal history of diseases of the skin and subcutaneous tissue
CPT/HCPCS: 11042; 15275; 17250; 73630; 97597; 99212; 99213; Q4187

== ENCOUNTER 2025-03-10 14:40 | Inpatient (IN) | payer MEDICARE, OTHER, SELFPAY ==
--- OUTSIDE RECORDS SUMMARY | 2024-06-12 11:15 | XMS_ITS ---
Author Organization [facility] Address [address] [place] [address] Care Team Providers Care Stay Cutter Name Role Phone Femi Nielsen MD Primary Care Provider Unavail able Taylor Jiménez Unavailable [phone] Shreya Rich Unavailable [phone] Encounters Encounter Location Date Provider Diagnosis [address] [address] 06/12/2024 Shreya Rich Plan Of Treatment No Information Progress Notes * Alka ISRAEL LDOB:1955 (69 yo F)Acc No.[id number]:06/12/2024 Progress Note Patient: Emory BERMUDEZAGAlka Emory Provider: Alverto Rich DPM :1955 A ge:68 Y S ex:Female Date:06/12/2024 Address:[address] [place], [place] [phone] Pcp:Femi Nielsen MD Subjective: * Chief Complaints: * * Medical History: Objective: * Vitals: Assessment: Plan: * Treatment: * Images: * The named appointment provid er may or may not be the originator of this progress note, and it is not deemed complete until electronically signed by the appointment provider. Sign off status: Pending * Provider: Alverto Rich DPM Date: 1 08/12/2023 Generated for Printi ng/Famary aliceg/eTransmitting on: 0 03/10/2025 05:50 PM EDT
[2025-03-10] VITALS (7 sets, daily range): BP systolic 136–147; BP diastolic 51–111; PULSE 46–54; RESP 16–20; TEMP 36.4–36.6; O2SAT 95–99; BMI 44.2; BMI 42.9
--- NOTE | ~2025-03-10 | XR_ITS ---
EXAMINATION: XR TOES, RIGHT CLINICAL INFORMATION: 2nd toe ?osteo COMPARISON: October 21, 2023 TECHNIQUE: 3 views of the right toes were obtained. FINDINGS: There is diffuse osteopenia. There is a healed fracture involving the neck of the third metatarsal. The cortex is slightly indistinct along the lateral aspect of the second metatarsophalangeal joint involving the base of the proximal phalanx and head of the metatarsal. XR/XR toe RT min 2V IMPRESSION: Indistinct cortical margin involving the lateral aspect of the second MTP joint, erosion/osteomyelitis and septic arthritis is not ruled out. However, on the prior examination, this area was slightly indistinct as well and so suspicion is low. Electronically signed by: Serafin Schwab MD 03/10/2025 04:29 PM EDT
--- NOTE | ~2025-03-10 | XR_ITS ---
EXAMINATION: XR CHEST CLINICAL INFORMATION: hypoxia COMPARISON: March 10, 2025 at 4:48 PM TECHNIQUE: Frontal view of the chest was obtained. FINDINGS: Prominence of the interstitial markings. Patchy opacity in the periphery of the right hemithorax. No pneumothorax. No gross pleural effusion. Cardiomediastinal silhouette size is large. Multilevel spondylosis. Degenerative changes in the shoulders. Probable soft tissue calcifications overlapping the left acromiohumeral joint. XR/XR chest 1V IMPRESSION: Pulmonary edema. Atelectasis versus airspace disease, right lung. Cardiomegaly versus pericardial effusion. Electronically signed by: Ta Min MD 03/11/2025 07:50 AM EDT
--- NOTE | ~2025-03-10 | XR_ITS ---
EXAMINATION: XR CHEST CLINICAL INFORMATION: eval for edema COMPARISON: October 25, 2023. TECHNIQUE: Frontal view of the chest was obtained. FINDINGS: Prominence of the interstitial markings in the perihilar regions. Poor inspiration. No gross pneumothorax or pleural effusion. Cardiac mediastinal silhouette size is prominent, unchanged. Multilevel thoracic spondylosis. Degenerative changes in the shoulders. XR/XR chest 1V IMPRESSION: Pulmonary edema in the correct clinical settings. Cardiomegaly versus pericardial effusion. Electronically signed by: Ta Min MD 03/11/2025 07:49 AM EDT
--- NOTE | 2025-03-10 14:44 | ECG_ITS ---
Test Reason : jean cardia Blood Pressure : */* mmHG Vent. Rate : 44 BPM Atrial Rate : 44 BPM P-R Int : 166 ms QRS Dur : 92 ms QT Int : 520 ms P-R-T Axes : 66 10 34 degrees QTcB Int : 444 ms Marked sinus bradycardia Abnormal ECG When compared with ECG of 21-Oct-2023 18:03, Vent. rate has decreased by 24 bpm Referred By: Generic ED Physician Electronically Signed By: SANTO VEGAS MD
--- NOTE | 2025-03-10 15:42 | ED.ARRPALP ---
HPI - Arrhythmia/Palpitations General Chief Complaint: Arrhythmia/Palpitations Stated Complaint: from wound care, irregular heart rate Time Seen by Provider: 03/10/25 15:05 Source: patient and old records reviewed Mode of arrival: ambulatory Limitations: no limitations History of Present Illness ED Provider: OREN HPI narrative: 69 yo female with PMH of DM, HTN, 10/20/24 group B strep bacteremia, afib on eliquis as well as 75mg metoprolol succinate daily, she has known R toe wound and redness on her R foot as well - states she has been on bactrim since 03/03 for her R great toe. She notes over the past week her HR has been lower in the 50s she notes her VNa today noted HR in 40s and BP was 106/60 she is normally much higher than that. She denies change in medications other than bactrim, she has normal UOP. No fevers, GIB. She notes she just feels tired and weak like she is in a fog. She has not taken any extra medications. Onset (ago): week(s) (1) Duration: constant Severity: moderate Context: occurred during rest and occurred during exertion Arrhythmia history: atrial fibrillation Associated symptoms: other (weakness, and rash on R toe) Related Data Home Medications ?Medication ?Instructions ?Recorded ?Confirmed amlodipine 10 mg tablet 10 mg PO BEDTIME 10/22/23 03/10/25 apixaban 5 mg tablet (Eliquis) 5 mg PO BID 10/22/23 03/10/25 atorvastatin 40 mg tablet 40 mg PO BEDTIME 10/22/23 03/10/25 gabapentin 600 mg tablet 1,800 mg PO BEDTIME 10/22/23 03/10/25 hydroxyzine HCl 25 mg tablet 25 mg PO QID PRN Anxiety/Itching 10/22/23 03/10/25 metoprolol succinate 50 mg 75 mg PO BEDTIME 10/22/23 03/10/25 tablet,extended release 24 hr tirzepatide 5 mg/0.5 mL 5 mg subcut TH 10/22/23 03/10/25 subcutaneous pen injector (Sintia) trazodone 100 mg tablet 100 mg PO BEDTIME 10/22/23 03/10/25 Probiotic 1 gummy PO DAILY 10/25/23 03/10/25 gabapentin 300 mg capsule 300 mg PO BID PRN NEUROPATHY 03/10/25 03/10/25 insulin glargine 100 unit/mL (3 40 unit subcut BEDTIME 03/10/25 03/10/25 mL) subcutaneous pen (Basaglar KwikPen U-100 Insulin) insulin lispro 100 unit/mL See Protocol subcut TIDAC PRN 03/10/25 03/10/25 subcutaneous pen (Admelog SoloStar Hyperglycemia U-100 Insulin lispro) sulfamethoxazole 800 2 tab PO BID 03/10/25 03/10/25 mg-trimethoprim 160 mg tablet urea 20 % topical cream 1 appl topical DAILY PRN Wound Care 03/10/25 03/10/25 Allergies Allergy/AdvReac Type Severity Reaction Status Date / Time adhesive (ADHESIVE) Allergy Intermediate RASH Verified 03/10/25 15:24 amitriptyline Allergy Rash Verified 03/10/25 15:24 Review of Systems Review of Systems: Constitutional : No Fever, No Chills, pos Fatigue ENT/Mouth : No sore throat, No Rhinorrhea Eyes: No Eye Pain, No Swelling, No Redness Cardiovascular : No Chest Pain, No SOB, No Dyspnea on Exertion Respiratory : No Cough, No Sputum Gastrointestinal : No Nausea, No Vomiting, No Diarrhea, No abdominal Pain Genitourinary : No Dysuria, No Urinary Frequency, No Hematuria, Musculoskeletal : No joint pain, No Myalgias, No Joint Swelling Skin : pos Skin Lesions, pos rash Neuro : pos Weakness, No Numbness, No Dizziness, no Headache All other systems reviewed and are negative PMFSH Past Medical History Attestation statement: The following information was validated with the patient. Source: old records reviewed Medical History Bacteremia Streptococcal infection group C Morbid obesity Myositis Achilles tendon infection Hyperlipidemia Chronic kidney disease Recurrent cellulitis of lower extremity Hypertension Type 2 diabetes mellitus Atrial fib/flutter, transient Surgical History H/O hysterectomy for benign disease Status post debridement History of incision and drainage Family History Family History Other Hypertension Social History Social History Household Members: Children Housing: Condominium Do you presently have visiting nurse or other home services: Yes Alcohol intake: current Alcohol intake frequency: holidays/special occasions only Patient Tobacco Use Status: Former Tobacco user Cigarettes Per Day: 5 Years Smoked: 20 Smoked in Last 30 Days: Yes Use of substances other than those prescribed or required for medical reasons: No Advance Directives: No Advance Directives Information Provided: No service: No Physical Exam Vital Signs: Vital Signs: Last Vital Signs Temp 97.7 F 03/11/25 06:13 Pulse 58 03/11/25 08:11 Resp 16 03/11/25 08:11 BP 138/57 L 03/11/25 08:11 Pulse Ox 90 L 03/11/25 08:11 O2 Del Method Room Air 03/11/25 08:11 O2 Flow Rate 15 03/11/25 06:13 BMI result Body Mass Index 42.9 Appearance: Alert. Oriented X3. No acute distress. Eyes: Pupils equal, round and reactive to light. ENT: Pharynx normal. Neck: Normal inspection. Neck supple. CVS: bradycardic heart rate and rhythm. Pulses normal. Respiratory: No respiratory distress. Breath sounds normal. Abdomen: Soft and nontender. Obese Skin: Skin warm and dry. Normal skin color. Extremities: no edema but bilateral legs venous stasis skin changes with desquamation of the skin on top of R foot down to R toe with ulceration on top of R toe with some thin exudate noted, L lateral calf area there is peelling of skin but no signs of infection. She had tube stockings on that we removed and dry gauze on the R toe Neuro: Oriented X 3. No motor deficit. No sensory deficit. CN2-12 intact Medications Administered Generic Name Dose Route Start Last Admin Trade Name Vaughnq PRN Reason Stop Dose Admin Amlodipine Besylate 10 mg 03/10/25 21:00 03/10/25 21:24 Amlodipine Besylate 10 Mg Tablet PO 10 mg BEDTIME PIPE Administration Protocol Apixaban 5 mg 03/10/25 21:00 03/11/25 08:09 Apixaban 5 Mg Tablet PO 5 mg BID PIPE Administration Atorvastatin Calcium 40 mg 03/10/25 21:00 03/10/25 21:24 Atorvastatin Calcium 40 Mg Tablet PO 40 mg BEDTIME PIPE Administration Sodium Chloride 1,000 mls @ 75 mls/hr 03/10/25 17:00 03/11/25 07:11 Ns IVCONT 75 mls/hr .[id number] PIPE Administration Insulin Glargine 30 unit 03/10/25 21:00 03/10/25 21:25 Insulin Glargine,Hum.Rec.Anlog 100 Unit/Ml 10 Ml Vial SUBCUT 30 unit BEDTIME PIPE Administration Insulin Human Lispro 0 unit 03/10/25 21:00 03/11/25 07:39 Insulin Lispro 100 Unit/Ml 3 Ml Vial SUBCUT Not Given QIDACHS REPLACED BY [facility] Protocol Sodium Chloride 3 ml 03/11/25 00:00 03/11/25 08:10 0.9 % Sodium Chloride Flush 3 Ml Syringe IVFLUSH Not Given QSHIFT REPLACED BY [facility] Trazodone HCl 100 mg 03/10/25 21:00 03/10/25 21:24 Trazodone Hcl 100 Mg Tablet PO 100 mg BEDTIME PIPE Administration Discontinued Medications Generic Name Dose Route Start Last Admin Trade Name Freq PRN Reason Stop Dose Admin Apixaban 5 mg 03/10/25 21:00 03/10/25 21:24 Apixaban 5 Mg Tablet PO 5 mg BID PIPE Administration Piperacillin Sod/Tazobactam 50 mls @ 100 mls/hr 03/10/25 15:43 03/10/25 17:00 Sod 3.375 gm/ Sodium Chloride IV 03/10/25 16:12 Infused ONCE ONE Infusion Sodium Chloride 500 mls @ 500 mls/hr 03/10/25 17:00 03/10/25 18:07 Ns IV 03/10/25 17:59 Infused .Q1H PIPE Infusion Medical Decision Making Medical Decision Making MDM Narrative: 69 yo female with PMH of DM, HTN, 10/20/24 group B strep bacteremia, afib on eliquis as well as 75mg metoprolol succinate daily now here with bradycardia and feeling tired but BP is stable would lower metoprolol. She also has R toe signs of infection I did order labs, cultures, xray and IV zosyn. Likely admit. Could be nephrotoxicity from bactrim as well. Differential Diagnosis Differential Diagnoses: The differential diagnosis associated with the presentation includes cellulitis, bradycardia, lyte abnormality, osteo Admission/Observation Consideration of admission/observation: Escalation of care including admission/observation considered admit given NJ and BNP she does not appear volume overloaded discussed with hospitalist could be cardiorenal at this time will admit for further management Consult Healthcare Provider Management of the patient was discussed with: Hospitalist (will admit) Lab Data MDM Lab Attestation statement: I reviewed the patient's lab results. 03/11/25 04:09 03/11/25 04:09 Labs: Lab Results 03/10/25 Range/Units 15:56 WBC 9.4 (4.8-10.8) X10*3/uL RBC 2.96 L D (4.20-5.50) X10*6/uL Hgb 9.3 L D (12.0-16.0) g/dl Hct 28.9 L D (37.0-47.0) % MCV 97.6 (80.0-98.0) fL MCH 31.4 (27.0-33.0) pg MCHC 32.2 (31.0-35.0) g/dl RDW 13.5 (11.0-16.0) % Plt Count 237 D (160-400) X10*3/uL MPV 10.4 (9.4-12.3) fL Immature Gran % (Auto) 0.7 H (0.0-0.4) % Neut % (Auto) 80.8 H (45-73) % Lymph % (Auto) 12.8 L (20-40) % [place] % (Auto) 3.9 (2-11) % Eos % (Auto) 1.5 (0-4) % Baso % (Auto) 0.3 (0-2) % Lymph # (Auto) 1.2 (1.2-4.9) X10*3/uL [place] # (Auto) 0.4 (0.1-1.2) X10*3/uL Eos # (Auto) 0.1 (0.0-0.4) X10*3/uL Baso # (Auto) 0.0 (0.0-0.2) X10*3/uL Abs Immat Gran (auto) 0.07 H (0.00-0.03) X10*3/uL Absolute Neuts (auto) 7.6 (2.0-8.3) x10*3/uL Absolute Nucleated RBC 0.000 (0.0-0.012) X10*3/uL Nucleated RBC % (auto) 0.0 (0.0-0.2) /100WBC ESR 58 H (0-20) MM/HR Sodium 135 (135-145) mmol/L Potassium 4.9 D (3.3-5.1) mmol/L Chloride 105 (96-108) mmol/L Carbon Dioxide 19 L (22-29) mmol/L Anion Gap 16 (12-20) BUN 59 H (9-16) mg/dL Creatinine 3.70 H (0.5-1.4) mg/dL Estim Creat Clear Calc 18.7 Estimated GFR 12 Random Glucose 215 H (60-115) mg/dL Lactic Acid 1.9 (0.5-2.0) mmol/L Calcium 9.2 (8.4-10.2) mg/dL Magnesium 2.4 (1.6-2.6) mg/dL Total Bilirubin 0.3 (0.0-1.0) mg/dL Direct Bilirubin 0.1 (0.0-0.5) mg/dL AST 18 (5-31) U/L ALT 14 (0-31) U/L Alkaline Phosphatase 101 (39-117) U/L Troponin I High Sens 9.0 D (<3.5-17.0) ng/L C-Reactive Protein 0.48 (< or = 0.50) mg/dL B-Natriuretic Peptide 752 H (<100) pg/mL Total Protein 7.0 (6.5-8.0) g/dL Albumin 3.9 (3.5-5.0) g/dL Procalcitonin 0.04 ng/mL TSH 0.81 (0.32-4.0) uIU/mL Independent Interpretation I performed an independent interpretation of an: EKG and Plain X-Ray (no clear osteo) Interpretation: Rate: 44 Rhythm: sinus bradycardia [place]: normal Normal P waves. Normal FELIBERTO. Normal QRS complex. ST T wave : normal no NORA qTC: 444 prior studies: The study has been interpreted contemporaneously by me. . Radiology Impression Discussion of test interpretation with radiology: I have reviewed the radiologist's reading. External Record Review External record reviewed: Outpatient record, Prior outpatient labs and Prior outpatient radiology Discharge Plan Discharge Clinical Impression: NJ (acute kidney injury), Bradycardia Cellulitis Qualifiers: Site of cellulitis: extremity Site of cellulitis of extremity: lower extremity Laterality: right Qualified Code(s): L03.115 - Cellulitis of right lower limb Patient Disposition: Admitted As Inpatient Interventions: Admission Worksheet (ED) Last Done: 03/10/25 23:46
[2025-03-10 16:04] LABS: MANUAL DIFF FLAG NO
[2025-03-10 16:06] LABS: Hematocrit 28.9 % (37.0-47.0); Hemoglobin 9.3 g/dl (12.0-16.0); Imm Gran Abs Auto 0.07 X10*3/uL (0.00-0.03); Imm Gran Pct Auto 0.7 % (0.0-0.4); Lymphocytes Absolute Auto 1.2 X10*3/uL (1.2-4.9); Mean Corpuscular HGB Conc 32.2 g/dl (31.0-35.0); Mean Corpuscular Hemoglobin 31.4 pg (27.0-33.0); Mean Corpuscular Volume 97.6 fL (80.0-98.0); NRBC Abs Auto 0.000 X10*3/uL (0.0-0.012); NRBC Pct Auto 0.0 /100WBC (0.0-0.2); Platelet Count 237 X10*3/uL (160-400); Red Blood Count 2.96 X10*6/uL (4.20-5.50); White Blood Count 9.4 X10*3/uL (4.8-10.8)
[2025-03-10 16:29] LABS: B Type Natriuretic Peptide 752 pg/mL (<100); Troponin-I High Sensitivity 9.0 ng/L (<3.5-17.0)
[2025-03-10 16:32] LABS: Alanine Aminotransferase 14 U/L (0-31); Albumin Level 3.9 g/dL (3.5-5.0); Alkaline Phosphatase 101 U/L (39-117); Anion Gap 16 (12-20); Aspartate Amino Transferase 18 U/L (5-31); Blood Urea Nitrogen 59 mg/dL (9-16); Calcium 9.2 mg/dL (8.4-10.2); Carbon Dioxide 19 mmol/L (22-29); Chloride 105 mmol/L (96-108); Creatinine Clr Calc Pharmacy 18.7; Estimated Glomerular Filt Rate 12; Magnesium 2.4 mg/dL (1.6-2.6); Potassium 4.9 mmol/L (3.3-5.1); Sodium 135 mmol/L (135-145); Total Protein 7.0 g/dL (6.5-8.0)
[2025-03-10 17:08] LABS: Procalcitonin 0.04 ng/mL
--- NOTE | 2025-03-10 17:27 | P.HPHOSP_ITS ---
History of Present Illness Date of Service: 03/10/25 Chief Complaint: Low heart rate 69-year-old woman with a history of diabetes mellitus type 2, hypertension, group B strep bacteremia, AFib on Eliquis and beta-juan carlos. She has a history of bilateral leg wounds more specifically right toe wound with redness. She was started on Bactrim and 03/03/2025 for her right great toe. She also noted over the last week her heart rate has been lower mainly in the 50s but her visiting nurse came today and found to be in the 40s. Blood pressure has been normal although low-normal as she usually runs higher than the 100s. She had denied any fever, chills, nausea, vomiting, diarrhea. She did report feeling tired and weak. She denied taking any extra medications specifically beta-blockers. In the ER, heart rate was noted to be in the 40s, 50s., creatinine 3.70, last creatinine in October 21.. Plan will be to admit patient for further management and treatment of NJ and bradycardia. Review of Systems 2 Review of Systems: Denies any recent fever chills or decrease in appetite respiratory denied shortness breath cardiovascular denied chest pain gastrointestinal denies any dysphagia abdominal pain nausea vomiting or diarrhea genitourinary denies any dysuria frequency or hematuria musculoskeletal denies any joint pain or swelling neuropsych denies any weakness or seizures all other systems reviewed are negative [facility] Medical History Bacteremia Streptococcal infection group C Morbid obesity Myositis Achilles tendon infection Hyperlipidemia Chronic kidney disease Recurrent cellulitis of lower extremity Hypertension Type 2 diabetes mellitus Atrial fib/flutter, transient Family History Other Hypertension Surgical History H/O hysterectomy for benign disease Status post debridement History of incision and drainage Social History Household Members: Children Housing: Condominium Do you presently have visiting nurse or other home services: Yes Alcohol intake: current Alcohol intake frequency: holidays/special occasions only Patient Tobacco Use Status: Former Tobacco user Cigarettes Per Day: 5 Years Smoked: 20 Smoked in Last 30 Days: Yes Use of substances other than those prescribed or required for medical reasons: No Advance Directives: No Advance Directives Information Provided: No service: No Meds Allergies Allergy/AdvReac Type Severity Reaction Status Date / Time adhesive (ADHESIVE) Allergy Intermediate RASH Verified 03/10/25 15:24 amitriptyline Allergy Rash Verified 03/10/25 15:24 Active Medications: Current Medications Acetaminophen (Acetaminophen 325 Mg Tablet) 650 mg PO Q6H PRN PRN Reason: Pain, Mild 1-3,fever,headache Calcium Carbonate (Calcium Carbonate 750 Mg Tab.Chew) 750 mg PO Q4H PRN PRN Reason: Heartburn Dextrose (Dextrose 50 % 25 Gm/50 Ml Syringe) 25 gm IVPUSH Q15M PRN; Protocol PRN Reason: per Hypoglycemia Standing Ord. Glucose (Glucose Gel 15 Gm Gel..Gram.) 15 gm PO Q15M PRN; Protocol PRN Reason: per Hypoglycemia Standing Ord. Heparin Sodium (Porcine) (Heparin Sodium,Porcine 5,000 Unit/Ml Vial) 5,000 unit SUBCUT Q12H [facility] Sodium Chloride (Ns) 500 mls @ 500 mls/hr IV .Q1H [facility] Stop: 03/10/25 17:59 Last Admin: 03/10/25 17:05 Dose: 500 mls/hr Sodium Chloride (Ns) 1,000 mls @ 75 mls/hr IVCONT .[id number] [facility] Last Admin: 03/10/25 17:05 Dose: 75 mls/hr Insulin Human Lispro (Insulin Lispro 100 Unit/Ml 3 Ml Vial) 0 unit SUBCUT QIDACHS [facility]; Protocol Magnesium Hydroxide (Milk Of Magnesia 30 Ml Oral.Susp) 30 ml PO DAILY PRN PRN Reason: Constipation Melatonin (Melatonin 3 Mg Tablet) 6 mg PO BEDTIME PRN PRN Reason: Insomnia Ondansetron HCl (Ondansetron Hcl 4 Mg/2 Ml Vial) 4 mg IVPUSH Q8H PRN PRN Reason: Nausea and Vomiting Sodium Chloride (0.9 % Sodium Chloride Flush 3 Ml Syringe) 3 ml [facility] Home Medications ?Medication ?Instructions ?Recorded ?Confirmed ?Last Taken ?Type amlodipine 10 mg tablet 10 mg PO BEDTIME 10/22/2310/24/23 History apixaban 5 mg tablet (Eliquis) 5 mg PO BID 10/22/2310/25/23 History atorvastatin 40 mg tablet 40 mg PO BEDTIME 10/22/2310/24/23 History gabapentin 600 mg tablet 1,800 mg PO BEDTIME 10/22/23 10/25/23 10/24/23 History hydroxyzine HCl 25 mg tablet 25 - 50 mg PO BEDTIME 08/1510/25/23 10/24/23 History insulin aspart See Protocol subcut TIDAC 10/25/23 10/25/23 History (niacinamide)(U-100) 100 unit/mL(3 mL) subcutaneous pen (Fiasp FlexTouch U-100 Insulin) insulin glargine 100 unit/mL (3 45 unit subcut BEDTIME 10/22/23 10/25/23 10/24/23 History mL) subcutaneous pen (Lantus Solostar U-100 Insulin) metoprolol succinate 50 mg 75 mg PO BEDTIME 10/22/23 0 10/25/23 10/24/23 History tablet,extended release 24 hr tirzepatide 5 mg/0.5 mL 5 mg subcut WE 10/22/23 04/0 11/1310/24/23 History subcutaneous pen injector (Sintia) trazodone 100 mg tablet 100 mg PO BEDTIME 10/22/23 0 10/25/23 10/24/23 History Probiotic 1 gummy PO DAILY 10/25/2310/25/23 History Physical Exam 2 Vital Signs and Narrative: Vital Signs: Last Vital Signs Temp 97.6 F 03/10/25 15:20 Pulse 53 03/10/25 17:04 Resp 18 03/10/25 17:04 BP 137/111 H 03/10/25 17:04 Pulse Ox 96 03/10/25 17:04 O2 Del Method Room Air 03/10/25 17:04 BMI result Body Mass Index 42.9 Appearing in no acute distress head is normocephalic atraumatic eyes pupils are PERRLA sclera is anicteric mouth throat mucous membranes are intact and moist neck is supple no lymphadenopathy, no JVD noted lung sounds are clear to auscultation heart regular rate rhythm, clear S1, S2 positive bowel sounds, abdomen is soft, nontender, obese neuro patient is alert x3, no focal deficits Bilateral chronic lower extremity wounds Results Labs 03/10/25 15:56 03/10/25 15:56 Labs: Laboratory Results - last 24 hr 03/10/25 15:56 MCV 97.6 MCH 31.4 MCHC 32.2 RDW 13.5 Plt Count 237 D MPV 10.4 Immature Gran % (Auto) 0.7 H Neut % (Auto) 80.8 H Lymph % (Auto) 12.8 L [place] % (Auto) 3.9 Eos % (Auto) 1.5 Baso % (Auto) 0.3 Lymph # (Auto) 1.2 [place] # (Auto) 0.4 Eos # (Auto) 0.1 Baso # (Auto) 0.0 Abs Immat Gran (auto) 0.07 H Absolute Neuts (auto) 7.6 Absolute Nucleated RBC 0.000 Nucleated RBC % (auto) 0.0 ESR 58 H Anion Gap 16 Estim Creat Clear Calc 18.7 Estimated GFR 12 Random Glucose 215 H Lactic Acid 1.9 Calcium 9.2 Magnesium 2.4 Total Bilirubin 0.3 Direct Bilirubin 0.1 AST 18 ALT 14 Alkaline Phosphatase 101 C-Reactive Protein 0.48 B-Natriuretic Peptide 752 H Total Protein 7.0 Albumin 3.9 Procalcitonin 0.04 TSH 0.81 Imaging Radiologist's Impressions: Impressions Toe X-Ray 03/10/25 15:11 IMPRESSION: Indistinct cortical margin involving the lateral aspect of the second MTP joint, erosion/osteomyelitis and septic arthritis is not ruled out. However, on the prior examination, this area was slightly indistinct as well and so suspicion is low. Electronically signed by: Serafin Schwab MD 03/10/2025 04:29 PM EDT RP Assessment and Plan (1) Bradycardia: Status: Acute Plan 69-year-old woman admitted with NJ and bradycardia NJ on CKD 3 Who possibly secondary to recent Bactrim use Stopped Bactrim Received 2 L of IV fluids in the ER Avoid nephrotoxins Follow BMP If no improvement consider Nephrology consultation Bradycardia Possibly secondary to Bactrim with NJ increasing beta blockade effect Hold metoprolol Monitor on telemetry If no improvement consider Cardiology consultation History of atrial fibrillation/flutter/transient On anticoagulant and beta-juan carlos Hold beta-juan carlos due to bradycardia Diabetes mellitus type 2 Sliding scale ADA diet Diabetic neuropathy Hold gabapentin for now in light of NJ Hypertension Continue home medications DVT prophylaxis with Eliquis Full code Quality Stroke Does the patient have a stroke diagnosis?: No VTE Prior VTE?: No VTE Risk Level:: Medical - moderate - high VTE Device Contraindication: Treatment Not Indicated VTE Drug Contraindication: N/A - Med Ordered
--- OUTSIDE RECORDS SUMMARY | 2025-03-10 17:50 | XMS_ITS | Encounter Summary ---
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 Name Role Phone Ivana Cheung Primary Care Provider Femi Nielsen MD Primary Care Provider [phone] Encounter Details Date Type Department Care Team (Late st Contact Info) Description 01/20/2020 Procedure Pass [facility] [address] [place], [place] [id number] Social History Tobacco Use Types Packs/Day Years Used Date Smoking Tobacco: Former Smokeless Tobacco: Never Alcohol Use Standard Drinks/Week Comments Yes 0 (1 standard drink = 0.6 oz pur e alcohol) biweekly Comments Unknown Sex and Gender Information Value Date Recorded Sex Assigned at Female 12/26/2019 12:14 PM EDT Legal Sex Female 9:56 PM EDT Gender Identity Female 12/26/2019 12:14 PM EDT Sexual Orientation Straight 12/26/2019 12 :14 PM EDT documented as of this encounter Plan of Treatment Upcoming Encounters Date Type Department Care Team (Late Contact Info) Description 04/07/2025 1:20 PM EDT Office Visit [facility] [address] [place] [id number] Amanda Quinteros MD [address] [place] [address] [email or web address] documented as of this encounter Visit Diagnoses Not on filedocumented in this encounter Additional Health Concerns Infection Onset Date Last Indicated Resolved Time CoV-Exposed Comment:Recent close contact 05/27/2020 05/27/2020 06/10/2020 1:25 AM EST documented as of this encounter Care Teams Nuclear Plant Equipment Operator Relationship Specialty Start Date End Date Ivana Cheung PA [address] [place] [id number] PCP - General Unknown Provider Specialty 12/26/19 Femi Nielsen MD [address] [place] [phone] [email or web address] PCP - General Family Medicine 12/09/21 documented as of this encounter Additional Source Comments The information contained in this document represents components of the legal health record. It is not the complete legal health record.[facility]
--- OUTSIDE RECORDS SUMMARY | 2025-03-10 17:51 | XMS_ITS | Patient Health Record ---
Author Organization [facility] davin Address [address] [place] [address] Care Team Providers Care Helpdesk Analyst Name Role Phone Femi Nielsen Primary Care Provider [phone] Betzy [facility]ipp[facility] Unavailable [phone] Trung Collins Unavailable [phone] Allergies Allergen (clinical drug ingredient) Drug/Non Drug Allergy documented on EMR Reaction Allergy Type Onset Date Status amitriptyline Amitriptyline HCl Unknown Drug Allergy Active Semaglutide stomach upset Drug Allergy A ctive metformin metFORMIN stomach upset Drug Allergy Act kacy Reason For Referral No Information Medications Medication SIG (Take, Route, Frequency, Duration) Notes Start Date End Date Status Cyanocobalamin 1000 MCG/ML Solution as directed intramuscularly once a month monthly 05/03/2023 Active FLUoxetine HCl 20 MG Capsule 1 cap(s) orally once a day; Duration: 30 Active Basaglar KwikPen 100 UNIT/ML Solution Pen-injector 60 units subcutaneously once a day; Duration: 90 days 40units Active D3-50 1250 MCG CAPSULE TAKE 1 CAPSULE ONCE A WEEK FOR 84 Active Metoprolol Succinate ER 50 MG Tablet Extended Release 24 Hour TAKE 1 AND 1/2 TABLETS DAILY BY MOUTH; Duration: 90 days Active Tylenol 325 MG Tablet 2 tab(s) orally every 4 hours 500mg, PRN Active Eliquis 5 MG Tablet 1 tab Orally twice a day; Duration: 90 days Active Admelog Active Gabapentin 300 MG Capsule 1 cap(s) orally 2 times a day as needed for neuropathy pain; Duration: 90 days As needed breakthru pain PRN for breakthrough pain Active traZODone HCl 100 MG Tablet TAKE 1 TABLET BY MOUTH EVERYDAY AT BEDTIME; Duration: 90 Active Fiasp FlexTouch 100 UNITS/ML SOLUTION DIRECTED SUBCUTANEOUSLY 3 TIMES A DAY (BEFORE MEALS) *Please review and pick correct strength-formulati on from Xerion Advanced Battery options. If intended option is not shown, discontinue and re-order from Quick Search* Active Clotrimazole 1 % Cream 1 kaylynn applied topically 2 times a day PRN Active MOBILITY SCOOTER MOBILITY DEVICE - DIRECTED - DEEMED NECESSARY; Duration: 365 DAYS Ht: 65 in; Wt: 277 lbs; Dx: Z91.81 History of falling *Please review for potential replacement for e-prescription and drug interaction check* 11/04/2021 Active amLODIPine Besylate 10 MG Tablet 1 tab(s) orally once a day; Duration: 90 days Active Triamcinolone Acetonide 0.1 % Cream 1 kaylynn applied topically 3 times a day prn leg rash; Duration: 30 days PRN Active Atorvastatin Calcium 40 MG Tablet 1 tablet Orally Once a day; Duration: 90 days Active Gabapentin 600 MG Tablet 3 tab(s) orally Once a day at bedtime; Duration: 90 days Active hydrOXYzine HCl 25 MG Tablet 1 tab(s) orally 4 times a day PRN; Duration: 15 days Active BD NEEDLE 20G 1.5 , 100 DIRECTED 3 TIMES A DAY; Duration: 30 DAYS 05/02/2022 Active Immunizations Vaccine Route Administration Date Status Comme nts TDAP history Unknown 07/23/2010 Administered RSV VACC HISTORY ADULT Unknown 04/19/2023 Administered PREVNAR 20 PURCHASED IM Intramuscular 02/26/2024 Administered PPD reading Unknown 12/22/2022 Administered PPD planted ID Intradermal 12/20/2022 Administered PCV15 Purchased (Vaxneuvance) IM Intramuscular 12/20/2022 Administered FLUZONE HIGH DOSE 65+ PURCHASED IM Intramuscular 03/31/2020 Administered FLUZONE HIGH DOSE 65+ PURCHASED IM Intramuscular 04/14/2023 Administered Flu Vaccine; History Unknown 04/22/2016 Administered Flu Vaccine; History Unknown 06/07/2017 Administered Flu Vaccine; History Unknown 05/06/2018 Administered Flu Vaccine; History Unknown 10/01/2018 Administered COVID-19 Vaccine, Moderna, State Supplied IM Intramuscular 09/17/2020 Administered COVID-19 Vaccine, Moderna, State Supplied IM Intramuscular 10/15/2020 Administered COVID-19 Vaccine (Moderna), History IM Intramuscular 11/10/2021 Administered LOT NUMBER: [id number] COVID Vacc BIVALENT 12+ Pfizer IM Intramuscular 11/27/2022 Administered COVID VACC 19+ PFIZER PURCHASED IM Intramuscular 04/14/2023 Administered VACCINE GIVEN IN PT'S HOME Covid Vac Bivalent Moderna,History Unknown 04/08/2022 Administered Social History Tobacco Use: Social History Observation Description Date Details (start date - stop date) Former Smoker 06/22/1978 - 09/21/2019 Social History Social History Social Info Question Answer Notes Smoking Smart Form: Are you a: former smoker When did you start smoking? 06/22/1978 When did you stop smoking? 09/21/2019 How long has it been since you last smoked? 1-5 years Additional Findings: Tobacco Non-User Ex-light c igarette smoker (1-9/day) Smoking: Former Smoker: Yes Additional Details Category Social Info Options Details Social History Occupation: Retired 2020 Alcohol: Occasional alcoh ol Drug use: No drugs Exercise: not much Caffeine: averages 2 cups a day coffee Marital Status: Partner Naif rowell ssekorey away (11/06/22) Children: 1, Daughter and Son, live locally, grandkids Pets: Fish: lives in [place] alone Ed: [employer] school Section Notes: getting Meals on Wheels - De c 2022 getting Meals on Wheels - De c 2022 getting Meals on Wheels - De c 2022 getting Meals on Wheels - De c 2022 getting Meals on Wheels - De c 2022 Problems Problem Type SNOMED Code ICD Code Onset Dates Problem Status W/U Status Risk Notes Problem Depression (64307718) Depression (F32.9) Active confirmed Problem Venous stasis ulcer of unspecified site (I83.009) Active confirmed Problem Hyperlipidemia (32210078) Hyperlipidemia, unspecified (E78.5) Active confirmed Problem Essential hypertension (31828575) Hypertension, essential (I10) Active confirmed Problem Atrial fibrillation (08330292) Atrial fibrillation, unspecified (I48.91) Active confirmed Problem Body mass index 40+ - severely obese (975047142) BMI 45.0-49.9, adult (Z68.42) Active confirmed Problem Acute vaginitis (83964510) Vaginitis acute (N76.0) Active confirmed Problem Vitamin D deficiency (75343316) Vitamin D deficiency, unspecified (E55.9) Active confirmed High Problem Cellulitis of left lower limb (45823884443241856) Cellulitis lower limb, left (L03.116) Active confirmed Problem Ulcer Non-pressure chronic other part of right foot with fat layer exposed (L97.512) Active confirmed Problem Hydronephrosis with renal and ureteral calculous obstruction (N13.2) Active confirmed Problem Menopause (241872322) Menopausal and female climacteric states (N95.1) Active confirmed Problem Other specified injury of left Achilles tendon, subsequent encounter (S86.092D) Active confirmed Problem Long-term current use of insulin (802597166) ocean transportation intermediary (current) use of insulin (Z79.4) Active confirmed Problem History of fall (248781523) History of falling (Z91.81) Active confirmed Problem Hypertension (93250460) HTN (I10) Active confirmed Problem Urinary frequency (848911341) Urinary frequency (R35.0) Active confirmed Problem Urinary incontinence (258919678) Urinary incontinence, unspecified (R32) Active confirmed Problem Osteoporosis (45463559) Osteoporosis NOS (M81.0) Active confirmed Problem Pure hyperglyceridemia (592339566) Hypertriglyceride isai, essential (E78.1) Active confirmed Problem Hyperglycemia due to type 2 diabetes mellitus (311562123169011) Type 2 diabetes mellitus with hyperglycemia (E11.65) Active confirmed Problem Urinary incontinence (882303565) Incontinence urinary (R32) Active confirmed Problem Disorder due to type 2 diabetes mellitus (704659126) Type 2 diabetes mellitus with unspecified complications (E11.8) Active confirmed Problem Diabetic renal disease (533751399) Type 2 diabetes mellitus with diabetic chronic kidney disease (E11.22) Active confirmed Problem Chronic kidney disease stage 4 (642892216) Chronic kidney disease, stage 4 (severe) (N18.4) Active confirmed Problem Hyperosmolarity due to secondary diabetes mellitus (570932895420460) Type 2 diabetes mellitus with hyperosmolarity without nonketotic hyperglycemic-hyp erosmolar coma (NKHHC) (E11.00) Active confirmed Problem Dermopathy due to type 2 diabetes mellitus (disorder) (1490616640610) 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) Active confirmed Problem Skin ulcer associated with diabetes mellitus (302614924) Type 2 diabetes mellitus with other skin ulcer (E11.622) Active confirmed Problem Anemia (579091306) Anemia NOS (D64.9) Active confirmed Problem Dermopathy due to type 2 diabetes mellitus (disorder) (3880853576172) Type 2 diabetes mellitus with other skin complications (E11.628) Active confirmed Problem Long-term current use of anticoagulant (555155669) ocean transportation intermediary (current) use of anticoagulants (Z79.01) Active confirmed Problem Chronic kidney disease stage 3B (disorder) (418376558) Chronic kidney disease, stage 3b (N18.32) 021 Active confirmed Problem Body mass index 40+ - severely obese (554438470) Body mass index [BMI] 45.0-49.9, adult (Z68.42) Active confirmed Problem Kidney disease chronic stage 3B (N18.32) Active confirmed Vital Signs Temperature 97.5 degrees Fahrenheit 12/23/2024 Oximetry 99 12/23/2024 Blood pressure diastolic 76 mm Hg 12/23/2024 Height 65 in 04/03/2024 Blood pressure systolic 122 mm Hg 12/23/2024 Encounters Encounter Location Date Provider Diagnosis [facility] [address] [place] [address] 03/10/2025 Femi Nielsen [facility] [address] [place] [address] 03/25/2024 Femi Nielsen [facility] [address] [place] [address] 04/10/2024 Femi Nielsen [facility] [place] [address] [place] [address] 04/17/2024 Femi Nielsen [facility] [address] [place] [address] 04/21/2024 Femi Nielsen [facility] [place] [address] [place] [address] 05/16/2024 Femi Nielsen [place] [address] [place] [address] 05/16/2024 Femi Nielsen [facility] [address] [place] [address] 05/21/2024 Femi Nielsen [facility] [address] [place] [address] 05/22/2024 Femi Nielsen [facility] [address] [place] [address] 05/26/2024 Femi Nielsen [facility] [address] [place], [place] [address] 07/08/2024 Femi Nielsen [facility] [address] [place] [address] 07/08/2024 Femi Nielsen [facility] [address] [place] [address] 07/14/2024 Femi Nielsen [facility] [address] [place] [address] 07/14/2024 Femi Nielsen [facility] [address] [place] [address] 07/15/2024 Femi Nielsen [facility] [address] [place] [address] 07/15/2024 Femi Nielsen [facility] [address] [place] [address] 07/25/2024 Femi Nielsen [facility] [address] [place], [place] [address] 07/25/2024 Femi Nielsen [facility] [address] [place] [address] 08/06/2024 Femi Nielsen [facility] [address] [place] [address] 08/06/2024 Femi Nielsen [facility] [address] [place] [address] 08/12/2024 Femi Nielsen [facility] [address] [place] [address] 08/25/2024 Femi Nielsen [facility] [address] [place] [address] 09/17/2024 Femi Nielsen [facility] [address] [place] [address] 09/18/2024 Femi Nielsen [facility] [address] [place] [address] 09/19/2024 Betzy Phipps [facility] [address] [place], [place] [address] 09/19/2024 Betzy Phipps [facility] [address] [place] [address] 09/22/2024 Betzy Phipps [facility] [address] [place] [address] 09/24/2024 Femi Nielsen [facility] [address] [place] [address] 11/07/2024 Femi Nielsen [facility] [address] [place] [address] 11/13/2024 Femi Nielsen Fatigue R53.83 ; Vitamin D deficiency, unspecified E55.9 ; HTN I10 ; Hyperlipidemia, unspecified E78.5 and Hypertriglyceridemia, essential E78.1 [facility] [address] [place] [address] 11/18/2024 Femi Nielsen [facility] [address] [place] [address] 11/19/2024 Femi Nielsen [facility] [address] [place] [address] 11/19/2024 Femi Nielsen [facility] [address] [place] [address] 11/19/2024 Femi Nielsen [facility] [address] [place] [address] 11/24/2024 Femi Neilsen [facility] [address] [place] [address] 12/02/2024 Femi Nielsen [facility] [address] [place] [address] 12/08/2024 Femi Nielsen [facility] [address] [place] [address] 12/09/2024 Betzy [facility]ipps [facility] [address] [place] [address] 12/09/2024 Betzy Phipps [facility] [address] [place] [address] 01/06/2025 Femi Nielsen [facility] [address] [place] [address] 01/09/2025 Femi Nielsen [facility] [address] [place] [address] 01/14/2025 Femi Nielsen [facility] [address] [place] [address] 01/20/2025 Femi Nielsen [facility] [address] [place] [address] 01/26/2025 Femi Nielsen [facility] [address] [place] [address] 02/12/2025 Femi Nielsen [facility] [address] [place] [address] 02/20/2025 Femi Nielsen [facility] [address] [place] [address] 03/10/2024 Femi Nielsen [facility] [address] [place] [address] 03/28/2024 Femi Nielsen [facility] [address] [place] [address] 04/14/2024 Femi Nielsen [facility] [address] [place] [address] 07/09/2024 Femi Nielsen [facility] [address] [place] [address] 07/16/2024 Femi Nielsen [facility] [address] [place] [address] 12/04/2024 Femi Nielsen [facility] [address] [place] [address] 12/05/2024 Femi Nielsen [facility] [address] [place] [address] 02/23/2025 Femi Nielsen [facility] [address] [place] [address] 02/23/2025 Femi Nielsen [facility] [address] [place] [address] 04/03/2024 Femi Nielsen Type 2 diabetes mellitus with unspecified complications E11.8 ; Fatigue R53.83 and Type 2 diabetes mellitus with other skin ulcer E11.622 [facility] [address] [place] [address] 12/23/2024 Trung Masseyriveau Anemia NOS D64.9 Assessments Encounter Date Diagnosis (ICD Code) Assessment Notes Treatment Notes Treatment Clinical Notes Section Notes 04/03/2024 Fatigue (ICD-10 - R53.83) Her mood seems great today. Getting out and doing more with family and having some obligations to helping the grandkids that seems to be good for her. 04/03/2024 Type 2 diabetes mellitus with unspecified complications (ICD-10 - E11.8) It may be possible to titrate up on her Mounjaro at some point, but will be deferred to diabetes mngt team. Has ulcer on the RIGHT toe, for which she gets excellent treatment care from [facility] wound care team, including in-house nursing support 12/23/2024 Anemia NOS (ICD-10 - D64.9) -Normocytic on recent labs. The remaining labs from her order, including ferritin, etc, we do not have results for. I advised she reach out to lab to try and get those results. I will send message to NNB here as well to try and obtain labs. -Denies blood in stool. -Advised pt f/up with PCP to review labs once we have them. -Provided s/sx to contact us, when to f/up. 11/13/2024 Vitamin D deficiency, unspecified (ICD-10 - E55.9) 11/13/2024 Fatigue (ICD-10 - R53.83) 11/13/2024 HTN (ICD-10 - I10) 04/03/2024 Type 2 diabetes mellitus with other skin ulcer (ICD-10 - E11.622) 11/13/2024 Hyperlipidemia, unspecified (ICD-10 - E78.5) 11/13/2024 Hypertriglyceride isai, essential (ICD-10 - E78.1) 04/03/2024 Other Medical decision-making was shared with the patient, and all questions were addressed. Please excuse any typos or grammatical errors. Contact our office for clarification if needed Relationship and Coordination of Care: We are the medical home for this patient. This visit is part of our ongoing, continuous relationship to manage and coordinate the patient's chronic conditions. which is essential for ensuring optimal health outcomes through comprehensive and coordinated care. Plan Of Treatment Pending Test Test Name Order Date Urine Dip --in house 03/23/2022 Bone density 10/13/2021 Bone density 09/15/2019 Mammogram 12/20/2022 URINE CULTURE ([facility]) 03/23/2022 Foot Exam (DM) 06/14/2022 Foot Exam (DM) 11/20/2023 Mammogram, routine annual screening 09/21 Mammogram, routine annual screening 08/2020 stool: FECAL LEUKOCYTE STAIN 12/08/2019 hemoglobin A1C 06/14/2022 hemoglobin A1C 10/13/2021 CK (Creatine Kinase) ,TOTAL ONLY 021 FERRITIN 11/01/2020 FERRITIN 02/15/2023 FERRITIN 10/13/2021 FOLIC ACID 10/13/2021 FOLIC ACID 02/15/2023 FOLIC ACID 11/01/2020 IRON & TIBC 11/01/2020 IRON & TIBC 02/15/2023 PHOSPHORUS 11/01/2020 VITAMIN B12 11/01/2020 VITAMIN B12 10/13/2021 VITAMIN B12 02/15/2023 HEMOGLOBIN A1C 10/13/2021 HEMOGLOBIN A1C 05/03/2020 HEMOGLOBIN A1C 02/15/2023 HEMOGLOBIN A1C 08/29/2022 HEMOGLOBIN A1C 09/21/2020 ERYTHROPOIETIN 11/01/2020 ERYTHROPOIETIN 02/15/2023 HSCRP 05/03/2020 HSCRP 10/13/2021 HSCRP 02/15/2023 HSCRP 11/01/2020 BASIC METABOLIC PANEL 10/18/2020 COMPREHENSIVE METABOLIC PANL 09/21/2020 COMPREHENSIVE METABOLIC PANL 11/01/2020 COMPREHENSIVE METABOLIC PANL 10/13/2021 COMPREHENSIVE METABOLIC PANL 05/03/2020 COMPREHENSIVE METABOLIC PANL 02/15/2023 COMPREHENSIVE METABOLIC PANL 07/31/2023 RENAL FUNCTION PANEL 08/29/2022 LIPID PANEL 02/15/2023 LIPID PANEL 05/03/2020 LIPID PANEL 09/21/2020 HOMOCYSTEINE,PLASMA/SERUM 02/15/2023 TSH WITH REFLEX TO T4 02/15/2023 TSH WITH REFLEX TO T4 05/03/2020 TSH WITH REFLEX TO T4 10/13/2021 MICROALBUMIN 05/03/2020 MICROALBUMIN 10/13/2021 MICROALBUMIN 08/29/2022 MICROALBUMIN 06/14/2022 MICROALBUMIN 09/21/2020 Vitamin D25 OH 11/01/2020 Vitamin D25 OH 02/15/2023 Vitamin D25 OH 10/13/2021 CBC AUTO DIFF 10/13/2021 CBC AUTO DIFF 05/03/2020 CBC AUTO DIFF 02/15/2023 CBC AUTO DIFF 07/31/2023 CBC AUTO DIFF 09/21/2020 CBC AUTO DIFF 11/01/2020 SED RATE 11/01/2020 TRINA (ANTI-NUCLEAR ANTIBODY SCREEN) USE THIS ONE 11/01/2020 COMPLEMENT COMPONENT C3C 11/01/2020 COMPLEMENT C4 11/01/2020 CRP 11/01/2020 URINE CULTURE 10/05/2022 URINE CULTURE 08/29/2022 URINE CULTURE 03/10/2022 URINE CULTURE 12/08/2021 URINE CULTURE 03/24/2021 URINALYSIS, COMPLETE 07/03/2023 URINALYSIS, COMPLETE 12/08/2021 URINALYSIS, COMPLETE 08/29/2022 URINALYSIS, COMPLETE 10/05/2022 Dexa Bone Density (Axial) 10/13/2021 SODIUM, URINE MMOL/L 11/01/2020 MAGNESIUM RBC 11/01/2020 MAGNESIUM RBC 10/13/2021 IMMUNOFIXATION SERUM 11/01/2020 SERUM ELECTROPHERESIS (SPEP) 11/01/2020 TSH with reflex 11/13/2024 COMP MET PANEL 11/13/2024 LIPID PANEL 11/13/2024 Urinalysis 11/13/2024 Urinalysis 03/24/2021 25-OH vitamin D 11/13/2024 Folate 11/13/2024 Vitamin B12 11/13/2024 CBC AND DIFFERENTIAL 11/13/2024 IRON, TIBC AND FERRITIN PANEL 11/13/2024 CREATININE, URINE, QUANT 11/01/2020 EOSINOPHILS, URINE 11/01/2020 LIPID PANEL, REFLEX TO DIRECT LDL 2021 PROTEIN, URINE 11/01/2020 UREA NITROGEN, URINE, QUANT 11/01/2020 URINE MICROSCOPIC 11/01/2020 COMPLETE URINALYSIS 07/31/2023 mammogram screening , bilateral breast 0 02/26/2024 Urine Culture, Routine-[id number] ([place]) 02/26/2024 MICROALBUMIN, URINE 11/13/2024 Future Test Test Name Order Date URINE CULTURE 02/03/2021 URINALYSIS, COMPLETE 02/03/2021 Next Appt Details Provider Name:Femi hdz, 03/19/2025 02:30:00 PM, [address] [place] [address], [id number], Insurance Providers Payer Name Payer Address Payer Phone Subscriber Number Group Number Insured Name Patient Relationship to Insured Coverage Start Date Coverage End Date MEDICARE [address] [place] [phone] [id number] JOSE FRANCISCO LEIJA Self - patient is the insured [facility] [place] [address] [id number] JOSE FRANCISCO LEIJA Self - patient is the insured 1 Medical (General) History Medical History History ICD Code Ortho: Edin Marinelli MD at [facility] NEPHROLOGY - Dr. Starks for CKD4 ID - Dr Luke (), Dr. Andres ([facility] ) Type 2 DM - previously Dr. Leticia jenkins, now sees [facility] DM Center as of 2021 Dr. Quinteros, on insulin, failed several orals, uses CGM hyperlipidemia on statin HTN on 3 agents ASCVD 15.3% (on statin) November 2021 hx of a fib in ~2009- conver monet in ER and has been on metoprolol since; no palpitations, on Eliquis - not renal dosing/borderline Cr a fib in hospital 12/2019 tobacco smoker - quit 09/2019 eczema venous stasis with dermatitis insomnia sepsis 10/12/2019, 12/26/2019, 01/16/2020, 0 12/06/2020 left lower leg- achilles ten don abscess and rupture 06/26/2020- [facility] ortho debridement left UPJ kidney stone s/p stent placemen t [facility] ER - dr sullivan 08/17/2020 nonhealing left lower leg infection- hos pital stay and I&D x2 07/2020 - [facility] urinary incontinence nephrolithiasis, requiring stent frequent UTIs frequent yeast vaginitis deconditioned, Home PT 2020 - quad cane, walker, scooter normal Cologuard October 2021, due 2024 wound care / [facility] [place] 2022 right great toe severe vit D deficiency (Mar 2023) b12 def (Mar 2023) elevated homocysteine hypertriglyceridemia, low HDL Cr increased to 2.0 (Jun 2023), eGFR 27 (Sep 2023) CXR (10/25/23): hazy density LEFT Lower ch est NUT TIGHTENER on Mondays - Navya Hurley [facility] 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 Yves castaneda 06/23/2020 kidney stent placed 08/17/2020 I&D of left lower leg/achill es tendon infected wound at [facility]- Dr. Ladonna castaneda 08/19/2020 kidney stones removed/lasered @ [facility] 10/08 kidney stent removed 10/18/2020 Hospitalization History Reason Date(Month/Year) [facility]- weakness, UTI 10/21/23 [place] due to sepsis on rig ht leg, she was on antibiotics and completed cefuroxime. 12/06-12/03/2020 [facility] for obstructing UPJ boni ey stone & stent then transfered to [facility] for infected left lower leg wound 08/17/20 James Ruiz transferred to [facility] - left lower leg/achilles tendon abscess Jun 2020 [facility] sepsis 01/16/20 [facility] sepsis 12/26/19 [facility] sepsis 10/12/19 Lithotripsy (? 4 years ago) Unknown Nephrolithiasis Multiple
--- OUTSIDE RECORDS SUMMARY | 2025-03-10 17:51 | XMS_ITS | Encounter Summary ---
Author Organization [facility] Address [address] [place] [address] Care Team Providers Care Ignition Specialist Name Role Phone Lacy Nielsen Primary Care Provider [phone] Encounter Details Date Type Department Care Team (Latest Contact Info) Description 12/17/2024 Lab Requisition [facility] - Main Lab [address] [facility] [place] [address] [address] Nielsen [address] Other fatigue; Vitamin D deficiency, unspecified; Essential (primary) hypertension; Hyperlipidemia, unspecified; Pure hyperglyceridemia Social History Tobacco Use Types Packs/Day Years Used Date Smoking Tobacco: Never Assessed Comments Unknown Sex and Gender Information Value Date Recorded Sex Assigned at Not on file Legal Sex Female 10:35 PM EST Gender Identity Not on file Sexual Orientation Not on file documented as of this encounter Plan of Treatment Not on file documented as of this encounter Procedures Procedure Name Priority Date/Time Associated Diagnosis Comments THYROID STIMULATING HORMONE WITH REFLEX TO FREE T4 AND FREE T3 Routine 12/17/2024 7:45 AM EDT Other fatigue Vitamin D deficiency, unspecified Essential (primary) hypertension Hyperlipidemia, unspecified Pure hyperglyceridemia LIPID PANEL WITH REFLEX TO DIRECT LDL Routine 12/17/2024 7:45 AM EDT Other fatigue Vitamin D deficiency, unspecified Essential (primary) hypertension Hyperlipidemia, unspecified Pure hyperglyceridemia CBC WITH AUTO DIFFERENTIAL Routine 12/17/2024 7:45 AM EDT Other fatigue Vitamin D deficiency, unspecified Essential (primary) hypertension Hyperlipidemia, unspecified Pure hyperglyceridemia IRON AND TIBC Routine 12/17/2024 7:45 AM EDT Other fatigue Vitamin D deficiency, unspecified Essential (primary) hypertension Hyperlipidemia, unspecified Pure hyperglyceridemia VITAMIN D 25 HYDROXY Routine 12/17/2024 7:45 AM EDT Other fatigue Vitamin D deficiency, unspecified Essential (primary) hypertension Hyperlipidemia, unspecified Pure hyperglyceridemia CBC AND DIFFERENTIAL Routine 12/17/2024 7:45 AM EDT Other fatigue Vitamin D deficiency, unspecified Essential (primary) hypertension Hyperlipidemia, unspecified Pure hyperglyceridemia FOLATE Routine 12/17/2024 7:45 AM EDT Other fatigue Vitamin D deficiency, unspecified Essential (primary) hypertension Hyperlipidemia, unspecified Pure hyperglyceridemia FERRITIN Routine 12/17/2024 7:45 AM EDT Other fatigue Vitamin D deficiency, unspecified Essential (primary) hypertension Hyperlipidemia, unspecified Pure hyperglyceridemia VITAMIN B12 Routine 12/17/2024 7:45 AM EDT Other fatigue Vitamin D deficiency, unspecified Essential (primary) hypertension Hyperlipidemia, unspecified Pure hyperglyceridemia COMPREHENSIVE METABOLIC PANEL Routine 12/17/2024 7:45 AM EDT Other fatigue Vitamin D deficiency, unspecified Essential (primary) hypertension Hyperlipidemia, unspecified Pure hyperglyceridemia documented in this encounter Results * (ABNORMAL) CBC auto differential (12/17/2024 7:45 AM EDT) [facility] WBC 9.0 4.8 - 10.8 K/mcL LAB HEMETOLOGY METHOD 12/17/2024 11:[address] [facility] RBC 3.30(L) 3.80 - 4.80 M/mcL LAB HEMETOLOGY METHOD 12/17/2024 11:[address] [facility] Hemoglobin 10.1(L) 11.5 - 16.0 g/dL LAB HEMETOLOGY METHOD 12/17/2024 11:24 AM [facility] Hematocrit 32.2(L) 35.0 - 47.0 % LAB HEMETOLOGY METHOD 12/17/2024 11:24 AM [facility] MCV 98.8(H) 79.0 - 98.0 FL LAB HEMETOLOGY METHOD 12/17/2024 11:24 AM [facility] MCH 31.0 27.0 - 32.0 pcg LAB HEMETOLOGY METHOD 12/17/2024 11:24 AM [facility] MCHC 31.4(L) 32.0 - 37.0 g/dL LAB HEMETOLOGY METHOD 12/17/2024 11:24 AM [facility] RDW 13.2 11.0 - 15.0 % LAB HEMETOLOGY METHOD 12/17/2024 11:24 AM [facility] Platelets 254 130 - 400 K/mcL LAB HEMETOLOGY METHOD 12/17/2024 11:24 AM [facility] MPV 10.5 7.0 - 11.0 FL LAB HEMETOLOGY METHOD 12/17/2024 11:24 AM [facility] NRBC 0.0 <1.0 % LAB HEMETOLOGY METHOD 12/17/2024 11:24 AM [facility] NRBC Absolute 0.00 <0.10 K/mcL LAB HEMETOLOGY METHOD 12/17/2024 11:24 AM [facility] Neutrophils Relative 72.6 % LAB HEMETOLOGY METHOD 12/17/2024 11:24 AM [facility] Lymphocytes Relative 18.6 % LAB HEMETOLOGY METHOD 12/17/2024 11:24 AM [facility] Monocytes Relative 5.6 % LAB HEMETOLOGY METHOD 12/17/2024 11:24 AM [facility] Eosinophils Relative 2.5 % LAB HEMETOLOGY METHOD 12/17/2024 11:[address] [facility] Basophils Relative 0.3 % LAB HEMETOLOGY METHOD 12/17/2024 11:[address] [facility] Immature Granulocytes Relative 0.4 % LAB HEMETOLOGY METHOD 12/17/2024 11:[address] [facility] Neutrophils Absolute 6.55 1.50 - 7.00 K/mcL LAB HEMETOLOGY METHOD 12/17/2024 11:[address] [facility] Lymphocytes Absolute 1.68 1.00 - 5.00 K/mcL LAB HEMETOLOGY METHOD 12/17/2024 11:[address] [facility] Monocytes Absolute 0.51 0.20 - 1.00 K/mcL LAB HEMETOLOGY METHOD 12/17/2024 11:[address] [facility] Eosinophils Absolute 0.23 0.00 - 0.50 K/mcL LAB HEMETOLOGY METHOD 12/17/2024 11:[address] [facility] Basophils Absolute 0.03 0.00 - 0.20 K/mcL LAB HEMETOLOGY METHOD 12/17/2024 11:[address] [facility] Immature Granulocytes Absolute 0.04(H) 0.00 - 0.03 K/mcL LAB HEMETOLOGY METHOD 12/17/2024 11:[address] [facility] Blood Venous blood specimen / Unknown Venipuncture / Unknown 12/17/2024 7:45 AM EDT 12/17/2024 9:51 AM EDT us Lacy Nielsen LAB BLOOD ORDERABLES Final Resul t [facility] [address] [place] [address], * Ferritin (12/17/2024 7:45 AM EDT) Ferritin 99 8 - 252 ng/mL LAB CHEMISTRY METHOD 12/17/2024 12:[address] [facility] Blood Venous blood specimen / Unknown Venipuncture / Unknown 12/17/2024 7:45 AM EDT 12/17/2024 9:[facility]LOOD ORDER[facility] Final Resul t [facility] [address] [place] [address], [place] [phone] * (ABNORMAL) Iron and TIBC (12/17/2024 7:45 AM EDT) Pathologist [facility] Iron 72 40 - 150 mcg/dL LAB CHEMISTRY METHOD 12/17/2024 12:[address] [facility] TIBC 227(L) 250 - 450 mcg/dL LAB CHEMISTRY METHOD 12/17/2024 12:[address] [facility] Iron Saturation 32 15 - 50 % LAB CHEMISTRY METHOD 12/17/2024 12:[address] [facility] Blood Venous blood specimen / Unknown Venipuncture / Unknown 12/17/2024 7:45 AM EDT 12/17/2024 9:51 AM EDT Lacy Nielsen LAB BLOOD ORDERABLES Final Resul t [facility] [address] [place] [address], [place] [phone] * Vitamin B12 (12/17/2024 7:45 AM EDT) Pathologist [facility] Vitamin B-12 331 250 - 900 pcg/mL LAB CHEMISTRY METHOD 12/17/2024 12:[address] [facility] Blood Venous blood specimen / Unknown Venipuncture / Unknown 12/17/2024 7:45 AM EDT 12/17/2024 9:51 AM EDT Lacy Nielsen LAB BLOOD ORDERABLES Final Resul t Performing Organization Address City/[facility]/ZIP Co de Phone Number [facility] [address] [place] [address], [place] [phone] * Folate (12/17/2024 7:45 AM EDT) Folate 6.3 2.8 - 17.0 ng/ml LAB CHEMISTRY METHOD 12/17/2024 12:[address] [facility] Blood Venous blood specimen / Unknown Venipuncture / Unknown 12/17/2024 7:45 AM EDT 12/17/2024 9:51 AM EDT Lacy Delvinandreina LAB BLOOD ORDERABLES Final Resul t Performing Organization Address City/[facility]/ZIP Co de Phone Number [facility] [address] [place] [address], [place] [phone] * (ABNORMAL) Vitamin D 25 hydroxy (12/17/2024 7:45 AM EDT) Pathologist [facility] Vit D, 25-Hydroxy 21.7(L) 30.0 - 80.0 ng/mL LAB CHEMISTRY METHOD 12/17/2024 3:[address] [facility] Blood Venous blood specimen / Unknown Venipuncture / Unknown 12/17/2024 7:45 AM EDT 12/17/2024 9:51 AM EDT Lacy Nielsen LAB BLOOD ORDERABLES Final Resul t Performing Organization Address City/[facility]/ZIP Co de Phone Number [facility] [address] [place] [address], [place] [phone] * (ABNORMAL) Lipid panel with reflex to direct LDL (12/17/2024 7:45 AM EDT) Cholesterol 115 0 - 200 mg/dL LAB CHEMISTRY METHOD 12/17/2024 12:[address] [facility] Triglycerides 135 0 - 150 mg/dL LAB CHEMISTRY METHOD 12/17/2024 12:[address] [facility] HDL 36(L) >=40 mg/dL LAB CHEMISTRY METHOD 12/17/2024 12:[address] [facility] LDL Calculated 52 0 - 100 mg/dL LAB CHEMISTRY METHOD 12/17/2024 12:[address] [facility] VLDL Cholesterol Fabian 27 mg/dL LAB CHEMISTRY METHOD 12/17/2024 12:58 PM [facility] Non HDL Chol. (LDL+VLDL) 79 <145 mg/dL LAB CHE[facility]STRY [facility] Chol/HDL Ratio 3.2 0.0 - 4.4 LAB CHEMISTRY METHOD 12/17/2024 12:58 PM [facility] Blood Venous blood specimen / Unknown Venipuncture / Unknown 12/17/2024 7:45 AM EDT 12/17/2024 9:51 AM EDT us Lacy Nielsen LAB BLOOD ORDERABLES Final Resul t [facility] [address] [place] [address], * (ABNORMAL) Comprehensive metabolic panel (12/17/2024 7:45 AM EDT) Sodium 139 133 - 145 mmol/L LAB CHEMISTRY METHOD 12/17/2024 12:58 PM [facility] Potassium 4.2 3.5 - 5.5 mmol/L LAB CHEMISTRY METHOD 12/17[facility]2024 [facility] Chloride 106 96 - 110 mmol/L LAB CHEMISTRY METHOD 12/17/2024 12:58 PM [facility] CO2 20(L) 21 - 32 mmol/L LAB CHEMISTRY METHOD 12/17/2024 12:58 PM [facility] Anion Gap 13(H) 3 - 11 LAB CHEMISTRY METHOD 12/17/2024 12:58 PM [facility] Glucose 86 70 - 100 mg/dL LAB CHEMISTRY METHOD 12/17/2024 12:58 PM [facility] BUN 43(H) 5 - 25 mg/dL LAB CHEMISTRY METHOD 12/17/2024 12:58 PM [facility] Creatinine 2.33(H) 0.50 - 1.10 mg/dL LAB CHEMISTRY METHOD 12/17/2024 12:58 PM [facility] eGFR 22(L) >=60 mL/min/1. 73m2 LAB CHEMISTRY METHOD 12/17/2024 12:58 PM [facility] Comment:Calculation based on the Chronic Kidney Disease Epidemiology Collaboration (CKD-EPI) equation refit without adjustment for race. BUN/Creatinine Ratio 18.5 LAB CHEMISTRY METHOD 12/17/2024 12:58 PM [facility] Calcium 9.0 8.5 - 10.5 mg/dL LAB CHEMISTRY METHOD 12/17/2024 12:58 PM [facility] AST (SGOT) 8(L) 10 - 42 unit/L LAB CHEMISTRY METHOD 12/17/2024 12:58 PM [facility] ALT (SGPT) 13 10 - 60 unit/L LAB CHEMISTRY METHOD 12/17/2024 12:58 PM [facility] Alkaline Phosphatase 102 42 - 121 unit/L LAB CHEMISTRY METHOD 12/17/2024 12:58 PM [facility] Total Protein 6.6 6.0 - 8.0 g/dL LAB CHEMISTRY METHOD 12/17/2024 12:58 PM [facility] Albumin 2.8(L) 3.2 - 5.0 g/dL LAB CHEMISTRY METHOD 12/17/2024 12:[address] [facility] Total Bilirubin 0.4 0.0 - 1.4 mg/dL LAB CHEMISTRY METHOD 12/17/2024 12:[address] [facility] Blood Venous blood specimen / Unknown Venipuncture / Unknown 12/17/2024 7:45 AM EDT 12/17/2024 9:51 AM EDT Lacy Delvinandreina LAB BLOOD ORDERABLES Final Resul t Performing Organization Address City/[facility]/ZIP Co de Phone Number [facility] [address] [place] [address], [place] [phone] * Thyroid stimulating hormone with reflex to free t4 and free t3 (12/17/2024 7:45 AM EDT) TSH 1.59 0.40 - 4.00 mcIU/mL LAB CHEMISTRY METHOD 12/17/2024 3:[address] [facility] Blood Venous blood specimen / Unknown Venipuncture / Unknown 12/17/2024 7:45 AM EDT 12/17/2024 9:51 AM EDT Lacy Nielsen LAB BLOOD ORDERABLES Final Resul t Performing Organization Address City/[facility]/ZIP Co de Phone Number [facility] [address] [place] [address], [place] [phone] documented in this encounter Visit Diagnoses Diagnosis Other fatigue Vitamin D deficiency, unspecified Essential (primary) hypertension Unspecified essential hypertension Hyperlipidemia, unspecified Pure hyperglyceridemia documented in this encounter Care Teams Ignition Specialist Relationship Specialty Start Date End Date Lacy Nielsen [address] PCP - General Family Medicine 12/17/24 documented as of this encounter
--- OUTSIDE RECORDS SUMMARY | 2025-03-10 17:51 | XMS_ITS | Clinical Summary ---
Author Organization [facility], Address [address] [place] [address] [place] [phone] Phone Care Team Providers Care Echo Vascular Technologist Name Role Phone Betzy Phipps MD Primary Care Provider + Allergies Active Allergy Reactions Criticality Noted Date Comments Amitriptyline Rash Low 01/16/2020 Medications traZODone (DESYREL) 100 MG tablet Take 1 tablet by mouth at bed time 11/16/2016 Active metoprolol succinate XL (TOPROL-XL) 200 MG 24 hr tablet Take 200 mg by mouth 1 (one) time each day Active insulin lispro (HumaLOG KWIKPEN) 200 UNIT/ML solution pen-injector injection Comments: Filled Date: Dec 12 2016 12:00AM 03/22/2016 Active insulin glargine (Lantus SoloStar) 100 UNIT/ML injection Comments: Filled Date: Nov 27 2016 12:00AM 08/21/2016 Active amLODIPine (NORVASC) 10 MG tablet 12/26/2020 Active Eliquis 5 MG tablet 10/24/2020 Active atorvastatin (LIPITOR) 40 MG tablet Take 40 mg by mouth 1 (one) time each day 11/30/2020 Active FLUoxetine (PROzac) 20 MG capsule Take by mouth 1 (one) time each day 12/08/2020 Active hydrOXYzine (ATARAX) 25 MG tablet TAKE 1 TABLET BY MOUTH FOUR TIMES A DAY NEEDED 09/29/2020 Active lisinopril 5 MG tablet TAKE 1 TABLET BY MOUTH EVERY DAY 90 tablet 2 12/14/2022 Active Active Problems Problem Noted Date Diagnosed Date Stage 3b chronic kidney disease 12/29/2020 Renal osteodystrophy 12/29/2020 Chronic kidney disease due to benign hypertensio n 12/29/2020 Acute nontraumatic kidney injury 12/28/2020 Atrial fibrillation with rapid ventricular respo nse 12/28/2020 Overview (12/28/2020): Last Assessment & Plan: Rapid response likely in the setting of sepsis and obstructive uropathy / pyelonephritis. Continue IV fluid hydration tonight and monitor on telemetry. Continue metoprolol succinate 200 mg daily starting tomorrow morning. We can use small doses of IV metoprolol as needed for sustained ventricular response greater than 110. 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 Last hemoglobin A1c 8.6, 2 months ago. Continue Lantus insulin, we will give half the dose this evening (28 units) as she has not been eating in the setting of her illness today. Monitor [id number] with insulin sliding scale coverage. Type 2 diabetes mellitus 12/28/2020 Acute pyelonephritis 08/17/2020 Overview (12/28/2020): Last Assessment & Plan: In the setting of an obstructing left UPJ stone. Pain improved after urologic procedure. Blood pressure remains stable. 1. Admit to the medical floor, continuous EKG monitoring, continuous pulse oximetry monitoring 2. Continue Rocephin 1 g IV daily, follow-up urine culture 3. Continue IV fluid hydration with LR at 125 cc/h 4. Monitor CBC with differential, electrolytes, and renal function 5. Hydromorphone 0.2 to 0.5 mg IV every 4 hours as needed for moderate to severe pain Infectious agent in bloodstream 08/17/2020 Overview (12/28/2020): Last Assessment & Plan: I suspect secondary to urinary source with obstructing left-sided stone. Criteria for sepsis includes T-max 102.4, tachycardia, tachypnea, and elevated lactic acid level. Her blood pressure has remained stable. She is mentating normally postoperatively, but somnolent. Lactic acid level has risen from 2.31 to 2.39, after 1700 cc normal saline IV bolusing in the emergency room, which is less than protocol 30 mL/kg. Continue IV fluid hydration with LR at 125 cc/h, monitor serial lactic acid levels. IV antibiotics as outlined. Follow-up CBC with differential and comprehensive metabolic panel. Follow-up urine and blood cultures. Monitor urine output with Howell catheter to gravity. Hold sedating medications including gabapentin and trazodone this evening until somnolence improves, monitor respiratory status closely with pain medication. Obstructive uropathy 08/17/2020 Overview (12/28/2020): Last Assessment & Plan: Baseline creatinine appears to be 1.3-1.4 over the last 6 months. Today's value is at 1.4. Urology has placed a left ureteral stent today in the operating room. We will continue to monitor renal function with IV fluid hydration as outlined. Hydromorphone 0.2 to 0.5 mg IV every 4 hours as needed for moderate to severe pain with continuous pulse oximetry monitoring. Patient will need outpatient urology follow-up. Open wound 06/23/2020 Overview (12/28/2020): Last Assessment & Plan: Several weeks of pain at the left posterior ankle/Achilles area, has been wearing Unna boots and has neuropathy. Last night, noticed an open lesion which was drained for a large amount of purulent fluid tonight and sent for culture CT shows large fluid collection surrounding the Achilles, no fracture seen on CT or x-ray No fevers at home, no leukocytosis on presentation, blood pressure and heart rate are stable. CK is low at 43. On exam, patient has full range of motion of the foot and ankle. Posterior left lower extremity with edema and erythema. Both lower extremities have chronic appearing hyperpigmentation, skin thickening, lichenification and in places, fissures. No significant open lesions. History of 2 admissions over the summer with group A strep bacteremia and cellulitis, patient has been taking prophylactic penicillin, 500 mg twice daily and following with Dr. Mckenna Castano was called by the ER, he has requested patient be n.p.o. after midnight in case of need for surgery/washout Plan: -Wound culture has been obtained -Will obtain blood cultures now -Lactate, procalcitonin -orthopedic consult -ID consult -N.p.o. after midnight -Hold Eliquis -Check left lower extremity ultrasound -Follow-up CBC, CMP, ESR and CRP a.m. -Vancomycin 1500 mg IV every 12 hours, will have pharmacy double check renal dosing and assist with management. Will hold off of further ceftriaxone tonight- follow cultures tomorrow -Elevate -Analgesia Last Assessment & Plan: Patient has a wound VAC in place on the left lower extremity with intact bandaging. Consult wound care in the hospital as needed. Dyspnea 01/19/2020 Overview (12/28/2020): Last Assessment & Plan: Some dyspnea with RVR, improved with rest and resolution of tachycardia. X-ray on 01/18 did not show any oh edema or airspace disease --She is off IV fluids. Could consider trial of Lasix if she has further exertional dyspnea. Given resolving NJ, will plan to continue observation for now Atopic dermatitis 01/18/2020 Recurrent falls 01/17/2020 Overview (12/28/2020): Last Assessment & Plan: Continue PT and efforts to mobilize Bacteremia caused by Gram-positive bacteria 12/22 Overview (12/28/2020): Last Assessment & Plan: Strep pyogenes bacteremia, likely due to right lower extremity cellulitis. She has improved clinically, demonstrating clearance of the bacteremia --Case discussed with Dr. Andres --She was started on oral penicillin today, 1000 mg every 6 hours --She has appointment with Dr. Andres on 01/26 and plan is to continue this regimen until ID follow-up. If continued improvement, would anticipate she will start prophylactic regimen at that point --Continue wound care as scheduled Hypoxia 12/28/2019 Overview (12/28/2020): Last Assessment & Plan: -Patient placed on oxygen by ambulance Weaned off yesterday. However she did have desaturations in the mid 80s last night. Suspect this is due to sleep apnea not sepsis. -Check oxygen saturations levels overnight tonight ifstill hypoxic may need home overnight oximetry to get oxygen and sleep study Hypertension 12/27/2019 Overview (12/28/2020): Last Assessment & Plan: Continue amlodipine, lisinopril, and metoprolol starting tomorrow after monitoring blood pressure trend. Monitor renal function. Sepsis 12/26/2019 Overview (12/28/2020): Last Assessment & Plan: Etiology cellulitis of the left leg, mainly in her left thigh.-Evidenced by pain erythema, warmth,. Doppler negative for DVT -Improving rapidly since admitted-alert, white count better, pain improving, blood pressure better -Blood culture has strep pyogenes, this would be consistent with a cellulitic source. Sensitivities done today. Will change to ampicillin. -Repeat blood culture done today -if this is negative suggest patient take amoxicillin 875 twice daily when ready for discharge to complete a 10-day course of antibiotics -decrease rate IV fluid, continue to hold Lasix Family History Medical History Relation Comments Cancer Father adenoid carcinom a of unknown primary Gout Father Hypertension Father Kidney disease Father kidney stones Hypertension Mother Kidney disease Sibling kidney stones Relation Status Comments Father Mother Sibling Social History Tobacco Use Types Packs/Day Years Used Date Smoking Tobacco: Every Day Cigarettes Alcohol Use Standard Drinks/Week Comments Yes 0 (1 standard drink = 0.6 oz pure alcohol) Alcoholic Drinks/day: Occasional social drink Comments Unknown Sex and Gender Information Value Date Recorded Sex Assigned at Not on file Legal Sex Female 4:35 PM EST Gender Identity Not on file Sexual Orientation Not on file Last Filed Vital Signs Vital Sign Reading Time Taken Comments Blood Pressure 138/65 12/29/2020 10:21 AM EDT Pulse 78 12/29/2020 10:21 AM EDT Temperature - - Respiratory Rate - - Oxygen Saturation 96% 12/29/2020 10:21 AM EDT Inhaled Oxygen Concentration - - Weight - - Height - - Body Mass Index - - Plan of Treatment Health Maintenance Due Date Last Done Comments Breast Cancer Screening 1955 Pneumococcal Vaccine: 50+ Ye ars (1 of 2 - PCV) 1973 Colorectal Cancer Screening: Annual FOBT 2003 Colorectal Cancer Screening: Colonoscopy 2003 Colorectal Cancer Screening: Sigmoidoscopy 2003 Diabetes: Ophthalmology Exam 10/13/2019 Diabetes: Pedal Pulse Checked 10/13/2019 Diabetes: Sensory Foot Exam 10/13/2019 Diabetes: Visual Foot Exam 10/13/2019 Diabetes: Hemoglobin A1C 09/03/2020 06/03/2020 Influenza Vaccine (#1) 2025 Hepatitis B Vaccine Aged Out No longe r eligible based on patient's age to complete this topic Procedures Procedure Name Priority Date/Time Associated Diagnosis Comments BLOOD PANEL (HC) Routine 06/03/2020 12:0 0 AM EST from Last 3 Months or Most Recently Relevant to Health Maintenance Results * (ABNORMAL) Blood Panel (06/03/2020 12:00 AM EST) Calcium 9.1 8.4 - 10.2 mg/dl [facility] Hematocrit 42.1 38 - 50 % [facility] Triglycerides 161(H) <150 mg/dl [facility] HDL 35(L) >40 mg/dl [facility] Hemoglobin A1C 8.5(H) <5 % [facility] eGFR Non- 36(L) >60 ml/min [facility] eGFR 42(L) >60 ml/min [facility] LDL,Direct 58 <130 mg/dl [facility] Hgb 12.7(L) 13.0 - 16.5 g/dl [facility] Sodium 139 137 - 145 mmol/L [facility] Potassium 5.1 3.5 - 5.1 mmol/L [facility] BUN 33(H) 9 - 20 mg/dl [facility] Creatinine 1.5(H) 0.70 - 1.30 mg/dl [facility] Cholesterol 125 <200 mg/dl [facility] 06/03/2020 us [facility] [id number] LICITED RESULTS Final Result [facility] from Last 3 Months or Most Recently Relevant to Health Maintenance Insurance [employer] Care Teams Echo Vascular Technologist Relationship Specialty Start Date End Date Betzy Phipps MD [address] [place] [phone] PCP - General 08/02/20
--- OUTSIDE RECORDS SUMMARY | 2025-03-10 20:00 | XMS_ITS | Clinical Summary ---
Author Organization Unknown Care Team Providers Care Manager Rfid Name Role Phone ABDOUALYE MAN, JOE Unavailable Unavailable YI RN, BETTIE Unavailable Unavaila masha FLORES RN, YAHAIRA Unavailable Unavailable VON MARIELENA MOLD CAPPER HELPER, JESSA Unavailable Unavail able TANG RN, MOISE Unavailable Unavailable MARCIO KRAFT LPN, FAY Unavailable Kam TOWNSEND RN, MEDARDO Unavailable Unavailable Payers Payer Name Policy Type Policy Number Effective Date Expira tion Date MEDICARE - [facility] [place] - PDGM [id number] Problems Condition Name Condition Details Condition Category Status Onset Date Resolution Date Last Treatment Date Treating Clinician Comments TYPE 2 DIABETES W DIABETIC PERIPHERAL ANGIOPATH W/O GANGRENE Active 07-23 00:00: 00 UNSPECIFIED ATRIAL FIBRILLATION Active 07-23 00:00: 00 TYPE 2 DIABETES MELLITUS WITH DIABETIC NEUROPATHY, UNSP Active 07-23 00:00: 00 TYPE 2 DIABETES MELLITUS W DIABETIC CHRONIC KIDNEY DISEASE Active 07-23 00:00: 00 HYPERTENSIVE CHRONIC KIDNEY DISEASE W STG 1-4/UNSP CHR KDNY Active 07-23 00:00: 00 CHRONIC KIDNEY DISEASE, STAGE 4 (SEVERE) Active 07-23 00:00: 00 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 Active 07-23 00:00: 00 IRRITANT CNTCT DERM D/T FECAL, URINRY OR DUAL INCONTINENCE Active 07-23 00:00: 00 VENOUS INSUFFICIENC Y (CHRONIC) (PERIPHERAL) Active 07-23 00:00: 00 AGE-RELATED OSTEOPOROSIS W/O CURRENT PATHOLOGICAL FRACTURE Active 07-23 00:00: 00 HYPERLIPIDEM IA, UNSPECIFIED Active 07-23 00:00: 00 DEPRESSION, UNSPECIFIED Active 07-23 00:00: 00 OBESITY, UNSPECIFIED Active 07-23 00:00: 00 BODY MASS INDEX [BMI] 39.0-39.9, ADULT Active 07-23 00:00: 00 PERSONAL HISTORY OF NICOTINE DEPENDENCE Active 07-23 00:00: 00 RESIDENTIAL (CURRENT) USE OF ANTICOAGULAN TS Active 07-23 00:00: 00 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 Ordering Clinician Indication Dosage Frequency Signature (SIG) Comments Components metoprolol succinate ER 200 mg tablet,exte nded release 24 hr 12-07 00:00: 00 04-17 23:59 :00 No [id number] 1 tablet DAILY 1 tablet DAILY (route: oral) Med Classific ation: Cardiovas cular Therapy Agents metoprolol succinate ER 200 mg tablet,exte nded release 24 hr 12-07 00:00: 00 12-20 00:00 :00 No [id number] Per instruc tions Per instructio ns (route: oral) Med Classific ation: Cardiovas cular Therapy Agents Trulicity 3 mg/0.5 mL subcutaneou s pen injector 12-07 00:00: 00 08-13 23:59 :00 No [id number] Per instruc tions EVERY 7 DAYS Per instructio ns EVERY 7 DAYS (route: subcutaneo us) Med Classific ation: Endocrine hydroxyzine HCl 25 mg tablet 11-30 00:00: 00 03-12 23:59 :00 No [id number] Per instruc tions NEEDED Per instructio ns NEEDED (route: oral) Med Classific ation: Central Nervous System Agents hydroxyzine HCl 25 mg tablet 11-30 00:00: 00 12-20 00:00 :00 No [id number] Per instruc tions Per instructio ns (route: oral) Med Classific ation: Central Nervous System Agents triamcinolo ne acetonide 0.1 % topical cream 11-30 00:00: 00 03-12 23:59 :00 No [id number] Per instruc tions 3 TIMES A DAY Per instructio ns 3 TIMES A DAY (route: topical) Med Classific ation: Dermatolo gical amlodipine 10 mg tablet 12-20 00:00: 00 03-12 23:59 :00 No [id number] 1 tablet DAILY 1 tablet DAILY (route: oral) Med Classific ation: Cardiovas cular Therapy Agents atorvastati n 40 mg tablet 12-20 00:00: 00 03-12 23:59 :00 No [id number] 1 tablet DAILY 1 tablet DAILY (route: oral) Med Classific ation: Cardiovas cular Therapy Agents Basaglar KwikPen U-100 Insulin 100 unit/mL (3 mL) subcutaneou s 12-20 00:00: 00 01-08 23:59 :00 No [id number] 62 unit DAILY 62 unit DAILY (route: subcutaneo us) Med Classific ation: Endocrine cephalexin 250 mg capsule 12-20 00:00: 00 07-02 23:59 :00 No [id number] 1 capsule DAILY 1 capsule DAILY (route: oral) Med Classific ation: Anti-Infe ctive Agents Eliquis 5 mg tablet 12-20 00:00: 00 03-12 23:59 :00 No [id number] 1 tablet 2 TIMES DAILY 1 tablet 2 TIMES DAILY (route: oral) Med Classific ation: Hematolog ical Agents fluoxetine 20 mg capsule 12-20 00:00: 00 03-12 23:59 :00 No [id number] 1 capsule DAILY 1 capsule DAILY (route: oral) Med Classific ation: Central Nervous System Agents gabapentin 300 mg capsule 12-20 00:00: 00 08-13 23:59 :00 No [id number] 1 capsule 3 TIMES DAILY 1 capsule 3 TIMES DAILY (route: oral) Med Classific ation: Central Nervous System Agents gabapentin 600 mg tablet 12-20 00:00: 00 03-12 23:59 :00 No [id number] 1 tablet 3 TIMES DAILY 1 tablet 3 TIMES DAILY (route: oral) Med Classific ation: Central Nervous System Agents Humalog KwikPen U-200 Insulin 200 unit/mL (3 mL) subcutaneou s 12-20 00:00: 00 07-02 23:59 :00 No [id number] 20 unit 3 TIMES DAILY 20 unit 3 TIMES DAILY ([facility] Med Classific ation: Endocrine lisinopril 5 mg tablet 12-20 00:00: 00 04-17 23:59 :00 No [id number] 1 tablet DAILY 1 tablet DAILY (route: oral) Med Classific ation: Cardiovas cular Therapy Agents Macrobid 100 mg capsule 12-20 00:00: 00 04-17 23:59 :00 No [id number] 1 capsule 2 TIMES DAILY 1 capsule 2 TIMES DAILY (route: oral) Med Classific ation: Genitouri nary Therapy trazodone 100 mg tablet 12-20 00:00: 00 03-12 23:59 :00 No [id number] 1 tablet BEDTIME 1 tablet BEDTIME (route: oral) Med Classific ation: Central Nervous System Agents Basaglar KwikPen U-100 Insulin 100 unit/mL (3 mL) subcutane s 6-19 00:00: 00 07-02 23:59 :00 No [id number] 45 unit BEDTIME 45 unit BEDTIME ([facility] Med Classific ation: Endocrine metoprolol tartrate 75 mg tablet 9-28 00:00: 00 03-12 23:59 :00 No [id number] 1 tablet DAILY 1 tablet DAILY (route: oral) Med Classific ation: Cardiovas cular Therapy Agents Fiasp FlexTouch U-100 Insulin 100 unit/mL (3 mL) subcutaneou s pen 2022-07 2- 00:00: 00 03-12 23:59 :00 No [id number] Per instruc tions DIRECTED Per instructio ns DIRECTED (route: [facility]) Med Classific ation: Endocrine Lantus Solostar U-100 Insulin 100 unit/mL (3 mL) subcutaneou s pen 2022-07 2-11 00:00: 00 12-09 23:59 :00 No [id number] 37 unit EVERY 12 HOURS 37 unit EVERY 12 HOURS (route[facility]) Med Classific ation: Endocrine gabapentin 300 mg capsule 08-17 00:00: 00 03-12 23:59 :00 No [id number] 1 capsule NEEDED 1 capsule NEEDED (route: oral) Med Classific ation: Central Nervous System Agents Mounjaro 5 mg/0.5 mL subcutaneou s pen injector 08-17 00:00: 00 12-06 23:59 :00 No [id number] 5 mg WEEKLY 5 mg WEEKLY (route: [facility]) Med Classific ation: Endocrine Mounjaro 7.5 mg/0.5 mL subcutaneou s pen injector 12-06 00:00: 00 03-12 23:59 :00 No [id number] Per instruc tions WEEKLY Per instructio ns WEEKLY (route: [facility]) Med Classific ation: Endocrine Lantus Solostar U-100 Insulin 100 unit/mL (3 mL) subcutaneou s pen 12-14 00:00: 00 03-12 23:59 :00 No [id number] 40 unit BEDTIME 40 unit BEDTIME (route: [facility]) Med Classific ation: Endocrine Basaglar KwikPen U-100 Insulin 100 unit/mL (3 mL) subcutaneou s 03-13 00:00: 00 Yes [id number] 40 unit BEDTIME 40 unit [facility] Med Classific ation: Endocrine gabapentin 300 mg capsule 03-11 00:00: 00 Yes [id number] 1 capsule DIRECTED 1 capsule DIRECTED (route: oral) Med Classific ation: Central Nervous System Agents gabapentin 600 mg tablet 03-11 00:00: 00 Yes [id number] 600 mg BEDTIME 600 mg BEDTIME (route: oral) Med Classific ation: Central Nervous System Agents amlodipine 10 mg tablet 8-13 00:00: 00 Yes [id number] 1 tablet DAILY 1 tablet DAILY (route: oral) Med Classific ation: Cardiovas cular Therapy Agents trazodone 100 mg tablet 8-12 00:00: 00 Yes [id number] 1 tablet BEDTIME 1 tablet BEDTIME (route: oral) Med Classific ation: Central Nervous System Agents Mounjaro 7.5 mg/0.5 mL subcutaneou s pen injector 7-29 00:00: 00 11-21 23:59 :00 No [id number] Per instruc tions ONCE A WEEK Per instructio ns ONCE A WEEK (route: subcutaneo us) Med Classific ation: Endocrine atorvastati n 40 mg tablet 8- 00:00: 00 Yes [id number] 1 tablet BEDTIME 1 tablet BEDTIME (route: oral) Med Classific ation: Cardiovas cular Therapy Agents Eliquis 5 mg tablet 03-17 00:00: 00 Yes [id number] 1 tablet 2 TIMES DAILY 1 tablet 2 TIMES DAILY (route: oral) Med Classific ation: Hematolog ical Agents metoprolol tartrate 75 mg tablet 8- 00:00: 00 Yes [id number] 1 tablet DAILY 1 tablet DAILY (route: oral) Med Classific ation: Cardiovas cular Therapy Agents cephalexin 500 mg capsule 1-27 00:00: 00 09-15 23:59 :00 No [id number] lle cellulitis 1 capsule 3 TIMES DAILY 1 capsule 3 TIMES DAILY (route: oral) Med Classific ation: Anti-Infe ctive Agents hydroxyzine HCl 25 mg tablet 4-25 00:00: 00 Yes [id number] 1 tablet 4 TIMES DAILY 1 tablet 4 TIMES DAILY (route: oral) Med Classific ation: Central Nervous System Agents Mounjaro 10 mg/0.5 mL subcutaneou s pen injector 5-02 00:00: 00 Yes [id number] 10 mg WEEKLY 10 mg WEEKLY (route: subcutaneo us) Med Classific ation: Endocrine urea 40 % lotion 02-16 00:00: 00 Yes [id number] Per instruc tions DIRECTED Per instructio ns DIRECTED (route: topical) Med Classific ation: Dermatolo gical Bactrim DS 800 mg-160 mg tablet 03-05 00:00: 00 Yes [id number] 2 tablet 2 TIMES DAILY 2 tablet 2 TIMES DAILY (route: oral) Med Classific ation: Anti-Infe ctive Agents Immunizations Ordered Immunization Name Filled Immunization Name Date Status Comments Refusal Reason INFLUENZA, TIV (INACTIVATED) 2023-05-02 00:00:00 Vital Signs Vital Name Observation Time Observation Value Commen ts Temperature 2025-03-06 15:02:00.000 98.1 [degF] Temperature 2025-02-27 14:25:00.000 98 [degF] Temperature 2025-02-22 14:44:00.000 97.9 [degF] Temperature 2025-02-20 12:26:00.000 97.6 [degF] Temperature 2025-02-16 09:16:00.000 97.2 [degF] Temperature 2025-02-13 09:22:00.000 98 [degF] Temperature 2025-02-09 12:29:00.000 97.4 [degF] Temperature 2025-02-06 10:07:00.000 98.3 [degF] Temperature 2025-02-02 12:02:00.000 97.6 [degF] Temperature 2025-01-30 08:32:00.000 97 [degF] Temperature 2025-01-26 18:22:00.000 98.1 [degF] Temperature 2025-01-22 15:53:00.000 98.3 [degF] Temperature 2025-01-19 13:19:00.000 98.1 [degF] Temperature 2025-01-15 15:27:00.000 97.2 [degF] Pulse 2025-03-06 15:02:00.000 58 /min Pulse 2025-02-27 14:25:00.000 58 /min Pulse 2025-02-22 14:44:00.000 60 /min Pulse 2025-02-20 12:26:00.000 60 /min Pulse 2025-02-16 09:16:00.000 60 /min Pulse 2025-02-13 09:22:00.000 60 /min Pulse 2025-02-09 12:29:00.000 54 /min Pulse 2025-02-06 10:07:00.000 60 /min Pulse 2025-02-02 12:02:00.000 56 /min Pulse 2025-01-30 08:32:00.000 70 /min Pulse 2025-01-26 18:22:00.000 58 /min Pulse 2025-01-19 13:19:00.000 58 /min Pulse 2025-01-15 15:27:00.000 55 /min Pulse 2025-01-12 13:15:00.000 58 /min O2 Saturation (%) 2025-02-27 14:25:00.000 98 % O2 Saturation (%) 2025-02-22 14:44:00.000 97 % O2 Saturation (%) 2025-02-20 12:26:00.000 96 % O2 Saturation (%) 2025-02-16 09:16:00.000 98 % O2 Saturation (%) 2025-02-13 09:22:00.000 97 % O2 Saturation (%) 2025-02-09 12:29:00.000 97 % O2 Saturation (%) 2025-02-06 10:07:00.000 97 % O2 Saturation (%) 2025-02-02 12:02:00.000 95 % O2 Saturation (%) 2025-01-30 08:32:00.000 97 % O2 Saturation (%) 2025-01-26 18:22:00.000 98 % O2 Saturation (%) 2025-01-22 15:53:00.000 98 % O2 Saturation (%) 2025-01-19 13:19:00.000 98 % O2 Saturation (%) 2025-01-15 15:27:00.000 96 % O2 Saturation (%) 2025-01-12 13:15:00.000 98 % Respirations 2025-03-06 15:02:00.000 18 /min Respirations 2025-02-27 14:25:00.000 18 /min Respirations 2025-02-20 12:26:00.000 18 /min Respirations 2025-02-16 09:16:00.000 18 /min Respirations 2025-02-09 12:29:00.000 18 /min Respirations 2025-02-02 12:02:00.000 18 /min Respirations 2025-01-30 08:32:00.000 18 /min Respirations 2025-01-15 15:27:00.000 18 /min Respirations 2025-01-12 13:15:00.000 18 /min Systolic Blood Pressure 2025-03-06 15:02:00.000 106 mm [Hg] Systolic Blood Pressure 2025-02-27 14:25:00.000 118 mm [Hg] Systolic Blood Pressure 2025-02-22 14:44:00.000 108 mm [Hg] Systolic Blood Pressure 2025-02-20 12:26:00.000 122 mm [Hg] Systolic Blood Pressure 2025-02-16 09:16:00.000 120 mm [Hg] Systolic Blood Pressure 2025-02-13 09:22:00.000 110 mm [Hg] Systolic Blood Pressure 2025-02-09 12:29:00.000 120 mm [Hg] Systolic Blood Pressure 2025-02-06 10:07:00.000 110 mm [Hg] Systolic Blood Pressure 2025-02-02 12:02:00.000 128 mm [Hg] Systolic Blood Pressure 2025-01-30 08:32:00.000 132 mm [Hg] Systolic Blood Pressure 2025-01-26 18:22:00.000 108 mm [Hg] Systolic Blood Pressure 2025-01-19 13:19:00.000 124 mm [Hg] Systolic Blood Pressure 2025-01-15 15:27:00.000 128 mm [Hg] Systolic Blood Pressure 2025-01-12 13:15:00.000 110 mm [Hg] Diastolic Blood Pressure 2025-03-06 15:02:00.000 58 mm [Hg] Diastolic Blood Pressure 2025-02-27 14:25:00.000 62 mm [Hg] Diastolic Blood Pressure 2025-02-22 14:44:00.000 60 mm [Hg] Diastolic Blood Pressure 2025-02-20 12:26:00.000 76 mm [Hg] Diastolic Blood Pressure 2025-02-16 09:16:00.000 64 mm [Hg] Diastolic Blood Pressure 2025-02-13 09:22:00.000 68 mm [Hg] Diastolic Blood Pressure 2025-02-09 12:29:00.000 68 mm [Hg] Diastolic Blood Pressure 2025-02-06 10:07:00.000 68 mm [Hg] Diastolic Blood Pressure 2025-02-02 12:02:00.000 68 mm [Hg] Diastolic Blood Pressure 2025-01-30 08:32:00.000 64 mm [Hg] Diastolic Blood Pressure 2025-01-26 18:22:00.000 62 mm [Hg] Diastolic Blood Pressure 2025-01-19 13:19:00.000 72 mm [Hg] Diastolic Blood Pressure 2025-01-15 15:27:00.000 70 mm [Hg] Diastolic Blood Pressure 2025-01-12 13:15:00.000 62 mm [Hg] Plan of Treatment Planned Activity Planned Date Details Comments Future Scheduled Test SKILLED NU RSE TO EVALUATE PATIENT, IDENTIFY PRIMARY AND CO-MORBID CONDITIONS CODED PER CODING GUIDELINES, AND DEVELOP PATIENT SPECIFIC PLAN OF CARE THAT INCLUDES PATIENT GOAL FOR HOME HEALTH. [code = SKILLED NURSE TO EVALUATE PATIENT, IDENTIFY PRIMARY AND CO-MORBID CONDITIONS CODED PER CODING GUIDELINES, AND DEVELOP PATIENT SPECIFIC PLAN OF CARE THAT INCLUDES PATIENT GOAL FOR HOME HEALTH.] Future Scheduled Test SKILLED NU RSE FOR O/A, TEACHING, AND MANAGEMENT OF HT, HLD. [code = SKILLED NURSE FOR O/A, TEACHING, AND MANAGEMENT OF HT, HLD.] Future Scheduled Test SKILLED NU RSE FOR O/A, TEACHING AND MANAGEMENT OF CKD FOR EARLY IDENTIFICATION OF EXACERBATION OF DISEASE PROCESS [code = SKILLED NURSE FOR O/A, TEACHING AND MANAGEMENT OF CKD FOR EARLY IDENTIFICATION OF EXACERBATION OF DISEASE PROCESS] Future Scheduled Test NEED FOR S KILLED TEACHING AND INTERVENTION RELATED TO VENOUS STASIS ULCER RIGHT 2ND TOE SKILLED NURSE OR TRAINED PATIENT/CAREGIVER TO PERFORM WOUND CARE USING CLEAN TECHNIQUE, CLEANSE/IRRIGATE WITH NORMAL SALINE PAT DRY WITH GAUZE, APPLY PURACOL PLUS COLLAGEN TO WOUND BED, COVER WITH GAUZE, WRAP WITH ROLLED GAUZE SECURE WITH DRESSING RETENTION TAPE. WOUND CARE TO BE PERFORMED 3X AND PRN IF SOILED OR DISLODGED. 1-2 PRN SKILLED NURSE VISITS FOR WOUND CARE DUE TO COMPLICATIONS. SKILLED NURSE TO OBTAIN WOUND CULTURE PRN S/S OF INFECTION. BLE 2 SYSTEM COBAN WRAPS PLACED BY WOUND CLINIC TO REMAIN IN PLACE UNTIL CLINIC APPT. WOUND CARE WILL BE PERFORMED BY TRAINED CAREGIVER ON DAYS WHEN SKILLED NURSE IS NOT SCHEDULED FOR A VISIT. DISCONTINUE WOUND CARE/SUPPLIES ONCE WOUND IS HEALED. [code = NEED FOR SKILLED TEACHING AND INTERVENTION RELATED TO VENOUS STASIS ULCER RIGHT 2ND TOE SKILLED NURSE OR TRAINED PATIENT/CAREGIVER TO PERFORM WOUND CARE USING CLEAN TECHNIQUE, CLEANSE/IRRIGATE WITH NORMAL SALINE PAT DRY WITH GAUZE, APPLY PURACOL PLUS COLLAGEN TO WOUND BED, COVER WITH GAUZE, WRAP WITH ROLLED GAUZE SECURE WITH DRESSING RETENTION TAPE. WOUND CARE TO BE PERFORMED 3X AND PRN IF SOILED OR DISLODGED. 1-2 PRN SKILLED NURSE VISITS FOR WOUND CARE DUE TO COMPLICATIONS. SKILLED NURSE TO OBTAIN WOUND CULTURE PRN S/S OF INFECTION. BLE 2 SYSTEM COBAN WRAPS PLACED BY WOUND CLINIC TO REMAIN IN PLACE UNTIL CLINIC APPT. WOUND CARE WILL BE PERFORMED BY TRAINED CAREGIVER ON DAYS WHEN SKILLED NURSE IS NOT SCHEDULED FOR A VISIT. DISCONTINUE WOUND CARE/SUPPLIES ONCE WOUND IS HEALED.] Future Scheduled Test SKILLED NU RSE TO OBTAIN BLOOD SUGAR PRN FOR SIGNS AND SYMPTOMS OF HYPO/HYPERGLYCEMIA. IF OBTAINED BY PATIENT/CAREGIVER PRIOR TO VISIT AND PATIENT IS NOT SYMPTOMATIC, SKILLED NURSE TO RECORD READING FROM PATIENT LOG. [code = SKILLED NURSE TO OBTAIN BLOOD SUGAR PRN FOR SIGNS AND SYMPTOMS OF HYPO/HYPERGLYCEMIA. IF OBTAINED BY PATIENT/CAREGIVER PRIOR TO VISIT AND PATIENT IS NOT SYMPTOMATIC, SKILLED NURSE TO RECORD READING FROM PATIENT LOG.] Future Scheduled Test SKILLED NU RSE FOR O/A AND SKILLED TEACHING IN MANAGEMENT OF PVD CIRCULATORY/VASCULAR DISEASE. [code = SKILLED NURSE FOR O/A AND SKILLED TEACHING IN MANAGEMENT OF PVD CIRCULATORY/VASCULAR DISEASE.] Future Scheduled Test SKILLED NU RSE TO INSTRUCT PATIENT/CAREGIVER ON SIGNS AND SYMPTOMS, RISK FACTORS, COMPLICATIONS, AND MANAGEMENT OF ATRIAL FIBRILLATION. [code = SKILLED NURSE TO INSTRUCT PATIENT/CAREGIVER ON SIGNS AND SYMPTOMS, RISK FACTORS, COMPLICATIONS, AND MANAGEMENT OF ATRIAL FIBRILLATION.] Future Scheduled Test SKILLED NU RSE FOR O/A AND TEACHING OF DIABETIC MANAGEMENT INCLUDING BLOOD SUGAR MONITORING/USE OF GLUCOMETER, DIABETIC DIET, LOWER EXTREMITY SKIN INSPECTION, PROPER SKIN/FOOT CARE, AND SIGNS AND SYMPTOMS HYPO/HYPERGLYCEMIA TO REPORT. [code = SKILLED NURSE FOR O/A AND TEACHING OF DIABETIC MANAGEMENT INCLUDING BLOOD SUGAR MONITORING/USE OF GLUCOMETER, DIABETIC DIET, LOWER EXTREMITY SKIN INSPECTION, PROPER SKIN/FOOT CARE, AND SIGNS AND SYMPTOMS HYPO/HYPERGLYCEMIA TO REPORT.] Future Scheduled Test SKILLED NU RSE FOR O/A AND SKILLED TEACHING RELATED TO SIGNS AND SYMPTOMS AND MANAGEMENT OF AGE-RELATED OSTEOPOROSIS. [code = SKILLED NURSE FOR O/A AND SKILLED TEACHING RELATED TO SIGNS AND SYMPTOMS AND MANAGEMENT OF AGE-RELATED OSTEOPOROSIS.] Future Scheduled Test PATIENT ALFARO S A RISK OF HOSPITALIZATION AND ED USE. SKILLED NURSE TO ESTABLISH SUPPORT MEASURES TO MINIMIZE RISK OF HOSPITALIZATION AND ED USE, AND INSTRUCT PATIENT/CAREGIVER ON METHODS TO REDUCE AVOIDABLE HOSPITALIZATION AND ED USE. [code = PATIENT HAS A RISK OF HOSPITALIZATION AND ED USE. SKILLED NURSE TO ESTABLISH SUPPORT MEASURES TO MINIMIZE RISK OF HOSPITALIZATION AND ED USE, AND INSTRUCT PATIENT/CAREGIVER ON METHODS TO REDUCE AVOIDABLE HOSPITALIZATION AND ED USE.] Future Scheduled Test SKILLED NU RSE TO PROVIDE INSTRUCTION TO PATIENT/CAREGIVER RELATED TO DISCHARGE PLANNING. [code = SKILLED NURSE TO PROVIDE INSTRUCTION TO PATIENT/CAREGIVER RELATED TO DISCHARGE PLANNING.] Future Scheduled Test SKILLED NU RSE TO PERFORM ENVIRONMENTAL SAFETY RISK ASSESSMENT AND FALL RISK ASSESSMENT AND PROVIDE INSTRUCTION TO IMPLEMENT ENVIRONMENTAL SAFETY AND FALL PREVENTION STRATEGIES THROUGHOUT THE CERTIFICATION PERIOD. SKILLED NURSE WILL MAINTAIN SITUATIONAL AWARENESS AND WILL NOTIFY CLINICAL CIDER PRESS OPERATOR AND PHYSICIAN/PROVIDER WITH ANY CHANGE IN CONDITION. [code = SKILLED NURSE TO PERFORM ENVIRONMENTAL SAFETY RISK ASSESSMENT AND FALL RISK ASSESSMENT AND PROVIDE INSTRUCTION TO IMPLEMENT ENVIRONMENTAL SAFETY AND FALL PREVENTION STRATEGIES THROUGHOUT THE CERTIFICATION PERIOD. SKILLED NURSE WILL MAINTAIN SITUATIONAL AWARENESS AND WILL NOTIFY CLINICAL CIDER PRESS OPERATOR AND PHYSICIAN/PROVIDER WITH ANY CHANGE IN CONDITION.] Future Scheduled Test SKILLED NU RSE FOR OBSERVATION AND ASSESSMENT OF PATIENTS PAIN LEVEL AND EFFECTIVENESS OF PAIN MANAGEMENT REGIMEN. SKILLED NURSE TO INSTRUCT PATIENT/CAREGIVER REGARDING PHARMACOLOGIC AND NON-PHARMACOLOGIC PAIN CONTROL MEASURES. SKILLED NURSE TO REPORT TO PHYSICIAN IF PAIN LEVEL IS OUTSIDE OF ESTABLISHED PARAMETERS. [code = SKILLED NURSE FOR OBSERVATION AND ASSESSMENT OF PATIENTS PAIN LEVEL AND EFFECTIVENESS OF PAIN MANAGEMENT REGIMEN. SKILLED NURSE TO INSTRUCT PATIENT/CAREGIVER REGARDING PHARMACOLOGIC AND NON-PHARMACOLOGIC PAIN CONTROL MEASURES. SKILLED NURSE TO REPORT TO PHYSICIAN IF PAIN LEVEL IS OUTSIDE OF ESTABLISHED PARAMETERS.] Future Scheduled Test SKILLED NU RSE TO ASSESS PATIENT'S SKIN INTEGRITY AND INSTRUCT PATIENT/CAREGIVER ON MEASURES TO PREVENT PRESSURE ULCERS. [code = SKILLED NURSE TO ASSESS PATIENT'S SKIN INTEGRITY AND INSTRUCT PATIENT/CAREGIVER ON MEASURES TO PREVENT PRESSURE ULCERS.] Future Scheduled Test SKILLED NU RSE TO PROVIDE ASSESSMENT AND TEACHING/REINFORCEMENT OF MANAGEMENT OF DEPRESSION INCLUDING DISEASE PROCESS, MEDICATION MANAGEMENT, COPING SKILLS AND IDENTIFY CHANGES ASSOCIATED WITH DEPRESSIVE DISORDERS FOR EARLY INTERVENTION. [code = SKILLED NURSE TO PROVIDE ASSESSMENT AND TEACHING/REINFORCEMENT OF MANAGEMENT OF DEPRESSION INCLUDING DISEASE PROCESS, MEDICATION MANAGEMENT, COPING SKILLS AND IDENTIFY CHANGES ASSOCIATED WITH DEPRESSIVE DISORDERS FOR EARLY INTERVENTION.] Future Scheduled Test SKILLED NU RSE TO INSTRUCT PATIENT/CAREGIVER ON S/S OF NEUROPATHY AND METHODS TO MANAGE. [code = SKILLED NURSE TO INSTRUCT PATIENT/CAREGIVER ON S/S OF NEUROPATHY AND METHODS TO MANAGE.] Future Scheduled Test SKILLED NU RSE TO REVIEW PATIENT MEDICATIONS (PRESCRIPTION/OTC). INSTRUCT PATIENT/CAREGIVER ON ALL MEDICATIONS INCLUDING PURPOSE, WHEN TO TAKE, IMPORTANCE OF MEDICATION ADHERENCE, MONITORING OF EFFECTIVENESS, ADVERSE DRUG REACTIONS, POSSIBLE SIDE EFFECTS, AND WHEN TO NOTIFY AGENCY OR PHYSICIAN/PROVIDER OF ANY CONCERNS. [code = SKILLED NURSE TO REVIEW PATIENT MEDICATIONS (PRESCRIPTION/OTC). INSTRUCT PATIENT/CAREGIVER ON ALL MEDICATIONS INCLUDING PURPOSE, WHEN TO TAKE, IMPORTANCE OF MEDICATION ADHERENCE, MONITORING OF EFFECTIVENESS, ADVERSE DRUG REACTIONS, POSSIBLE SIDE EFFECTS, AND WHEN TO NOTIFY AGENCY OR PHYSICIAN/PROVIDER OF ANY CONCERNS.] Goal 2024-05-12 Patient Goal - H EAL SO IT WONT TURN INTO A BIG WOUND LIKE BEFORE Goal 2024-07-11 Patient Goal - H EAL SO IT WONT TURN INTO A BIG WOUND LIKE BEFORE Goal 2024-09-08 Patient Goal - H EAL SO IT WONT TURN INTO A BIG WOUND LIKE BEFORE Goal 2024-11-07 Patient Goal - H EAL SO IT WONT TURN INTO A BIG WOUND LIKE BEFORE Goal 2025-01-09 Patient Goal - H EAL SO IT WONT TURN INTO A BIG WOUND LIKE BEFORE Goal Patient Goal - H EAL SO IT WONT TURN INTO A BIG WOUND LIKE BEFORE Goal Provider Goal - A PLAN OF CARE WILL BE ESTABLISHED THAT MEETS PATIENT'S LONGTERM NEEDS AND INCLUDES PATIENT GOAL FOR HOME HEALTH. Goal Provider Goal - PATIENT/CAREGIVER WILL VERBALIZE/DEMONSTRATE MANAGEMENT OF CARDIAC DISEASE PROCESS AND EXACERBATIONS WILL BE IDENTIFIED AND PROMPTLY REPORTED THROUGHOUT THE CERTIFICATION PERIOD. Goal Provider Goal - PATIENT/CAREGIVER WILL VERBALIZE UNDERSTANDING OF GENITOURINARY DISEASE PROCESS, AND EXACERBATIONS OF GENITOURINARY DISEASE WILL BE PROMPTLY IDENTIFIED FOR EARLY INTERVENTION THROUGHOUT THE CERTIFICATION PERIOD. Goal Provider Goal - WOUND CARE WILL BE COMPLETED AND PATIENT WILL HAVE IMPROVED WOUND STATUS EVIDENCED BY NO SIGNS AND SYMPTOMS OF INFECTION, DECREASED WOUND SIZE, AND/OR NO COMPLICATIONS BY THE END OF THE CERTIFICATION PERIOD. Goal Provider Goal - BLOOD SUGAR READING WILL BE OBTAINED ORDERED THROUGHOUT CERTIFICATION PERIOD. Goal Provider Goal - PATIENT/CAREGIVER WILL VERBALIZE/DEMONSTRATE THE ABILITY TO MANAGE CIRCULATORY DISEASE PROCESS AND EXACERBATIONS WILL BE IDENTIFIED FOR EARLY INTERVENTION THROUGHOUT THE CERTIFICATION PERIOD. Goal Provider Goal - PATIENT/CAREGIVER WILL VERBALIZE UNDERSTANDING OF SIGNS AND SYMPTOMS, COMPLICATIONS, AND MANAGEMENT OF ATRIAL FIBRILLATION THROUGHOUT THE CERTIFICATION PERIOD. Goal Provider Goal - PATIENT/CAREGIVER WILL VERBALIZE/DEMONSTRATE KNOWLEDGE OF DIABETIC MANAGEMENT. CHANGES IN DIABETIC STATUS WILL BE IDENTIFIED AND REPORTED TO PHYSICIAN FOR PROMPT INTERVENTION THROUGHOUT THE CERTIFICATION PERIOD. Goal Provider Goal - PATIENT/CAREGIVER WILL VERBALIZE UNDERSTANDING OF MUSCULOSKELETAL DISEASE INCLUDING SIGNS AND SYMPTOMS, MANAGEMENT, AND PRESCRIBED TREATMENT REGIMEN BY END OF EPISODE. Goal Provider Goal - PATIENT WILL HAVE SUPPORT MEASURES ESTABLISHED TO PREVENT HOSPITALIZATION AND ED USE AND PATIENT/CAREGIVER WILL VERBALIZE/DEMONSTRATE METHODS TO REDUCE AVOIDABLE HOSPITALIZATION AND ED USE BY END OF EPISODE. Goal Provider Goal - PATIENT/CAREGIVER WILL VERBALIZE UNDERSTANDING OF DISCHARGE PLANNING INSTRUCTIONS BY DATE OF DISCHARGE. Goal Provider Goal - PATIENT/CAREGIVER WILL VERBALIZE/DEMONSTRATE EFFECTIVE ENVIRONMENTAL SAFETY AND FALL PREVENTION STRATEGIES, WILL REMAIN SAFE IN THE COMMUNITY, AND WILL BE FREE OF DANGER TO SELF AND OTHERS THROUGHOUT THE CERTIFICATION PERIOD. Goal Provider Goal - PATIENT/CAREGIVER WILL DEMONSTRATE UNDERSTANDING OF PHARMACOLOGIC AND NONPHARMACOLOGIC PAIN CONTROL MEASURES AND PATIENT WILL HAVE IMPROVEMENT IN PAIN INTERFERING WITH ACTIVITY EVIDENCED BY PAIN AT A LEVEL THAT IS ACCEPTABLE TO THE PATIENT AND PAIN LEVEL WITHIN ESTABLISHED PARAMETERS BY END OF CERTIFICATION PERIOD. Goal Provider Goal - PATIENT/CAREGIVER WILL VERBALIZE UNDERSTANDING OF PRESSURE ULCER PREVENTION BY END OF THE EPISODE. Goal Provider Goal - PATIENT/CAREGIVER WILL VERBALIZE/DEMONSTRATE UNDERSTANDING OF THE MANAGEMENT OF DEPRESSION THROUGHOUT THE CERTIFICATION PERIOD AND SYMPTOMS ARE IDENTIFIED AND MANAGED TO MAINTAIN PATIENT SAFETY IN THE HOME. Goal Provider Goal - PATIENT/CAREGIVER WILL VERBALIZE S/S OF NEUROPATHY AND METHODS TO MANAGE BY END OF CERTIFICATION PERIOD. Goal Provider Goal - PATIENT/CAREGIVER WILL VERBALIZE UNDERSTANDING OF EDUCATION PROVIDED ON MEDICATIONS BY THE END OF THE CERTIFICATION PERIOD. Progress Notes Progress Notes <paragraph>[Visit Date: 2024 by FAY KRAFT LPN]:</paragraph><paragraph>SNV 03/06 ABNORMAL VITALS: FBS 147 FALLS: NO FALLS MEDICATION CHANGES: START BACTRIM DS OBSERVATION AND ASSESSMENT PROVIDED: UPON ARRIVAL, PATIENT IS ALERT AND ORIENTED X3, SITTING IN RECLINER WATCHING TV. PATIENT REPORTED NEW ANTIBIOTIC PRESCRIBED BY WOUND CARE CLINIC. PATIENT STARTED TAKING ANTIBIOTIC YESTERDAY AND IS EXPERIENCING DIARRHEA A SIDE EFFECT. ADVISED TO EAT YOGURT TWICE A DAY TO HELP MITIGATE GI SIDE EFFECTS DUE TO ANTIBIOTIC. PATIENT MENTIONED THAT X-RAYS WERE ORDERED AT THE WOUND CARE CLINIC BUT HAVE NOT YET BEEN COMPLETED. PT SAYS SHE HAD A BUS TO [place] BUT WILL DO THE BEST I CAN TO COMPLETE X-RAYS NEXT WEEK. PATIENT'S VITAL SIGNS ARE WITHIN BASELINE RANGE, NO FEVER. PATIENT DENIES ANY BOWEL OR BLADDER ISSUES. APPETITE ADEQUATE. WOUND CARE WAS PROVIDED ORDERED. PATIENT TOLERATED WELL. EDUCATION: . NEW RX FOR BACTRIM HAS BEEN ADDED TO MEDICATION PROFILE. DISCUSSED EFFECTS AND USES WITH PATIENT. EDUCATED ON PROBIOTICS TO ADDRESS DIARRHEA. REINFORCED IMPORTANCE OF COMPLETING X-RAYS SAMANTHA. ENCOURAGED PATIENT TO KEEP WOUNDS COVERED AND FOLLOW WOUND CARE INSTRUCTIONS INTERVENTIONS NEEDED AT NEXT VISIT: ASSESSMENT WOUND CARE NEXT MD APPOINTMENT: WOUND CARE CLINIC PT AND CAREGIVER INSTRUCTED TO CALL [facility] WITH ANY QUESTIONS OR CONCERNS AND/OR CHANGES IN CONDITION. FAY KRAFT LPN</paragraph> Encounters Start Date/Time End Date/Time Encounter Type Admission Type Attending [facility] Care Facility Care Department Encounter ID Discharge Date Discharge Status Discharge Condition Discharge Reason Percent Goals Met 2025-01-11 00:00:00 2025-03-11 00:00:00 Outpatient RECERTIFIC ATION [facility] [id number] 39.29
--- NOTE | 2025-03-10 20:25 | PHA.MEDREC ---
Addendum entered by Joel Sargent, PharmD 03/10/25 20:55: MED REC CHECKED BY [facility] Original Note: Pharmacy Consult ? Medication Reconciliation Pharmacy has completed the medication reconciliation. Spoke with pt and she confirmed her medications. Pt confirmed she is taking Eliquis 5mg tabs and filling them though [facility], she takes her Basaglar insulin 40 units at bedtime and Admelog TIDAC per sliding scale as needed for Hyperglycemia, Randellunsethro once a week on (pt took it last ) and she started the Sulfa-Methoxazole 03/05.
[2025-03-10 20:36] LABS: Glucose, Whole Blood 174 mg/dL (60-115)
[2025-03-10] MEDS: Insulin Glargine,Hum.rec.anlog 100 UNIT/ML 10 ML VIAL 30 UNIT SUBCUT (21:25)
[2025-03-11] VITALS (8 sets, daily range): BP systolic 123–161; BP diastolic 46–66; PULSE 55–61; RESP 16–20; TEMP 36.4–36.7; O2SAT 90–100
--- NOTE | 2025-03-11 00:34 | PC.NURSE ---
Pt resting quietly. Pt took medications without issue. Purewick in place. Callbell in reach.
[2025-03-11 04:49] LABS: MANUAL DIFF FLAG NO
[2025-03-11 04:55] LABS: Hematocrit 28.4 % (37.0-47.0); Hemoglobin 9.0 g/dl (12.0-16.0); Imm Gran Abs Auto 0.04 X10*3/uL (0.00-0.03); Imm Gran Pct Auto 0.4 % (0.0-0.4); Lymphocytes Absolute Auto 1.4 X10*3/uL (1.2-4.9); Mean Corpuscular HGB Conc 31.7 g/dl (31.0-35.0); Mean Corpuscular Hemoglobin 30.9 pg (27.0-33.0); Mean Corpuscular Volume 97.6 fL (80.0-98.0); NRBC Abs Auto 0.000 X10*3/uL (0.0-0.012); NRBC Pct Auto 0.0 /100WBC (0.0-0.2); Platelet Count 224 X10*3/uL (160-400); Red Blood Count 2.91 X10*6/uL (4.20-5.50); White Blood Count 9.7 X10*3/uL (4.8-10.8)
[2025-03-11 05:13] LABS: Anion Gap 15 (12-20); Blood Urea Nitrogen 55 mg/dL (9-16); Calcium 9.3 mg/dL (8.4-10.2); Carbon Dioxide 19 mmol/L (22-29); Chloride 110 mmol/L (96-108); Creatinine Clr Calc Pharmacy 20.1; Estimated Glomerular Filt Rate 13; Potassium 4.5 mmol/L (3.3-5.1); Sodium 139 mmol/L (135-145)
[2025-03-11 05:18] LABS: B Type Natriuretic Peptide 864 pg/mL (<100)
--- NOTE | 2025-03-11 06:30 | PC.NURSE ---
astro technician checkled O2 and found patient to be in the upper 60s to low 70s on room air. Placed on NC with no real change. Placed on oxymask at 10L and O2 sat up to mid 80s. Pt placed on nonrebreather at 15L and O2 in mid to upper 90s. Dr. Lazo made aware. Orders received.
--- NOTE | 2025-03-11 06:32 | PM.EVENT ---
Event Note Date of Service: 03/11/25 Event Note: Nurse reported hypoxia. Will obtain CXR and VBG Time Spent With Patient Time: Total time managing care of this patient today ____ minutes.
[2025-03-11 06:45] LABS: Venous Blood Gas Refer to POC result
[2025-03-11 06:50] LABS: VBG HCO3 21 mmol/L (22-26); VBG O2 % Saturation 71.0 %
[2025-03-11 07:32] LABS: Glucose, Whole Blood 138 mg/dL (60-115)
--- NOTE | 2025-03-11 11:00 | MHC.CM.PN ---
Attempted to meet with patient in regards to discharge planning. Patient currently sleeping. No family present. Will attempt to meet again.
--- NOTE | 2025-03-11 11:13 | HO.PM.IMPN ---
Subjective Subjective Date of Service: 03/11/25 Review of Systems Follow up Heart failure, NJ feeling ok today no pain, nausea or vomiting Physical Exam Exam: Exam: Appearing in no acute distress lung sounds are clear to auscultation heart regular rate rhythm, clear S1, S2 positive bowel sounds, abdomen is soft, nontender neuro patient is alert x3, no focal deficits Vital Signs: Vital Signs: Last Vital Signs Temp 97.7 F 03/11/25 06:13 Pulse 58 03/11/25 08:11 Resp 16 03/11/25 08:11 BP 138/57 L 03/11/25 08:11 Pulse Ox 90 L 03/11/25 08:11 O2 Del Method Room Air 03/11/25 08:11 O2 Flow Rate 15 03/11/25 06:13 BMI result Body Mass Index 42.9 Objective Data Active Medications Acetaminophen (Acetaminophen 325 Mg Tablet) 650 mg PO Q6H PRN PRN Reason: Pain, Mild 1-3,fever,headache Amlodipine Besylate (Amlodipine Besylate 10 Mg Tablet) 10 mg PO BEDTIME [facility]; Protocol Last Admin: 03/10/25 21:24 Dose: 10 mg Documented By: REHANA Apixaban (Apixaban 5 Mg Tablet) 5 mg PO BID [facility] Last Admin: 03/11/25 08:09 Dose: 5 mg Documented By: LAYO Atorvastatin Calcium (Atorvastatin Calcium 40 Mg Tablet) 40 mg PO BEDTIME [facility] Last Admin: 03/10/25 21:24 Dose: 40 mg Documented By: REHANA Calcium Carbonate (Calcium Carbonate 750 Mg Tab.Chew) 750 mg PO Q4H PRN PRN Reason: Heartburn Dextrose (Dextrose 50 % 25 Gm/50 Ml Syringe) 25 gm IVPUSH Q15M PRN; Protocol PRN Reason: per Hypoglycemia Standing Ord. Furosemide (Furosemide 40 Mg/4 Ml Vial) 40 mg IVPUSH BID@0900,1800 [facility]; Protocol Glucose (Glucose Gel 15 Gm Gel..Gram.) 15 gm PO Q15M PRN; Protocol PRN Reason: per Hypoglycemia Standing Ord. Hydroxyzine HCl (Hydroxyzine Hcl 25 Mg Tablet) 25 mg PO QID PRN PRN Reason: Anxiety/Itching Sodium Chloride (Ns) 1,000 mls @ 75 mls/hr IVCONT .[id number] [facility] Last Admin: 03/11/25 07:11 Dose: 75 mls/hr Documented By: REHANA Insulin Glargine (Insulin Glargine,Hum.Rec.Anlog 100 Unit/Ml 10 Ml Vial) 30 unit SUBCUT BEDTIME [facility] Last Admin: 03/10/25 21:25 Dose: 30 unit Documented By: REHANA Insulin Human Lispro (Insulin Lispro 100 Unit/Ml 3 Ml Vial) 0 unit SUBCUT QIDACHS [facility]; Protocol Last Admin: 03/11/25 07:39 Dose: Not Given Documented By: LAYO Non-Admin Reason: No Insulin Coverage Magnesium Hydroxide (Milk Of Magnesia 30 Ml Oral.Susp) 30 ml PO DAILY PRN PRN Reason: Constipation Melatonin (Melatonin 3 Mg Tablet) 6 mg PO BEDTIME PRN PRN Reason: Insomnia Ondansetron HCl (Ondansetron Hcl 4 Mg/2 Ml Vial) 4 mg IVPUSH Q8H PRN PRN Reason: Nausea and Vomiting Sodium Chloride (0.9 % Sodium Chloride Flush 3 Ml Syringe) 3 ml IVFLUSH QSHIFT [facility] Last Admin: 03/11/25 08:10 Dose: Not Given Documented By: LAYO Non-Admin Reason: IV Running Trazodone HCl (Trazodone Hcl 100 Mg Tablet) 100 mg PO BEDTIME [facility] Last Admin: 03/10/25 21:24 Dose: 100 mg Documented By: REHANA Labs 03/11/25 04:09 03/11/25 04:09 Labs: Laboratory Results - last 24 hr 03/10/25 03/10/25 03/11/25 15:56 20:30 04:09 MCV 97.6 97.6 MCH 31.4 30.9 MCHC 32.2 31.7 RDW 13.5 13.7 Plt Count 237 D 224 MPV 10.4 10.6 Immature Gran % (Auto) 0.7 H 0.4 Neut % (Auto) 80.8 H 79.0 H Lymph % (Auto) 12.8 L 14.0 L [place] % (Auto) 3.9 4.1 Eos % (Auto) 1.5 2.1 Baso % (Auto) 0.3 0.4 Lymph # (Auto) 1.2 1.4 [place] # (Auto) 0.4 0.4 Eos # (Auto) 0.1 0.2 Baso # (Auto) 0.0 0.0 Abs Immat Gran (auto) 0.07 H 0.04 H Absolute Neuts (auto) 7.6 7.6 Absolute Nucleated RBC 0.000 0.000 Nucleated RBC % (auto) 0.0 0.0 ESR 58 H VBG pH VBG pCO2 VBG pO2 VBG HCO3 VBG O2 Saturation VBG Base Excess Anion Gap 16 15 Estim Creat Clear Calc 18.7 20.1 Estimated GFR 12 13 POC Glucose 174 H Random Glucose 215 H 114 Lactic Acid 1.9 Calcium 9.2 9.3 Magnesium 2.4 Total Bilirubin 0.3 Direct Bilirubin 0.1 AST 18 ALT 14 Alkaline Phosphatase 101 C-Reactive Protein 0.48 B-Natriuretic Peptide 752 H 864 H Total Protein 7.0 Albumin 3.9 Procalcitonin 0.04 TSH 0.81 03/11/25 03/11/25 06:44 07:28 MCV MCH MCHC RDW Plt Count MPV Immature Gran % (Auto) Neut % (Auto) Lymph % (Auto) [place] % (Auto) Eos % (Auto) Baso % (Auto) Lymph # (Auto) [place] # (Auto) Eos # (Auto) Baso # (Auto) Abs Immat Gran (auto) Absolute Neuts (auto) Absolute Nucleated RBC Nucleated RBC % (auto) ESR VBG pH 7.29 L VBG pCO2 43 VBG pO2 45 VBG HCO3 21 L VBG O2 Saturation 71.0 VBG Base Excess -5.1 Anion Gap Estim Creat Clear Calc Estimated GFR POC Glucose 138 H Random Glucose Lactic Acid Calcium Magnesium Total Bilirubin Direct Bilirubin AST ALT Alkaline Phosphatase C-Reactive Protein B-Natriuretic Peptide Total Protein Albumin Procalcitonin TSH Assessment and Plan (1) Bradycardia: Status: Acute Plan 69-year-old woman admitted with NJ and bradycardia Fluid overload, possible CHF, unspecified Chest x-ray showing pulmonary edema, cardiomegaly versus pericardial effusion started Lasix 40 mg BID Echocardiogram results pending daily weights strict intake and output Cardiology consultation pending NJ on CKD 3 could possibly secondary to recent Bactrim use vs CHF Stopped Bactrim Received 2 L of IV fluids in the ER Avoid nephrotoxins Follow BMP Nephrology consultation>stop fluids, continue diuresis Bradycardia. Resolving Possibly secondary to Bactrim with NJ increasing beta blockade effect. Hold metoprolol Monitor on telemetry History of atrial fibrillation/flutter/transient On anticoagulant and beta-juan carlos Hold beta-juan carlos due to bradycardia Diabetes mellitus type 2 Sliding scale ADA diet Diabetic neuropathy Hold gabapentin for now in light of NJ Hypertension Continue home medications Morbid obesity. BMI 42.9 Discussed importance of weight management as this may be contributing to worsening of other comorbidities DVT prophylaxis with Eliquis Full code Quality Stroke Does the patient have a stroke diagnosis?: No VTE Prior VTE?: No VTE Risk Level:: Medical - moderate - high VTE Device Contraindication: Treatment Not Indicated VTE Drug Contraindication: N/A - Med Ordered
[2025-03-11] MEDS: Furosemide 40 MG/4 ML VIAL IVPUSH ×2 (11:48→18:25)
[2025-03-11 11:59] LABS: Glucose, Whole Blood 196 mg/dL (60-115)
--- NOTE | 2025-03-11 12:00 | CA_ITS ---
Transthoracic Echocardiogram Patient (Last, First, Middle): Alka Israel L Gender: F Date of : 1955 Age: 69 Procedure Date: 03/11/2025 Procedure Type: Transthoracic Echocardiogram Location: ER Height: 167.64 cm Weight: 120.2 kg BSA: 2.25 m2 Heart Rate: bpm BP: 130 / 64 mmHg [employer] Assistant Manager: TO/RC Referring MD: Simona Woods NP Computer Technology Instructor: Stevie Duffy MD Symptoms: I50.9 CHF Study Quality: Adequate ECG Rhythm: Sinus Conclusions: - 1. Normal LV ejection fraction of 60 65% with at least grade 2 diastolic dysfunction 2. Moderately dilated left atrium 3. Mild mitral regurgitation 4. Moderately elevated right ventricular systolic pressure with significantly elevated right atrial pressures 5. Small pericardial effusion Findings Left Ventricle Normal left ventricular size, thickness, and systolic function. The visually estimated ejection fraction is between 60-65%. Spectral Doppler is indicative of a pseudonormal filling pattern. E/E prime ratio is >15, consistent with elevated filling pressures. Evidence suggests grade II (moderate) diastolic dysfunction. Right Ventricle Normal right ventricular cavity size and systolic function. Atria The left atrium is moderately dilated. There is no evidence of interatrial shunt. The right atrium is mildly dilated. Aortic Valve The aortic valve was not well visualized. There is mild calcification of the aortic valve. There is no aortic valve stenosis. There is no aortic valve regurgitation. Mitral Valve The mitral valve was not well visualized. There is mild mitral valve regurgitation. There is no mitral valve stenosis. Pulmonic Valve The pulmonic valve was not well visualized. There is mild pulmonic valve regurgitation. Tricuspid Valve Normal tricuspid valve structure. There is mild to moderate tricuspid valve regurgitation. The right ventricular systolic pressure is 56 mmHg. Significantly elevated right atrial pressure. Moderate pulmonary hypertension is present. Great Vessels The pulmonary artery was not well visualized. There is mild dilatation of the ascending aorta measuring 4.00 cm. Venous The inferior vena cava is moderately dilated and collapses less than 50% with inspiration. Pericardium/Pleural There is a small circumferential pericardial effusion. Measurements 2D Linear Measurements IVSd: 1.08 0.6-0.9/0.6-1.0 cm LVIDd: 5.63 3.9-5.3/4.2-5.9 cm LVIDd Index: 2.50 2.4-3.2/2.2-3.1 cm/m2 LVIDs: 3.45 2.0-3.6 cm LVPWd: 0.92 0.7-1.1 cm Ao Root: 3.30 2.1-3.5 cm LA Diam: 4.60 2.7-3.8/3.0-4.0 cm LAIDs Index: 2.04 1.5-2.3 cm/m2 LV Mass: 276.55 67-162/88-224 g LV Mass Index: 122.91 43-95/49-115 g/m2 LVOT Diam: 2.00 3.0+(-)1.3 cm 2D Systolic Function EF 4C: 66.30 >55% EF 2C: 64.10 >55% Mitral Valve MV Pk E: 0.99 MV PK A: 0.33 MV Decel Time: 271.00 E/A: 3.10 E'Lateral: 6.64 E'Medial: 4.90 E/E' Med: 20.30 E/E' Lat: 15.00 PHT: 80.00 MVA PHT: 2.75 Decel [place]: 3.66 Aortic Valve AoV Pk Kevin: 1.48 AoV Mn Kevin: 0.96 AoV VTI: 0.38 AoV Pk Grad: 9.00 Aov Mn Grad: 4.00 SURESH Cont.VTI: 2.37 LVOT LVOT Pk Kevin: 1.15 LVOT Mn Kevin: 0.72 LVOT VTI: 0.29 LVOT Pk Grad: 5.00 LVOT Mn Grad: 2.00 LVOT Diam: 2.00 LVOT Area: 3.14 Diastolic Function MV Pk E: 0.99 MV Pk A: 0.33 E/A: 3.10 E'Medial: 4.90 E/E' Med: 20.30 E' Laterial: 6.64 E/E' Lat: 15.00 Right Ventricle TAPSE (mm): 20.00 TVS' Kevin: 17.00 Tricuspid Valve TR Pk Kevin: 3.21 TR Pk Grad: 41.00 RA Press: 15.00 RVSP: 56.00 Great Vessels Aorta Ao Root-2D: 3.30 2.0-3.7 cm Ao Asc: 4.00 2.1-3.4 cm Pulmonary Valve PV Pk Kevin: 1.18 Peak PV Grad: 6.00 Updated in Other Vendor System with Status of Final Stevie Duffy MD electronically signed on 03/11/2025 4:41:24 PM with status of Final
--- NOTE | 2025-03-11 12:39 | PM.CNNEP ---
History of Present Illness Reason for Consult Consult date: 03/11/25 Chief Complaint Chief complaint: NJ History of Present Illness Narrative: 69 year old patient with history of CKD admitted with NJ and bradycardia. In summary she presented with low heart rate, after she was seen by her visiting nurse. At the time of the consultation she denies chest pain, shortness of breath, nausea vomiting or diarrhea. She complains of leg wounds and had been on Bactrim. Review of Systems Review of Systems 10 points ROS negative except for pertinent in HPI PMFSH Past Medical History Medical History Bacteremia Streptococcal infection group C Morbid obesity Myositis Achilles tendon infection Hyperlipidemia Chronic kidney disease Recurrent cellulitis of lower extremity Hypertension Type 2 diabetes mellitus Atrial fib/flutter, transient Family History Family History Other Hypertension Surgical History Surgical History H/O hysterectomy for benign disease Status post debridement History of incision and drainage Social History Social History Household Members: Children Housing: [facility] Do you presently have visiting nurse or other home services: Yes Alcohol intake: current Alcohol intake frequency: holidays/special occasions only Patient Tobacco Use Status: Former Tobacco user Cigarettes Per Day: 5 Years Smoked: 20 Smoked in Last 30 Days: Yes Use of substances other than those prescribed or required for medical reasons: No Advance Directives: No Advance Directives Information Provided: No service: No Meds Allergies Allergy/AdvReac Type Severity Reaction Status Date / Time adhesive (ADHESIVE) Allergy Intermediate RASH Verified 03/10/25 15:24 amitriptyline Allergy Rash Verified 03/10/25 15:24 Active Medications: Current Medications Acetaminophen (Acetaminophen 325 Mg Tablet) 650 mg PO Q6H PRN PRN Reason: Pain, Mild 1-3,fever,headache Amlodipine Besylate (Amlodipine Besylate 10 Mg Tablet) 10 mg PO BEDTIME [facility]; Protocol Last Admin: 03/10/25 21:24 Dose: 10 mg Apixaban (Apixaban 5 Mg Tablet) 5 mg PO BID [facility] Last Admin: 03/11/25 08:09 Dose: 5 mg Atorvastatin Calcium (Atorvastatin Calcium 40 Mg Tablet) 40 mg PO BEDTIME [facility] Last Admin: 03/10/25 21:24 Dose: 40 mg Calcium Carbonate (Calcium Carbonate 750 Mg Tab.Chew) 750 mg PO Q4H PRN PRN Reason: Heartburn Dextrose (Dextrose 50 % 25 Gm/50 Ml Syringe) 25 gm IVPUSH Q15M PRN; Protocol PRN Reason: per Hypoglycemia Standing Ord. Furosemide (Furosemide 40 Mg/4 Ml Vial) 40 mg IVPUSH BID@0900,1800 [facility]; Protocol Last Admin: 03/11/25 11:48 Dose: 40 mg Glucose (Glucose Gel 15 Gm Gel..Gram.) 15 gm PO Q15M PRN; Protocol PRN Reason: per Hypoglycemia Standing Ord. Hydroxyzine HCl (Hydroxyzine Hcl 25 Mg Tablet) 25 mg PO QID PRN PRN Reason: Anxiety/Itching Sodium Chloride (Ns) 1,000 mls @ 75 mls/hr IVCONT .[id number] [facility] Last Admin: 03/11/25 07:11 Dose: 75 mls/hr Insulin Glargine (Insulin Glargine,Hum.Rec.Anlog 100 Unit/Ml 10 Ml Vial) 30 unit SUBCUT BEDTIME [facility] Last Admin: 03/10/25 21:25 Dose: 30 unit Insulin Human Lispro (Insulin Lispro 100 Unit/Ml 3 Ml Vial) 0 unit SUBCUT QIDACHS [facility]; Protocol Last Admin: 03/11/25 07:39 Dose: Not Given Magnesium Hydroxide (Milk Of Magnesia 30 Ml Oral.Susp) 30 ml PO DAILY PRN PRN Reason: Constipation Melatonin (Melatonin 3 Mg Tablet) 6 mg PO BEDTIME PRN PRN Reason: Insomnia Ondansetron HCl (Ondansetron Hcl 4 Mg/2 Ml Vial) 4 mg IVPUSH Q8H PRN PRN Reason: Nausea and Vomiting Sodium Chloride (0.9 % Sodium Chloride Flush 3 Ml Syringe) 3 ml IVFLUSH QSHIFT [facility] Last Admin: 03/11/25 08:10 Dose: Not Given Trazodone HCl (Trazodone Hcl 100 Mg Tablet) 100 mg PO BEDTIME [facility] Last Admin: 03/10/25 21:24 Dose: 100 mg Home Medications ?Medication ?Instructions ?Recorded ?Confirmed ?Last Taken ?Type amlodipine 10 mg tablet 10 mg PO BEDTIME 10/22/23 03/10/25 03/09/25 History apixaban 5 mg tablet (Eliquis) 5 mg PO BID 10/22/23 03/10/25 03/09/25 History atorvastatin 40 mg tablet 40 mg PO BEDTIME 10/22/23 03/10/25 03/09/25 History gabapentin 600 mg tablet 1,800 mg PO BEDTIME 10/22/23 03/10/25 03/09/25 History hydroxyzine HCl 25 mg tablet 25 mg PO QID PRN Anxiety/Itching 10/22/23 03/10/25 10/24/23 History metoprolol succinate 50 mg 75 mg PO BEDTIME 10/22/23 03/10/25 03/09/25 History tablet,extended release 24 hr tirzepatide 5 mg/0.5 mL 5 mg subcut TH 10/22/23 03/10/25 03/05/25 History subcutaneous pen injector (Sintia) trazodone 100 mg tablet 100 mg PO BEDTIME 10/22/23 03/10/25 03/09/25 History Probiotic 1 gummy PO DAILY 10/25/23 03/10/25 03/09/25 History gabapentin 300 mg capsule 300 mg PO BID PRN NEUROPATHY 03/10/25 03/10/25 Unknown History insulin glargine 100 unit/mL (3 40 unit subcut BEDTIME 03/10/25 03/10/25 03/09/25 History mL) subcutaneous pen (Basaglar KwikPen U-100 Insulin) insulin lispro 100 unit/mL See Protocol subcut TIDAC PRN 03/10/25 03/10/25 03/09/25 History subcutaneous pen (Admelog SoloStar Hyperglycemia U-100 Insulin lispro) sulfamethoxazole 800 2 tab PO BID 03/10/25 03/10/25 03/09/25 History mg-trimethoprim 160 mg tablet urea 20 % topical cream 1 appl topical DAILY PRN Wound Care 03/10/25 03/10/25 Unknown History Physical Exam Vital Signs: Last Vital Signs Temp 97.7 F 03/11/25 06:13 Pulse 55 03/11/25 11:50 Resp 16 03/11/25 11:50 BP 130/64 03/11/25 11:50 Pulse Ox 98 03/11/25 11:50 O2 Del Method Nasal Cannula 03/11/25 11:50 O2 Flow Rate 2 03/11/25 11:50 BMI result Body Mass Index 42.9 Const General: alert and awake Neck Neck: Yes supple Resp Auscultation: diminished lung sounds Cardio Heart sounds: S1 normal heart sound present and S2 normal heart sound present GI Palpation (GI): Soft to palpation and nontender Extrem Right lower extremity: edema Left lower extremity: edema Results Lab Results 03/11/25 04:09 03/11/25 04:09 Lab results: Chemistry 03/10/25 03/11/25 15:56 04:09 Sodium 135 139 Potassium 4.9 D 4.5 Carbon Dioxide 19 L 19 L BUN 59 H 55 H Creatinine 3.70 H 3.43 H Calcium 9.2 9.3 Hematology 03/10/25 03/11/25 15:56 04:09 WBC 9.4 9.7 Hgb 9.3 L D 9.0 L Plt Count 237 D 224 Assessment and Plan (1) NJ (acute kidney injury): Status: Acute (2) Chronic kidney disease: Status: Acute Plan multifactorial NJ: -TMP/SMX effect blocking tubular secretion of creatinine -nephrosarca and renal hypopefusion c/w cardio renal syndrome known CKD baseline Scr ~ 1.6 mg/dl volume status above dry weight CXR c/w pulmonary edema REC Netta IV diuresis DC IVF monitor urine output follow kidney function and electrolytes Procedures Date of Service Date of Service: 03/11/25
--- NOTE | 2025-03-11 13:42 | MHC.CM.PN ---
Met with patient in regards to discharge planning. Patient lives at senior housing at [facility], uses a motorized scooter for mobility, has [employer] through [facility], and fpc through [facility]. Patient is currently on oxygen but does not use oxygen at home. PCP verified. Copy of HCP verified to be on file. IMM explained and signed. Patient feels she can safely return home with resumption of services when medically stable. If discharged Sunday through Sunday during 1st shift, patient will be able to utilize the [facility] van. However she will need to give 1 days notice. Continue to monitor for d/c needs.
--- NOTE | 2025-03-11 16:09 | P.CDIM_ITS ---
PROVIDER RESPONSE TEXT: To clarify, the appropriate diagnosis supported by the clinical indicators: Obesity Due to excess calories QUERY TEXT: PHYSICIAN'S DOCUMENTATION REQUEST Date of Query: 03/11/2025 09:16 AM EDT Patient Name: JOSE FRANCISCO LEIJA Admit Date: 03/10/2025 Dear Simona Woods ENERGY CONSERVATION REPRESENTATIVE, A review of the medical record indicates additional documentation may be needed. Please review below and update the documentation accordingly. Clinical Indicators: Height: ( ) 5'6 Weight: ( ) 120.5 kg BMI: ( ) 42.9 Other Clinical Notes Supporting Significance of the BMI: If possible, please provide an associated diagnosis related to the abnormal BMI, such as: Overweight Obesity Due to excess calories Obesity Drug induced Obesity Due to other cause Specify the other cause Severe or Morbid Obesity With alveolar hypoventilation Severe or Morbid Obesity Without alveolar hypoventilation BMI is not significant Other (explain) Clinically unable to determine (explain) Thank you, Apoorva Romeo RN Use of terms such as suspected, likely, concern for, or probable (associated with a specific diagnosis that is being evaluated, monitored, or treated as if it exists) are acceptable and can be coded in the inpatient setting, when documented at the time of discharge. Please use your independent medical judgment in providing your response. THIS QUERY IS PART OF THE PERMANENT MEDICAL RECORD
[2025-03-11 16:25] LABS: Glucose, Whole Blood 182 mg/dL (60-115)
[2025-03-11] MEDS: 0.9 % Sodium Chloride Flush 3 ML SYRINGE IVFLUSH (16:42)
--- NOTE | 2025-03-11 19:01 | PC.NURSE ---
this rn assumed care of pt, pt resting in bed, no acute distress noted, sinus jean on tele
[2025-03-11 21:05] LABS: Glucose, Whole Blood 166 mg/dL (60-115)
[2025-03-11] MEDS: Insulin Glargine,Hum.rec.anlog 100 UNIT/ML 10 ML VIAL 30 UNIT SUBCUT (21:12)
--- NOTE | 2025-03-11 21:15 | PC.NURSE ---
pt medicated per mar, tolerated whole well with water. pt assisted with bed change and purewick care. vss
[2025-03-12] VITALS (11 sets, daily range): BP systolic 137–155; BP diastolic 50–88; PULSE 65–76; RESP 16–23; TEMP 36.1–37.2; O2SAT 92–97; BMI 43.6
[2025-03-12 07:49] LABS: Glucose, Whole Blood 124 mg/dL (60-115)
[2025-03-12] MEDS: 0.9 % Sodium Chloride Flush 3 ML SYRINGE IVFLUSH ×2 (09:40→18:02)
[2025-03-12] MEDS: Furosemide 40 MG/4 ML VIAL IVPUSH (09:40)
[2025-03-12 09:56] LABS: Hematocrit 25.7 % (37.0-47.0); Hemoglobin 8.5 g/dl (12.0-16.0); Mean Corpuscular HGB Conc 33.1 g/dl (31.0-35.0); Mean Corpuscular Hemoglobin 31.7 pg (27.0-33.0); Mean Corpuscular Volume 95.9 fL (80.0-98.0); NRBC Abs Auto 0.000 X10*3/uL (0.0-0.012); NRBC Pct Auto 0.0 /100WBC (0.0-0.2); Platelet Count 211 X10*3/uL (160-400); Red Blood Count 2.68 X10*6/uL (4.20-5.50); White Blood Count 8.8 X10*3/uL (4.8-10.8)
[2025-03-12 10:13] LABS: Anion Gap 13 (12-20); Blood Urea Nitrogen 46 mg/dL (9-16); Calcium 8.6 mg/dL (8.4-10.2); Carbon Dioxide 22 mmol/L (22-29); Chloride 110 mmol/L (96-108); Creatinine Clr Calc Pharmacy 23.6; Estimated Glomerular Filt Rate 16; Potassium 4.4 mmol/L (3.3-5.1); Sodium 141 mmol/L (135-145)
--- NOTE | 2025-03-12 10:16 | PM.CNCAR ---
History of Present Illness History of Present Illness Date of Service: 03/12/25 Requesting physician: Simona Woods Chief complaint: NJ Narrative: I was consulted to see and in cardiology consultation today for findings of congestive heart failure and chest x-ray and BNP. Patient was 69-year-old currently living in [facility] and independent facility but with very limited activity level, mostly gets around in his electronic chair. Patient was says she came to the hospital because she felt out of body. She was getting short of breath and short of breath laying down. She also felt strange and fast heart beat but not similar to her atrial fibrillation in the past. She was prior history of diabetes type 2, hypertension, prior paroxysmal atrial fibrillation on Eliquis with chronic bilateral leg wounds. She was no known history of congestive heart failure as per her as well as no history of vascular or coronary disease. She does have chronic kidney disease. On admission she was noted to have heart rate in the 40s. Since then her metoprolol has been withheld and heart rate is in his 70s now. Blood pressure is stable. She is currently on Lasix IV push b.i.d.. Chest x-ray shows pulmonary edema repeated testing. She was also has elevated creatinine in the 3 range. She also noted to have BNP in the 700 today in the 800 range. She does have leg swelling but does not complain of any abdominal distension. She overall says she does not feel well without any specific symptoms. Review of Systems Constitutional: Constitutional: Reports fatigue, Reports malaise and Reports weakness Eyes: Eyes: Reports no additional eye complaints Cardiovascular: Cardiovascular: Denies chest pain, Reports leg edema, Denies lightheadedness, Denies Loss of Consciousness, Reports palpitations and Reports orthopnea Respiratory: Respiratory: Reports no additional respiratory complaints Musculoskeletal: Musculoskeletal: Reports no additional musculoskeletal complaints Integumentary/Breasts: Skin/Breast: Reports system reviewed and no additional complaints, except as docu Neurologic: Reports system reviewed and no additional complaints, except as documented and Reports weakness Endocrine: Endocrine: Reports fatigue and Reports palpitations PMFSH Past Medical History Medical History Bacteremia Streptococcal infection group C Morbid obesity Myositis Achilles tendon infection Hyperlipidemia Chronic kidney disease Recurrent cellulitis of lower extremity Hypertension Type 2 diabetes mellitus Atrial fib/flutter, transient Family History Family History Other Hypertension Surgical History Surgical History H/O hysterectomy for benign disease Status post debridement History of incision and drainage Social History Social History Household Members: None Housing: Assisted Living Facility Do you presently have visiting nurse or other home services: Yes Alcohol intake: current Alcohol intake frequency: holidays/special occasions only Patient Tobacco Use Status: Current everyday Tobacco user Tobacco use type: Cigarette Cigarettes Per Day: 4 Years Smoked: 20 e-Cigarette/Vaping Use: Currently Using Second Hand Smoke Exposure: No service: No Meds Allergies Allergy/AdvReac Type Severity Reaction Status Date / Time adhesive (ADHESIVE) Allergy Intermediate RASH Verified 03/10/25 15:24 amitriptyline Allergy Rash Verified 03/10/25 15:24 Active Medications: Current Medications Acetaminophen (Acetaminophen 325 Mg Tablet) 650 mg PO Q6H PRN PRN Reason: Pain, Mild 1-3,fever,headache Amlodipine Besylate (Amlodipine Besylate 10 Mg Tablet) 10 mg PO BEDTIME PIPE; Protocol Last Admin: 03/11/25 21:12 Dose: 10 mg Apixaban (Apixaban 5 Mg Tablet) 5 mg PO BID PIPE Last Admin: 03/12/25 09:40 Dose: 5 mg Atorvastatin Calcium (Atorvastatin Calcium 40 Mg Tablet) 40 mg PO BEDTIME PIPE Last Admin: 03/11/25 21:12 Dose: 40 mg Calcium Carbonate (Calcium Carbonate 750 Mg Tab.Chew) 750 mg PO Q4H PRN PRN Reason: Heartburn Dextrose (Dextrose 50 % 25 Gm/50 Ml Syringe) 25 gm IVPUSH Q15M PRN; Protocol PRN Reason: per Hypoglycemia Standing Ord. Furosemide (Furosemide 40 Mg/4 Ml Vial) 40 mg IVPUSH BID@0900,1800 PIPE; Protocol Last Admin: 03/12/25 09:40 Dose: 40 mg Glucose (Glucose Gel 15 Gm Gel..Gram.) 15 gm PO Q15M PRN; Protocol PRN Reason: per Hypoglycemia Standing Ord. Hydroxyzine HCl (Hydroxyzine Hcl 25 Mg Tablet) 25 mg PO QID PRN PRN Reason: Anxiety/Itching Insulin Glargine (Insulin Glargine,Hum.Rec.Anlog 100 Unit/Ml 10 Ml Vial) 30 unit SUBCUT BEDTIME [facility] Last Admin: 03/11/25 21:12 Dose: 30 unit Insulin Human Lispro (Insulin Lispro 100 Unit/Ml 3 Ml Vial) 0 unit SUBCUT QIDACHS [facility]; Protocol Last Admin: 03/12/25 07:57 Dose: Not Given Magnesium Hydroxide (Milk Of Magnesia 30 Ml Oral.Susp) 30 ml PO DAILY PRN PRN Reason: Constipation Melatonin (Melatonin 3 Mg Tablet) 6 mg PO BEDTIME PRN PRN Reason: Insomnia Ondansetron HCl (Ondansetron Hcl 4 Mg/2 Ml Vial) 4 mg IVPUSH Q8H PRN PRN Reason: Nausea and Vomiting Sodium Chloride (0.9 % Sodium Chloride Flush 3 Ml Syringe) 3 ml IVFLUSH QSHIFT [facility] Last Admin: 03/12/25 09:40 Dose: 3 ml Trazodone HCl (Trazodone Hcl 100 Mg Tablet) 100 mg PO BEDTIME [facility] Last Admin: 03/11/25 21:12 Dose: 100 mg Home Medications ?Medication ?Instructions ?Recorded ?Confirmed ?Last Taken ?Type amlodipine 10 mg tablet 10 mg PO BEDTIME 10/22/23 03/10/25 03/09/25 History apixaban 5 mg tablet (Eliquis) 5 mg PO BID 10/22/23 03/10/25 03/09/25 History atorvastatin 40 mg tablet 40 mg PO BEDTIME 10/22/23 03/10/25 03/09/25 History gabapentin 600 mg tablet 1,800 mg PO BEDTIME 10/22/23 03/10/25 03/09/25 History hydroxyzine HCl 25 mg tablet 25 mg PO QID PRN Anxiety/Itching 10/22/23 03/10/25 10/24/23 History metoprolol succinate 50 mg 75 mg PO BEDTIME 10/22/23 03/10/25 03/09/25 History tablet,extended release 24 hr tirzepatide 5 mg/0.5 mL 5 mg subcut TH 10/22/23 03/10/25 03/05/25 History subcutaneous pen injector (Sintia) trazodone 100 mg tablet 100 mg PO BEDTIME 10/22/23 03/10/25 03/09/25 History Probiotic 1 gummy PO DAILY 10/25/23 03/10/25 03/09/25 History gabapentin 300 mg capsule 300 mg PO BID PRN NEUROPATHY 03/10/25 03/10/25 Unknown History insulin glargine 100 unit/mL (3 40 unit subcut BEDTIME 03/10/25 03/10/25 03/09/25 History mL) subcutaneous pen (Basaglar KwikPen U-100 Insulin) insulin lispro 100 unit/mL See Protocol subcut TIDAC PRN 03/10/25 03/10/25 03/09/25 History subcutaneous pen (Admelog SoloStar Hyperglycemia U-100 Insulin lispro) sulfamethoxazole 800 2 tab PO BID 03/10/25 03/10/25 03/09/25 History mg-trimethoprim 160 mg tablet urea 20 % topical cream 1 appl topical DAILY PRN Wound Care 03/10/25 03/10/25 Unknown History Physical Exam Vital Signs: Vital Signs: Last Vital Signs Temp 97.0 F 03/12/25 09:22 Pulse 70 03/12/25 09:22 Resp 18 03/12/25 09:22 BP 142/88 H 03/12/25 09:22 Pulse Ox 95 03/12/25 09:22 O2 Del Method Nasal Cannula 03/12/25 09:22 O2 Flow Rate 2 03/12/25 09:22 BMI result Body Mass Index 43.6 Const: General: cooperative, comfortable, alert and awake Nutritional Appearance: obese centrally obese Orientation/consciousness: patient oriented x3 HEENT: Head: Yes normocephalic and Yes atraumatic Neck: Neck: Yes trachea midline, Yes supple and Yes other (Difficult to evaluate JVD) Resp: Effort & Inspection: decreased respiratory effort Auscultation: no crackles, no rales and diminished lung sounds Cardio: Rate: regular rate Rhythm: regular rhythm Heart sounds: S1 normal heart sound present, S2 normal heart sound present, no click, no gallops and no murmurs GI: Auscultation: normal bowel sounds Skin: General skin exam: no rashes or lesions noted Neuro: General: patient oriented x3 and no focal motor deficits Extrem: General: No clubbing, No cyanosis, Yes edema and Yes venous stasis dermatitis Objective Labs and Meds 03/12/25 09:43 03/12/25 09:43 Lab results: Laboratory Results - last 24 hr 03/11/25 03/11/25 03/11/25 11:47 16:20 21:01 WBC RBC Hgb Hct MCV MCH MCHC RDW Plt Count MPV Absolute Nucleated RBC Nucleated RBC % (auto) Sodium Potassium Chloride Carbon Dioxide Anion Gap BUN Creatinine Estim Creat Clear Calc Estimated GFR POC Glucose 196 H 182 H 166 H Random Glucose Calcium 03/12/25 03/12/25 07:45 09:43 WBC 8.8 RBC 2.68 L Hgb 8.5 L Hct 25.7 L MCV 95.9 MCH 31.7 MCHC 33.1 RDW 13.7 Plt Count 211 MPV 10.2 Absolute Nucleated RBC 0.000 Nucleated RBC % (auto) 0.0 Sodium 141 Potassium 4.4 Chloride 110 H Carbon Dioxide 22 Anion Gap 13 BUN 46 H Creatinine 2.95 H Estim Creat Clear Calc 23.6 Estimated GFR 16 POC Glucose 124 H Random Glucose 133 H Calcium 8.6 D Assessment and Plan (1) Decompensated heart failure: Status: Acute Decompensated congestive heart failure, heart failure preserved ejection fraction in this elderly woman who has very overall poor functional status with risk factors of diabetes and hypertension with predominantly right heart failure syndrome. Could be Pickwickian syndrome related to chronic hypoventilation in his addition to diastolic dysfunction as possible sleep apnea. Clinically difficult to assess fluid volume although chest x-ray as well as BNP as till elevated. BNP may take longer time to clear due to her renal insufficiency. Her worsening kidney function could be from cardiorenal syndrome. At this point time I think she requires further diuresis. She was no prior history of heart failure as reported. I would start her on Lasix drip. Strict intake and output chart needs to be pursued. Also monitor renal function closely and trend BNP. Continue aggressive blood pressure control, currently optimized on amlodipine therapy. Will continue to monitor. (2) Paroxysmal atrial fibrillation: Status: Acute Paroxysmal atrial fibrillation without any obvious clinical recurrence at this point time. Continue full disclosure cardiac monitoring. Can withhold Eliquis for 1 day given her worsening renal function. Once her renal function is back to baseline can resume her Eliquis dosing.. (3) Bradycardia: Status: Acute Bradycardia on admission most likely due to medical therapy with metoprolol. Continue full disclosure cardiac monitoring. If heart rate remains stable can gradually reintroduce metoprolol at a lower dose of 25 mg daily to reduce risk of recurrent atrial fibrillation. No indication for pacing. Will follow with you Procedures Date of Service Date of Service: 03/12/25
[2025-03-12] MEDS: Furosemide 200 MG in 0.9 % Sodium Chloride 80 ML IVCONT (11:00)
[2025-03-12 11:42] LABS: Glucose, Whole Blood 136 mg/dL (60-115)
--- NOTE | 2025-03-12 13:08 | P.PNIM_ITS ---
Subjective Subjective Date of Service: 03/12/25 Interval History: Seen and examined this morning Follow-up for NJ, CHF no SOB Review of Systems Review of Systems: Yes all other systems are reviewed and are negative Constitutional Constitutional: Denies chills and Denies fever(s) Cardiovascular Cardiovascular: Denies chest pain, Denies palpitations and Denies dyspnea Respiratory Respiratory: Denies cough and Denies dyspnea Gastrointestinal Gastrointestinal: Denies abdominal pain Endocrine Endocrine: Denies palpitations Physical Exam 2 Vital Signs: Vital Signs: Last Vital Signs Temp 98.0 F 03/12/25 11:27 Pulse 66 03/12/25 11:27 Resp 18 03/12/25 11:27 BP 138/57 L 03/12/25 11:27 Pulse Ox 94 03/12/25 11:27 O2 Del Method Nasal Cannula 03/12/25 11:27 O2 Flow Rate 2 03/12/25 11:27 BMI result Body Mass Index 43.6 Const: Other: forgetful General: cooperative, comfortable, alert and awake Nutritional Appearance: obese Resp: Effort & Inspection: normal respiratory effort, able to speak in complete sentences, no respiratory distress and no use of accessory muscles Cardio: Rate: regular rate GI: Inspection: No distended and Yes obesity Skin: Other: Bilateral lower extremity venous stasis, dry scaly skin, erythema right 2nd toe, nontender due to neuropathy, limited feeling in feet Neuro: Other: Grossly nonfocal General: moves all extremities Objective Data Active Medications Acetaminophen (Acetaminophen 325 Mg Tablet) 650 mg PO Q6H PRN PRN Reason: Pain, Mild 1-3,fever,headache Amlodipine Besylate (Amlodipine Besylate 10 Mg Tablet) 10 mg PO BEDTIME [facility]; Protocol Last Admin: 03/11/25 21:12 Dose: 10 mg Documented By: RIOS Apixaban (Apixaban 5 Mg Tablet) 5 mg PO BID [facility] Last Admin: 03/12/25 09:40 Dose: 5 mg Documented By: FARIDA Atorvastatin Calcium (Atorvastatin Calcium 40 Mg Tablet) 40 mg PO BEDTIME [facility] Last Admin: 03/11/25 21:12 Dose: 40 mg Documented By: RIOS Calcium Carbonate (Calcium Carbonate 750 Mg Tab.Chew) 750 mg PO Q4H PRN PRN Reason: Heartburn Dextrose (Dextrose 50 % 25 Gm/50 Ml Syringe) 25 gm IVPUSH Q15M PRN; Protocol PRN Reason: per Hypoglycemia Standing Ord. Glucose (Glucose Gel 15 Gm Gel..Gram.) 15 gm PO Q15M PRN; Protocol PRN Reason: per Hypoglycemia Standing Ord. Hydroxyzine HCl (Hydroxyzine Hcl 25 Mg Tablet) 25 mg PO QID PRN PRN Reason: Anxiety/Itching Furosemide 200 mg/ Sodium (Chloride) 100 mls @ 2.5 mls/hr IVCONT .Q24H [facility] Last Admin: 03/12/25 11:00 Dose: 5 mg/hr, 2.5 mls/hr Documented By: FARIDA Insulin Glargine (Insulin Glargine,Hum.Rec.Anlog 100 Unit/Ml 10 Ml Vial) 30 unit SUBCUT BEDTIME [facility] Last Admin: 03/11/25 21:12 Dose: 30 unit Documented By: RIOS Insulin Human Lispro (Insulin Lispro 100 Unit/Ml 3 Ml Vial) 0 unit SUBCUT QIDACHS [facility]; Protocol Last Admin: 03/12/25 11:51 Dose: Not Given Documented By: FARIDA Non-Admin Reason: No Insulin Coverage Magnesium Hydroxide (Milk Of Magnesia 30 Ml Oral.Susp) 30 ml PO DAILY PRN PRN Reason: Constipation Melatonin (Melatonin 3 Mg Tablet) 6 mg PO BEDTIME PRN PRN Reason: Insomnia Ondansetron HCl (Ondansetron Hcl 4 Mg/2 Ml Vial) 4 mg IVPUSH Q8H PRN PRN Reason: Nausea and Vomiting Sodium Chloride (0.9 % Sodium Chloride Flush 3 Ml Syringe) 3 ml IVFLUSH QSHIFT [facility] Last Admin: 03/12/25 09:40 Dose: 3 ml Documented By: FARIDA Trazodone HCl (Trazodone Hcl 100 Mg Tablet) 100 mg PO BEDTIME [facility] Last Admin: 03/11/25 21:12 Dose: 100 mg Documented By: RIOS Labs 03/12/25 09:43 03/12/25 09:43 Labs: Laboratory Results - last 24 hr 03/11/25 03/11/25 03/12/25 16:20 21:01 07:45 MCV MCH MCHC RDW Plt Count MPV Absolute Nucleated RBC Nucleated RBC % (auto) Anion Gap Estim Creat Clear Calc Estimated GFR POC Glucose 182 H 166 H 124 H Random Glucose Calcium 08/21/25 08/21/25 09:43 11:35 MCV 95.9 MCH 31.7 MCHC 33.1 RDW 13.7 Plt Count 211 MPV 10.2 Absolute Nucleated RBC 0.000 Nucleated RBC % (auto) 0.0 Anion Gap 13 Estim Creat Clear Calc 23.6 Estimated GFR 16 POC Glucose 136 H Random Glucose 133 H Calcium 8.6 D Microbiology Microbiology Results: Microbiology 03/10/25 15:56 Blood Culture - Preliminary Blood - Venous No growth after 24 hours. 03/10/25 15:56 Blood Culture - Preliminary Blood - Venous No growth after 24 hours. Assessment and Plan (1) Decompensated heart failure: Status: Acute (2) Bradycardia: Status: Acute (3) Cellulitis of right lower extremity: Status: Acute Plan This is a 69-year-old woman with history of diabetes, hypertension, atrial fibrillation on Eliquis, chronic lower leg wounds admitted with NJ and bradycardia Decompensated HFpEF Chest x-ray showing pulmonary edema, cardiomegaly Echocardiogram with preserved ejection fraction, at least grade 2 diastolic dysfunction significantly elevated right sided pressure Initially treated with IV push Lasix, we will transitioned to Lasix drip daily weights strict intake and output Cardiology following NJ on CKD 3 possibly secondary to recent Bactrim use vs cardiorenal Stopped Bactrim. Received 2 L of IV fluids in the ER Avoid nephrotoxins Follow BMP Nephrology consultation>stop fluids, continue diuresis Right foot cellulitis No sepsis Bactrim stopped due to NJ Outpatient cultures growing MRSA Will treat with doxycycline Blood cultures negative Normocytic anemia No recent baseline Follow CBC Bradycardia. Resolving Possibly secondary to NJ increasing beta blockade effect. Hold metoprolol Monitor on telemetry History of atrial fibrillation/flutter/transient Continue Eliquis for anticoagulation Hold beta-juan carlos due to bradycardia Diabetes mellitus type 2 Continue Lantus Sliding scale ADA diet Diabetic neuropathy Hold gabapentin for now in light of NJ Hypertension Continue Norvasc, metoprolol on home as above Morbid obesity. BMI 42.9 Discussed importance of weight management as this may be contributing to worsening of other comorbidities DVT prophylaxis with Eliquis Full code Requires ongoing inpatient stay for diuresis with Lasix drip, specialist evaluation Quality Stroke Does the patient have a stroke diagnosis?: No VTE Prior VTE?: No VTE Risk Level:: Medical - moderate - high VTE Device Contraindication: Treatment Not Indicated VTE Drug Contraindication: N/A - Med Ordered
--- NOTE | 2025-03-12 15:48 | P.PNNP_ITS ---
Subjective Subjective Date of Service: 03/12/25 Interval history: Seen and examined, events noted Physical Exam 2 Vital Signs: Vital Signs: Last Vital Signs Temp 97.3 F 03/12/25 15:36 Pulse 70 03/12/25 15:36 Resp 18 03/12/25 15:36 BP 147/67 H 03/12/25 15:36 Pulse Ox 94 03/12/25 15:36 O2 Del Method Nasal Cannula 03/12/25 15:36 O2 Flow Rate 2 03/12/25 15:36 BMI result Body Mass Index 43.6 Const: General: alert and awake Neck: Neck: Yes supple Resp: Auscultation: diminished lung sounds Cardio: Heart sounds: S1 normal heart sound present and S2 normal heart sound present GI: Palpation (GI): Soft to palpation and nontender Extrem: Right lower extremity: edema Left lower extremity: edema Objective Data Labs 03/12/25 09:43 03/12/25 09:43 Labs: Laboratory Results - last 24 hr 03/11/25 03/11/25 03/12/25 16:20 21:01 07:45 WBC RBC Hgb Hct MCV MCH MCHC RDW Plt Count MPV Absolute Nucleated RBC Nucleated RBC % (auto) Sodium Potassium Chloride Carbon Dioxide Anion Gap BUN Creatinine Estim Creat Clear Calc Estimated GFR POC Glucose 182 H 166 H 124 H Random Glucose Calcium 03/12/25 03/12/25 09:43 11:35 WBC 8.8 RBC 2.68 L Hgb 8.5 L Hct 25.7 L MCV 95.9 MCH 31.7 MCHC 33.1 RDW 13.7 Plt Count 211 MPV 10.2 Absolute Nucleated RBC 0.000 Nucleated RBC % (auto) 0.0 Sodium 141 Potassium 4.4 Chloride 110 H Carbon Dioxide 22 Anion Gap 13 BUN 46 H Creatinine 2.95 H Estim Creat Clear Calc 23.6 Estimated GFR 16 POC Glucose 136 H Random Glucose 133 H Calcium 8.6 D Microbiology Microbiology Results: Microbiology 03/10/25 15:56 Blood - Venous Blood Culture - Preliminary No growth after 24 hours. 03/10/25 15:56 Blood - Venous Blood Culture - Preliminary No growth after 24 hours. Procedures Date of Service Date of Service: 03/12/25 Assessment & Plan Assessment and plan (1) NJ (acute kidney injury): Status: Acute (2) Chronic kidney disease: Status: Acute Plan NJ: grad improvement with diuresis c/w CRsyn another consideration is the trimethoprim component of bactrim interference with Cr tubular secrtion CKD 3/4: Bsl Scr 1.5 to 2.0 longstnading and most c/w DN/HTN renal dis Proteinuria: need to repeat and track Hypervol: d/t Card-Renal; interstingly her BNP is not that elevated Chronic venous disease REC: cont diuresis, urine studies, sero as ordereed, avoid Ntoxins, adjsut meds for GFR of 20 ml/min Will follow pieter w team Time Spent With Patient Time: Total time managing care of this patient today ____ minutes. Progress Note: Quality Stroke Does the patient have a stroke diagnosis?: No
[2025-03-12 16:02] LABS: Glucose, Whole Blood 170 mg/dL (60-115)
[2025-03-12 17:38] LABS: Albumin Level 3.4 g/dL (3.5-5.0)
[2025-03-12 17:48] LABS: Parathyroid Hormone Intact 376.9 pg/mL (8.7-77.1)
--- NOTE | 2025-03-12 17:52 | ECG_ITS ---
Test Reason : CP Blood Pressure : */* mmHG Vent. Rate : 65 BPM Atrial Rate : 65 BPM P-R Int : 146 ms QRS Dur : 90 ms QT Int : 458 ms P-R-T Axes : 58 14 78 degrees QTcB Int : 476 ms Sinus rhythm with Premature atrial complexes Nonspecific T wave abnormality Prolonged QT Abnormal ECG When compared with ECG of 10-Mar-2025 14:59, Premature atrial complexes are now Present Vent. rate has increased by 21 bpm Nonspecific T wave abnormality now evident in Lateral leads Referred By: Helena Au Electronically Signed By: SANTO VEGAS MD
[2025-03-12 18:04] LABS: Total Protein Urine Random 74 mg/dL (<12)
[2025-03-12 20:24] LABS: Glucose, Whole Blood 250 mg/dL (60-115)
[2025-03-12] MEDS: Insulin Glargine,Hum.rec.anlog 100 UNIT/ML 10 ML VIAL 30 UNIT SUBCUT (21:15)
[2025-03-13] MEDS: 0.9 % Sodium Chloride Flush 3 ML SYRINGE IVFLUSH ×3 (00:09→17:01)
[2025-03-13 03:46] VITALS: BP 134/60; PULSE 71; RESP 20; TEMP 36.4; O2SAT 93
[2025-03-13 07:05] VITALS: BP 138/63; PULSE 71; RESP 16; TEMP 36.1; O2SAT 93
[2025-03-13 07:20] LABS: Glucose, Whole Blood 121 mg/dL (60-115)
[2025-03-13 08:03] LABS: Hematocrit 27.4 % (37.0-47.0); Hemoglobin 8.8 g/dl (12.0-16.0); Mean Corpuscular HGB Conc 32.1 g/dl (31.0-35.0); Mean Corpuscular Hemoglobin 31.2 pg (27.0-33.0); Mean Corpuscular Volume 97.2 fL (80.0-98.0); NRBC Abs Auto 0.000 X10*3/uL (0.0-0.012); NRBC Pct Auto 0.0 /100WBC (0.0-0.2); Platelet Count 213 X10*3/uL (160-400); Red Blood Count 2.82 X10*6/uL (4.20-5.50); White Blood Count 6.3 X10*3/uL (4.8-10.8)
[2025-03-13 08:05] LABS: HBS Num1 0.31 mIU/mL (0-7.99); HBc Num1 0.18 S/CO (0.00-0.79); HBsAGNum1 0.50 S/CO (0.00-0.99); Hepatitis B Surface Antigen Negative (Negative); ~HepC Num1 0.18 S/CO (0.00-0.79); ~Hepatitis B Surface Antibody NONREACTIVE (Nonreactive); ~Hepatitis C Antibody Nonreactive (Nonreactive)
[2025-03-13 08:18] LABS: Anion Gap 13 (12-20); Blood Urea Nitrogen 49 mg/dL (9-16); Calcium 8.6 mg/dL (8.4-10.2); Carbon Dioxide 24 mmol/L (22-29); Chloride 109 mmol/L (96-108); Creatinine Clr Calc Pharmacy 24.2; Estimated Glomerular Filt Rate 16; Potassium 4.0 mmol/L (3.3-5.1); Sodium 142 mmol/L (135-145)
[2025-03-13 08:34] VITALS: BMI 41.5
[2025-03-13 11:23] LABS: Glucose, Whole Blood 193 mg/dL (60-115)
[2025-03-13] MEDS: Furosemide 200 MG in 0.9 % Sodium Chloride 80 ML IVCONT (11:30)
[2025-03-13 11:48] VITALS: BP 128/60; PULSE 78; RESP 16; TEMP 36.2; O2SAT 95
--- NOTE | 2025-03-13 11:49 | PM.PNCARD ---
Subjective Subjective Date of Service: 03/13/25 Principal diagnosis: CHF, paroxysmal atrial fibrillation. Interval history: Patient says she is feeling better. She does not feel as much shortness of breath or out of body. No overnight atrial fibrillation. Has diuresed well. Creatinine is improving. Review of Systems Constitutional: Reports no additional constitutional complaints Cardiovascular: Denies chest pain, Denies palpitations and Reports orthopnea (Improving) Gastrointestinal: Reports no additional gastrointestinal complaints Musculoskeletal: Reports no additional musculoskeletal complaints Skin/Breast: Reports system reviewed and no additional complaints, except as docu Endocrine: Denies palpitations Physical Exam Vital Signs: Last Vital Signs Temp 97.0 F 03/13/25 07:05 Pulse 71 03/13/25 07:05 Resp 16 03/13/25 07:05 BP 138/63 03/13/25 07:05 Pulse Ox 93 03/13/25 07:05 O2 Del Method Nasal Cannula 03/13/25 07:05 O2 Flow Rate 1 03/13/25 07:05 BMI result Body Mass Index 41.5 Neck Neck: Yes trachea midline, Yes supple and Yes JVD Resp Effort & Inspection: normal respiratory effort Auscultation: diminished lung sounds Cardio Jugular venous distension: JVD Rate: regular rate Rhythm: regular rhythm Heart sounds: S1 normal heart sound present, S2 normal heart sound present, no click and no gallops GI Inspection: Yes obesity Auscultation: normal bowel sounds Extrem General: No clubbing, No cyanosis and Yes edema Objective Labs and Meds 03/13/25 06:37 03/13/25 06:37 Lab results: Laboratory Results - last 24 hr 03/12/25 03/12/25 03/12/25 15:55 17:01 17:02 WBC RBC Hgb Hct MCV MCH MCHC RDW Plt Count MPV Absolute Nucleated RBC Nucleated RBC % (auto) Sodium Potassium Chloride Carbon Dioxide Anion Gap BUN Creatinine Estim Creat Clear Calc Estimated GFR POC Glucose 170 H Random Glucose Calcium Albumin 3.4 L PTH Intact 376.9 H U Random Total Protein Urine Creatinine Hep Bs Antigen Negative Hep Bs Antibody NONREACTIVE Hep B Core Total Ab Nonreactive Hepatitis C Ab (EIA) Nonreactive 03/12/25 03/12/25 03/13/25 20:20 Unknown 06:37 WBC 6.3 RBC 2.82 L Hgb 8.8 L Hct 27.4 L MCV 97.2 MCH 31.2 MCHC 32.1 RDW 13.8 Plt Count 213 MPV 10.5 Absolute Nucleated RBC 0.000 Nucleated RBC % (auto) 0.0 Sodium 142 Potassium 4.0 Chloride 109 H Carbon Dioxide 24 Anion Gap 13 BUN 49 H Creatinine 2.88 H Estim Creat Clear Calc 24.2 Estimated GFR 16 POC Glucose 250 H Random Glucose 124 H Calcium 8.6 Albumin PTH Intact U Random Total Protein 74 H Urine Creatinine 27.06 Hep Bs Antigen Hep Bs Antibody Hep B Core Total Ab Hepatitis C Ab (EIA) 03/13/25 03/13/25 07:16 11:16 WBC RBC Hgb Hct MCV MCH MCHC RDW Plt Count MPV Absolute Nucleated RBC Nucleated RBC % (auto) Sodium Potassium Chloride Carbon Dioxide Anion Gap BUN Creatinine Estim Creat Clear Calc Estimated GFR POC Glucose 121 H 193 H Random Glucose Calcium Albumin PTH Intact U Random Total Protein Urine Creatinine Hep Bs Antigen Hep Bs Antibody Hep B Core Total Ab Hepatitis C Ab (EIA) Progress Note: A&P Assessment and plan (1) Decompensated heart failure: Status: Acute Assessment and Plan: Decompensated congestive heart failure predominantly right heart failure with significant right atrial pressure enlargement. Responding well to treatment. Has cardiorenal syndrome due to renal capsule congestion. Continue IV diuresis. Strict intake and output chart needs to be pursued. Continue monitor renal function electrolytes as well as monitor BNP tomorrow. Continue aggressive blood pressure control. If kidney function improves consider addition of Jardiance 10 mg to her regimen in addition to oral Lasix drip. Strict intake and output chart needs to be pursued. Continue rhythm control approach. (2) Paroxysmal atrial fibrillation: Status: Acute Assessment and Plan: Paroxysmal atrial fibrillation remained suppressed. As kidney function improves can resume Eliquis Mibi tomorrow. Continue rhythm control approach. Will follow with you Time Spent With Patient Time: Total time managing care of this patient today ____ minutes. Progress Note: Quality Stroke Does the patient have a stroke diagnosis?: No Procedures Date of Service Date of Service: 03/13/25
--- NOTE | 2025-03-13 12:05 | MHC.CM.PN ---
EMR reviewed and per MD rounds, pt is not medically cleared for discharge due to management of HF, pt on lasix gtt.
[2025-03-13 12:28] LABS: Kappa/Lambda Lt Ch Free Ratio 1.11 (0.26-1.65)
--- NOTE | 2025-03-13 14:52 | HO.PM.IMPN ---
Subjective Subjective Date of Service: 03/13/25 Interval History: breathing improved, off O2 at this point negative 1.3L cumulatively thus far Review of Systems Review of Systems: Yes all other systems are reviewed and are negative Physical Exam Vital Signs: Vital Signs: Last Vital Signs Temp 97.1 F 03/13/25 11:48 Pulse 78 03/13/25 11:48 Resp 16 03/13/25 11:48 BP 128/60 03/13/25 11:48 Pulse Ox 95 03/13/25 11:48 O2 Del Method Room Air 03/13/25 11:48 O2 Flow Rate 1 03/13/25 07:05 BMI result Body Mass Index 41.5 Gen: in no acute distress HEENT: sclera anicteric, moist mucus membranes Neck: supple, JVD Lungs: clear to auscultation bilaterally Heart: regular rate and rhythm, no murmurs Abd: soft, non-tender, non-distended, obese Ext: 1+ bialteral edema Skin: warm/well-perfused, extensive scaling of bilateral legs with patchy erythema, R 2nd toe erythematous as well Neuro: alert and oriented x3, no focal findings Psych: appropriate affect Objective Data Active Medications Acetaminophen (Acetaminophen 325 Mg Tablet) 650 mg PO Q6H PRN PRN Reason: Pain, Mild 1-3,fever,headache Last Admin: 03/12/25 13:45 Dose: 650 mg Documented By: FARIDA Amlodipine Besylate (Amlodipine Besylate 10 Mg Tablet) 10 mg PO BEDTIME PIPE; Protocol Last Admin: 03/12/25 21:17 Dose: 10 mg Documented By: RENATA Apixaban (Apixaban 5 Mg Tablet) 5 mg PO BID [facility] Last Admin: 03/13/25 08:21 Dose: 5 mg Documented By: SAMMY Atorvastatin Calcium (Atorvastatin Calcium 40 Mg Tablet) 40 mg PO BEDTIME PIPE Last Admin: 03/12/25 21:16 Dose: 40 mg Documented By: RENATA Calcium Carbonate (Calcium Carbonate 750 Mg Tab.Chew) 750 mg PO Q4H PRN PRN Reason: Heartburn Dextrose (Dextrose 50 % 25 Gm/50 Ml Syringe) 25 gm IVPUSH Q15M PRN; Protocol PRN Reason: per Hypoglycemia Standing Ord. Doxycycline Monohydrate (Doxycycline Monohydrate 100 Mg Capsule) 100 mg PO Q12H [facility] Last Admin: 03/13/25 13:03 Dose: 100 mg Documented By: SAMMY Glucose (Glucose Gel 15 Gm Gel..Gram.) 15 gm PO Q15M PRN; Protocol PRN Reason: per Hypoglycemia Standing Ord. Hydroxyzine HCl (Hydroxyzine Hcl 25 Mg Tablet) 25 mg PO QID PRN PRN Reason: Anxiety/Itching Last Admin: 03/13/25 08:21 Dose: 25 mg Documented By: SAMMY Furosemide 200 mg/ Sodium (Chloride) 100 mls @ 2.5 mls/hr IVCONT .Q24H PIPE Last Admin: 03/13/25 11:30 Dose: 5 mg/hr, 2.5 mls/hr Documented By: SAMMY Insulin Glargine (Insulin Glargine,Hum.Rec.Anlog 100 Unit/Ml 10 Ml Vial) 30 unit SUBCUT BEDTIME [facility] Last Admin: 03/12/25 21:15 Dose: 30 unit Documented By: RENATA Insulin Human Lispro (Insulin Lispro 100 Unit/Ml 3 Ml Vial) 0 unit SUBCUT QIDACHS [facility]; Protocol Last Admin: 03/13/25 11:30 Dose: 2 unit Documented By: SAMMY Magnesium Hydroxide (Milk Of Magnesia 30 Ml Oral.Susp) 30 ml PO DAILY PRN PRN Reason: Constipation Melatonin (Melatonin 3 Mg Tablet) 6 mg PO BEDTIME PRN PRN Reason: Insomnia Metoprolol Succinate (Metoprolol Succinate Er 25 Mg Tab.Er.24h) 25 mg PO BEDTIME [facility]; Protocol Nystatin (Nystatin Powder 15 Gm Bottle) 1 appl TOPICAL TID [facility]; Protocol Last Admin: 03/13/25 11:30 Dose: 1 appl Documented By: SAMMY Ondansetron HCl (Ondansetron Hcl 4 Mg/2 Ml Vial) 4 mg IVPUSH Q8H PRN PRN Reason: Nausea and Vomiting Sodium Chloride (0.9 % Sodium Chloride Flush 3 Ml Syringe) 3 ml IVFLUSH QSHIFT [facility] Last Admin: 03/13/25 08:22 Dose: 3 ml Documented By: SAMMY Trazodone HCl (Trazodone Hcl 100 Mg Tablet) 100 mg PO BEDTIME [facility] Last Admin: 03/12/25 21:16 Dose: 100 mg Documented By: RENATA Labs 03/13/25 06:37 03/13/25 06:37 Labs: Laboratory Results - last 24 hr 03/12/25 03/12/25 03/12/25 15:55 17:01 17:02 MCV MCH MCHC RDW Plt Count MPV Absolute Nucleated RBC Nucleated RBC % (auto) Anion Gap Estim Creat Clear Calc Estimated GFR POC Glucose 170 H Random Glucose Calcium Albumin 3.4 L PTH Intact 376.9 H U Random Total Protein Urine Creatinine Complement C3 134 Complement C4 29 Free [place] LC, Quant 79.6 H Free [place]ambda LC, Quant 71.6 H Free [place]/Lambda Ratio 1.11 Hep Bs Antigen Negative Hep Bs Antibody NONREACTIVE Hep B Core Total Ab Nonreactive Hepatitis C Ab (EIA) Nonreactive 03/12/25 03/12/25 03/13/25 20:20 Unknown 06:37 MCV 97.2 MCH 31.2 MCHC 32.1 RDW 13.8 Plt Count 213 MPV 10.5 Absolute Nucleated RBC 0.000 Nucleated RBC % (auto) 0.0 Anion Gap 13 Estim Creat Clear Calc 24.2 Estimated GFR 16 POC Glucose 250 H Random Glucose 124 H Calcium 8.6 Albumin PTH Intact U Random Total Protein 74 H Urine Creatinine 27.06 Complement C3 Complement C4 Free [place] LC, Quant Free Lambda LC, Quant Free [place]/Lambda Ratio Hep Bs Antigen Hep Bs Antibody Hep B Core Total Ab Hepatitis C Ab (EIA) 03/13/25 03/13/25 07:16 11:16 MCV MCH MCHC RDW Plt Count MPV Absolute Nucleated RBC Nucleated RBC % (auto) Anion Gap Estim Creat Clear Calc Estimated GFR POC Glucose 121 H 193 H Random Glucose Calcium Albumin PTH Intact U Random Total Protein Urine Creatinine Complement C3 Complement C4 Free [place] LC, Quant Free [place]ambda LC, Quant Free [place]/Lambda Ratio Hep Bs Antigen Hep Bs Antibody Hep B Core Total Ab Hepatitis C Ab (EIA) Microbiology Microbiology Results: Microbiology 03/10/25 15:56 Blood Culture - Preliminary Blood - Venous No growth after 48 hours. 03/10/25 15:56 Blood Culture - Preliminary Blood - Venous No growth after 48 hours. Assessment and Plan (1) Decompensated heart failure: Status: Acute (2) Bradycardia: Status: Acute (3) Cellulitis of right lower extremity: Status: Acute Plan d4, 69yo F with AF on apixaban, DM2, HTN, chronic venous stasis admitted with NJ + bradycardia + decompensated HF decompensated heart failure, HFpEF/R-sided HF - continue IV furosemide infusion, Cardiology following, monitor I/O + weights + lytes + BNP NJ/CKD3 - thought initially due to recent Bactrim use but more likely cardiorenal syndrome, Nephrology following, continue diuresis R 2nd toe cellulitis - wound Cx 02/24 grew MRSA, changed to doxycycline 03/12-, BCx negative normocytic anemia - likely due to CKD, H+H stable bradycardia - resume metoprolol succinate but at lower dose pAF - resume metoprolol as above; apixaban DM2 - basal-bolus insulin HTN - amlodipine + metoiprolol succinate morbid obesity - diet/exercise counseling VTE ppx - apixaban dispo - PT eval prior to d/c In my clinical judgment, the patient requires continued inpatient hospitalization for the following reasons: IV diuresis Total time managing care of this patient today: 45 minutes. Quality Stroke Does the patient have a stroke diagnosis?: No VTE Prior VTE?: No VTE Risk Level:: Medical - moderate - high VTE Device Contraindication: Treatment Not Indicated VTE Drug Contraindication: N/A - Med Ordered
[2025-03-13 15:48] VITALS: BP 137/63; PULSE 64; RESP 16; TEMP 36.8; O2SAT 94
[2025-03-13 16:13] LABS: Glucose, Whole Blood 173 mg/dL (60-115)
--- NOTE | 2025-03-13 18:20 | HO.SKINPHOTO ---
Location: Category: Stage: Length: Width: Depth: cm Location: Category: Stage: Length: Width: Depth: cm Location: Category: Stage: Length: Width: Depth: cm Location: Category: Stage: Length: Width: Depth: cm Location: Category: Stage: Length: Width: Depth: cm Location: Category: Stage: Length: Width: Depth: cm
[2025-03-13 19:36] VITALS: BP 136/63; PULSE 73; RESP 20; TEMP 36.4; O2SAT 93
[2025-03-13 20:38] LABS: Glucose, Whole Blood 220 mg/dL (60-115)
[2025-03-13] MEDS: Insulin Glargine,Hum.rec.anlog 100 UNIT/ML 10 ML VIAL 30 UNIT SUBCUT (21:39)
[2025-03-14] VITALS (11 sets, daily range): BP systolic 113–144; BP diastolic 56–65; PULSE 58–77; RESP 16–20; TEMP 35.8–36.4; O2SAT 93–98
[2025-03-14 07:56] LABS: B Type Natriuretic Peptide 151 pg/mL (<100)
[2025-03-14 07:57] LABS: Glucose, Whole Blood 175 mg/dL (60-115)
[2025-03-14 08:01] LABS: Anion Gap 13 (12-20); Blood Urea Nitrogen 47 mg/dL (9-16); Calcium 9.1 mg/dL (8.4-10.2); Carbon Dioxide 26 mmol/L (22-29); Chloride 107 mmol/L (96-108); Creatinine Clr Calc Pharmacy 23.7; Estimated Glomerular Filt Rate 16; Magnesium 1.7 mg/dL (1.6-2.6); Potassium 3.7 mmol/L (3.3-5.1); Sodium 142 mmol/L (135-145)
[2025-03-14] MEDS: 0.9 % Sodium Chloride Flush 3 ML SYRINGE IVFLUSH ×3 (08:34→20:37)
--- NOTE | 2025-03-14 10:20 | P.PNCA_ITS ---
Subjective Subjective Date of Service: 03/14/25 Principal diagnosis: CHF, paroxysmal atrial fibrillation. Interval history: Patient was says she feels a lot better. Has remained in sinus rhythm. He was diuresed. Creatinine has remained stable more or less. Her BNP is downtrending significantly. Review of Systems Review of Systems Yes all other systems are reviewed and are negative Physical Exam Vital Signs: Last Vital Signs Temp 96.4 F L 03/14/25 07:04 Pulse 72 03/14/25 07:04 Resp 16 03/14/25 07:04 BP 144/65 H 03/14/25 07:04 Pulse Ox 95 03/14/25 07:04 O2 Del Method Room Air 03/14/25 07:04 O2 Flow Rate 2 03/14/25 03:42 BMI result Body Mass Index 41.5 Neck Neck: Yes trachea midline, Yes supple and Yes no JVD Resp Effort & Inspection: normal respiratory effort Auscultation: diminished lung sounds Cardio Jugular venous distension: no JVD Rate: regular rate Rhythm: regular rhythm Heart sounds: S1 normal heart sound present, S2 normal heart sound present, no click and no gallops GI Inspection: Yes obesity Auscultation: normal bowel sounds Extrem General: No clubbing, No cyanosis and Yes edema Objective Labs and Meds 03/13/25 06:37 03/14/25 06:59 Lab results: Laboratory Results - last 24 hr 03/12/25 03/13/25 03/13/25 17:02 11:16 16:01 Hold Purple Top Sodium Potassium Chloride Carbon Dioxide Anion Gap BUN Creatinine Estim Creat Clear Calc Estimated GFR POC Glucose 193 H 173 H Random Glucose Calcium Magnesium B-Natriuretic Peptide Complement C3 134 Complement C4 29 Free [place] LC, Quant 79.6 H Free Lambda LC, Quant 71.6 H Free [place]/Lambda Ratio 1.11 03/13/25 03/14/25 03/14/25 20:34 06:59 07:20 Hold Purple Top SEE NOTE Sodium 142 Potassium 3.7 Chloride 107 Carbon Dioxide 26 Anion Gap 13 BUN 47 H Creatinine 2.86 H Estim Creat Clear Calc 23.7 Estimated GFR 16 POC Glucose 220 H Random Glucose 174 H Calcium 9.1 Magnesium 1.7 B-Natriuretic Peptide 151 H Complement C3 Complement C4 Free [place] LC, Quant Free [place]ambda LC, Quant Free [place]/Lambda Ratio 03/14/25 07:53 Hold Purple Top Sodium Potassium Chloride Carbon Dioxide Anion Gap BUN Creatinine Estim Creat Clear Calc Estimated GFR POC Glucose 175 H Random Glucose Calcium Magnesium B-Natriuretic Peptide Complement C3 Complement C4 Free [place] LC, Quant Free [place]ambda LC, Quant Free [place]/Lambda Ratio Progress Note: A&P Assessment and plan (1) Decompensated heart failure: Status: Acute Assessment and Plan: Decompensated congestive heart failure in this elderly woman with much improved BNP and much improved symptoms. At this point time can switch her to oral diuretics at 2 mg b.i.d.. Very difficult to assess her overall volume status given her body habitus. She was significant risk factors and has component of obesity hypoventilation as well as possible sleep apnea. Needs to be worked up for sleep apnea as outpatient. Add Jardiance 10 mg to regimen to help with heart failure management. Continue rhythm control approach. Continue aggressive blood pressure control. Consider close follow up with Nephrology. (2) Paroxysmal atrial fibrillation: Status: Acute Assessment and Plan: Paroxysmal atrial fibrillation which has remained suppressed. Continue metoprolol therapy. Can resume Eliquis 5 mg b.i.d.. Monitor renal function closely. Will sign of the case and follow as outpatient if she was willing. Thank you for allowing me to partake in her care Time Spent With Patient Time: Total time managing care of this patient today ____ minutes. Progress Note: Quality Stroke Does the patient have a stroke diagnosis?: No Procedures Date of Service Date of Service: 03/14/25
--- NOTE | 2025-03-14 10:52 | P.PNIM_ITS ---
Subjective Subjective Date of Service: 03/14/25 Interval History: breathing improved, negative 2.6L thus far Review of Systems Review of Systems: Yes all other systems are reviewed and are negative Physical Exam 2 Vital Signs: Vital Signs: Last Vital Signs Temp 96.4 F L 03/14/25 07:04 Pulse 72 03/14/25 07:04 Resp 16 03/14/25 07:04 BP 144/65 H 03/14/25 07:04 Pulse Ox 95 03/14/25 07:04 O2 Del Method Room Air 03/14/25 07:04 O2 Flow Rate 2 03/14/25 03:42 BMI result Body Mass Index 41.5 Gen: in no acute distress HEENT: sclera anicteric, moist mucus membranes Neck: supple Lungs: clear to auscultation bilaterally Heart: regular rate and rhythm, no murmurs Abd: soft, non-tender, non-distended, obese Ext: 1+ bilateral edema Skin: warm/well-perfused, extensive scaling of bilateral legs with patchy erythema, R 2nd toe less erythematous Neuro: alert and oriented x3, no focal findings Psych: appropriate affect Objective Data Active Medications Acetaminophen (Acetaminophen 325 Mg Tablet) 650 mg PO Q6H PRN PRN Reason: Pain, Mild 1-3,fever,headache Last Admin: 03/13/25 22:48 Dose: 650 mg Documented By: STANTON Amlodipine Besylate (Amlodipine Besylate 10 Mg Tablet) 10 mg PO BEDTIME [facility]; Protocol Last Admin: 03/13/25 20:10 Dose: 10 mg Documented By: STANTON Apixaban (Apixaban 5 Mg Tablet) 5 mg PO BID [facility] Last Admin: 03/14/25 08:33 Dose: 5 mg Documented By: CHANTELLE Atorvastatin Calcium (Atorvastatin Calcium 40 Mg Tablet) 40 mg PO BEDTIME [facility] Last Admin: 03/13/25 20:10 Dose: 40 mg Documented By: STANTON Calcium Carbonate (Calcium Carbonate 750 Mg Tab.Chew) 750 mg PO Q4H PRN PRN Reason: Heartburn Dextrose (Dextrose 50 % 25 Gm/50 Ml Syringe) 25 gm IVPUSH Q15M PRN; Protocol PRN Reason: per Hypoglycemia Standing Ord. Doxycycline Monohydrate (Doxycycline Monohydrate 100 Mg Capsule) 100 mg PO Q12H [facility] Last Admin: 03/14/25 00:36 Dose: 100 mg Documented By: STANTON Glucose (Glucose Gel 15 Gm Gel..Gram.) 15 gm PO Q15M PRN; Protocol PRN Reason: per Hypoglycemia Standing Ord. Hydroxyzine HCl (Hydroxyzine Hcl 25 Mg Tablet) 25 mg PO QID PRN PRN Reason: Anxiety/Itching Last Admin: 03/13/25 17:00 Dose: 25 mg Documented By: SAMMY Furosemide 200 mg/ Sodium (Chloride) 100 mls @ 2.5 mls/hr IVCONT .Q24H PIPE Last Admin: 03/13/25 11:30 Dose: 5 mg/hr, 2.5 mls/hr Documented By: SAMMY Insulin Glargine (Insulin Glargine,Hum.Rec.Anlog 100 Unit/Ml 10 Ml Vial) 30 unit SUBCUT BEDTIME PIPE Last Admin: 03/13/25 21:39 Dose: 30 unit Documented By: STANTON Insulin Human Lispro (Insulin Lispro 100 Unit/Ml 3 Ml Vial) 0 unit SUBCUT QIDACHS [facility]; Protocol Last Admin: 03/14/25 08:33 Dose: 2 unit Documented By: CHANTELLE Magnesium Hydroxide (Milk Of Magnesia 30 Ml Oral.Susp) 30 ml PO DAILY PRN PRN Reason: Constipation Melatonin (Melatonin 3 Mg Tablet) 6 mg PO BEDTIME PRN PRN Reason: Insomnia Metoprolol Succinate (Metoprolol Succinate Er 25 Mg Tab.Er.24h) 25 mg PO BEDTIME PIPE; Protocol Last Admin: 03/13/25 20:11 Dose: Not Given Documented By: STANTON Non-Admin Reason: per MD hold med Nystatin (Nystatin Powder 15 Gm Bottle) 1 appl TOPICAL TID PIPE; Protocol Last Admin: 03/14/25 08:34 Dose: 1 appl Documented By: CHANTELLE Ondansetron HCl (Ondansetron Hcl 4 Mg/2 Ml Vial) 4 mg IVPUSH Q8H PRN PRN Reason: Nausea and Vomiting Sodium Chloride (0.9 % Sodium Chloride Flush 3 Ml Syringe) 3 ml IVFLUSH QSHIFT [facility] Last Admin: 03/14/25 08:34 Dose: 3 ml Documented By: CHANTELLE Trazodone HCl (Trazodone Hcl 100 Mg Tablet) 100 mg PO BEDTIME PIPE Last Admin: 03/13/25 20:10 Dose: 100 mg Documented By: STANTON Labs 03/13/25 06:37 03/14/25 06:59 Labs: Laboratory Results - last 24 hr 03/12/25 03/13/25 03/13/25 17:02 11:16 16:01 Hold Purple Top Anion Gap Estim Creat Clear Calc Estimated GFR POC Glucose 193 H 173 H Random Glucose Calcium Magnesium B-Natriuretic Peptide Complement C3 134 Complement C4 29 Free [place] LC, Quant 79.6 H Free [place]ambda LC, Quant 71.6 H Free [place]/Lambda Ratio 1.11 03/13/25 03/14/25 03/14/25 20:34 06:59 07:20 Hold Purple Top SEE NOTE Anion Gap 13 Estim Creat Clear Calc 23.7 Estimated GFR 16 POC Glucose 220 H Random Glucose 174 H Calcium 9.1 Magnesium 1.7 B-Natriuretic Peptide 151 H Complement C3 Complement C4 Free [place] LC, Quant Free [place]ambda LC, Quant Free [place]/Lambda Ratio 03/14/25 07:53 Hold Purple Top Anion Gap Estim Creat Clear Calc Estimated GFR POC Glucose 175 H Random Glucose Calcium Magnesium B-Natriuretic Peptide Complement C3 Complement C4 Free [place] LC, Quant Free [place] LC, Quant Free [place]/Lambda Ratio Assessment and Plan (1) Decompensated heart failure: Status: Acute (2) Bradycardia: Status: Acute (3) Cellulitis of right lower extremity: Status: Acute Plan d5, 69yo F with AF on apixaban, DM2, HTN, chronic venous stasis admitted with NJ + bradycardia + decompensated HF decompensated heart failure, HFpEF/R-sided HF - transition from IV furosemide infusion to PO bumetanide, Cardiology following, monitor I/O + weights + lytes + BNP NJ/CKD3 - thought initially due to recent Bactrim use but more likely cardiorenal syndrome, Nephrology following, diuresis as above, possibly new baseline Cr R 2nd toe cellulitis - wound Cx 02/24 grew MRSA, changed to doxycycline 03/12-, BCx negative normocytic anemia - likely due to CKD, H+H stable bradycardia - resumed metoprolol succinate but at lower dose pAF - resumed metoprolol as above; apixaban DM2 - basal-bolus insulin HTN - amlodipine + metoprolol succinate morbid obesity - diet/exercise counseling VTE ppx - apixaban dispo - PT eval In my clinical judgment, the patient requires continued inpatient hospitalization for the following reasons: renal insufficiency, HF Total time managing care of this patient today: 35 minutes. Quality Stroke Does the patient have a stroke diagnosis?: No VTE Prior VTE?: No VTE Risk Level:: Medical - moderate - high VTE Device Contraindication: Treatment Not Indicated VTE Drug Contraindication: N/A - Med Ordered
[2025-03-14 11:37] LABS: Glucose, Whole Blood 220 mg/dL (60-115)
[2025-03-14 16:07] LABS: Glucose, Whole Blood 230 mg/dL (60-115)
--- NOTE | 2025-03-14 17:14 | P.PNNP_ITS ---
Subjective Subjective Date of Service: 03/14/25 Principal diagnosis: CHF, paroxysmal atrial fibrillation. Interval history: breathing improved, negative 2.6L thus far Physical Exam 2 Exam: Exam: cvs: s1s2 RS; cta ABd; soft Vital Signs: Vital Signs: Last Vital Signs Temp 97 F 03/14/25 15:14 Pulse 77 03/14/25 15:14 Resp 18 03/14/25 15:14 BP 133/61 03/14/25 16:12 Pulse Ox 97 03/14/25 15:14 O2 Del Method Room Air 03/14/25 15:14 O2 Flow Rate 2 03/14/25 03:42 BMI result Body Mass Index 41.5 Objective Data Labs 03/13/25 06:37 03/14/25 06:59 Labs: Laboratory Results - last 24 hr 03/13/25 03/14/25 03/14/25 20:34 06:59 07:20 Hold Purple Top SEE NOTE Sodium 142 Potassium 3.7 Chloride 107 Carbon Dioxide 26 Anion Gap 13 BUN 47 H Creatinine 2.86 H Estim Creat Clear Calc 23.7 Estimated GFR 16 POC Glucose 220 H Random Glucose 174 H Calcium 9.1 Magnesium 1.7 B-Natriuretic Peptide 151 H 03/14/25 03/14/25 03/14/25 07:53 11:29 15:55 Hold Purple Top Sodium Potassium Chloride Carbon Dioxide Anion Gap BUN Creatinine Estim Creat Clear Calc Estimated GFR POC Glucose 175 H 220 H 230 H Random Glucose Calcium Magnesium B-Natriuretic Peptide Microbiology Microbiology Results: Microbiology 03/10/25 15:56 Blood - Venous Blood Culture - Preliminary No growth after 48 hours. 03/10/25 15:56 Blood - Venous Blood Culture - Preliminary No growth after 48 hours. Procedures Date of Service Date of Service: 03/14/25 Assessment & Plan Assessment and plan (1) Chronic kidney disease: Status: Acute (2) Acute on chronic kidney failure: Status: Acute Plan NJ: grad improvement with diuresis c/w CRsyn another consideration is the trimethoprim component of bactrim interference with Cr tubular secrtion CKD 3/4: Bsl Scr 1.5 to 2.0 longstnading and most c/w DN/HTN renal dis Proteinuria: need to repeat and track Hypervol: d/t Card-Renal; interstingly her BNP is not that elevated Chronic venous disease cr 3.7---> 2.8--> 2.8 REC: cont diuresis, urine studies, sero as ordereed, avoid Ntoxins, adjsut meds for GFR of 20 ml/min Will follow pieter gutierres team Time Spent With Patient Time: Total time managing care of this patient today ____ minutes. Progress Note: Quality Stroke Does the patient have a stroke diagnosis?: No
[2025-03-14 20:32] LABS: Glucose, Whole Blood 232 mg/dL (60-115)
[2025-03-14] MEDS: Insulin Glargine,Hum.rec.anlog 100 UNIT/ML 10 ML VIAL 30 UNIT SUBCUT (20:36)
[2025-03-15 03:29] VITALS: BP 136/63; PULSE 64; RESP 18; TEMP 36.5; O2SAT 95
[2025-03-15 07:03] VITALS: BP 136/61; PULSE 76; RESP 20; TEMP 36.4; O2SAT 94
[2025-03-15 07:05] LABS: Glucose, Whole Blood 164 mg/dL (60-115)
[2025-03-15 07:30] VITALS: BP 136/61
[2025-03-15] MEDS: 0.9 % Sodium Chloride Flush 3 ML SYRINGE IVFLUSH (07:31)
[2025-03-15 07:41] LABS: Anion Gap 18 (12-20); Blood Urea Nitrogen 49 mg/dL (9-16); Calcium 9.1 mg/dL (8.4-10.2); Carbon Dioxide 24 mmol/L (22-29); Chloride 105 mmol/L (96-108); Creatinine Clr Calc Pharmacy 24.5; Estimated Glomerular Filt Rate 17; Magnesium 1.7 mg/dL (1.6-2.6); Potassium 3.8 mmol/L (3.3-5.1); Sodium 143 mmol/L (135-145)
[2025-03-15 07:44] LABS: B Type Natriuretic Peptide 104 pg/mL (<100)
[2025-03-15 11:04] VITALS: BP 127/85; PULSE 69; RESP 20; TEMP 36.1; O2SAT 100
[2025-03-15 11:04] LABS: Glucose, Whole Blood 220 mg/dL (60-115)
--- NOTE | 2025-03-15 13:28 | W.MHC.F2F ---
Service Date Service Date: 03/15/25 Encounter Date of encounter: 03/15/25 Reasons for Services Signs and symptoms assessed: CHF Reason for long-term: medication management, medication treatment and teach disease management Reason for physical therapy: home safety and mobility, therapeutic exercises, gait/transfer training, assess need for DME, ADL training and energy conservation MD Overseeing Care: Femi Nielsen Homebound: Leaving the home is medically contraindicated at this time without the asist of a device and/or another person due th the listed conditions above and below. Reason homebound: unsteady gait / fall risk and weakness related to hospital stay Certification: Based on the above findings, I certify that this patient is confined to the home and needs intermittent long-term care, physical therapy and/or speech therapy, or continues to need occupational therapy. The patient is under my care, and I have initiated the establishment of the plan of care. The patient will be followed by a physician who will periodically review the plan of care. Time Spent With Patient Time: Total time managing care of this patient today ____ minutes.
--- NOTE | 2025-03-15 13:40 | PM.DS ---
DS: Providers Provider Date of Service: 03/15/25 Date of admission: 03/10/25 17:24 Date of discharge: 03/15/25 Primary care physician: Femi Nielsen MD Consults: 03/11/25 08:06 Consult to Nephrology Routine Consulting Provider: [facility] Reason for consultation: nj ON CKD Has provider been notified: No 03/11/25 11:16 Consult to Cardiology Routine Consulting Provider: [facility] Reason for consultation: bradycardia, CHF 03/13/25 16:06 Consult to Wound Care Routine Reason for consultation: open wound to vaginal area DS: Diagnosis Discharge Diagnosis (1) Acute on chronic kidney failure: Status: Acute (2) Decompensated heart failure: Status: Acute (3) Acute right-sided heart failure: Status: Acute (4) Bradycardia: Status: Acute (5) Morbid obesity: Status: Acute (6) Cellulitis: Status: Acute DS: Summary Hospital Course Hospital Course: From the history and physical by the admitting hospitalist, AMANUEL Woods, 03/10/25: 69-year-old woman with a history of diabetes mellitus type 2, hypertension, group B strep bacteremia, AFib on Eliquis and beta-juan carlos. She has a history of bilateral leg wounds more specifically right toe wound with redness. She was started on Bactrim and 03/03/2025 for her right great toe. She also noted over the last week her heart rate has been lower mainly in the 50s but her visiting nurse came today and found to be in the 40s. Blood pressure has been normal although low-normal as she usually runs higher than the 100s. She had denied any fever, chills, nausea, vomiting, diarrhea. She did report feeling tired and weak. She denied taking any extra medications specifically beta-blockers. In the ER, heart rate was noted to be in the 40s, 50s., creatinine 3.70, last creatinine in October 21.62. Plan will be to admit patient for further management and treatment of NJ and bradycardia. 69yo F with AF on apixaban, CKD3, DM2, HTN, and chronic venous stasis admitted to the telemetry unit with NJ + bradycardia + decompensated HF. Hospital course by problem: decompensated heart failure, HFpEF/R-sided HF - Cardiology consulted. TTE 03/11/25: 1. Normal LV ejection fraction of 60 65% with at least grade 2 diastolic dysfunction 2. Moderately dilated left atrium 3. Mild mitral regurgitation 4. Moderately elevated right ventricular systolic pressure with significantly elevated right atrial pressures 5. Small pericardial effusion Diuresed net negative 2.7L with IV furosemide infusion with resolution of dyspnea. Started on bumetanide 2 mg bid plus empagliflozin 10 mg daily. Discharged home with VNA services and will follow up with [facility] Cardiology. NJ/CKD3 - Nephrology consulted. Thought initially due to recent Bactrim use [inhibition of tubular secretion of creatinine by trimethoprim] but more likely cardiorenal syndrome. Creatinine on discharge 2.77 which may be her new baseline. Will repeat BMP in 1 week and she should follow up with her child development teacher in 2 weeks. R 2nd toe cellulitis - wound Cx 02/24 grew MRSA, treated with doxycycline 03/12-, BCx negative; discharged on 2 more days of doxycycline normocytic anemia - likely due to CKD, H+H stable bradycardia - resumed metoprolol succinate but at lower dose of 25 mg daily rather than 75 mg Time Attestation Discharge Coordination Time (in mins): 45 Quality: Safe Use of Opioids Does Pt have an Active Cancer Diagnosis on the Problem List?: No Quality: Stroke Does the patient have a stroke diagnosis?: No Physical Exam Vital Signs: Vital Signs: Last Vital Signs Temp 97.0 F 03/15/25 11:04 Pulse 69 03/15/25 11:04 Resp 20 03/15/25 11:04 BP 127/85 03/15/25 11:04 Pulse Ox 100 03/15/25 11:04 O2 Del Method Room Air 03/15/25 11:04 O2 Flow Rate 2 03/14/25 03:42 BMI result Body Mass Index 41.5 Gen: in no acute distress HEENT: sclera anicteric, moist mucus membranes Neck: supple Lungs: clear to auscultation bilaterally Heart: regular rate and rhythm, no murmurs Abd: soft, non-tender, non-distended, obese Ext: edema resolved Skin: warm/well-perfused, extensive scaling of bilateral legs with patchy erythema, R 2nd toe less erythematous Neuro: alert and oriented x3, no focal findings Psych: appropriate affect DS: Data Data Completed and Pending Completed studies during hospitalization [Text1]: Laboratory Results WBC 6.3 X10*3/uL (4.8-10.8) 03/13/25 06:37 RBC 2.82 X10*6/uL (4.20-5.50) L 03/13/25 06:37 Hgb 8.8 g/dl (12.0-16.0) L 03/13/25 06:37 Hct 27.4 % (37.0-47.0) L 03/13/25 06:37 MCV 97.2 fL (80.0-98.0) 03/13/25 06:37 MCH 31.2 pg (27.0-33.0) 03/13/25 06:37 MCHC 32.1 g/dl (31.0-35.0) 03/13/25 06:37 RDW 13.8 % (11.0-16.0) 03/13/25 06:37 Plt Count 213 X10*3/uL (160-400) 03/13/25 06:37 MPV 10.5 fL (9.4-12.3) 03/13/25 06:37 Immature Gran % (Auto) 0.4 % (0.0-0.4) 03/11/25 04:09 Neut % (Auto) 79.0 % (45-73) H 03/11/25 04:09 Lymph % (Auto) 14.0 % (20-40) L 03/11/25 04:09 [place] % (Auto) 4.1 % (2-11) 03/11/25 04:09 Eos % (Auto) 2.1 % (0-4) 03/11/25 04:09 Baso % (Auto) 0.4 % (0-2) 03/11/25 04:09 Lymph # (Auto) 1.4 X10*3/uL (1.2-4.9) 03/11/25 04:09 [place] # (Auto) 0.4 X10*3/uL (0.1-1.2) 03/11/25 04:09 Eos # (Auto) 0.2 X10*3/uL (0.0-0.4) 03/11/25 04:09 Baso # (Auto) 0.0 X10*3/uL (0.0-0.2) 03/11/25 04:09 Abs Immat Gran (auto) 0.04 X10*3/uL (0.00-0.03) H 03/11/25 04:09 Absolute Neuts (auto) 7.6 x10*3/uL (2.0-8.3) 03/11/25 04:09 Absolute Nucleated RBC 0.000 X10*3/uL (0.0-0.012) 03/13/25 06:37 Nucleated RBC % (auto) 0.0 /100WBC (0.0-0.2) 03/13/25 06:37 ESR 58 MM/HR (0-20) H 03/10/25 15:56 Hold Purple Top SEE NOTE 03/14/25 07:20 VBG pH 7.29 (7.32-7.43) L 03/11/25 06:44 VBG pCO2 43 mmHg 03/11/25 06:44 VBG pO2 45 mmHg 03/11/25 06:44 VBG HCO3 21 mmol/L (22-26) L 03/11/25 06:44 VBG O2 Saturation 71.0 % 03/11/25 06:44 VBG Base Excess -5.1 mmol/L 03/11/25 06:44 Sodium 143 mmol/L (135-145) 03/15/25 07:06 Potassium 3.8 mmol/L (3.3-5.1) 03/15/25 07:06 Chloride 105 mmol/L (96-108) 03/15/25 07:06 Carbon Dioxide 24 mmol/L (22-29) 03/15/25 07:06 Anion Gap 18 (12-20) 03/15/25 07:06 BUN 49 mg/dL (9-16) H 03/15/25 07:06 Creatinine 2.77 mg/dL (0.5-1.4) H 03/15/25 07:06 Estim Creat Clear Calc 24.5 03/15/25 07:06 Estimated GFR 17 03/15/25 07:06 POC Glucose 220 mg/dL (60-115) H 03/15/25 10:53 Random Glucose 176 mg/dL (60-115) H 03/15/25 07:06 Lactic Acid 1.9 mmol/L (0.5-2.0) 03/10/25 15:56 Calcium 9.1 mg/dL (8.4-10.2) 03/15/25 07:06 Magnesium 1.7 mg/dL (1.6-2.6) 03/15/25 07:06 Total Bilirubin 0.3 mg/dL (0.0-1.0) 03/10/25 15:56 Direct Bilirubin 0.1 mg/dL (0.0-0.5) 03/10/25 15:56 AST 18 U/L (5-31) 03/10/25 15:56 ALT 14 U/L (0-31) 03/10/25 15:56 Alkaline Phosphatase 101 U/L (39-117) 03/10/25 15:56 Troponin I High Sens 9.0 ng/L (<3.5-17.0) D 03/10/25 15:56 C-Reactive Protein 0.48 mg/dL (< or = 0.50) 03/10/25 15:56 B-Natriuretic Peptide 104 pg/mL (<100) H 03/15/25 07:06 Total Protein 7.0 g/dL (6.5-8.0) 03/10/25 15:56 Albumin 3.4 g/dL (3.5-5.0) L 03/12/25 17:02 Procalcitonin 0.04 ng/mL 03/10/25 15:56 TSH 0.81 uIU/mL (0.32-4.0) 03/10/25 15:56 PTH Intact 376.9 pg/mL (8.7-77.1) H 03/12/25 17:01 U Random Total Protein 74 mg/dL (<12) H 03/12/25 Unknown Urine Creatinine 27.06 mg/dL 03/12/25 Unknown Complement C3 134 mg/dL (83-193) 03/12/25 17:02 Complement C4 29 mg/dL (15-57) 03/12/25 17:02 Free Treynor LC, Quant 79.6 mg/L (3.3-19.4) H 03/12/25 17:02 Free Lambda LC, Quant 71.6 mg/L (5.7-26.3) H 03/12/25 17:02 Free Treynor/Lambda Ratio 1.11 (0.26-1.65) 03/12/25 17:02 Hep Bs Antigen Negative (Negative) 03/12/25 17:02 Hep Bs Antibody NONREACTIVE (Nonreactive) 03/12/25 17:02 Hep B Core Total Ab Nonreactive (Nonreactive) 03/12/25 17:02 Hepatitis C Ab (EIA) Nonreactive (Nonreactive) 03/12/25 17:02 Impressions Toe X-Ray 03/10/25 15:11 IMPRESSION: Indistinct cortical margin involving the lateral aspect of the second MTP joint, erosion/osteomyelitis and septic arthritis is not ruled out. However, on the prior examination, this area was slightly indistinct as well and so suspicion is low. Electronically signed by: Serafin Schwab MD 03/10/2025 04:29 PM EDT RP Chest X-Ray 03/11/25 05:42 IMPRESSION: Pulmonary edema. Atelectasis versus airspace disease, right lung. Cardiomegaly versus pericardial effusion. Electronically signed by: Ta Min MD 03/11/2025 07:50 AM EDT RP Discharge Plan Discharge Anticipated Discharge Date/Time: 03/15/25 13:30 Patient Disposition: Home Health Service Discharge Diagnosis: CHF exacerbation acute kidney injury/chronic kidney disease bradycardia cellulitis of R 2nd toe Referrals: [facility] [Outside] - 1 Week Stevie Duffy MD [Physician, Cardiology] - 2 Weeks Yonas Starks MD [Physician, Nephrology] - 2 Weeks Femi Nielsen MD [Primary Care Provider, Family Practice] - 1 Week Discharge Medications: New doxycycline monohydrate 100 mg Capsule 100 mg PO Q12H Qty: 4 0RF metoprolol succinate 25 mg Tablet Extended Release 24 Hr 25 mg PO BEDTIME Qty: 30 0RF Protocol: Hold for SBP/HR < HOLD for SBP < : 90 HOLD for HR < : 60 Jardiance 10 mg Tablet 10 mg PO DAILY Qty: 30 0RF bumetanide 1 mg Tablet 2 mg PO BID@0800,1700 Qty: 60 0RF Protocol: Hold for SBP< HOLD for SBP < : 90 Continued atorvastatin 40 mg tablet 40 mg PO BEDTIME gabapentin 600 mg tablet 1,800 mg PO BEDTIME trazodone 100 mg tablet 100 mg PO BEDTIME amlodipine 10 mg tablet 10 mg PO BEDTIME hydroxyzine HCl 25 mg tablet 25 mg PO QID PRN (Reason: Anxiety/Itching) Mounjaro 5 mg/0.5 mL pen injector 5 mg subcut TH Eliquis 5 mg tablet 5 mg PO BID Probiotic 1 gummy PO DAILY urea 20 % cream 1 appl topical DAILY PRN (Reason: Wound Care) insulin glargine [Basaglar KwikPen U-100 Insulin] 100 unit/mL (3 mL) insulin pen 40 unit subcut BEDTIME gabapentin 300 mg capsule 300 mg PO BID PRN (Reason: NEUROPATHY ) insulin lispro [Admelog SoloStar U-100 Insulin] 100 unit/mL insulin pen See Protocol SUBCUT TIDAC PRN (Reason: Hyperglycemia) Protocol: Insulin Correction Scale Less than or equal to 110 ---- Give (units): 0 111 to 150 Give (units): 0 151 to 200 Give (units): 2 201 to 250 Give (units): 4 251 to 300 Give (units): 6 301 to 350 Give (units): 8 Greater than 350 Give (units): 10 Call MD if Blood Glucose > : 350 Discontinued metoprolol succinate 50 mg tablet extended release 24 hr 75 mg PO BEDTIME sulfamethoxazole-trimethoprim 800-160 mg tablet 2 tab PO BID Discharge Orders: Discharge Order (Routine); Ordered 03/15/25 Ordered By: Helena Au Diet: Low salt diet Activity on Discharge: As tolerated Stand Alone Forms: Patient Portal Discharge page Print Language: Arabic Other Ambulatory Orders: Basic Metabolic Panel (Routine) Timeframe: 1 Week Facility: [facility] - Location: Laboratory Ordered By: Helena Au Care Plan Goals: heart and kidney health Health Concerns: CHF exacerbation acute kidney injury/chronic kidney disease bradycardia cellulitis of R 2nd toe Plan of Treatment: Home with VNA Low-sodium diet: less than 2000 mg of sodium daily. Weigh yourself daily and call your doctor if your weight goes up by more than 3 lb/day or 5 lb/week. Start bumetanide 2 mg twice daily plus empagliflozin 10 mg daily Decrease metoprolol succinate from 75 to 25 mg daily Follow up with [facility] Cardiology in 2 weeks; follow up with you kidney specialist Dr Starks in 2 weeks Repeat BMP in 1 week Take doxycycline 100 mg twice daily x 2 days Please follow up with your primary care doctor within 1 week. Return to the hospital if you experience recurrent or worsening symptoms. Assessment: See Discharge Summary.
--- NOTE | 2025-03-15 13:44 | MHC.CM.PN ---
Patient has been medically cleared for dc to home today([facility] [place])with services. Patient is active with [facility] and they have been notified of today's dc. IMM was addressed with Patient and the original was given to her and a copy has been placed on the chart. Patient's Daughter will transport to home.
[2025-03-16 11:08] LABS: Anti Nuclear Antibody Screen NEGATIVE (NEGATIVE)
== END 2025-03-15 15:19 | disposition home health service (06) | DRG 291 ==
LOC: HO.ED 16:58 → HO.EDOVER 17:29 → HO.IMC 03-12 08:14
PROVIDERS: Internal Medicine Nephrology; Physician Assistant Medical; Student in an Organized Health Care Education/Training Program; Admitting Provider Nurse Practitioner Acute Care; Emergency Provider Emergency Medicine; PCP Family Medicine; Visit Provider Family Medicine
DX: I13.0 Hypertensive heart and chronic kidney disease with heart failure and stage 1 through stage 4 chronic kidney disease, or unspecified chronic kidney disease (principal); I50.33 Acute on chronic diastolic (congestive) heart failure; N17.9 Acute kidney failure, unspecified; Z68.41 Body mass index [BMI] 40.0-44.9, adult; T36.8X5A Adverse effect of other systemic antibiotics, initial encounter; E11.40 Type 2 diabetes mellitus with diabetic neuropathy, unspecified; N18.30 Chronic kidney disease, stage 3 unspecified; E66.01 Morbid (severe) obesity due to excess calories; Z71.3 Dietary counseling and surveillance; F17.210 Nicotine dependence, cigarettes, uncomplicated; I48.0 Paroxysmal atrial fibrillation; Z71.6 Tobacco abuse counseling; R00.1 Bradycardia, unspecified; D63.1 Anemia in chronic kidney disease; L03.031 Cellulitis of right toe; I34.0 Nonrheumatic mitral (valve) insufficiency; T44.7X5A Adverse effect of beta-adrenoreceptor antagonists, initial encounter; I87.8 Other specified disorders of veins; I50.813 Acute on chronic right heart failure; Z79.4 Long term (current) use of insulin; Z79.01 Long term (current) use of anticoagulants; Z79.85 Long-term (current) use of injectable non-insulin antidiabetic drugs; Z79.899 Other long term (current) drug therapy
CPT/HCPCS: 36415; 71045; 73660; 80048; 80076; 82040; 82570; 82784; 82803; 82947; 83521; 83605; 83735; 83880; 83970; 84145; 84156; 84443; 84484; 85025; 85027; 85652; 86038; 86140; 86160; 86334; 86704; 86706; 86803; 87040; 87340; 93005; 93306; 97162; 99285; J1938; J2543; Q9957

== ENCOUNTER → 2025-03-10 14:44 | Outpatient (BNV) | payer MEDICARE, OTHER, SELFPAY | PROVIDERS: Admitting Provider Nurse Practitioner Acute Care; Emergency Provider Emergency Medicine; PCP Family Medicine; Visit Provider Internal Medicine Cardiovascular Disease | DX: R00.1 Bradycardia, unspecified (principal) | CPT/HCPCS: 93010 ==

== ENCOUNTER → 2025-03-10 15:21 | Outpatient (BNV) | payer MEDICARE, OTHER, SELFPAY | PROVIDERS: Emergency Provider Emergency Medicine; PCP Family Medicine; Visit Provider Radiology Diagnostic Radiology | DX: R09.02 Hypoxemia (principal) | CPT/HCPCS: 71045 ==

== ENCOUNTER 2025-03-10 17:24 | Outpatient (BNV) | payer MEDICARE, OTHER, SELFPAY | END 2025-03-11 06:32 | PROVIDERS: Admitting Provider Nurse Practitioner Acute Care; Emergency Provider Emergency Medicine; PCP Family Medicine; Visit Provider Radiology Diagnostic Radiology | DX: R09.02 Hypoxemia (principal) | CPT/HCPCS: 71045 ==

== ENCOUNTER 2025-03-10 17:24 | Outpatient (BNV) | payer MEDICARE, OTHER, SELFPAY | END 2025-03-12 17:52 | PROVIDERS: Admitting Provider Nurse Practitioner Acute Care; Emergency Provider Emergency Medicine; PCP Family Medicine; Visit Provider Internal Medicine Cardiovascular Disease | DX: I49.1 Atrial premature depolarization (principal) | CPT/HCPCS: 93010 ==

== ENCOUNTER 2025-03-10 17:24 | Outpatient (BNV) | payer MEDICARE, OTHER, SELFPAY | END 2025-03-11 12:00 | PROVIDERS: Admitting Provider Nurse Practitioner Acute Care; Emergency Provider Emergency Medicine; PCP Family Medicine; Visit Provider Internal Medicine Cardiovascular Disease | DX: I34.0 Nonrheumatic mitral (valve) insufficiency (principal); I35.8 Other nonrheumatic aortic valve disorders; I37.1 Nonrheumatic pulmonary valve insufficiency; I51.89 Other ill-defined heart diseases | CPT/HCPCS: 93306 ==

== ENCOUNTER → 2025-03-10 17:24 | Outpatient (BNV) | payer MEDICARE, OTHER, SELFPAY | PROVIDERS: Admitting Provider Nurse Practitioner Acute Care; Emergency Provider Emergency Medicine; PCP Family Medicine; Visit Provider Internal Medicine Cardiovascular Disease | DX: I50.9 Heart failure, unspecified (principal); I48.0 Paroxysmal atrial fibrillation | CPT/HCPCS: 99233 ==

== ENCOUNTER → 2025-03-10 17:24 | Outpatient (BNV) | payer MEDICARE, OTHER, SELFPAY | PROVIDERS: Admitting Provider Nurse Practitioner Acute Care; Emergency Provider Emergency Medicine; PCP Family Medicine; Visit Provider Nurse Practitioner Acute Care | DX: N17.9 Acute kidney failure, unspecified (principal); N18.9 Chronic kidney disease, unspecified; I50.9 Heart failure, unspecified; I50.811 Acute right heart failure; R00.1 Bradycardia, unspecified; E66.01 Morbid (severe) obesity due to excess calories; L03.115 Cellulitis of right lower limb | CPT/HCPCS: 99223; 99232; 99233; 99239; 99499; G0180 ==

== ENCOUNTER 2025-03-18 13:44 | Emergency (ER) | payer MEDICARE, OTHER, SELFPAY ==
--- OUTSIDE RECORDS SUMMARY | 2024-05-07 10:00 | XMS_ITS ---
Author Organization [facility] Address [address] [place] [address] Care Team Providers Care Concessions Manager Name Role Phone Morales MAN, Femi Primary Care Provider Unavail able Taylor Jiménez Unavailable [phone] Shreya Rich Unavailable [phone] Tejada Encounters Encounter Location Date Provider Diagnosis [facility] [address] [place] [address] 05/07/2024 Shreya Rich Plan Of Treatment No Information Progress Notes * Alka ISRAEL LDOB:1955 (69 yo F)Acc No.[id number]:05/07/2024 Progress Note Patient: Emory BERMUDEZAlka LUONG Provider: Alverto Rich DPM :1955 A ge:68 Y S ex:Female Date:05/07/2024 Address:[address] [place], [place] [id number] Pcp:Femi Nielsen MD Subjective: * Chief Complaints: * [address] Tejada. * Medical History: Objective: * Vitals: Assessment: Plan: * Treatment: * Images: * The named appointment provid er may or may not be the originator of this progress note, and it is not deemed complete until electronically signed by the appointment provider. Sign off status: Pending * Provider: Alverto Rich DPM Date: 1 Generated for Printi ng/Famary aliceg/eTransmitting on: 0 03/18/2025 04:47 PM EDT
--- OUTSIDE RECORDS SUMMARY | 2024-05-09 09:00 | XMS_ITS ---
Author Organization [facility] Address [address] [place] [address] Care Team Providers Care Day Care Worker Name Role Phone Femi Nilesen MD Primary Care Provider Unavail able Taylor Jiménez Unavailable [phone] Shreya Rich Unavailable [phone] Encounters Encounter Location Date Provider Diagnosis [address] [address] 05/09/2024 Shreya Rich Plan Of Treatment No Information Progress Notes * Alka ISRAEL LDOB:1955 (69 yo F)Acc No.[id number]:05/09/2024 Progress Note Patient: Emory BERMUDEZAGAlka Emory Provider: Alverto Rich DPM :1955 A ge:68 Y S ex:Female Date:05/09/2024 Address:[address] [place], [place] [id number] Pcp:Femi Nielsen MD Subjective: * Chief Complaints: [...] for Printi ng/Famary aliceg/eTransmitting on: 0 03/18/2025 04:49 PM EDT
--- OUTSIDE RECORDS SUMMARY | 2024-06-12 11:15 | XMS_ITS ---
Author Organization [facility] Address [address] [place] [address] Care Team Providers Care Armature Inspector Name Role Phone Femi Nielsen MD Primary Care Provider Unavail able Taylor Jiménez Unavailable [phone] Shreya Rich Unavailable [phone] Encounters Encounter Location Date Provider Diagnosis [address] [address] 06/12/2024 Shreya Rich Plan Of Treatment No Information Progress Notes * Alka ISRAEL LDOB:1955 (69 yo F)Acc No.[id number]:06/12/2024 Progress Note Patient: Emory BERMUDEZAGAlka Emory Provider: Alverto Rich DPM :1955 A ge:68 Y S ex:Female Date:06/12/2024 Address:[address] [place], [place] [phone] Pcp:Femi Nielsen MD Subjective: * Chief Complaints: * * Medical History: Objective: * Vitals: Assessment: Plan: * Treatment: * Images: * The named appointment provid er may or may not be the originator of this progress note, and it is not deemed complete until electronically signed by the appointment provider. Sign off status: Pending * Provider: Alverto Rich DPM Date: 08/12/2023 Generated for Printi ng/Famary aliceg/eTransmitting on: 0 03/18/2025 04:47 PM EDT
--- OUTSIDE RECORDS SUMMARY | 2025-03-05 07:30 | XMS_ITS ---
Author Organization [facility] Address [address] [place] [address] Care Team Providers Care Configuration Management Architect Name Role Phone Femi Nielsen Primary Care Provider REASON FOR VISIT CPE- fu, PHQ9:, HCP:, IMMS: due for Tdap, shingrix and covid (checked only in [facility]), COLONOSCOPY: 11/03/21 cologuard negative- due, BONE DENSITY: no records, LAST A1C: 06/27/23= 7.4%- overdue, LAST MICROALBUMIN: 03/28/23= 2569.0- overdue, LAST FOOT EXAM:10/13/21 POOR- overdue, BS: PP: Encounters Encounter Location Date Provider Diagnosis [facility] [address] [place] [phone] 03/05/2025 Femi Nielsen Adult physical JENNYFER L Z00.00 Assessments Encounter Date Diagnosis (ICD Code) Assessment Notes Treatment Notes Treatment Clinical Notes Section Notes 03/05/2025 Adult physical NORMAL (ICD-10 - Z00.00) Plan Of Treatment Next Appt Details Follow Up: 1 year next CPE, Reason: Provider Name:Femi hdz, 03/19/2025 02:30:00 PM, [address] [place] [address], [phone], History and Physical Notes * HPI (History of Present Illness) Category Sub-Category Detail Notes Category Not es Well Senior Visit Mental Status Review Mood Assessment:: D one Functional Ability Review Activities of Daily Li ving Assessment:: Done Falls Risk Assessment:: Done Home Safety Assessment:: Done End of Life Care End of Life Care:: Discussed BMI Review BMI Review:: Done Decision Maker: Name/Relationship se e chart Physical Examination Category Sub-Category Detail Notes Section Note s HEENT Head: normocephalic Tympanic membrane(s): clear and flat albertina aterally Mouth: moist mucus membrane s, no lesions NECK General: supple Cervical lymph nodes: normal Carotid bruit: none bilaterally , n one bilaterally JVD: none , none EXTREMITIES Edema: no Cyanosis: Clubbing: Tremors: Pulses: Skin: HEART PMI: normal Rhythm: regular Murmurs: no Heart sounds: normal S1S2 Clicks: ABDOMEN General: normoactive eloina l sounds, soft, nontender, no masses or hepatosplenomegaly NEUROLOGICAL General: alert and orient ed, no cerebellar ataxia or pronator drift. MUSCULOSKELETAL General: normal strength and ROM n oted GENITOURINARY - FEMALE General: SKIN Moles: benign appearing General: warm, moist GENERAL General Appearence: well-appearing, alert and oriented LYMPH NODES Cervical: none Axillary: none , none LUNGS General: no wheezes or ra les. good airflow throughout , no wheezes or rales. good airflow throughout BREASTS General: no masses, tenderness, skin changes, or nipple abnormality Axilla: no lymphadenopathy , no lymphadenopathy EYES Conjunctiva: no conjunctival injections. LINDA, EOMI bilaterally Mental status exam Orientation fully oriented Progress Notes * JOSE FRANCISCO LEIJADOB:1955 ( 69 yo F)Acc No.[id number]:03/05/2025 Progress Notes Patient: Emory BERMUDEZJOSE FRANCISCO LUONG Provider: Imer Nielsen MD :1955 A ge:69 Y S ex:Female Date:03/05/2025 C HN#:[id number] Address:[address] [place] [address] [facility] Subjective: * Chief Complaints: * C PE- fuPHQ9:HCP:IMMS: due for Tdap, shingrix and covid (checked only in [facility])COLONOSCOPY: 11/03/21 cologuard negative- dueBONE DENSITY: no recordsLAST A1C: 06/27/23= 7.4%- overdueLAST MICROALBUMIN: 03/28/23= 2569.0- overdueLAST FOOT EXAM:10/13/21 POOR- overdueBS: PP: * HPI: W fred Senior Visit: Mental Status Review M ood Assessment: D one Functional Ability Review A ctivities of Daily Living Assessment: D one F alls Risk Assessment: D one H ome Safety Assessment: D one End of Life Care E nd of Life Care: D iscussed BMI Review B FL Review: D one Decision Maker: N chu/Relationship see chart. Objective: * Physical Examination: G ENERAL: General Appearence: w ell-appearing, alert and oriented.? M ental status exam: Orientation f ully oriented. S KIN: General: w arm, moist. Moles: b enign appearing. L YMPH NODES: Cervical: n one. Axillary: n one , none. E YES: Conjunctiva: n o conjunctival injections. LINDA, EOMI bilaterally. H EENT: Head: n ormocephalic. Tympanic membrane(s): c lear and flat bilaterally. Mouth: m oist mucus membranes, no lesions. N JULISSA: General: s upple. Cervical lymph nodes: n ormal. JVD: n one , none. Carotid bruit: n one bilaterally , none bilaterally. B REASTS: General: n o masses, tenderness, skin changes, or nipple abnormality. Axilla: n o lymphadenopathy , no lymphadenopathy. H EART: PMI: n ormal. Rhythm: r egular. Murmurs: n o. Heart sounds: n ormal S1S2. L UNGS: General: n o wheezes or rales. good airflow throughout , no wheezes or rales. good airflow throughout. A BDOMEN: General: n ormoactive bowel sounds, soft, n ontender, n o masses or hepatosplenomegaly. E XTREMITIES: Edema: n o. M USCULOSKELETAL: General: n ormal strength and ROM noted. N EUROLOGICAL: General: a lert and oriented, no cerebellar ataxia or pronator drift.. Assessment: * Assessment: 1. A dult physical NORMAL - Z00.00 (Primary) Plan: * Procedure Codes: 9 9497 ADVANCED CARE PLANNING FIRST 30 MIN, Modifiers: 25 , [id number] ANNUAL ALCOHOL MISUSE SCREEN 15 [id number] [facility] ANNUAL DEPRESSION SCREENING 15 MIN * Preventive Medicine: Screening / Special Tests: F all risk screening Fall Risk Assessment: N o falls in the past year * Follow Up: 1 year next CPE Billing Information: * Visit Code: [id number] Medicare CPE Exam. * Procedure Codes: 27936 ADVANCED CARE PLANNING FIRST 30 MIN. Modifiers: 25, 33 G0442 ANNUAL ALCOHOL MISUSE SCREEN 15 MIN. G0444 [facility] ANNUAL DEPRESSION SCREENING 15 MIN. Care Plan Details* * Electronic signature of Ciro Nielsen MD on 03/18/2025 at 04:50 PM EDT Sign off status: Pending * Provider: Imer Nielsen MD Date: 03/05/2025 Generated for Josse curran/Estefany/eTransmitting on: 03/18/2025 04:50 PM EDT
--- NOTE | ~2025-03-18 | CT_ITS ---
EXAMINATION: CT HEAD WITHOUT CONTRAST CLINICAL INFORMATION: pain, head injury, on AC, fall COMPARISON: June 08, 2021 TECHNIQUE: Contiguous axial imaging was performed from the skull base to vertex without intravenous administration of contrast. This CT examination was performed using dose optimization techniques as appropriate, variously including the following: *Automated exposure control *Adjustment of mA and/or kV according to patient size (this includes techniques or standardized protocols for targeted exams where dose is matched to indication/reason for exam; i.e. extremities or head) *Use of iterative reconstruction technique DLP: 818.13 mGy-cm FINDINGS: No acute cortical disruption in the bony calvarium or the skull base. Old traumatic deformity, nasal bones. No acute intracranial hemorrhage, mass effect, midline shift, hydrocephalus or herniation. Bass-white matter differentiation is normal. Bilateral multifocal patchy deep periventricular white matter hypodensity involving centrum semiovale and stein radiata. Prominence of the extra-axial CSF spaces cerebral sulci and ventricles. Posterior cranial fossa contents demonstrated no acute hemorrhage or gross mass effect. Normal position of the cerebellar tonsils. Calcified plaques in the V4 segments of the vertebral arteries, basilar artery and the V3/cavernous supracavernous segments both ICAs. CT/CT head/brain wo IV con IMPRESSION: No acute fracture, bony calvarium. No acute intracranial hemorrhage. Global cerebral atrophy. Small vessel occlusive disease. Atherosclerosis disease, intracranial. Electronically signed by: Ta Min MD 03/18/2025 03:42 PM EDT
--- NOTE | ~2025-03-18 | CT_ITS ---
EXAMINATION: CT CERVICAL SPINE WITHOUT CONTRAST CLINICAL INFORMATION: Fall, head injury, anticoagulated. COMPARISON: 10/12/2019. TECHNIQUE: Spiral CT imaging of the cervical spine performed in axial plane without contrast. Multiplanar reformatted images were constructed from the axial data set. This CT examination was performed using dose optimization techniques as appropriate, variously including the following: *Automated exposure control *Adjustment of mA and/or kV according to patient size (this includes techniques or standardized protocols for targeted exams where dose is matched to indication/reason for exam; i.e. extremities or head) *Use of iterative reconstruction technique FINDINGS: CORONAL ALIGNMENT: -Normal. No significant scoliosis. SAGITTAL ALIGNMENT: -There is straightening of the normal lordosis. -There is no subluxation. C1-C2 AND CRANIOCERVICAL JUNCTION: -Intact and normally aligned. VERTEBRAL BODIES AND FACETS: -No fracture, compression deformity, or suspicious bone lesion. -There is normal facet alignment bilaterally. -There is no evidence of traumatic subluxation. DISCS: -Moderate disc degeneration most notable C5-6 and C6-7. CENTRAL CANAL: -No evidence of high-grade central canal narrowing or large disc herniation allowing for modality limitations. -There is moderate central canal stenosis at C5-6 secondary to a disc osteophytic bulge. PREVERTEBRAL AND PARAVERTEBRAL SOFT TISSUES: -There is multinodular goiter. -There is retropharyngeal course of both carotid arteries. Moderate carotid bulb calcifications right greater than left. -There is no prevertebral or paravertebral soft tissue edema, swelling, or abnormal fluid collection. LUNG APICES: -Clear bilaterally. No pneumothorax. CT/CT cervical spine wo IV con IMPRESSION: 1. No CT evidence of acute cervical spine fracture or injury. 2. Multinodular goiter. 3. Ancillary findings as discussed. Electronically signed by: Gabe Jorgensen MD 03/18/2025 03:44 PM EDT
--- NOTE | ~2025-03-18 | XR_ITS ---
EXAMINATION: XR TIBIA AND FIBULA, RIGHT CLINICAL INFORMATION: pain, injury COMPARISON: None available. TECHNIQUE: AP and lateral views of the right tibia and fibula were obtained. FINDINGS: Images of the knee demonstrates small marginal osteophytes along the medial joint line and intercondylar spines. . Small marginal osteophyte is present involving medial malleolus. No fractures are identified. Geographic cortical lucency is present in the mid third diaphysis of the fibula. There is no periosteal new bone formation and no endosteal destruction. There is soft tissue swelling anterior to the middle third portion of the lower leg. XR/XR tibia fibula RT 2V IMPRESSION: There is soft tissue swelling anterior to the middle third portion of the lower leg. Unremarkable right tibia and fibula. Mild degenerative changes in the knee and ankle joint. Electronically signed by: Serafin Schwab MD 03/18/2025 02:39 PM EDT
--- NOTE | 2025-03-18 13:46 | ED_ITS ---
HPI - General Adult General Chief complaint: Fall Stated complaint: FALL IN SHOWER Time Seen by Provider: 03/18/25 13:46 Source: patient, family (patient's daughter) and EMS Mode of arrival: EMS Limitations: no limitations History of Present Illness ED Provider: Shannan Caballero PA-C HPI narrative: Patient is a 69 year old assigned female at with a history of CKD, HF, HTN, DM, and atrial fib on eliquis presenting to the emergency department today with right lower leg pain after a fall. Patient states that she went to get into the shower and slipped and fell. Patient states that she did not strike her head or have any loss of consciousness. Patient states that her right lower leg hurts. Patient denies any other complaints at this time. Patient states that she did not have any dizziness or lightheadedness prior to or after her fall. Related Data Home Medications ?Medication ?Instructions ?Recorded ?Confirmed amlodipine 10 mg tablet 10 mg PO BEDTIME 10/22/23 apixaban 5 mg tablet (Eliquis) 5 mg PO BID 10/22/23 atorvastatin 40 mg tablet 40 mg PO BEDTIME 10/22/23 gabapentin 600 mg tablet 1,800 mg PO BEDTIME 10/22/23 03/10/25 hydroxyzine HCl 25 mg tablet 25 mg PO QID PRN Anxiety/ Itching 10/22/23 03/10/25 tirzepatide 5 mg/0.5 mL 5 mg subcut TH 10/22/2302/20 subcutaneous pen injector (Sintia) trazodone 100 mg tablet 100 mg PO BEDTIME 10/22/23 0 03/10/25 Probiotic 1 gummy PO DAILY 10/25/23 gabapentin 300 mg capsule 300 mg PO BID PRN NEUROPATHY 03/10/25 03/10/25 insulin glargine 100 unit/mL (3 40 unit subcut BEDTIME 03/10/25 03/10/25 mL) subcutaneous pen (Basaglar KwikPen U-100 Insulin) insulin lispro 100 unit/mL See Protocol subcut TIDAC P RN 03/10/25 03/10/25 subcutaneous pen (Admelog SoloStar Hyperglycemia U-100 Insulin lispro) urea 20 % topical cream 1 appl topical DAILY PRN [facility] Care 03/10/25 03/10/25 Previous Rx's ?Medication ?Instructions ?Recorded bumetanide 1 mg tablet 2 mg PO BID@0800,1700 #60 ta bs 03/15/25 doxycycline monohydrate 100 mg 100 mg PO Q12H #4 caps 03/15/25 capsule empagliflozin 10 mg tablet 10 mg PO DAILY #30 tabs (Jardiance) metoprolol succinate 25 mg 25 mg PO BEDTIME #30 tabs 0 03/15/25 tablet,extended release 24 hr Allergies Allergy/AdvReac Type Severity Reaction Status Date / Time adhesive (ADHESIVE) Allergy Intermediate RASH Verified 03/18/25 14:57 amitriptyline Allergy Rash Verified 03/18/25 14:57 Review of Systems 2 Constitutional: Constitutional: Reports as per HPI Eyes: Eyes: Reports as per HPI ENT: Reports as per HPI Cardiovascular: Cardiovascular: Reports as per HPI Respiratory: Respiratory: Reports as per HPI Gastrointestinal: Gastrointestinal: Reports as per HPI Genitourinary: Genitourinary: Reports as per HPI Musculoskeletal: Musculoskeletal: Reports as per HPI Integumentary/Breasts: Skin/Breast: Reports as per HPI Neurologic: Reports as per HPI Psychiatric: Psychiatric: Reports as per HPI Endocrine: Endocrine: Reports as per HPI Hematologic/Lymphatic: Hematologic/Lymphatic: Reports as per HPI Allergic/Immunologic: Allergic/Immunologic: Reports as per HPI [facility] Past Medical History Attestation statement: The following information was validated with the patient. (all information validated with the patient's daughter) Source: old records reviewed and nursing notes reviewed Medical History Bacteremia Streptococcal infection group C Morbid obesity Myositis Achilles tendon infection Hyperlipidemia Chronic kidney disease Recurrent cellulitis of lower extremity Hypertension Type 2 diabetes mellitus Surgical History H/O hysterectomy for benign disease Status post debridement History of incision and drainage Family History Family History Other Hypertension Social History Social History Household Members: None Housing: Assisted Living Facility Do you presently have visiting nurse or other home services: Yes Alcohol intake: current Alcohol intake frequency: holidays/special occasions only Patient Tobacco Use Status: Current everyday Tobacco user Tobacco use type: Cigarette Cigarettes Per Day: 4 Years Smoked: 20 Smoked in Last 30 Days: No e-Cigarette/Vaping Use: Currently Using Second Hand Smoke Exposure: No Use of substances other than those prescribed or required for medical reasons: No Advance Directives: No Advance Directives Information Provided: No Do you have a plan to hurt others: No Plan service: No Physical Exam ED Vital Signs: Vital Signs - 24 hr 03/18/25 14:30 03/18/25 15:35 03/18/25 16:49 Temperature 98.1 F 97.7 F 97.7 F Pulse Rate 76 65 65 Respiratory Rate 16 14 14 Blood Pressure 156/90 H 154/67 H 154/67 H Pulse Oximetry 100 98 98 Oxygen Delivery Method Room Air Room Air BMI result Body Mass Index 42.7 Const General: cooperative, no acute distress, alert and awake Nutritional Appearance: well nourished Orientation/consciousness: patient oriented x3 HENMT Head: Yes normal to inspection and Yes atraumatic Ears: hearing grossly normal bilaterally and external ears normal General nose exam: Normal external nose present, no nasal discharge noted and no epistaxis Face and sinus: Yes normal facial exam, No abrasion and No laceration Mouth: Normal oral and palatal mucosa present, no drooling and no muffled voice Eyes General: appearance normal, both eyes and all related structures Periorbital: periorbital findings normal Eyelids: Yes eyelids normal Conjunctivae: conjunctivae normal Pupils: Equal, round and reactive pupils present EOM: EOMs intact bilaterally Neck Neck: Yes normal visual inspection and Yes full ROM Resp Effort & Inspection: normal respiratory effort and able to speak in complete sentences Neuro General: patient oriented x3, moves all extremities and CN's II-XI intact bilaterally Cranial nerves: Yes Equal, round and reactive pupils present Cognition (Neuro): normal cognition Extrem Other: General: Yes full ROM and Yes capillary refill normal Psych Appearance: grossly normal Mental Status: mental status grossly normal Affect: normal affect Attitude: cooperative Thought process: Normal thought process present Thought content: Normal thought content present Insight: Good insight present (Psych) Medical Decision Making Medical Decision Making MDM Narrative: Patient is a 69 year old assigned female at with a history of CKD, HF, HTN, DM, and atrial fib on eliquis presenting to the emergency department today with right lower leg pain after a fall. Patient's physical exam was as noted in the physical exam portion of this note. Patient has chronic lower leg wounds for which she already follows with the wound center for. Patient has a right lower leg skin tear and a hematoma. Patient's right tib fib x-ray showed no acute process. Patient's CT head and c-spine did not show any acute process but did show a multinodular goiter. I explained my physical exam findings as well as all test results to the patient and the patient's daughter. I answered all questions asked by the patient and the patient's daughter. Patient states that she was told she had a thyroid nodule years ago but has not had further follow up since. I recommended the patient follow up with a general surgeon for further thyroid testing / possible biopsy. Given patient's anti-coagulated status - I recommended having the patient hold her evening Eliquis dose and I applied a pressure dressing via an ERICK wrap. Patient's PMS was intact prior to and after pressure dressing placement. I stressed the importance of the patient taking her medication as directed (either prescribed or as the over the counter packaging recommends). I stressed the importance of the patient following up with her primary care provider, the wound center, and the general surgeon for her thyroid. I stressed the importance of the patient returning to the emergency department immediately if her symptoms were to worsen or if she were to develop any dizziness, shortness of breath, difficulty breathing, chest pain, blurry vision, loss of vision, nausea, vomiting, abdominal pain, fever, chills, back pain, or any other complaints. Patient verbalized agreement and understanding with this treatment plan and discharge. Differential Diagnosis Differential Diagnoses: The differential diagnosis associated with the presentation includes Fall Hematoma Contusion Admission/Observation Consideration of admission/observation: Escalation of care including admission/observation considered Patient would have been admitted to the hospital had her work up had any findings where hospital admission was appropriate and her clinical presentation warranted hospital admission. Independent Interpretation I performed an independent interpretation of an: Plain X-Ray and CT Scan Interpretation: My interpretation is in agreement with the radiologist's impression of these imaging studies. L EXAMINATION: XR TIBIA AND FIBULA, RIGHT CLINICAL INFORMATION: pain, injury COMPARISON: None available. TECHNIQUE: AP and lateral views of the right tibia and fibula were obtained. FINDINGS: Images of the knee demonstrates small marginal osteophytes along the medial joint line and intercondylar spines. Small marginal osteophyte is present involving medial malleolus. No fractures are identified. Geographic cortical lucency is present in the mid third diaphysis of the fibula. There is no periosteal new bone formation and no endosteal destruction. There is soft tissue swelling anterior to the middle third portion of the lower leg. XR/XR tibia fibula RT 2V IMPRESSION: There is soft tissue swelling anterior to the middle third portion of the lower leg. Unremarkable right tibia and fibula. Mild degenerative changes in the knee and ankle joint. Electronically signed by: Serafin Schwab MD 03/18/2025 02:39 PM EDT RP Dictated By: Serafin Schwab MD Signed By: Electronically signed by Serafin Schwab MD 03/18/25 1439 Report Number: [id number]: Total DLP = 531.00 mGy-cm EXAMINATION: CT CERVICAL SPINE WITHOUT CONTRAST CLINICAL INFORMATION: Fall, head injury, anticoagulated. COMPARISON: 10/12/2019. TECHNIQUE: Spiral CT imaging of the cervical spine performed in axial plane without contrast. Multiplanar reformatted images were constructed from the axial data set. This CT examination was performed using dose optimization techniques as appropriate, variously including the following: *Automated exposure control *Adjustment of mA and/or kV according to patient size (this includes techniques or standardized protocols for targeted exams where dose is matched to indication/reason for exam; i.e. extremities or head) *Use of iterative reconstruction technique FINDINGS: CORONAL ALIGNMENT: -Normal. No significant scoliosis. SAGITTAL ALIGNMENT: -There is straightening of the normal lordosis. -There is no subluxation. C1-C2 AND CRANIOCERVICAL JUNCTION: -Intact and normally aligned. VERTEBRAL BODIES AND FACETS: -No fracture, compression deformity, or suspicious bone lesion. -There is normal facet alignment bilaterally. -There is no evidence of traumatic subluxation. DISCS: -Moderate disc degeneration most notable C5-6 and C6-7. CENTRAL CANAL: -No evidence of high-grade central canal narrowing or large disc herniation allowing for modality limitations. -There is moderate central canal stenosis at C5-6 secondary to a disc osteophytic bulge. PREVERTEBRAL AND PARAVERTEBRAL SOFT TISSUES: -There is multinodular goiter. -There is retropharyngeal course of both carotid arteries. Moderate carotid bulb calcifications right greater than left. -There is no prevertebral or paravertebral soft tissue edema, swelling, or abnormal fluid collection. LUNG APICES: -Clear bilaterally. No pneumothorax. CT/CT cervical spine wo IV con IMPRESSION: 1. No CT evidence of acute cervical spine fracture or injury. 2. Multinodular goiter. 3. Ancillary findings as discussed. Electronically signed by: Gabe Jorgensen MD 03/18/2025 03:44 PM EDT RP Dictated By: Gabe Jorgensen MD Signed By: Electronically signed by Gabe Jorgensen MD 03/18/25 1544 Report Number: [id number]: Total DLP = 827.00 mGy-cm EXAMINATION: CT HEAD WITHOUT CONTRAST CLINICAL INFORMATION: pain, head injury, on AC, fall COMPARISON: June 08, 2021 TECHNIQUE: Contiguous axial imaging was performed from the skull base to vertex without intravenous administration of contrast. This CT examination was performed using dose optimization techniques as appropriate, variously including the following: *Automated exposure control *Adjustment of mA and/or kV according to patient size (this includes techniques or standardized protocols for targeted exams where dose is matched to indication/reason for exam; i.e. extremities or head) *Use of iterative reconstruction technique DLP: 818.13 mGy-cm FINDINGS: No acute cortical disruption in the bony calvarium or the skull base. Old traumatic deformity, nasal bones. No acute intracranial hemorrhage, mass effect, midline shift, hydrocephalus or herniation. Bass-white matter differentiation is normal. Bilateral multifocal patchy deep periventricular white matter hypodensity involving centrum semiovale and stein radiata. Prominence of the extra-axial CSF spaces cerebral sulci and ventricles. Posterior cranial fossa contents demonstrated no acute hemorrhage or gross mass effect. Normal position of the cerebellar tonsils. Calcified plaques in the V4 segments of the vertebral arteries, basilar artery and the V3/cavernous supracavernous segments both ICAs. CT/CT head/brain wo IV con IMPRESSION: No acute fracture, bony calvarium. No acute intracranial hemorrhage. Global cerebral atrophy. Small vessel occlusive disease. Atherosclerosis disease, intracranial. Electronically signed by: Ta Min MD 03/18/2025 03:42 PM EDT RP Dictated By: Ta Lepe MD Signed By: Electronically signed by Ta Giraldo MD 03/18/25 1542 Radiology Impression Discussion of test interpretation with radiology: I have reviewed the radiologist's reading. Independent Historian Clinical information obtained from an independent historian. History obtained from or confirmed by: EMS (EMS provided additional history and confirmed the history provided by the patient. ) and Other (Patient's daughter provided additional history and confirmed the history provided by the patient. ) Discharge Plan Discharge Clinical Impression: Hematoma of right lower leg, Noninfected skin tear of right leg, Thyroid goiter Patient Disposition: Home, Self-Care Instructions: Contusion in Adults (ED), Thyroid Goiter (ED) Additional Instructions: Your imaging today showed a multinodular goiter of the thyroid - it is important you follow up with a general surgeon for this. You must restart your eliquis tomorrow (03/19/2025) morning. The ERICK wrap on your right lower leg should NEVER be so tight that you cannot feel your toes. IF you are prescribed home medications and/or you are taking over the counter medications at home - it is very important you continue to do so as prescribed / directed unless told otherwise. Follow up with a primary care provider. Return to the emergency department immediately if your symptoms worsen or if you develop any numbness, tingling, dizziness, shortness of breath, difficulty breathing, chest pain, blurry vision, loss of vision, nausea, vomiting, abdominal pain, fever, chills, back pain, or any other complaints. L If you do not have a primary care provider - call any of the below numbers to establish and follow up with a primary care provider. [facility] Primary Care ([place]) [phone] [place] [address], [address] [facility] Primary Care ([address] [place]) [phone] [place] [address], [address] [facility], [address] [facility] Primary Care ([address] [place]) [phone] [place] [address], [address] [facility], [address] [facility] Primary Care ([place]) [phone] [place] [address] [address] [facility], [address] [facility] Family Medicine [phone] [place] [address], [address] Please see the information below about our Patient Portal. If you are not yet enrolled in the [facility] Patient Portal, you will receive an enrollment email invitation following your visit to any [facility] setting. You may also self-enroll in the Patient Portal by visiting our website: [email or web address] The following information is required to access the Patient Portal: - Your [facility] Medical Record Number - Your personal home email address (must match what is in your electronic medical record, Registration staff can assist with this) - Name - Date of Capabilities of the Patient Portal: - Message some providers - View upcoming appointments - Access your health summary, medical history, and visit history - View current conditions and allergies - View procedure and lab results - View your medications, including guidelines, side effects, and precautions - Complete pre-appointment questionnaires requested by your provider - Ready summary reports of your office visits and procedures To access the Patient Portal Mobile [employer], follow these directions: - Search [employer] in the [employer] Store or Google Play Store - Download the [employer] - Search for [facility] - Enter your login/password Prescriptions: No Action atorvastatin 40 mg tablet 40 mg PO BEDTIME gabapentin 600 mg tablet 1,800 mg PO BEDTIME trazodone 100 mg tablet 100 mg PO BEDTIME amlodipine 10 mg tablet 10 mg PO BEDTIME hydroxyzine HCl 25 mg tablet 25 mg PO QID PRN (Reason: Anxiety/Itching) Mounjaro 5 mg/0.5 mL pen injector 5 mg subcut TH Eliquis 5 mg tablet 5 mg PO BID Probiotic 1 gummy PO DAILY urea 20 % cream 1 appl topical DAILY PRN (Reason: Wound Care) insulin glargine [Basaglar KwikPen U-100 Insulin] 100 unit/mL (3 mL) insulin pen 40 unit subcut BEDTIME gabapentin 300 mg capsule 300 mg PO BID PRN (Reason: NEUROPATHY ) insulin lispro [Admelog SoloStar U-100 Insulin] 100 unit/mL insulin pen See Protocol SUBCUT TIDAC PRN (Reason: Hyperglycemia) Protocol: Insulin Correction Scale Less than or equal to 110 ---- Give (units): 0 111 to 150 Give (units): 0 151 to 200 Give (units): 2 201 to 250 Give (units): 4 251 to 300 Give (units): 6 301 to 350 Give (units): 8 Greater than 350 Give (units): 10 Call MD if Blood Glucose > : 350 doxycycline monohydrate 100 mg Capsule 100 mg PO Q12H Qty: 4 0RF metoprolol succinate 25 mg Tablet Extended Release 24 Hr 25 mg PO BEDTIME Qty: 30 0RF Protocol: Hold for SBP/HR < HOLD for SBP < : 90 HOLD for HR < : 60 Jardiance 10 mg Tablet 10 mg PO DAILY Qty: 30 0RF bumetanide 1 mg Tablet 2 mg PO BID@0800,1700 Qty: 60 0RF Protocol: Hold for SBP< HOLD for SBP < : 90 Referrals: [facility] General Surgeons [Provider Group, General Surgery] Referral Note: Call to establish and follow up with a general surgeon about your thyroid. Interventions: ED Discharge Assessment Last Done: 03/18/25 16:49 Discharge Date/Time: 03/18/25 16:51 Print Language: Egyptian
[2025-03-18 14:30] VITALS: BP 148/88; BP 156/90; PULSE 71; PULSE 76; RESP 16; TEMP 36.7; O2SAT 100; O2SAT 99; BMI 42.7
[2025-03-18 15:35] VITALS: BP 154/67; PULSE 65; RESP 14; TEMP 36.5; O2SAT 98
--- OUTSIDE RECORDS SUMMARY | 2025-03-18 16:47 | XMS_ITS | Patient Health Record ---
Author Organization [facility] davin Address [address] [place] [address] Care Team Providers Care Pe Electrical Engineer Name Role Phone Femi Nielsen Primary Care Provider Betzy Phipps Unavailable [phone] Trung Collins Unavailable [phone] Allergies Allergen (clinical drug ingredient) Drug/Non Drug [...] review and pick correct strength-formulati on from Wipit options. If intended option is not shown, [...] Vaccine Route Administration Date Status Comme nts Covid Vac Bivalent Moderna,History Unknown 04/08/2022 Administered COVID VACC 19+ PFIZER PURCHASED IM Intramuscular 04/14/2023 Administered VACCINE GIVEN IN PT'S HOME COVID Vacc BIVALENT 12+ Pfizer IM Intramuscular 11/27/2022 Administered COVID-19 Vaccine (Moderna), History IM Intramuscular 11/10/2021 Administered LOT NUMBER: [id number] COVID-19 Vaccine, Moderna, State Supplied IM Intramuscular 09/17/2020 Administered COVID-19 Vaccine, Moderna, State Supplied IM Intramuscular 10/15/2020 Administered Flu Vaccine; History Unknown 04/22/2016 Administered Flu Vaccine; History Unknown 06/07/2017 Administered Flu Vaccine; History Unknown 05/06/2018 Administered Flu Vaccine; History Unknown 10/01/2018 Administered FLUZONE HIGH DOSE 65+ PURCHASED IM Intramuscular 03/31/2020 Administered FLUZONE HIGH DOSE 65+ PURCHASED IM Intramuscular 04/14/2023 Administered PCV15 Purchased (MixneAk?Lex) IM Intramuscular 12/20/2022 Administered PPD planted ID Intradermal 12/20/2022 Administered PPD reading Unknown 12/22/2022 Administered PREVNAR 20 PURCHASED IM Intramuscular 02/26/2024 Administered RSV VACC HISTORY ADULT Unknown 04/19/2023 Administered TDAP history Unknown 07/23/2010 Administered Social History Tobacco Use: Social History [...] live locally, grandkids Pets: Fish: lives in [place] alone Ed: [employer] Section [...] Status W/U Status Risk Notes Problem Depression (68297839) Depression (F32.9) Active confirmed Problem Venous stasis ulcer of unspecified site (I83.009) Active confirmed Problem Hyperlipidemia (02920613) Hyperlipidemia, unspecified (E78.5) Active confirmed Problem Essential hypertension (74146751) Hypertension, essential (I10) Active confirmed Problem Atrial fibrillation (99393743) Atrial fibrillation, unspecified (I48.91) Active confirmed Problem Body mass index 40+ - severely obese (895714758) BMI 45.0-49.9, adult (Z68.42) Active confirmed Problem Acute vaginitis (15027071) Vaginitis acute (N76.0) Active confirmed Problem Vitamin D deficiency (06138580) Vitamin D deficiency, unspecified (E55.9) Active confirmed High Problem Cellulitis of left lower limb (22783134667995201) Cellulitis lower limb, left (L03.116) Active confirmed Problem Ulcer Non-pressure chronic other part of right foot with fat layer exposed (L97.512) Active confirmed Problem Hydronephrosis with renal and ureteral calculous obstruction (N13.2) Active confirmed Problem Menopause (306905622) Menopausal and female climacteric states (N95.1) Active confirmed Problem Other specified injury of left Achilles tendon, subsequent encounter (S86.092D) Active confirmed Problem Long-term current use of insulin (305659328) 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 of insulin (Z79.4) Active confirmed Problem History of fall (713042130) History of falling (Z91.81) Active confirmed Problem Hypertension (79126161) HTN (I10) Active confirmed Problem Urinary frequency (211289116) Urinary frequency (R35.0) Active confirmed Problem Urinary incontinence (726992099) Urinary incontinence, unspecified (R32) Active confirmed Problem Osteoporosis (49346223) Osteoporosis NOS (M81.0) Active confirmed Problem Pure hyperglyceridemia (001831768) Hypertriglyceride isai, essential (E78.1) Active confirmed Problem Hyperglycemia due to type 2 diabetes mellitus (151782997982283) Type 2 diabetes mellitus with hyperglycemia (E11.65) Active confirmed Problem Urinary incontinence (662367546) Incontinence urinary (R32) Active confirmed Problem Disorder due to type 2 diabetes mellitus (654685363) Type 2 diabetes mellitus with unspecified complications (E11.8) Active confirmed Problem Diabetic renal disease (995449703) Type 2 diabetes mellitus with diabetic chronic kidney disease (E11.22) Active confirmed Problem Chronic kidney disease stage 4 (446517928) Chronic kidney disease, stage 4 (severe) (N18.4) Active confirmed Problem Hyperosmolarity due to secondary diabetes mellitus (481431696041879) Type 2 diabetes mellitus with hyperosmolarity without nonketotic hyperglycemic-hyp erosmolar coma (NKHHC) (E11.00) Active confirmed Problem Dermopathy due to type 2 diabetes mellitus (disorder) (4887338077839) 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) Active confirmed Problem Skin ulcer associated with diabetes mellitus (413538054) Type 2 diabetes mellitus with other skin ulcer (E11.622) Active confirmed Problem Anemia (262297143) Anemia NOS (D64.9) Active confirmed Problem Dermopathy due to type 2 diabetes mellitus (disorder) (1990682085763) Type 2 diabetes mellitus with other skin complications (E11.628) Active confirmed Problem Long-term current use of anticoagulant (441051963) 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 of anticoagulants (Z79.01) Active confirmed Problem Chronic kidney disease stage 3B (disorder) (076520699) Chronic kidney disease, stage 3b (N18.32) 021 Active confirmed Problem Body mass index 40+ - severely obese (365847347) Body mass index [BMI] 45.0-49.9, adult (Z68.42) Active confirmed Problem Kidney disease chronic stage 3B (N18.32) Active confirmed Vital Signs Temperature 97.5 degrees Fahrenheit 12/23/2024 Oximetry 99 12/23/2024 Blood pressure diastolic 76 mm Hg 12/23/2024 Height 65 in 04/03/2024 Blood pressure systolic 122 mm Hg 12/23/2024 Encounters Encounter Location Date Provider Diagnosis [facility] [address] [place] [address] 03/10/2025 Femi Nielsen [facility] [place] [address] [place] [address] 03/25/2024 Femi Nielsen [facility] [place] [address] [place] [address] 04/10/2024 Femi Nielsen [place] [address] [place] [address] 04/17/2024 Femi Nielsne [facility] [address] [place] [address] 04/21/2024 Femi Nielsen [facility] [place] [address] [place] [address] 05/16/2024 Femi Nielsen [place] [address] [place] [address] 05/16/2024 Femi Nielsen [facility] [address] [place] [address] 05/21/2024 Femi Nielsen [facility] [address] [place] [address] 05/22/2024 Femi Nielsen [facility] [address] [place] [address] 05/26/2024 Femi Nielsen [facility] [address] [place], [place] [address] 07/08/2024 Femi Nielsen [facility] [address] [place], [place] [address] 07/08/2024 Femi Nielsen [facility] [address] [place], [place] [address] 07/14/2024 Femi Nielsen [facility] [address] [place] [address] 07/14/2024 Femi Nielsen [facility] [address] [place], [place] [address] 07/15/2024 Femi Nielsen [facility] [address] [place] [address] 07/15/2024 Femi Nielsen [facility] [address] [place] [address] 07/25/2024 Femi Nielsen [facility] [address] [place], [place] [address] 07/25/2024 Femi Nielsen [facility] [address] [place] [address] 08/06/2024 Femi Nielsen [facility] [address] [place], [place] [address] 08/06/2024 Femi Nielsen [facility] [address] [place], [place] [address] 08/12/2024 Femi Nielsen [facility] [address] [place], [place] [address] 08/25/2024 Femi Nielsen [facility] [address] [place], [place] [address] 09/17/2024 Femi Nielsen [facility] [address] [place] [address] 09/18/2024 Femi Nielsen [facility] [address] [place], [place] [address] 09/19/2024 Betzy Phipps [facility] [address] [place], [place] [address] 09/19/2024 Betzy Phipps [facility] [address] [place] [address] 09/22/2024 Betzy Phipps [facility] [address] [place] [address] 09/24/2024 Femi Nielsen [facility] [address] [place] [address] 11/07/2024 Femi Nielsen [facility] [address] [place] [address] 11/13/2024 Femi Nielsen Fatigue R53.83 ; Vitamin D deficiency, unspecified E55.9 ; HTN I10 ; Hyperlipidemia, unspecified E78.5 and Hypertriglyceridemia, essential E78.1 [facility] [address] [place] [address] 11/18/2024 Femi Nielsen [facility] [address] [place] [address] 11/19/2024 Femi Neilsen [facility] [address] [place] [address] 11/19/2024 Femi Nielsen [facility] [address] [place] [address] 11/19/2024 Femi Nielsen [facility] [address] [place] [address] 11/24/2024 Femi Nielsen [facility] [address] [place] [address] 12/02/2024 Femi Nielsen [facility] [address] [place] [address] 12/08/2024 Femi Nielsen [facility] [address] [place] [address] 12/09/2024 Betzy Phipps [facility] [address] [place] [address] 12/09/2024 Betzy Phipps [facility] [address] [place] [address] 01/06/2025 Femi Nielsen [facility] [address] [place] [address] 01/09/2025 Femi Nielsen [facility] [address] [place] [address] 01/14/2025 Femi Nielsen [facility] [address] [place] [address] 01/20/2025 Femi Nielsen [facility] [address] [place] [address] 01/26/2025 Femi Nielsen [facility] [address] [place] [address] 02/12/2025 Femi Nielsen [facility] [address] [place] [address] 02/20/2025 Femi Nielsen [facility] [address] [place] [address] 03/17/2025 Femi Nielsen [facility] [address] [place], [place] [address] 03/28/2024 Femi Nielsen [facility] [address] [place] [address] 04/14/2024 Femi Nielsen [facility] [address] [place], [place] [address] 07/09/2024 Femi Nielsen [facility] [address] [place] [address] 07/16/2024 Femi Nielsen [facility] [address] [place], [place] [address] 12/04/2024 Femi Nielsen [facility] [address] [place], [place] [address] 12/05/2024 Femi Nielsen [facility] [address] [place] [address] 02/23/2025 Femi Nielsen [facility] [address] [place] [address] 02/23/2025 Femi Nielsen [facility] [address] [place] [address] 04/03/2024 Femi Nielsen Type 2 diabetes mellitus with unspecified complications E11.8 ; Fatigue R53.83 and Type 2 diabetes mellitus with other skin ulcer E11.622 [facility] [address] [place] [address] 12/23/2024 Trung Masseyriveau Anemia NOS D64.9 Assessments [...] which she gets excellent treatment care from [facility] wound care team, including in-house nursing support [...] CULTURE ([facility]) 03/23/2022 Foot Exam (DM) 11/20/2023 Foot Exam (DM) 06/14/2022 Mammogram, routine annual screening 09/21 Mammogram, routine annual screening 08/2020 stool: FECAL LEUKOCYTE STAIN 12/08/2019 hemoglobin A1C 06/14/2022 hemoglobin A1C 10/13/2021 CK (Creatine Kinase) ,TOTAL ONLY 021 FERRITIN 11/01/2020 FERRITIN 10/13/2021 FERRITIN 02/15/2023 FOLIC ACID 02/15/2023 FOLIC ACID 10/13/2021 FOLIC ACID 11/01/2020 IRON & TIBC 11/01/2020 IRON & TIBC 02/15/2023 PHOSPHORUS 11/01/2020 VITAMIN B12 11/01/2020 VITAMIN B12 02/15/2023 VITAMIN B12 10/13/2021 HEMOGLOBIN A1C 08/29/2022 HEMOGLOBIN A1C 10/13/2021 HEMOGLOBIN A1C 02/15/2023 HEMOGLOBIN A1C 09/21/2020 HEMOGLOBIN A1C 05/03/2020 ERYTHROPOIETIN 11/01/2020 ERYTHROPOIETIN 02/15/2023 HSCRP 02/15/2023 HSCRP 10/13/2021 HSCRP 05/03/2020 HSCRP 11/01/2020 BASIC METABOLIC PANEL 10/18/2020 COMPREHENSIVE METABOLIC PANL 09/21/2020 COMPREHENSIVE METABOLIC PANL 11/01/2020 COMPREHENSIVE METABOLIC PANL 05/03/2020 COMPREHENSIVE METABOLIC PANL 10/13/2021 COMPREHENSIVE METABOLIC PANL 07/31/2023 COMPREHENSIVE METABOLIC PANL 02/15/2023 RENAL FUNCTION PANEL 08/29/2022 LIPID PANEL 02/15/2023 LIPID PANEL 09/21/2020 LIPID PANEL 05/03/2020 HOMOCYSTEINE,PLASMA/SERUM 02/15/2023 TSH WITH REFLEX TO T4 02/15/2023 TSH WITH REFLEX TO T4 05/03/2020 TSH WITH REFLEX TO T4 10/13/2021 MICROALBUMIN 05/03/2020 MICROALBUMIN 10/13/2021 MICROALBUMIN 08/29/2022 MICROALBUMIN 06/14/2022 MICROALBUMIN 09/21/2020 Vitamin D25 OH 11/01/2020 Vitamin D25 OH 10/13/2021 Vitamin D25 OH 02/15/2023 CBC AUTO DIFF 02/15/2023 CBC AUTO DIFF 07/31/2023 CBC AUTO DIFF 10/13/2021 CBC AUTO DIFF 09/21/2020 CBC AUTO DIFF 11/01/2020 CBC AUTO DIFF 05/03/2020 SED RATE 11/01/2020 TRINA (ANTI-NUCLEAR ANTIBODY SCREEN) USE THIS ONE 11/01/2020 COMPLEMENT COMPONENT C3C 11/01/2020 COMPLEMENT C4 11/01/2020 CRP 11/01/2020 URINE CULTURE 03/10/2022 URINE CULTURE 08/29/2022 URINE CULTURE 12/08/2021 URINE CULTURE 10/05/2022 URINE CULTURE 03/24/2021 URINALYSIS, COMPLETE 10/05/2022 URINALYSIS, COMPLETE 12/08/2021 URINALYSIS, COMPLETE 08/29/2022 URINALYSIS, COMPLETE 07/03/2023 Dexa Bone Density (Axial) 10/13/2021 SODIUM, URINE [...] , bilateral breast 0 02/26/2024 Urine Culture, Routine-[id number] (DAVIS) 02/26/2024 MICROALBUMIN, URINE 11/13/2024 Future Test Test Name Order Date URINE CULTURE 02/03/2021 URINALYSIS, COMPLETE 02/03/2021 Next Appt Details Provider Name:Femi hdz, 03/19/2025 02:30:00 PM, [address] [place] [address], [phone], Insurance Providers Payer Name Payer Address Payer Phone Subscriber Number Group Number Insured Name Patient Relationship to Insured Coverage Start Date Coverage End Date MEDICARE [address] [place] [phone] [id number] JOSE FRANCISCO LEIJA Self - patient is the insured 1 [employer] [facility] [place] [address] [phone] [id number] JOSE FRANCISCO LEIJA Self - patient is the insured 1 Medical (General) History Medical History History ICD Code Ortho: Edin Marinelli MD at [facility] NEPHROLOGY - Dr. Starks for CKD4 ID - Dr Luke (), Dr. Andres ([facility] ) Type 2 DM - previously Dr. Leticia jenkins, now sees [facility] DM Center as of 2021 Dr. Quinteros, [...] achilles ten don abscess and rupture 06/26/2020- [facility] ortho debridement left UPJ kidney stone s/p stent placemen t [facility] ER - dr sullivan 08/17/2020 nonhealing left lower leg infection- hos pital stay and I&D x2 07/2020 - [facility] urinary incontinence nephrolithiasis, requiring stent frequent UTIs frequent yeast vaginitis deconditioned, Home PT 2020 - quad cane, walker, scooter normal Cologuard October 2021, due 2024 wound care / [facility] 2022 right great toe severe vit D deficiency (Mar 2023) b12 def (Mar 2023) elevated homocysteine hypertriglyceridemia, low HDL Cr increased to 2.0 (Jun 2023), eGFR 27 (Sep 2023) CXR (10/25/23): hazy density LEFT Lower ch est 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 Yves castaneda 06/23/2020 kidney stent placed 08/17/2020 I&D of left lower leg/achill es tendon infected wound at [facility]- Dr. Ladonna castaneda 08/19/2020 kidney stones removed/lasered @ [facility] 10/08 kidney stent removed 10/18/2020 Hospitalization History Reason Date(Month/Year) [facility]- weakness, UTI 10/21/23 [place] due to sepsis on rig ht leg, she was on antibiotics and completed cefuroxime. 12/06-12/03/2020 [facility] for obstructing UPJ boni ey stone & stent then transfered to [facility] for infected left lower leg wound 08/17/20 James Ruiz transferred to [facility] - left lower leg/achilles tendon abscess Jun 2020 [facility] sepsis 01/16/20 [facility] sepsis 12/26/19 [facility] sepsis 10/12/19 Lithotripsy (? 4 years ago) Unknown Nephrolithiasis Multiple
--- OUTSIDE RECORDS SUMMARY | 2025-03-18 16:47 | XMS_ITS | Encounter Summary ---
Author Organization [facility] Address [address] [place] [address] Phone Care Team Providers Care Electric Motor Analyst Name Role Phone Ivana Cheung Primary Care Provider Femi Nielsen MD Primary Care Provider [phone] Encounter Details Date Type Department Care Team (Late st Contact Info) Description 01/20/2020 Procedure Pass [facility]iology [address] [place], [place] [id number] Social History Tobacco Use Types Packs/Day Years [...] Description 04/07/2025 1:20 PM EDT Office Visit [facility] [address] [place] [phone] Amanda Quinteros MD [address] [facility], [address] [place] [address] [email or web address] documented as of this encounter Visit Diagnoses Not on filedocumented in this encounter Additional Health Concerns Infection Onset Date Last Indicated Resolved Time CoV-Exposed Comment:Recent close contact 05/27/2020 05/27/2020 06/10/2020 1:25 AM EST documented as of this encounter Care Teams Electric Motor Analyst Relationship Specialty Start Date End Date Ivana Cheung PA [address] [place] [address] PCP - General Unknown Provider Specialty 12/26/19 Femi Nielsen MD [address] [place] [address] [email or web address] PCP - General Family Medicine 12/09/21 documented as of this encounter Additional Source Comments The information contained in this document represents components of the legal health record. It is not the complete legal health record.[facility]
--- OUTSIDE RECORDS SUMMARY | 2025-03-18 16:47 | XMS_ITS | Encounter Summary ---
Author Organization [facility] Address [address] [facility] [address] [place] [address] Phone Care Team Providers Care Dredge Mate Name Role Phone Unknown, Unknown Primary Care Provider Ivana Saleh Primary Care Provider Femi Nielsen MD Primary Care Provider [phone] Encounter Details Date Type Department Care Team (Late st Contact Info) Description 09/16/2019 Ancillary Orders Virtual Department [address] [place] [address] Ivana Cheung PA [address] [place] [address] Menopausal and female climacteric states Social History Tobacco Use Types Packs/Day Years [...] Encounters Date Type Department Care Team (Late st Contact Info) Description 04/07/2025 1:20 PM EDT Office Visit [facility] [address] [place] [address] Amanda Quinteros MD [address] [facility], 1[address] [place] [address] [email or web address] documented as of this encounter Visit Diagnoses Diagnosis Menopausal and female climacteric states documented in this encounter Additional Health Concerns Infection Onset Date Last Indicated Resolved Time CoV-Risk 12/26/2019 12/26/2019 12/28/2019 9:38 AM EDT CoV-Risk 01/16/2020 01/16/2020 01/17/2020 10:1 2 AM EDT CoV-Exposed Comment:Recent close contact 05/27/2020 05/27/2020 06/10/2020 1:25 AM EST documented as of this encounter Care Teams Dredge Mate Relationship Specialty Start Date End Date Unknown, Unknown, MD PCP - General 09/16/19 12/25/19 Ivana Cheung PA [address] [place] [address] PCP - General Unknown Provider Specialty 12/26/19 Femi Nielsen MD [address] [place] [address] [email or web address] PCP - General Family Medicine 12/09/21 documented as of this encounter Additional Source Comments The information contained in this document represents components of the legal health record. It is not the complete legal health record.[facility]
[2025-03-18 16:49] VITALS: BP 154/67; PULSE 65; RESP 14; TEMP 36.5; O2SAT 98
--- OUTSIDE RECORDS SUMMARY | 2025-03-18 16:49 | XMS_ITS | Encounter Summary ---
Author Organization [facility] Address [address] [place] [address] Phone Care Team Providers Care Cue Selector Name Role Phone Ivana Cheung Primary Care Provider Femi Nielsen MD Primary Care Provider [phone] Encounter Details Date Type Department Care Team (Late st Contact Info) Description 06/23/2020 Procedure Pass [facility], Ct Scan - [address] [address] Social History Tobacco Use Types Packs/Day Years [...] PM EDT documented as of this encounter Functional Status * Calculated C-SSRS Risk Score (Lifetime/Recent) Answer Date of Assessment Author No Risk Indicated 2020 12:42 AM EST Cecille Espinoza RN * [place] Suicide Severity Rating Scale (Screener/Recent Self-Report) Question Answer Date of Assessment Author 1. Wish to be (Past 1 Month) No 2020 12:42 AM Cecille Lauren RN 2. Non-Specific Active Suici gladys Thoughts (Past 1 Month) No 2020 12:42 AM Ana Lauren RN 6. Suicidal Behavior (Lifetime) No 0 12:42 AM Cecille Lauren RN documented as of this encounter Plan of Treatment Upcoming Encounters Date Type Department Care Team (Late st Contact Info) Description 04/07/2025 1:20 PM EDT Office Visit [facility] [address] [place] [address] Amanda Quinteros MD [address] [facility], 1st [place] [address] [email or web address] documented as of this encounter Visit Diagnoses Not on filedocumented in this encounter Care Teams Cue Selector Relationship Specialty Start Date End Date Ivana Cheung PA [address] [place] [address] PCP - General Unknown Provider Specialty 12/26/19 Femi Nielsen MD [address] [place] [address] [email or web address] PCP - General Family Medicine 12/09/21 documented as of this encounter Additional Source Comments The information contained in this document represents components of the legal health record. It is not the complete legal health record.[facility]
--- OUTSIDE RECORDS SUMMARY | 2025-03-18 16:49 | XMS_ITS | Clinical Summary ---
Author Organization [facility] Address [address] [place] [phone] Phone Care Team Providers Care Ruffler Name Role Phone Betzy Phipps MD Primary [...] borderline elevated at 5.3, recheck in a.m. 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 Last hemoglobin A1c 8.6, 2 months ago. Continue Lantus insulin, we will give half the dose this evening (28 units) as she has not been eating in the setting of her illness today. Monitor [id number]'s with insulin sliding scale coverage. Type 2 [...] rate IV fluid, continue to hold Lasix Encounters Date Type Department Care Team Description 03/12/2025 Orders Only [facility] [address] [address] Yonas Starks MD from Last 3 Months Family History Medical History Relation Comments Cancer [...] Breast Cancer Screening 1955 Pneumococcal Vaccine: 50+ Years (1 of 2 - PCV) 1973 Colorectal Cancer Screening: Annual FOBT 2003 Colorectal Cancer Screening: Colonoscopy 2003 Colorectal Cancer Screening: Sigmoidoscopy 2003 Diabetes: Ophthalmology Exam 10/13/2019 Diabetes: Pedal Pulse Checked 10/13/2019 Diabetes: Sensory Foot Exam 10/13/2019 Diabetes: Visual Foot Exam 10/13/2019 Diabetes: Hemoglobin A1C 02/10/2025 11/11/2024, 05/23 Influenza Vaccine (#1) 2025 2, 04/28/2021, 03/31/2020, Additional history exists Hepatitis B Vaccine Aged Out No longe r eligible based on patient's age to complete this topic Procedures Procedure Name Priority Date/Time Associated Diagnosis Comments PROTEIN,TOTAL,URINE Routine 03/12/2025 5 :53 PM EDT CREATININE, URINE, RANDOM Routine 03/12/2025 5:53 PM EDT IMMUNOFIXATION ELECTROPHORESIS Routine 03/12/2025 5:23 PM EDT TRINA W/REFLEX Routine 03/12/2025 5:23 PM EDT KAPPA/LAMBDA FREE LT CHAINS W/RATIO Routine 03/12/2025 5:23 PM EDT C4 COMPLEMENT Routine 03/12/2025 5:23 PM EDT C3 COMPLEMENT Routine 03/12/2025 5:23 PM EDT HEPATITIS B AND C Routine 03/12/2025 5:2 3 PM EDT PTH, INTACT (HC) Routine 03/12/2025 5:23 PM EDT ALBUMIN Routine 03/12/2025 5:23 PM EDT BLOOD PANEL (HC) Routine 06/03/2020 12:0 0 AM EST from Last 3 Months or Most Recently Relevant to Health Maintenance Results * (ABNORMAL) Protein, Total, Urine (03/12/2025 5:53 PM EDT) Protein Urine Random 74(H) <12 mg/dL See order comments 03/12/2025 5:53 PM EDT 03/12/2025 5:53 PM EDT us Yonas Starks MD LAB URINE ORDERABLES Final Re sult [place] See order comments [place] [address] * Creatinine, urine, random (03/12/2025 5:53 PM EDT) Creatinine, Urine 27.06 mg/dL See order comments 03/12/2025 5:53 PM EDT 03/12/2025 5:53 PM EDT Yonas Starks MD LAB URINE ORDERABLES Final Re sult Performing Organization Address [facility] Phone Number [place] See order comments [place] [address] * HEPATITIS B AND C (03/12/2025 5:23 PM EDT) Hep B Surface Antibody NONREACTIVE Nonreactive See order comments Comment:Nonreactive: < 8.00 mIU/mL Hep B Core Total Ab Nonreactive Nonreactive See order comments Hepatitis C Antibody Nonreactive Nonreactive See order comments Comment: Antibodies to HCV not detected; does not exclude early acute HCV infection. Hep B Surface Antigen Negative Negative See order comments 03/12/2025 5:23 PM EDT 03/12/2025 5:23 PM EDT Yonas Starks MD LAB BLOOD ORDERABLES Final Re sult Performing Organization Address [facility] Phone Number [place] See order comments [place] [address] * (ABNORMAL) PTH, Intact (03/12/2025 5:23 PM EDT) Pathologist [facility] Parathyroid Hormone, Intact 376.9(H) 8.7 - 77.1 pg/mL See order comments 03/12/2025 5:23 PM EDT 03/12/2025 5:23 PM EDT Yonas Starks MD LAB [id number] SOLICITED RESULTS Final Result Performing Organization Address [facility] Phone Number [place] See order comments [place] [address] * TRINA W/Reflex (03/12/2025 5:23 PM EDT) Pathologist [facility] TRINA Screen NEGATIVE NEGATIVE See order comments Comment: TRINA IFA is a first line screen for detecting the presence of up to approximately 150 autoantibodies in various autoimmune diseases. A negative TRINA IFA result suggests an TRINA-associated autoimmune disease is not present at this time, but is not definitive. If there is high clinical suspicion for Sjogren's syndrome, testing for anti-SS-A/Ro antibody should be considered. Anti-Gricelda-1 antibody should be considered for clinically suspected inflammatory myopathies. AC-0: Negative International Consensus on TRINA Patterns (https://doi.org/10.1515/qvng-5095-5585) For additional information, please refer to http://education.[employer]/faq/NJV411 (This link is being provided for informational/ educational purposes only.) THIS TEST WAS PERFORMED AT: [facility] [address] [place] [phone] VIKTOR POWELL MD TRINA TNP See order comments TRINA Pattern TNP See orde r comments TRINA TITER 2 TNP See orde r comments TRINA Pattern 2 TNP See or flower comments TRINA TITER 3 TNP See orde r comments TRINA Pattern 3 TNP See or flwoer comments 03/12/2025 5:23 PM EDT 03/12/2025 5:23 PM EDT us Yonas Starks MD LAB BLOOD ORDERABLES Final Re sult [place] See order comments [place] [address] * (ABNORMAL) [place]/Lambda free LT chains w/ratio, Serum (03/12/2025 5:23 PM EDT) [place] Free Light Chain 79.6(A) 3.3 - 19.4 mg/L See order comments Lambda Free Light Chain 71.6(A) 5.7 - 26.3 mg/L See order comments [place]/Lambda LC Ratio 1.11 0.26 - 1.65 See order comments Comment: Free kappa/lambda ratio in serum of normal individuals is 0.26-1.65. Excess production of free kappa or lambda chains can alter this ratio. Monoclonal free light chains are found in serum of patients with multiple myeloma, Waldenstrom's macroglobulinemia, mu-heavy chain disease, primary amyloidosis, light chain deposition disease, monoclonal gammopathy of undetermined significance, and lymphoproliferative disorders. Measurement of free light chain concentration in serum is useful for diagnosis, prognosis, monitoring disease activity and following response to therapy of these disorders. THIS TEST WAS PERFORMED AT: [facility] [address] [place] [phone] VIKTOR POWELL MD 03/12/2025 5:23 PM EDT 03/12/2025 5:23 PM EDT Yonas Starks MD LAB BLOOD ORDERABLES Final Re sult Performing Organization Address [facility] de Phone Number [place] See order comments [place] [address] * (ABNORMAL) Immunofixation electrophoresis (03/12/2025 5:23 PM EDT) IgG 1,124 600 - 1,540 mg/dL See order comments IgA 408(A) 70 - 320 mg/dL See order comments IgM 73 50 - 300 mg/dL See order comments Comment: THIS TEST WAS PERFORMED AT: [facility] [address] [place] [phone] VIKTOR POWELL MD Interpretation See o rder comments Comment:No monoclonal protei ns detected. 03/12/2025 5:23 PM EDT 03/12/2025 5:23 PM EDT us Yonas Starks MD LAB BLOOD ORDERABLES Final Re sult Performing Organization Address [facility] de Phone Number [place] See order comments [place] [address] * C3 Complement (03/12/2025 5:23 PM EDT) C3 Complement 134 83 - 193 mg/dL See order comments Comment: THIS TEST WAS PERFORMED AT: [facility] [address] [place] [phone] VIKTOR POWELL MD 03/12/2025 5:23 PM EDT 03/12/2025 5:23 PM EDT us Yonas Starks MD LAB BLOOD ORDERABLES Final Re sult Performing Organization Address [facility] de Phone Number [facility] See order comments [place] [address] * C4 Complement (03/12/2025 5:23 PM EDT) C4 Complement 29 15 - 57 mg/dL See order comments Comment: THIS TEST WAS PERFORMED AT: [facility] [address] [place] [phone] VIKTOR POWELL MD 03/12/2025 5:23 PM EDT 03/12/2025 5:23 PM EDT Yonas Starks MD LAB BLOOD ORDERABLES Final Re sult Performing Organization Address [facility] Phone Number [facility] See order comments [place] [address] * (ABNORMAL) Albumin (03/12/2025 5:23 PM EDT) Pathologist [facility] Albumin 3.4(L) 3.5 - 5.0 g/dL See order comments 03/12/2025 5:23 PM EDT 03/12/2025 5:23 PM EDT Yonas Starks MD LAB BLOOD ORDERABLES Final Re sult Performing Organization Address [facility] Phone Number [place] See order comments [place] [address] * (ABNORMAL) Blood Panel (06/03/2020 12:00 AM [...] mg/dl PVNMA 06/03/2020 us [facility] [id number] LICITED RESULTS Final Result PVNMA from Last 3 Months or Most Recently Relevant to Health Maintenance Insurance [facility] Member Subscriber Plan / Payer (Ef fective 2019-Present) Name:Alka Israel Relation to Subscriber:Self Name:Alka Israel Payer ID:Not on file Type:Not on file Address: [address] [id number] Medicare [facility] Medicare Care Teams Ruffler Relationship Specialty Start Date End Date Betzy Phipps MD [address] [place] [phone] PCP - General 08/02/20
--- OUTSIDE RECORDS SUMMARY | 2025-03-18 16:49 | XMS_ITS | Encounter Summary ---
Author Organization [facility], Address [address] [place] [address] Phone Care Team Providers Care Um Nurse Name Role Phone Betzy Phipps MD Primary Care Provider + Encounter Details Date Type Department Care Team (Late st Contact Info) Description 12/07/2023 Documentation Only [facility], [address] [place] [address] [place], [place] [address] [place] [address] Social History Tobacco Use Types Packs/Day Years [...] on file documented as of this encounter Visit Diagnoses Not on filedocumented in this encounter Care Teams Um Nurse Relationship Specialty Start Date End Date Betzy Phipps MD [address] [place] [id number] PCP - General 08/02/20 documented as of this encounter
--- OUTSIDE RECORDS SUMMARY | 2025-03-18 16:49 | XMS_ITS | Encounter Summary ---
Author Organization [facility] Address [address] [facility] ([place], [place]) [address] [place] [phone] Phone Care Team Providers Care Maple Syrup Maker Name Role Phone Ivana Cheung Primary Care Provider Femi Nielsen MD Primary Care Provider [phone] Encounter Details Date Type Department Care Team (Late st Contact Info) Description 10/08/2020 Procedure Pass OR Admitting Dept - Virtual Department [address] [place], [place] [id number] Social History Tobacco Use Types Packs/Day Years Used Date Smoking Tobacco: Former Cigarettes 0.3 20 0 10/16/1999 - 10/16/2019 Smokeless Tobacco: Never Alcohol Use Standard Drinks/Week Comments Yes 2 (1 standard drink = 0.6 oz pur e alcohol) Comments No Sex and Gender Information Value Date Recorded Sex Assigned at Female 12/26/2019 12:14 PM EDT Legal Sex Female 9:56 PM EDT Gender Identity Female 12/26/2019 12:14 PM EDT Sexual Orientation Straight 12/26/2019 12 :14 PM EDT documented as of this encounter Plan of Treatment Upcoming Encounters Date Type Department Care Team (Late st Contact Info) Description 04/07/2025 1:20 PM EDT Office Visit [facility] [address] [place] [address] Amanda Quinteros MD [address] [facility], 1st [place] [address] [email or web address] documented as of this encounter Visit Diagnoses Not on filedocumented in this encounter Care Teams Maple Syrup Maker Relationship Specialty Start Date End Date Ivana Cheung PA [address] [place] [phone] PCP - General Unknown Provider Specialty 12/26/19 Femi Nielsen MD [address] [place] [phone] [email or web address] PCP - General Family Medicine 12/09/21 documented as of this encounter Additional Source Comments The information contained in this document represents components of the legal health record. It is not the complete legal health record.[facility]
--- OUTSIDE RECORDS SUMMARY | 2025-03-18 16:49 | XMS_ITS | Encounter Summary ---
Author Organization [facility] Address [address] [place] [address] Care Team Providers Care Tool Setter Name Role Phone Lacy Nielsen Primary Care Provider [phone] Encounter Details Date Type Department Care Team (Latest Contact Info) Description 12/17/2024 Lab Requisition [facility] [address] [facility] [place] [address] Lacy Nielsen [address] Other fatigue; Vitamin D deficiency, unspecified; [...] CBC auto differential (12/17/2024 7:45 AM EDT) [facility] WBC 9.0 4.8 - 10.8 K/mcL LAB HEMETOLOGY METHOD 12/17/2024 11:24 AM EDT [facility] RBC 3.30(L) 3.80 - 4.80 M/mcL LAB HEMETOLOGY METHOD 12/17/2024 11:24 AM EDT [facility] Hemoglobin 10.1(L) 11.5 - 16.0 g/dL LAB HEMETOLOGY METHOD 12/17/2024 11:24 AM [facility] Hematocrit 32.2(L) 35.0 - 47.0 % LAB HEMETOLOGY METHOD 12/17/2024 11:24 AM [facility] MCV 98.8(H) 79.0 - 98.0 FL LAB HEMETOLOGY METHOD 12/17/2024 11:24 AM [facility] MCH 31.0 27.0 - 32.0 pcg LAB HEMETOLOGY METHOD 12/17/2024 11:24 AM [facility] MCHC 31.4(L) 32.0 - 37.0 g/dL LAB HEMETOLOGY METHOD 12/17/2024 11:24 AM [facility] RDW 13.2 11.0 - 15.0 % LAB HEMETOLOGY METHOD 12/17/2024 11:24 AM [facility] Platelets 254 130 - 400 K/mcL LAB HEMETOLOGY METHOD 12/17/2024 11:24 AM [facility] MPV 10.5 7.0 - 11.0 FL LAB HEMETOLOGY METHOD 12/17/2024 11:24 AM [facility] NRBC 0.0 <1.0 % LAB HEMETOLOGY METHOD 12/17/2024 11:24 AM [facility] NRBC Absolute 0.00 <0.10 K/mcL LAB HEMETOLOGY METHOD 12/17/2024 11:24 AM [facility] Neutrophils Relative 72.6 % LAB HEMETOLOGY METHOD 12/17/2024 11:24 AM [facility] Lymphocytes Relative 18.6 % LAB HEMETOLOGY METHOD 12/17/2024 11:24 AM [facility] Monocytes Relative 5.6 % LAB HEMETOLOGY METHOD 12/17/2024 11:24 AM [facility] Eosinophils Relative 2.5 % LAB HEMETOLOGY METHOD 12/17/2024 11:24 AM EDT [facility] Basophils Relative 0.3 % LAB HEMETOLOGY METHOD 12/17/2024 11:24 AM EDT [facility] Immature Granulocytes Relative 0.4 % LAB HEMETOLOGY METHOD 12/17/2024 11:24 AM EDT [facility] Neutrophils Absolute 6.55 1.50 - 7.00 K/mcL LAB HEMETOLOGY METHOD 12/17/2024 11:24 AM EDT [facility] Lymphocytes Absolute 1.68 1.00 - 5.00 K/mcL LAB HEMETOLOGY METHOD 12/17/2024 11:24 AM EDT [facility] Monocytes Absolute 0.51 0.20 - 1.00 K/mcL LAB HEMETOLOGY METHOD 12/17/2024 11:24 AM EDT [facility] Eosinophils Absolute 0.23 0.00 - 0.50 K/mcL LAB HEMETOLOGY METHOD 12/17/2024 11:24 AM EDT [facility] Basophils Absolute 0.03 0.00 - 0.20 K/mcL LAB HEMETOLOGY METHOD 12/17/2024 11:24 AM EDT [facility] Immature Granulocytes Absolute 0.04(H) 0.00 - 0.03 K/mcL LAB HEMETOLOGY METHOD 12/17/2024 11:24 AM EDT [facility] Blood Venous blood specimen / Unknown Venipuncture / Unknown 12/17/2024 7:45 AM EDT 12/17/2024 9:51 AM EDT us Lacy Nielsen LAB BLOOD ORDERABLES Final Resul t [facility] [address] [place] [address], * Ferritin (12/17/2024 7:45 AM EDT) Ferritin 99 8 - 252 ng/mL LAB CHEMISTRY METHOD 12/17/2024 12:58 PM EDT [facility] Blood Venous blood specimen / Unknown Venipuncture / Unknown 12/17/2024 7:45 AM EDT 12/17/2024 9:51 AM EDT [facility] BLOOD ORDERABLES Final Resul t [facility] [address] [place] [address], [place] [phone] * (ABNORMAL) Iron and TIBC (12/17/2024 7:45 AM EDT) Pathologist [facility] Iron 72 40 - 150 mcg/dL LAB CHEMISTRY METHOD 12/17/2024 12:58 PM EDT [facility] TIBC 227(L) 250 - 450 mcg/dL LAB CHEMISTRY METHOD 12/17/2024 12:58 PM EDT [facility] Iron Saturation 32 15 - 50 % LAB CHEMISTRY METHOD 12/17/2024 12:58 PM EDT [facility] Blood Venous blood specimen / Unknown Venipuncture / Unknown 12/17/2024 7:45 AM EDT 12/17/2024 9:51 AM EDT Lacy Nielsen LAB BLOOD ORDERABLES Final Resul t [facility] [address] [place] [address], [place] [phone] * Vitamin B12 (12/17/2024 7:45 AM EDT) Pathologist [facility] Vitamin B-12 331 250 - 900 pcg/mL LAB CHEMISTRY METHOD 12/17/2024 12:58 PM EDT [facility] Blood Venous blood specimen / Unknown Venipuncture / Unknown 12/17/2024 7:45 AM EDT 12/17/2024 9:51 AM EDT Lacy Nielsen LAB BLOOD ORDERABLES Final Resul t Performing Organization Address City/[facility]/ZIP Co de Phone Number [facility] [address] [place] [address], [place] [phone] * Folate (12/17/2024 7:45 AM EDT) Folate 6.3 2.8 - 17.0 ng/ml LAB CHEMISTRY METHOD 12/17/2024 12:58 PM EDT [facility] Blood Venous blood specimen / Unknown Venipuncture / Unknown 12/17/2024 7:45 AM EDT 12/17/2024 9:51 AM EDT Lacy Delvinandreina LAB BLOOD ORDERABLES Final Resul t Performing Organization Address City/[facility]/ZIP Co de Phone Number [facility] [address] [place] [address], [place] [phone] * (ABNORMAL) Vitamin D 25 hydroxy (12/17/2024 7:45 AM EDT) Pathologist [facility] Vit D, 25-Hydroxy 21.7(L) 30.0 - 80.0 ng/mL LAB CHEMISTRY METHOD 12/17/2024 3:01 PM EDT [facility] Blood Venous blood specimen / Unknown Venipuncture / Unknown 12/17/2024 7:45 AM EDT 12/17/2024 9:51 AM EDT Lacy Nielsen LAB BLOOD ORDERABLES Final Resul t Performing Organization Address City/[facility]/ZIP Co de Phone Number [facility] [address] [place] [address], [place] [phone] * (ABNORMAL) Lipid panel with reflex to direct LDL (12/17/2024 7:45 AM EDT) Cholesterol 115 0 - 200 mg/dL LAB CHEMISTRY METHOD 12/17/2024 12:58 PM EDT [facility] Triglycerides 135 0 - 150 mg/dL LAB CHEMISTRY METHOD 12/17/2024 12:58 PM EDT [facility] HDL 36(L) >=40 mg/dL LAB CHEMISTRY METHOD 12/17/2024 12:58 PM EDT [facility] LDL Calculated 52 0 - 100 mg/dL LAB CHEMISTRY METHOD 12/17/2024 12:58 PM EDT [facility] VLDL Cholesterol Fabian 27 mg/dL LAB CHEMISTRY METHOD 12/17/2024 12:58 PM [facility] Non HDL Chol. (LDL+VLDL) 79 <145 mg/dL LAB CHEMISTRY METHOD 12/17/2024 12:[facility] Chol/HDL Ratio 3.2 0.0 - 4.4 LAB CHEMISTRY METHOD 12/17/2024 12:58 PM [facility] Blood Venous blood specimen / Unknown Venipuncture / Unknown 12/17/2024 7:45 AM EDT 12/17/2024 9:51 AM EDT us Lacy Nielsen LAB BLOOD ORDERABLES Final Resul t [facility] [address] [place] [address], * (ABNORMAL) Comprehensive metabolic panel (12/17/2024 7:45 AM EDT) Sodium 139 133 - 145 mmol/L LAB CHEMISTRY METHOD 12/17/2024 12:58 PM [facility] Potassium 4.2 3.5 - 5.5 mmol/L LAB CHEMISTRY METHOD 12/17/2024 12:58 PM [facility] Chloride 106 96 - 110 mmol/L LAB CHEMISTRY METHOD 12/17/2024 12:58 PM [facility] CO2 20(L) 21 - 32 mmol/L LAB CHEMISTRY METHOD 12/17/2024 12:58 PM [facility] Anion Gap 13(H) 3 - 11 LAB CHEMISTRY METHOD 12/17/2024 12:58 PM [facility] Glucose 86 70 - 100 mg/dL LAB CHEMISTRY METHOD 12/17/2024 12:58 PM [facility] BUN 43(H) 5 - 25 mg/dL LAB CHEMISTRY METHOD 12/17/2024 12:58 PM [facility] Creatinine 2.33(H) 0.50 - 1.10 mg/dL LAB CHEMISTRY METHOD 12/17/2024 12:58 PM [facility] eGFR 22(L) >=60 mL/min/1. 73m2 LAB CHEMISTRY METHOD 12/17/2024 12:58 PM [facility] Comment:Calculation based on the Chronic Kidney Disease Epidemiology Collaboration (CKD-EPI) equation refit without adjustment for race. BUN/Creatinine Ratio 18.5 LAB CHEMISTRY METHOD 12/17/2024 12:58 PM [facility] Calcium 9.0 8.5 - 10.5 mg/dL LAB CHEMISTRY METHOD 12/17/2024 12:58 PM [facility] AST (SGOT) 8(L) 10 - 42 unit/L LAB CHEMISTRY METHOD 12/17/2024 12:58 PM [facility] ALT (SGPT) 13 10 - 60 unit/L LAB CHEMISTRY METHOD 12/17/2024 12:58 PM [facility] Alkaline Phosphatase 102 42 - 121 unit/L LAB CHEMISTRY METHOD 12/17/2024 12:58 PM [facility] Total Protein 6.6 6.0 - 8.0 g/dL LAB CHEMISTRY METHOD 12/17/2024 12:58 PM [facility] Albumin 2.8(L) 3.2 - 5.0 g/dL LAB CHEMISTRY METHOD 12/17/2024 12:58 PM EDT [facility] Total Bilirubin 0.4 0.0 - 1.4 mg/dL LAB CHEMISTRY METHOD 12/17/2024 12:58 PM EDT [facility] Blood Venous blood specimen / Unknown Venipuncture / Unknown 12/17/2024 7:45 AM EDT 12/17/2024 9:51 AM EDT Lacy Delvinandreina LAB BLOOD ORDERABLES Final Resul t Performing Organization Address City/[facility]/ZIP Co de Phone Number [facility] [address] [place] [address], [place] [phone] * Thyroid stimulating hormone with reflex to free t4 and free t3 (12/17/2024 7:45 AM EDT) TSH 1.59 0.40 - 4.00 mcIU/mL LAB CHEMISTRY METHOD 12/17/2024 3:02 PM EDT [facility] Blood Venous blood specimen / Unknown Venipuncture / Unknown 12/17/2024 7:45 AM EDT 12/17/2024 9:51 AM EDT Lacy Nielsen LAB BLOOD ORDERABLES Final Resul t Performing Organization Address City/[facility]/ZIP Co de Phone Number [facility] [address] [place] [address], [place] [phone] documented in this encounter Visit Diagnoses Diagnosis Other fatigue Vitamin D deficiency, unspecified Essential (primary) hypertension Unspecified essential hypertension Hyperlipidemia, unspecified Pure hyperglyceridemia documented in this encounter Care Teams Tool Setter Relationship Specialty Start Date End Date Lacy Nielsen [address] PCP - General Family Medicine 12/17/24 documented as of this encounter
--- OUTSIDE RECORDS SUMMARY | 2025-03-18 16:49 | XMS_ITS | Encounter Summary ---
Author Organization [facility] Address [address] [employer] [place] [address] [place] [address] Phone Care Team Providers Care Gis Engineer Name Role Phone Ivana Cheung Primary Care Provider Femi Nielsen MD Primary Care Provider [phone] Encounter Details Date Type Department Care Team (Late st Contact Info) Description 2020 Procedure Pass OR Admitting Dept - Virtual Department [address] [place], [place] [phone] Social History Tobacco Use Types Packs/Day Years [...] Risk Indicated 2020 12:42 AM EST Cecille Espinoza, RN * [place] Suicide Severity Rating Scale (Screener/Recent Self-Report) Question [...] Description 04/07/2025 1:20 PM EDT Office Visit [facility] [address] [place] [address] Amanda Quinteros MD 22 [facility], 1st [place] [address] [email or web address] documented as of this encounter Visit Diagnoses Not on filedocumented in this encounter Care Teams Gis Engineer Relationship Specialty Start Date End Date Ivana Cheung PA [address] [place] [address] PCP - General Unknown Provider Specialty 12/26/19 Femi Nielsen MD [address] [place] [address] [email or web address] PCP - General Family Medicine 12/09/21 documented as of this encounter Additional Source Comments The information contained in this document represents components of the legal health record. It is not the complete legal health record.[facility]
--- OUTSIDE RECORDS SUMMARY | 2025-03-18 16:49 | XMS_ITS | Encounter Summary ---
Author Organization [facility] Address [address] [employer] [facility] [address] [place] [address] Phone Care Team Providers Care Senior Design Engineering Specialist Name Role Phone Ivana Cheung Primary Care Provider Femi Nielsen MD Primary Care Provider [phone] Encounter Details Date Type Department Care Team (Latest Contact Info) Description 11/29/2020 Transcribe Orders Virtual Department [address] [place], [place] [phone] Lawrence Rothman MD [address] [place] [address], [address] [place] [address] [email or web address] Calculus of kidney (Primary Dx) Social History Tobacco Use Types Packs/Day Years [...] Description 04/07/2025 1:20 PM EDT Office Visit [facility] [address] [place] [address] Amanda Quinteros MD 22 [facility], 1st [place] [address] [email or web address] documented as of this encounter Visit Diagnoses Diagnosis Calculus of kidney- Primary documented in this encounter Care Teams Senior Design Engineering Specialist Relationship Specialty Start Date End Date Ivana Cheung PA [address] [place] [address] PCP - General Unknown Provider Specialty 12/26/19 Femi Nielsen MD [address] [place] [address] [email or web address] PCP - General Family Medicine 12/09/21 documented as of this encounter Additional Source Comments The information contained in this document represents components of the legal health record. It is not the complete legal health record.[facility]
--- OUTSIDE RECORDS SUMMARY | 2025-03-18 16:49 | XMS_ITS | Encounter Summary ---
Author Organization [facility] Address [address] [employer] [facility] [address] [place] [address] Phone Care Team Providers Care Charger Operator Name Role Phone Ivana Cheung Primary Care Provider Femi Nielsen MD Primary Care Provider [phone] Encounter Details Date Type Department Care Team (Late st Contact Info) Description 08/17/2020 Procedure Pass OR Admitting Dept - Virtual Department 30 [place], [place] [phone] Social History Tobacco Use Types Packs/Day Years Used Date Smoking Tobacco: Former Cigarettes Q uit: 10/16/2019 Smokeless Tobacco: Never Alcohol Use Standard Drinks/Week Comments Yes 0 (1 standard drink = 0.6 oz pur e alcohol) biweekly, denies excessive Comments No Sex and Gender Information Value Date Recorded Sex Assigned at Female 12/26/2019 12:14 PM EDT Legal Sex Female 9:56 PM EDT Gender Identity Female 12/26/2019 12:14 PM EDT Sexual Orientation Straight 12/26/2019 12 :14 PM EDT documented as of this encounter Functional Status * Calculated C-SSRS Risk Score (Lifetime/Recent) Answer Date of Assessment Author No Risk Indicated 08/17/2020 10:26 AM Cindy Ryan RN * [place] Suicide Severity Rating Scale (Screener/Recent Self-Report) Question Answer Date of Assessment Author 1. Wish to be (Past 1 Month) No 08/17/2020 10:26 AM Carlos Vance cie, RN 2. Non-Specific Active Suicidal Thoughts (Past 1 Month) No 08/17/2020 10:26 AM Carlos Vance cie, RN 6. Suicidal Behavior (Lifetime) No 08/17/2020 10:26 AM Carlos Vance cie, RN documented as of this encounter Plan of Treatment Upcoming Encounters Date Type Department Care Team (Late st Contact Info) Description 04/07/2025 1:20 PM EDT Office Visit [facility] [address] [place] [phone] Amanda Quinteros MD 22 [facility], 1st [place] [address] [email or web address] documented as of this encounter Visit Diagnoses Not on filedocumented in this encounter Care Teams Charger Operator Relationship Specialty Start Date End Date Ivana Cheung PA [address] [place] [phone] PCP - General Unknown Provider Specialty 12/26/19 Femi Nielsen MD [address] [place] [address] PCP - General Family Medicine 12/09/21 documented as of this encounter Additional Source Comments The information contained in this document represents components of the legal health record. It is not the complete legal health record.[facility]
--- OUTSIDE RECORDS SUMMARY | 2025-03-18 16:49 | XMS_ITS | Clinical Summary ---
Author Organization [address] [facility] Address [address] [place] [address] Phone Care Team Providers Care Group Insurance Special Agent Name Role Phone MoralesCiroLacy Primary Care Provider [phone] Encounters Date Type Department Care Team Description 12/17/[address] [facility] - Main Lab 299 [facility] [place] [phone] Lacy Nielsen Other fatigue; Vitamin D deficiency, unspecified; Essential (primary) hypertension; Hyperlipidemia, unspecified; Pure hyperglyceridemia from Last 3 Months Social History Tobacco Use Types Packs/Day Years Used Date Smoking Tobacco: Never Assessed Comments Unknown Sex and Gender Information Value Date Recorded Sex Assigned at Not on file Legal Sex Female 10:35 PM EST Gender Identity Not on file Sexual Orientation Not on file Plan of Treatment Health Maintenance Due Date Last Done Comments Breast Cancer Screening 1955 DTaP,Tdap,and Td Vaccines (1 - Tdap) 1973 Pneumococcal Vaccine: 50+ Ye ars (1 of 1 - PCV) 2004 Zoster Vaccines (1 of 2) 2004 Colorectal Cancer Screening: Colonoscopy 06/25/2022 Falls Risk Assessment 06/25/2022 Hepatitis C Screening 06/25/2022 Medicare Annual Wellness Visit 06/25/2022 Osteoporosis Screening (Bone Density Screening) 06/25/2022 Social Influencers of Health Screening 06/25/2022 COVID-19 Vaccine (1 - 2023-2 5 season) 2024 Depression Screening 07/23/2024 Influenza Vaccine (#1) 2025 Hypertension/CHF/CAD Annual BMP Blood Test 12/17/2025 12/17/2024 RSV Immunization Adult Patie nts (1 - 1-dose 75+ series) 2029 Cholesterol Screening (Lipid Panel) 12/17/2029 12/17/2024 HIB Vaccines Aged Out No longer eligi ble based on patient's age to complete this topic HPV Vaccines Aged Out No longer eligi ble based on patient's age to complete this topic Hepatitis A Vaccines Aged Out No long er eligible based on patient's age to complete this topic Hepatitis B Vaccines Aged Out No long er eligible based on patient's age to complete this topic IPV Vaccines Aged Out No longer eligi ble based on patient's age to complete this topic MMR Vaccines Aged Out No longer eligi ble based on patient's age to complete this topic Meningococcal ACWY Vaccine Aged Out N o longer eligible based on patient's age to complete this topic Meningococcal B Vaccine Aged Out No l onger eligible based on patient's age to complete this topic RSV Immunization Patients Un flower 20 months Aged Out No longer eligible b ased on patient's age to complete this topic Varicella Vaccines Aged Out No longer eligible based on patient's age to complete this topic Procedures Procedure Name Priority Date/Time Associated Diagnosis Comments CBC WITH AUTO DIFFERENTIAL Routine 12/17/2024 7:45 [...] Essential (primary) hypertension Hyperlipidemia, unspecified Pure hyperglyceridemia THYROID STIMULATING HORMONE WITH REFLEX TO FREE T4 AND FREE T3 Routine 12/17/2024 7:45 AM EDT Other fatigue Vitamin D deficiency, unspecified Essential (primary) hypertension Hyperlipidemia, unspecified Pure hyperglyceridemia from Last 3 Months Results * Thyroid stimulating hormone with reflex to free t4 and free t3 (12/17/2024 7:45 AM EDT) TSH 1.59 0.40 - 4.00 mcIU/mL LAB CHEMISTRY METHOD 12/17/2024 3:02 PM EDT [facility] Blood Venous blood specimen / Unknown Venipuncture / Unknown 12/17/2024 7:45 AM EDT 12/17/2024 9:51 AM EDT us Lacy Nielsen LAB BLOOD ORDERABLES Final Resul t [facility] [address] [place] [address], * (ABNORMAL) Lipid panel with reflex to direct LDL (12/17/2024 7:45 AM EDT) Cholesterol 115 0 - 200 mg/dL LAB CHEMISTRY METHOD 12/17/2024 12:58 PM EDT [facility] Triglycerides 135 0 - 150 mg/dL LAB CHEMISTRY METHOD 12/17/2024 12:58 PM EDT [facility] HDL 36(L) >=40 mg/dL LAB CHEMISTRY METHOD 12/17/2024 12:58 PM EDT [facility] LDL Calculated 52 0 - 100 mg/dL LAB CHEMISTRY METHOD 12/17/2024 12:58 PM EDT [facility] VLDL Cholesterol Fabian 27 mg/dL LAB CHEMISTRY METHOD 12/17/2024 12:58 PM EDT [facility] Non HDL Chol. (LDL+VLDL) 79 <145 mg/dL LAB CHEMISTRY METHOD 12/17/2024 12:58 PM EDT [facility] Chol/HDL Ratio 3.2 0.0 - 4.4 LAB CHEMISTRY METHOD 12/17/2024 12:58 PM EDT [facility] Blood Venous blood specimen / Unknown Venipuncture / Unknown 12/17/2024 7:45 AM EDT 12/17/2024 9:51 AM EDT us Lacy Nielsen LAB BLOOD ORDERABLES Final Resul t [facility] [address] [place] [address], * (ABNORMAL) CBC auto differential (12/17/2024 7:45 AM EDT) WBC 9.0 4.8 - 10.8 K/mcL LAB HEMETOLOGY METHOD 12/17/2024 11:24 AM EDT [facility] RBC 3.30(L) 3.80 - 4.80 M/mcL LAB HEMETOLOGY METHOD 12/17/2024 11:24 AM EDT [facility] Hemoglobin 10.1(L) 11.5 - 16.0 g/dL LAB HEMETOLOGY METHOD 12/17/2024 11:24 AM [facility] Hematocrit 32.2(L) 35.0 - 47.0 % LAB HEMETOLOGY METHOD 12/17/2024 11:24 AM [facility] MCV 98.8(H) 79.0 - 98.0 FL LAB HEMETOLOGY METHOD 12/17/2024 11:24 AM [facility] MCH 31.0 27.0 - 32.0 pcg LAB HEMETOLOGY METHOD 12/17/2024 11:24 AM [facility] MCHC 31.4(L) 32.0 - 37.0 g/dL LAB HEMETOLOGY METHOD 12/17/2024 11:24 AM [facility] RDW 13.2 11.0 - 15.0 % LAB HEMETOLOGY METHOD 12/17/2024 11:24 AM [facility] Platelets 254 130 - 400 K/mcL LAB HEMETOLOGY METHOD 12/17/2024 11:24 AM [facility] MPV 10.5 7.0 - 11.0 FL LAB HEMETOLOGY METHOD 12/17/2024 11:24 AM [facility] NRBC 0.0 <1.0 % LAB HEMETOLOGY METHOD 12/17/2024 11:24 AM [facility] NRBC Absolute 0.00 <0.10 K/mcL LAB HEMETOLOGY METHOD 12/17/2024 11:24 AM [facility] Neutrophils Relative 72.6 % LAB HEMETOLOGY METHOD 12/17/2024 11:24 AM [facility] Lymphocytes Relative 18.6 % LAB HEMETOLOGY METHOD 12/17/2024 11:24 AM [facility] Monocytes Relative 5.6 % LAB HEMETOLOGY METHOD 12/17/2024 11:24 AM [facility] Eosinophils Relative 2.5 % LAB HEMETOLOGY METHOD 12/17/2024 11:24 AM EDT [facility] Basophils Relative 0.3 % LAB HEMETOLOGY METHOD 12/17/2024 11:24 AM EDT [facility] Immature Granulocytes Relative 0.4 % LAB HEMETOLOGY METHOD 12/17/2024 11:24 AM EDT [facility] Neutrophils Absolute 6.55 1.50 - 7.00 K/mcL LAB HEMETOLOGY METHOD 12/17/2024 11:24 AM EDT [facility] Lymphocytes Absolute 1.68 1.00 - 5.00 K/mcL LAB HEMETOLOGY METHOD 12/17/2024 11:24 AM EDT [facility] Monocytes Absolute 0.51 0.20 - 1.00 K/mcL LAB HEMETOLOGY METHOD 12/17/2024 11:24 AM EDT [facility] Eosinophils Absolute 0.23 0.00 - 0.50 K/mcL LAB HEMETOLOGY METHOD 12/17/2024 11:24 AM EDT [facility] Basophils Absolute 0.03 0.00 - 0.20 K/mcL LAB HEMETOLOGY METHOD 12/17/2024 11:24 AM EDT [facility] Immature Granulocytes Absolute 0.04(H) 0.00 - 0.03 K/mcL LAB HEMETOLOGY METHOD 12/17/2024 11:24 AM EDT [facility] Blood Venous blood specimen / Unknown Venipuncture / Unknown 12/17/2024 7:45 AM EDT 12/17/2024 9:51 AM EDT us Lacy Nielsen LAB BLOOD ORDERABLES Final Resul t [facility] [address] [place] [address], * (ABNORMAL) Iron and TIBC (12/17/2024 7:45 AM EDT) Iron 72 40 - 150 mcg/dL LAB CHEMISTRY METHOD 12/17/2024 12:58 PM EDT [facility] TIBC 227(L) 250 - 450 mcg/dL LAB CHEMISTRY METHOD 12/17/2024 12:58 PM EDT [facility] Iron Saturation 32 15 - 50 % LAB CHEMISTRY METHOD 12/17/2024 12:58 PM EDT [facility] Blood Venous blood specimen / Unknown Venipuncture / Unknown 12/17/2024 7:45 AM EDT 12/17/2024 9:51 AM EDT Lacy Nielsen LAB BLOOD ORDERABLES Final Resul t Performing Organization Address [facility]/ZIP Co de Phone Number [facility] [address] [place] [address], * (ABNORMAL) Vitamin D 25 hydroxy (12/17/2024 7:45 AM EDT) Pathologist [facility] Vit D, 25-Hydroxy 21.7(L) 30.0 - 80.0 ng/mL LAB CHEMISTRY METHOD 12/17/2024 3:01 PM EDT [facility] Blood Venous blood specimen / Unknown Venipuncture / Unknown 12/17/2024 7:45 AM EDT 12/17/2024 9:51 AM EDT Lacy Nielsen LAB BLOOD ORDERABLES Final Resul t Performing Organization Address City/[facility]/ZIP Co de Phone Number [facility] [address] [place] [address], * Folate (12/17/2024 7:45 AM EDT) Folate 6.3 2.8 - 17.0 ng/ml LAB CHEMISTRY METHOD 12/17/2024 12:58 PM EDT [facility] Blood Venous blood specimen / Unknown Venipuncture / Unknown 12/17/2024 7:45 AM EDT 12/17/2024 9:51 AM EDT Lacy Nielsen LAB BLOOD ORDERABLES Final Resul t Performing Organization Address [facility]/ZIP Co de Phone Number [facility] [address] [place] [address], [place] [phone] * Ferritin (12/17/2024 7:45 AM EDT) Pathologist [facility] Ferritin 99 8 - 252 ng/mL LAB CHEMISTRY METHOD 12/17/2024 12:58 PM EDT [facility] Blood Venous blood specimen / Unknown Venipuncture / Unknown 12/17/2024 7:45 AM EDT 12/17/2024 9:51 AM EDT Lacy Nielsen LAB BLOOD ORDERABLES Final Resul t Performing Organization Address [facility] Co de Phone Number [facility] [address] [place] [address], [place] [phone] * Vitamin B12 (12/17/2024 7:45 AM EDT) Pathologist [facility] Vitamin B-12 331 250 - 900 pcg/mL LAB CHEMISTRY METHOD 12/17/2024 12:58 PM EDT [facility] Blood Venous blood specimen / Unknown Venipuncture / Unknown 12/17/2024 7:45 AM EDT 12/17/2024 9:51 AM EDT Lacy Nielsen LAB BLOOD ORDERABLES Final Resul t Performing Organization Address City/[facility]/ZIP Co de Phone Number [facility] [address] [place] [address], [place] [phone] * (ABNORMAL) Comprehensive metabolic panel (12/17/2024 7:45 AM EDT) [facility] Sodium 139 133 - 145 mmol/L LAB CHEMISTRY METHOD 12/17/2024 12:58 PM [facility] Potassium 4.2 3.5 - 5.5 mmol/L LAB CHEMISTRY METHOD 12/17/2024 12:58 PM [facility] Chloride 106 96 - 110 mmol/L LAB CHEMISTRY METHOD 12/17/2024 12:58 PM [facility] CO2 20(L) 21 - 32 mmol/L LAB CHEMISTRY METHOD 12/17/2024 12:58 PM [facility] Anion Gap 13(H) 3 - 11 LAB CHEMISTRY METHOD 12/17/2024 12:58 PM [facility] Glucose 86 70 - 100 mg/dL LAB CHEMISTRY METHOD 12/17/2024 12:58 PM [facility] BUN 43(H) 5 - 25 mg/dL LAB CHEMISTRY METHOD 12/17/2024 12:58 PM [facility] Creatinine 2.33(H) 0.50 - 1.10 mg/dL LAB CHEMISTRY METHOD 12/17/2024 12:58 PM [facility] eGFR 22(L) >=60 mL/min/1. 73m2 LAB CHEMISTRY METHOD 12/17/2024 12:58 PM [facility] Comment:Calculation based on the Chronic Kidney Disease Epidemiology Collaboration (CKD-EPI) equation refit without adjustment for race. BUN/Creatinine Ratio 18.5 LAB CHEMISTRY METHOD 12/17/2024 12:58 PM [facility] Calcium 9.0 8.5 - 10.5 mg/dL LAB CHEMISTRY METHOD 12/17/2024 12:58 PM [facility] AST (SGOT) 8(L) 10 - 42 unit/L LAB CHEMISTRY METHOD 12/17/2024 12:58 PM [facility] ALT (SGPT) 13 10 - 60 unit/L LAB CHEMISTRY METHOD 12/17/2024 12:58 PM EDT [facility] Alkaline Phosphatase 102 42 - 121 unit/L LAB CHEMISTRY METHOD 12/17/2024 12:58 PM EDT [facility] Total Protein 6.6 6.0 - 8.0 g/dL LAB CHEMISTRY METHOD 12/17/2024 12:58 PM T [facility] Albumin 2.8(L) 3.2 - 5.0 g/dL LAB CHEMISTRY METHOD 12/17/2024 12:58 PM EDT [facility] Total Bilirubin 0.4 0.0 - 1.4 mg/dL LAB CHEMISTRY METHOD 12/17/2024 12:58 PM EDT [facility] Blood Venous blood specimen / Unknown Venipuncture / Unknown 12/17/2024 7:45 AM EDT 12/17/2024 9:51 AM EDT us Lacy Nielsen LAB BLOOD ORDERABLES Final Resul t [facility] [address] [place] [address], from Last 3 Months Insurance MEDICARE Care Teams Group Insurance Special Agent Relationship Specialty Start Date End Date Lacy Nielsen [address] PCP - General Family Medicine 12/17/24
--- OUTSIDE RECORDS SUMMARY | 2025-03-18 16:49 | XMS_ITS | Encounter Summary ---
Author Organization [facility] Address [address] [facility] [address] [place] [address] Phone Care Team Providers Care Public Relations Writer Name Role Phone Ivana Cheung Primary Care Provider Femi Nielsen MD Primary Care Provider [phone] Encounter Details Date Type Department Care Team (Late st Contact Info) Description 08/17/2020 Procedure Pass [facility], Ct Scan - [address] [address] Social History Tobacco Use Types Packs/Day Years [...] 08/17/2020 10:26 AM Cindy Ryan RN * [place] Suicide Severity Rating Scale (Screener/Recent Self-Report) Question [...] Description 04/07/2025 1:20 PM EDT Office Visit [facility] [address] [place] [phone] Amanda Quinteros MD [address] [facility], [address] [place] [address] [email or web address] documented as of this encounter Visit Diagnoses Not on filedocumented in this encounter Care Teams Public Relations Writer Relationship Specialty Start Date End Date Ivana Cheung PA [address] [place] [address] PCP - General Unknown Provider Specialty 12/26/19 Femi Nielsen MD [address] [place] [phone] PCP - General Family Medicine 12/09/21 documented as of this encounter Additional Source Comments The information contained in this document represents components of the legal health record. It is not the complete legal health record.[facility]
--- OUTSIDE RECORDS SUMMARY | 2025-03-18 16:50 | XMS_ITS | Patient Health Record ---
Author Organization [facility] Address [address] [place] [address] Care Team Providers Care Shark Biologist Name Role Phone Femi Nielsen MD Primary Care Provider Unavail able Tino Taylor Unavailable [phone] Shreya Rich Unavailable [phone] Allergies Allergen (clinical drug ingredient) Drug/Non Drug Allergy documented on EMR Reaction Allergy Type Onset Date Status adhesive tape welts Drug Allergy Baylee ctive amitriptyline Amitriptyline rash Drug Allergy Active Reason For Referral No Information Medications Medication SIG (Take, Route, Frequency, Duration) Notes Start Date End Date Status Humalog Pen 6 units Unknown Extra-Depth Diabetic Shoes with 3 Pair Custom heat-molded multi-density innersoles . for 1 year . Dx:IDDM/NEURO and preulcerative lesions/callous hammertoes; Duration: . 02/26/2014 Unknown Eliquis 5 MG 1 tablet Orally Twice a day Active Extra-Depth Diabetic Shoes with 3 Pair Custom heat-molded multi-density innersoles . for 1 year . Dx:hammertoes,hx ulcer and calloused lesions; Duration: . 02/17/2015 Unknown Gabapentin 600 MG 1 tablet Orally Once a day Active Doxycycline Unknown Gabapentin 300mg three times a day orally daily Active hydroCHLOROthiazide Unknown traZODone HCl 100 MG as directed Orally Once a day Active PROzac Unknown amLODIPine Besylate 10 MG 1 tablet Orall y Once a day Active Atenolol Unknown Lantus SoloStar 20 Subcutaneous 50 units Active Keflex 500 MG 1 capsule Orally Twice a day; Duration: 10 day(s) 04/26/2016 Unknown Metoprolol Succinate 25 MG 3 capsules Orally Once a day Active Bactroban 2 % 1 application to affected area Externally once a day; Duration: 30 days 11/26/2014 Unknown Extra Depth Orthopedic Shoes (1 Pair) with Customized Heat Molded Multidensity Innersoles (3 Pair) as directed Dx: IDDM/Polyneuropath y (E10.42), Hammertoe Foot Deformity (M20.41,M20.42), Preulcerative Skin Lesion(s) (L85.1) 11/09/2023 Active Urea in Ammonium Lactate Unknown Admelog SoloStar 100 UNIT/ML Subcutaneous; Duration: 90 Days Active Fiasp Not-Taking NovoLOG 100 UNIT/ML as directed Injection sliding scale Not-Taking Cephalexin 250 MG 1 capsule Orally Once a day Not-Taking Trulicity 3 MG/0.5ML as directed Subcutaneous weekly Not-Taking Lipitor Not-Taking Neurontin Not-Taking Lasix 20 MG 1 tablet Orally Once a day Not-Taking Clobetasol Propionate E 0.05 % 1 application Externally Twice a day; Duration: 10 day(s) 08/20/2019 Not-Taking Work Note . . . Pt out of work until 11/10/13; Duration: . 11/04/2014 Unknown Sintia Active Work Note Unknown Metoprolol Succinate 50 MG 1 capsule Orally Once a day Active Extra-Depth Diabetic Shoes with 3 Pair Custom heat-molded multi-density innersoles Unknown Ammonium Lactate 12 % 1 application to affected area Externally Twice a day; Duration: 30 days 02/26/2014 Unknown hydrOXYzine HCl 25 MG/ML as directed Intramuscular Active Iodosorb 0.9 % as directed Externally daily; Duration: 30 days 10/29/2014 Unknown Atorvastatin Calcium 40 MG 1 tablet Orally Once a day Active Keflex 500 MG 1 capsule Orally 1(once a day); Duration: 10 day(s) 10/29/2014 Unknown Silvadene 1 % 1 application to affected area Externally Once a day; Duration: as needed 11/03/2014 Unknown Levaquin 750 MG 1 tablet Orally Once a day Unknown Augmentin 500-125 MG 1 tablet Orally Twice a day; Duration: 10 day(s) 01/30/2013 Unknown Keflex 500 250 MG 1 capsule Orally Three times a week Unknown Avapro Unknown Immunizations Vaccine Route Administration Date Status Comme nts Influenza Unknown 04/08/2018 Refused Influenza Unknown 06/04/2019 Administered Influenza Unknown 05/09/2023 Administered Social History Tobacco Use: Social History Observation Description Date Details (start date - stop date) Former Smoker NA - NA Tobacco Use/Smoking Question Answer Notes Are you a: former smoker Additional Findings: Tobacco Non-User Current no n-smoker Alcohol Screen Question Answer Notes Did you have a drink contain ing alcohol in the past year? Yes How often did you have a dri nk containing alcohol in the past year? Monthly or less (1 point) Points 1 Interpretation Negative Tobacco use other than smoking: Question Answer Notes Are you an other tobacco user? No Problems Problem Type SNOMED Code ICD Code Onset Dates Problem Status W/U Status Risk Notes Problem Acquired hammer toe of right foot (9684182928251945 ) Other hammer toe(s) (acquired), right foot (M20.41) Active confirmed Problem Acquired hammer toe of left foot (9721573558287113 ) Other hammer toe(s) (acquired), left foot (M20.42) Active confirmed Problem Non-pressure chronic ulcer of other part of right foot with fat layer exposed (L97.512) Active confirmed Problem Polyneuropathy due to diabetes mellitus type I (606193007) Type 1 diabetes mellitus with diabetic polyneuropathy (E10.42) Active confirmed Problem Neurological disorder associated with type I diabetes mellitus (536005232) Type 1 diabetes mellitus with other diabetic neurological complication (E10.49) Active confirmed Problem Peripheral venous insufficiency (37474019) Venous insufficiency of both lower extremities (I87.2) Active confirmed Problem Neuropathic ulce r of right foot with fat layer exposed (L97.512) Active confirmed Encounters Encounter Location Date Provider Diagnosis [facility] [address] [place] [address] 06/11/2024 Taylor Jiménez Plan Of Treatment Pending Test Test Name Order Date X ray : Foot, right 3V 02/27/2024 20464-DHCEYSG NAIL, 6 OR MORE 04/08/2018 89827-FQYEIHB NAIL, 6 OR MORE 08/01/2019 22264-ZZRPIGK NAIL, 6 OR MORE 11/13/2011 87153-AVLVPNN NAIL, 6 OR MORE 01/15/2012 96873-BPQJWSK NAIL, 6 OR MORE 04/24/2012 02745-SZKQFTM NAIL, 6 OR MORE 02/26/2014 11655-NUHXEUE NAIL, 6 OR MORE 10/29/2014 11503-SFTROHX NAIL, 6 OR MORE 02/17/2015 76570-HJCMQOH NAIL, 6 OR MORE 06/16/2015 47331-Hysz Destruction, 1-14 04/24/2012 65706-Vqwl Destruction, 1-14 01/19/2014 20248-Gzzs Destruction, 1-14 01/15/2012 70118-Aylk Destruction, 1-14 02/19/2012 57558-Xlpgaplq Plate 04/08/2018 70224- Debride <25 sq cm 06/16/2015 38819- Debride <25 sq cm 01/14/2015 38249- Debride <25 sq cm 02/17/2015 03294- Debride <25 sq cm 10/29/2014 29765- Debride <25 sq cm 02/19/2012 87453- Debride <25 sq cm 11/28/2011 11473- Debride <25 sq cm 12/13/2011 62972- Debride <25 sq cm 01/15/2012 47689- Debride <25 sq cm 11/13/2011 67320- Debride <25 sq cm 04/24/2012 24321-YPAYGFF SKIN/TISSUE 11/13/2011 29639-BXWHKLM SKIN/TISSUE 02/26/2014 15702-OYHKPZX SKIN/TISSUE 10/29/2014 99719-TUQRIHO SKIN/TISSUE 11/04/2014 44929-VTVVFVJ SKIN/TISSUE 11/09/2014 50013-DWCICIH SKIN/TISSUE 11/26/2014 23828-NVOTAOZ SKIN/TISSUE 12/15/2014 75082-LVQUKZM SKIN/TISSUE 01/01/2015 60581-UOHKBIW SKIN/TISSUE 01/30/2013 92959-RCWFMIG SKIN/TISSUE 08/01/2019 08365-JROTZTS SKIN/TISSUE 01/11/2023 37275-FGPX SKIN LESIONS, OVER 4 01/12/20 23 37158-WEDN SKIN LESIONS, OVER 4 08/01/19 20 42848-DWJY SKIN LESIONS, OVER 4 02/18/20 15 54621-ZWVK SKIN LESIONS, OVER 4 10/30/19 15 94589-IGWJ SKIN LESIONS, OVER 4 02/27/20 14 56435-EAFG SKIN LESIONS, OVER 4 04/24/20 12 54842-FIUI SKIN LESIONS, 2 TO 4 11/13/19 12 28234-FZDQ SKIN LESIONS, 2 TO 4 01/15/20 12 18988-XJNU SKIN LESIONS, 2 TO 4 06/16/20 15 56533-MGPW SKIN LESIONS, 2 TO 4 04/08/20 18 Insurance Providers Payer Name Payer Address Payer Phone Subscriber Number Group Number Insured Name Patient Relationship to Insured Coverage Start Date Coverage End Date [employer] [address] [place] [address] [id number] Alka Israel Self - patient is the insured [facility] [address] [place] [address] [id number] Alka Israel Self - patient is the insured Medical (General) History Medical History History ICD Code depression type II diabetes chicken pox high blood pressure measles Broken bones Cataracts Depression Neuropathy Psoriasis/eczema ulcer Surgical History Surgery Date(Month/Year) hysterectomy 1996 kidney stones- stent placed 87,89,07,09, 05 oopherectomy 2004 cataract surgery 08/2018, 09/2018 tubal ligation 1988 achilles tendon repair 2020 Hospitalization History Reason Date(Month/Year) [facility] [place]- Infection in blood 10/26/23 [facility]- kidney infection, k idney stone 08/30/13 [facility] - kidney infection 1 09/15/12
--- OUTSIDE RECORDS SUMMARY | 2025-03-18 16:50 | XMS_ITS | Clinical Summary ---
Author Organization [facility] Address [address] [address] [place] [id number] Phone Care Team Providers Care Freight Broker Agent Name Role Phone Femi Nielsen MD Primary Care Provider [phone] Allergies Active Allergy Reactions Criticality Noted Date Comments Amitriptyline Rash Low 01/16/2020 Metformin 04/05/2022 Other reaction(s): stomach upset Semaglutide 04/05/2022 Other reaction(s): stomach upset Medications gabapentin (NEURONTIN) 600 MG tablet Take 1,800 mg by mouth nightly at bedtime. Active atorvastatin (LIPITOR) 40 MG tablet Take 40 mg by mouth daily. Active traZODone (DESYREL) 100 MG tablet Take 100 mg by mouth nightly at bedtime. Active clotrimazole (LOTRIMIN) 1 % cream Apply topically 2 (two) times a day. 30 g 01/21/20 20 Active amLODIPine (NORVASC) 10 MG tablet Take 10 mg by mouth nightly at bedtime. 01/29/20 20 Active hydrOXYzine (ATARAX) 25 MG tablet Take 25 mg by mouth 3 (three) times a day as needed for anxiety. Active apixaban (ELIQUIS) 5 mg tablet Take 5 mg by mouth 2 (two) times a day. Active cholecalciferol (VITAMIN D3) 50,000 unit capsule TAKE 1 CAPSULE ONCE A WEEK FOR 84 12/03/19 Active Opez VERIO FLEX METER Misc meterIndications :Type 2 diabetes mellitus with diabetic mononeuropathy, with long-term current use of insulin by Miscellaneous route daily. E11.9 1 each 12/16/19 23 Active DeliverooTOLengow DELICA PLUS LANCET 33 gauge MiscIndications: Type 2 diabetes mellitus with diabetic mononeuropathy, with long-term current use of insulin Inject 1 each into the skin 3 (three) times a day before meals. E11.9 300 each 3 05/07/20 23 Active Opez VERIO Strp stripsIndication s:Type 2 diabetes mellitus with diabetic mononeuropathy, with long-term current use of insulin 1 each by Miscellaneous route 3 (three) times a day before meals. E11.9 300 strip 3 05/07/20 Active metoprolol succinate (TOPROL-XL) 50 MG 24 hr tablet Take 50 mg by mouth daily. 04/15/20 24 Active BASAGLAR KWIKPEN U-100 INSULIN 100 unit/mL (3 mL) InPn injection penIndications:T ype 2 diabetes mellitus with diabetic mononeuropathy, with long-term current use of insulin,Type 2 diabetes mellitus with stage 3b chronic kidney disease, with long-term current use of insulin Inject 40 Units under the skin daily. E11. E11.40 90 mL 3 06/17/20 24 Active BD ULTRA-FINE MINI PEN NEEDLE 31 gauge x 10/05 NdleIndications: Type 2 diabetes mellitus with diabetic mononeuropathy, with long-term current use of insulin,Type 2 diabetes mellitus with stage 3b chronic kidney disease, with long-term current use of insulin USE TO ADMINISTER INSULIN 4 TIMES DAILY DIRECTED E11. E11.40 400 each 3 06/17/20 24 Active ADMELOG SOLOSTAR U-100 INSULIN 100 unit/mL injection penIndications:T ype 2 diabetes mellitus with diabetic mononeuropathy, with long-term current use of insulin,Type 2 diabetes mellitus with stage 3b chronic kidney disease, with long-term current use of insulin Administer at meals according to sliding scale, TDD 45u E11. E11.40 45 mL 3 06/17/20 24 Active MOUNJARO 10 mg/0.5 mL PnIj subcutaneous penIndications:T ype 2 diabetes mellitus with diabetic mononeuropathy, with long-term current use of insulin Inject 0.5 mL (10 mg total) under the skin once a week. 6 mL 1 11/12/19 25 Active Active Problems Problem Noted Date Diagnosed Date Type 2 diabetes mellitus wit h diabetic mononeuropathy, with long-term current use of insulin 06/17/2024 Assessment & Plan (11/11/2024 3:17 PM EDT): Darius is followed closely by wound management, foot nurse She is not active but is encouraged to do her best with this We discussed optimized Mounjaro which is likely to help prandial glucose and may impact effect of prandial SSI We discussed continuation of current dose of basal insulin as Darius's overnight patterns are stable in reasonable range, often in target range after midnight, with improved prandial control in afternoon/evening, this is likely to be more firmly in target range Darius will return in 4 months and she is advised to contact me with any questions or concerns in the interim Type 2 diabetes mellitus with diabetic dermatiti s 10/12/2022 Diabetic renal disease 10/12/2022 Assessment & Plan (11/11/2024 2:57 PM EDT): Most recent GFR on file is 27, updated labs not available for review Blood pressure is in good control Advise follow up with nephrology Assessment & Plan (06/28/2023 8:25 PM EST): Recent GFR 27 and creatinine 2.0 Optimize BP and glycemic control Avoid renal toxic medications Vitamin D deficiency 10/12/2022 Skin ulcer due to diabetes mellitus 10/12/2022 Assessment & Plan (06/28/2023 8:29 PM EST): Right forefoot Had been seeing wound clinic weekly, now sees every other week Wound nurse comes twice weekly for bandage changes with calcium alginate Also follows with podiatry Healing well Recommended taking basic multivitamin daily Cellulitis of left lower limb 10/12/2022 Renal osteodystrophy 12/29/2020 Hyperlipidemia 12/28/2020 Assessment & Plan (11/11/2024 2:58 PM EDT): Most recent lipid panel reviewed, this is from Jun 2023, parameters are in good ranges, LDL is near optimal goal, on high intensity statin therapy Assessment & Plan (06/17/2024 3:57 PM EST): Most recent lipid panel reviewed, this is from Jun 2023, parameters are in good ranges, LDL is near optimal goal, on high intensity statin therapy Assessment & Plan (11/14/2023 9:25 AM EDT): Most recent lipid panel reviewed, this is from Jun 2023, parameters are in good ranges, LDL is near optimal goal, on high intensity statin therapy Assessment & Plan (06/28/2023 8:58 PM EST): Most recent lipid panel reviewed, parameters are in good ranges, LDL is at goal, on high intensity statin therapy Assessment & Plan (12/15/2022 5:35 PM EDT): Most recent lipid panel reviewed, this is from November 2021, parameters are in good ranges, LDL is at goal, on high intensity statin therapy Will have updated labs soon at annual visit with PCP Assessment & Plan (08/28/2022 8:35 AM EST): Most recent lipid panel reviewed, parameters are in good ranges, LDL is at goal, on high intensity statin therapy Assessment & Plan (04/17/2022 5:36 PM EDT): Most recent lipid panel reviewed, parameters are in good ranges, LDL is at goal, on high intensity statin therapy Assessment & Plan (01/31/2022 11:54 AM EDT): Most recent lipid panel reviewed, parameters are in good control on high intensity statin therapy Assessment & Plan (12/09/2021 2:47 PM EDT): Most recent lipid panel reviewed, parameters are in good control on high intensity statin therapy Obstructive uropathy 08/17/2020 Assessment & Plan (08/17/2020 10:09 PM EST): Baseline creatinine appears to be 1.3-1.4 over [...] monitoring. Patient will need outpatient urology follow-up. Acute pyelonephritis 08/17/2020 Assessment & Plan (08/17/2020 10:08 PM EST): In the setting of an obstructing left [...] as needed for moderate to severe pain Dyspnea 01/19/2020 Assessment & Plan (01/21/2020 11:35 AM EDT): Some dyspnea with RVR, improved with rest and resolution of tachycardia. X-ray on 01/18 did not show any oh edema or airspace disease --She is off IV fluids. Could consider trial of Lasix if she has further exertional dyspnea. Given resolving [place], will plan to continue observation for now Falls frequently 01/17/2020 Assessment & Plan (01/21/2020 11:36 AM EDT): Continue PT and efforts to mobilize Hypoxia 12/28/2019 Assessment & Plan (12/28/2019 3:06 PM EDT): -Patient placed on oxygen by ambulance Weaned off yesterday. However she did have desaturations in the mid 80s last night. Suspect this is due to sleep apnea not sepsis. -Check oxygen saturations levels overnight tonight ifstill hypoxic may need home overnight oximetry to get oxygen and sleep study Hypertension 12/27/2019 Assessment & Plan (11/11/2024 2:56 PM EDT): Blood pressure is in very good control today, this has been historically above goal Continues on multidrug antihypertensive medication regimen Encouraged to continue efforts at optimal lifestyle Advised to continue follow up with nephrology, no updated labs available for review, last GFR was 27 in late 2022 Assessment & Plan (06/17/2024 3:56 PM EST): BP is again elevated, this has been historically above goal Continues on multidrug antihypertensive medication regimen Encouraged to continue efforts at optimal lifestyle Needs to make follow up appt with nephrology, GFR 27 most recently Assessment & Plan (11/14/2023 9:26 AM EDT): BP in elevated today Continues on multidrug antihypertensive medication regimen which includes ACEi Encouraged to continue efforts at optimal lifestyle Assessment & Plan (06/28/2023 8:32 PM EST): BP in normal range today Continues on multidrug antihypertensive medication regimen which includes ACEi Low sodium, heart healthy diet encouraged Assessment & Plan (12/15/2022 5:32 PM EDT): BP in excellent range today Continues on multidrug antihypertensive medication regimen which includes ACEi Assessment & Plan (08/28/2022 8:21 AM EST): BP not evaluated d/t virtual visit Continues on multidrug antihypertensive medication regimen which includes ACEi Assessment & Plan (04/17/2022 5:35 PM EDT): BP in excellent range today Continues on multidrug antihypertensive medication regimen which includes ACEi Assessment & Plan (01/31/2022 11:53 AM EDT): BP in excellent range today Continues on multidrug antihypertensive medication regimen which includes ACEi Assessment & Plan (12/09/2021 2:50 PM EDT): Continues on multidrug antihypertensive medication regimen which includes ACEi Assessment & Plan (08/17/2020 10:00 PM EST): Continue amlodipine, lisinopril, and metoprolol starting tomorrow after monitoring blood pressure trend. Monitor renal function. Assessment & Plan (12/28/2019 3:05 PM EDT): -Patient's blood pressure low in the hospital due to her infection - lisinopril and Lasix held. However metoprolol is provided for rate control of new A. fib Type 2 diabetes mellitus wit h chronic kidney disease, with long-term current use of insulin Assessment & Plan (11/11/2024 3:00 PM EDT): Most recent GFR on file is 27 Blood pressure is in good control today Continues with prandial hyperglycemia though overall control is improved, advised to continue mealtime insulin prior to meals, has more structured meals at [facility] but the quality of these do make diabetes management difficult We discussed continuation of current basal insulin dosage and an increase of Mounjaro to 10mg which should support improved prandial patterns, we revisited the benefits of Mounjaro on prandial glucose control and prandial insulin requirement, this will hopefully stabilize glucose and increase TIR Advised to continue to closely monitor CGM patterns FPG is in good range, mealtime patterns are consistently elevated Advised to follow up with nephrology Darius will return for follow up in 4 months Assessment & Plan (06/17/2024 4:02 PM EST): Most recent GFR on file is 27 Blood pressure is elevated today Continues with prandial hyperglycemia though overall control is improved, we revisited importance of taking mealtime insulin prior to meals, this should be easier now that Darius is living at [facility] since meals will be more structured We discussed continuation of current basal insulin dosage and Mounjaro, we revisited the benefits of Mounjaro on prandial glucose control and prandial insulin requirement, this will hopefully stabilize glucose and increase TIR Advised to closely monitor CGM patterns once she is able to resume FPG is in good range, mealtime patterns are consistently elevated Needs to schedule a follow up with nephrology Darius will return for follow up in 3-4 months Assessment & Plan (11/14/2023 9:24 AM EDT): Most recent GFR on file is 27 Blood pressure is elevated today Continues with prandial hyperglycemia though overall control is improved, CGM average in the past 2 weeks is improved compared to her last visit at 171 with nearly 60% of data in target range We discussed a reduction in basal insulin dosage as we optimize Mounjaro, we discussed the benefits of this on prandial glucose control, this will hopefully stabilize glucose and increase TIR, Darius will continue her mealtime dosing for now, without increase in Mounjaro it would be appropriate to consider optimizing mealtime doses however since Mounjaro will provide this benefit we will hold off on increase in mealtime insulin FPG is in excellent range but at low normal at times, reduction in Basaglar dosage should help this and this will also be necessary as we optimize Mounjaro which may lead to overall lower insulin requirement Darius will return for follow up in 4 months Assessment & Plan (06/28/2023 8:49 PM EST): Long history of type 2 diabetes, insulin requiring Continues with some persistent prandial hyperglycemia though overall control has remained fairly stable with average glucose 197 versus 213 with 40% of sugar in target range versus 28% in fall of last year. Although this is not quite as good as late spring of this year where her sugar was 193 with 54% in target range. Darius is doing well despite higher amount of stress with her 's unexpected illness and . Tolerating optimized dosage of Trulicity well, this too should be offering prandial glucose support . We discussed memory aids to help her bolus early enough prior to her meals as she often forgets until longterm through or after a meal. We also will try ultra-rapid insulin, Fiasp, with caution to start at a slightly lower dose than normal on her sliding scale for the first few days. FPG is a little elevated. We discussed a modest basal insulin increase to 74u total daily as well as dividing her dose in half with twice daily injection for better absorption. We reviewed target FPG range and 2 hour PPG goals. We reviewed hypoglycemia prevention, recognition and management. Encouraged to continue to make healthy diet choices and remain as physically active as tolerates. Encouraged to contact us with any concerns or question and follow up with Dr Quinteros in 3 months. Darius will return for follow up in 3 months Assessment & Plan (12/15/2022 5:42 PM EDT): Long history of type 2 diabetes, insulin requiring, currently with stressors and grieving since 's recent Darius has good support around her but much of her day to day life has been an adjustment, she is doing well with reasonably consistent insulin dosing Continues with some persistent prandial hyperglycemia though overall control continues to be reasonable, CGM average in the past 2 weeks is 189 with nearly 50% of data in target range We discussed a reduction in basal insulin dosage but optimized mealtime dosing, this will hopefully stabilize glucose and increase TIR, the increase in mealtime dosing is fairly conservative and I will check on patterns in the next week to 10 days and we will be in touch with Darius to adjust further as needed, she is also encouraged to reach out to me with any questions or concerns in the interim Tolerating optimized dosage of Trulicity well, currently at 3mg weekly, this too should be offering prandial glucose support FPG is mostly in good range but low normal at times, reduction in Basaglar dosage should help this Darius will return for follow up in 4 months Assessment & Plan (08/28/2022 8:34 AM EST): Long history of type 2 diabetes, insulin requiring Continues with some persistent prandial hyperglycemia though overall control has improved significantly since this fall with average glucose 192 versus 213 with 52% of sugar in target range versus 28% in fall. Darius is doing well despite higher amount of stress with her 's unexpected illness and surgery Tolerating optimized dosage of Trulicity well, this too should be offering prandial glucose support and will be further optimized today due to higher sugars from afternoon through evening FPG is mostly in good range Darius will return for follow up in 3 months Assessment & Plan (04/17/2022 5:43 PM EDT): Long history of type 2 diabetes, insulin requiring Continues with some persistent prandial hyperglycemia though overall control has improved significantly since spring per A1c and CGM indicates modest variability Tolerating optimized dosage of Trulicity well, this too should be offering prandial glucose support and may be further optimized as needed and as tolerated We discussed some adjustments to meal time sliding scale dosing which should help improve TIR and reduce prandial rise and flexibility with these recommended doses based on blood sugar when she is having smaller/larger meals and/or planning activity after the meal or completed increased activity prior to a meal We discussed upcoming travel to [facility], provided travel letter and recommendations for packing insulin and supplies Darius will return for follow up with me in 4 months Assessment & Plan (01/31/2022 11:56 AM EDT): Long history of type 2 diabetes, insulin requiring Enjoys using CGM and the information it is offering, continues with persistent hyperglycemia though indicating poor control though had been in good control until some time in 2020 when control worsened due to health issues/hospitalizations Concerned regarding poor control given multiple open wounds on lower extremities, one reported to be the surgical incision site from last Achilles tendon rupture surgery done in October 2020 Foot exam completed today, poor sensation, concerned for lesions on feet that do appear to be healing and not overly impressive for infection but should be closely monitored by either wound care or podiatry. Would recommend regular podiatry follow up for diabetic foot care and nail care Was following with wound care and podiatry but has not had follow up in over a year, strongly recommend Darius scheduling appointments with both wound care and podiatry as soon as able Continues on higher dose basal insulin with moderate dose sliding scale rapid insulin meal coverage, just started initial dose of Trulicity and tolerating well Advised continuing on current dose of Trulicity, with possible optimization after initial startup period to aid in glycemic reduction Will follow up with Darius in 2 weeks to check in on glycemic control and if agreeable to optimization of Trulicity Darius will follow up as scheduled with Dr. Quinteros in the fall Assessment & Plan (12/09/2021 2:59 PM EDT): Long history of type 2 diabetes, insulin requiring Recently with A1c indicating poor control though had been in good control until some time in 2020 when control worsened due to health issues/hospitalizations Currently on high dose basal insulin with low dose sliding scale rapid insulin meal coverage We will assess the efficacy of these with CGM evaluation, we discussed CGM options, Darius has used FSL in the past but had difficulty keeping the sensors on, would like to reconsider CGM use again, received instruction on Dexcom G6 and pro placed today, unblinded Darius will return in 2 weeks to follow up with our family living educator staff regarding CGM interpretation, diabetes education and nutrition counseling, Darius and I will follow up in the fall but we will be in touch regarding any changes to her regimen in the interim, she is advised to reach out to me with any questions or concerns CGM Trial Type of Diabetes: Diabetes mellitus Type 2 Procedures: Glucose Monitoring: Type of Sensor: Dexcom G6 Instruction: Patient Instructed on:, Calibrations, When to test BS, Troubleshooting, What to expect with the sensor, Patient instructed to remove sensor if redness, pain or bleeding occurs. . Insertion Site Selected: thighs, right side Site Prep: Insertion site wiped with alcohol. Insertion: completed, area looks good, no redness, no bleeding. Plan: Patient will remove sensor and return in 2 weeks to follow up. Assessment & Plan (08/17/2020 10:03 PM EST): Blood sugar on metabolic panel earlier was 242, down to 179 on [id number] testing after IV fluid hydration. Last hemoglobin A1c 8.6, 2 months ago. Continue Lantus insulin, we will give half the dose this evening (28 units) as she has not been eating in the setting of her illness today. Monitor [id number] with insulin sliding scale coverage. Assessment & Plan (06/23/2020 6:54 PM EST): Patient has been taking glargine 76 units at bedtime and lispro 20 to 30 units with each meal. Because she will be n.p.o., I will decrease the glargine dose and hold gradual lispro right now, continue sliding scale Assessment & Plan (01/21/2020 11:26 AM EDT): Blood sugars remain well controlled in low 100 range --Continue Lantus insulin 65 units nightly and scheduled plus sliding scale lispro Assessment & Plan (12/28/2019 2:53 PM EDT): -Upon admission patient placed on her basal and bolus insulin with sliding scale, but at slightly reduced dose as appetite reduced -Titrate insulin as needed -Initially somnolent when admitted and gabapentin held. This was restarted yesterday because she had improved Chronic kidney disease Assessment & Plan (06/23/2020 6:55 PM EST): Stable on admission, creatinine at baseline, renally dose vancomycin Creatinine clearance is 82 Potassium is borderline elevated at 5.3, recheck in a.m. telemetry monitor Assessment & Plan (12/27/2019 4:43 PM EDT): Records received from [email or web address]. 10/11/2019 creatinine 1.7. Her creatinine appears to be at baseline. Atrial fibrillation with rapid ventricular respo nse Assessment & Plan (08/17/2020 10:01 PM EST): Rapid response likely in the setting of sepsis and obstructive uropathy / pyelonephritis. Continue IV fluid hydration tonight and monitor on telemetry. Continue metoprolol succinate 200 mg daily starting tomorrow morning. We can use small doses of IV metoprolol as needed for sustained ventricular response greater than 110. Assessment & Plan (06/23/2020 6:52 PM EST): History of atrial fibrillation, currently rate controlled Plan Continue metoprolol Hold Eliquis in anticipation for OR tomorrow, pt thinks last dose was this morning Assessment & Plan (01/21/2020 11:25 AM EDT): She had A. fib with RVR on walking back to from the bathroom. She was switched from metoprolol tartrate 50 mg every 6 hours to 100 mg twice daily yesterday, and missed 1 dose in that transition, she has been otherwise receiving her usual beta-juan carlos regimen. Echocardiogram on 12/26 showed EF 55% and mild pulmonary hypertension --Continue metoprolol tartrate 100 mg twice daily. She may need additional AV winnie blockade if she has recurrent or persistent tachycardia --Hold discharge and plan to monitor another day --Continue apixaban as scheduled Assessment & Plan (12/28/2019 2:52 PM EDT): -Patient's notes that she had an episode of A. fib decades ago -Her A. fib is new and precipitated by her sepsis. -Cardiology consulted and patient had an echo which had a normal EF. Anticoagulation recommended and started. -Titrate beta-juan carlos for heart rate control as able.. Her blood pressure still running on the low side due to her infection Resolved Problems Problem Noted Date Diagnosed Date Resolved Date Septicemia due to undetermined organism 08/17/2020 06/17/2024 Assessment & Plan (08/17/2020 10:05 PM EST): I suspect secondary to urinary source with [...] monitor respiratory status closely with pain medication. Open wound of left lower ext remity with tendon involvement 06/23/2020 06/17/2024 Assessment & Plan (06/23/2020 7:07 PM EST): Several weeks of pain at the left [...] ceftriaxone tonight- follow cultures tomorrow -Elevate -Analgesia Open wound of left lower ext remity with tendon involvement 06/23/2020 06/17/2024 Assessment & Plan (08/17/2020 10:04 PM EST): Patient has a wound VAC in place on the left lower extremity with intact bandaging. Consult wound care in the hospital as needed. Atopic dermatitis 01/18/2020 06/17/2024 Streptococcal bacteremia 01/16/2020 Assessment & Plan (01/21/2020 11:24 AM EDT): Strep pyogenes bacteremia, likely due to right [...] that point --Continue wound care as scheduled Sepsis 12/26/2019 06/17/2024 Assessment & Plan (12/28/2019 3:05 PM EDT): Etiology cellulitis of the left leg, mainly [...] rate IV fluid, continue to hold Lasix Somnolence 12/27/2019 Assessment & Plan (12/26/2019 5:44 PM EDT): notes she was more sleepy last night- at present arouses spontaneously but falls back asleep quickly, more alert at [address] Mckeon. GCS 15 VBG showed a PCO2 of 39, PO2 of 74 Plan ABG Continuous O2 sat Neuro checks Hold trazodone, gabapentin Treat sepsis Bacteremia due to Streptococcus 06/17/2024 Cellulitis of right leg 05/24 Immunizations Immunization Administration Dates Next Due INFLUENZA, SPLIT VIRUS, TRIV ALENT W/ PRESERVATIVE IM 10/01/2018,05/06/2018,06/07/2017,2015,06/04/2015,05/31/2014 Influenza High-Dose Quadriva lent Preservative Free IM 04/14/2023,2020() Influenza High-Dose Trivalen t Preservative Free IM 03/31/2020 Influenza Quadrivalent Adjuv anted Preservative Free IM 04/08/2022,04/28/2021 Influenza Quadrivalent Pedia tric Preservative Free IM 06/01/2019 Influenza Quadrivalent Prese rvative Free IM 06/01/2019,05/06/2018,06/07/2017 Influenza Quadrivalent w/ Preservative IM 06/06/2016,04/22/2016 Pneumococcal conjugate PCV13 2020( ),01/16/2020(Deferred: Contraindication),12/26/2019(Deferred: Not Available From Cna Gna) Pneumococcal conjugate PCV15 12/20/2022 RSV Vaccine (monovalent, adjuvanted) 04/19/2023 Tdap 06/22/2012,07/23/2010 Family History Medical History Relation Comments Cancer Father Relation Status Comments Father Social History Tobacco Use Types Packs/Day Years Used Date Smoking Tobacco: Every Day Cigarettes 0.3 20 Started: 10/16/1999; Last attempted to quit: 10/16/2019 Smokeless Tobacco: Never Tobacco Cessation:Ready to Q uit: Not Asked Alcohol Use Standard Drinks/Week Comments Yes 2 (1 standard drink = 0.6 oz pur e alcohol) Education Answer Date Recorded Are you interested in more education? Not on eda e 11/17/2022 Are you concerned about learning? Not on file 11/17/2022 No 11/17/2022 No 11/17/2022 Digital Access Answer Date Recorded No 12/15/2022 No 12/15/2022 Reliable internet access at home? Not on file 12/15/2022 Device with a working camera? Not on file Comments No Sex and Gender Information Value Date Recorded Sex Assigned at Female 12/26/2019 12:14 PM EDT Legal Sex Female 9:56 PM EDT Gender Identity Female 12/26/2019 12:14 PM EDT Sexual Orientation Straight 12/26/2019 12 :14 PM EDT Last Filed Vital Signs Vital Sign Reading Time Taken Comments Blood Pressure 122/74 11/11/2024 1:59 PM EDT Pulse 51 11/11/2024 1:59 PM EDT Temperature 36.2 C (97.1 F) 12/15/2022 2:24 PM EDT Respiratory Rate 18 04/17/2022 4:22 PM EDT Oxygen Saturation 96% 12/15/2022 2:24 PM EDT Inhaled Oxygen Concentration 35% 08/18/2020 2 :00 PM EST Weight 127 kg (280 lb) 06/27/2023 1:54 PM EST Height 167.6 cm (5' 5.98 ) 11/11/2024 1:59 PM ED T Body Mass Index 45.22 06/27/2023 1:54 PM EST Plan of Treatment Upcoming Encounters Date Type Department Care Team (Late st Contact Info) Description 04/07/2025 1:20 PM EDT Office Visit [facility] [address] [place] [address] Amanda Quinteros MD [address] [facility], 1st [place] [address] [email or web address] Health Maintenance Due Date Last Done Comments DEPRESSION SCREENING 1966 SMOKING Hx and SMOKELESS TOBACCO SCREENING 1967 HEPATITIS C SCREENING 1972 MAMMOGRAM 1994 COLOGUARD 1999 COLONOSCOPY 1999 COLORECTAL CANCER SCREENING 1999 FIT TEST 1999 FOBT 1999 SIGMOIDOSCOPY 1999 VIRTUAL COLONOSCOPY 1999 ZOSTER VACCINES (1 of 2) 2004 OSTEOPOROSIS SCREENING INITIAL (ONE-TIME) 2019 DIABETIC EYE EXAM 12/26/2019 Adult Td,Tdap Booster 06/22/2022 06/22/2012, 011 PNEUMOCOCCAL VACCINES (50+ years) (2 of 2 - PPSV23) 12/21/2023 12/20/2022 COVID-19 VACCINE ( season) 2024 04/14/2023, 11/27/2022, 04/08/2022, Additional history exists CREATININE LEVEL 06/27/2024 06/27/2023, 07/2022, 08/18/2020, Additional history exists INFLUENZA VACCINE (#1) 2025 , 04/08/2022, 04/28/2021, Additional history exists BLOOD PRESSURE 05/13/2025 11/11/2024 HEMOGLOBIN A1C 05/13/2025 11/11/2024, 11/2 12/2023, 06/27/2023, Additional history exists RSV VACCINE Completed 04/19/2023 HEPATITIS A VACCINES Aged Out No long er eligible based on patient's age to complete this topic HIB VACCINES Aged Out No longer eligi ble based on patient's age to complete this topic MENINGOCOCCAL VACCINES (ACWY) Aged Out No longer eligible based on patient's age to complete this topic MENINGOCOCCAL VACCINES (B) Aged Out N o longer eligible based on patient's age to complete this topic Medical Devices Implanted Type Area Cna Gna Device Identifier Shelf Expiration Date Model / Serial / Lot Stent Ureteral 6fr 22 To 30cm Stretch Coated Teresa - [id number] Implanted:Qty: 1 on 08/17/2020 by Gemini Miguel MD at [facility] Left: Ureter [employer] 05/10/2023 [id number] / / [id number] Stent Ureteral 6fr 22 To 30cm Stretch Coated Teresa - [id number] Implanted:Qty: 1 on 10/08/2020 by Fab Mirza MD at [facility] Left: Ureter [employer] 05/17/2023 [id number] / / [id number] Procedures Procedure Name Priority Date/Time Associated Diagnosis Comments POCT HEMOGLOBIN A1C Routine 11/11/2024 2 :12 PM EDT Type 2 diabetes mellitus with diabetic mononeuropathy, 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, 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 BASIC METABOLIC PANEL Routine 06/27/2023 3:12 PM EST Type 2 diabetes mellitus with diabetic mononeuropathy, with long-term current use of insulin from Last 3 Months or Most Recently Relevant to Health Maintenance Results * (ABNORMAL) POCT Hemoglobin A1c (11/11/2024 2:12 PM EDT) Hemoglobin A1c 7.2(A) 4.2 - 5.6 % Other 11/11/2024 2:12 PM EDT us Amanda Quinteros MD POINT OF CARE TEST ORDERABLES F inal Result * (ABNORMAL) Basic metabolic panel (06/27/2023 3:12 PM EST) SODIUM 139 133 - 146 mmol/L [facility] CHLORIDE 104 96 - 108 mmol/L [facility] POTASSIUM 4.5 3.3 - 5.1 mmol/L [facility] CO2 23 21 - 35 mmol/L [facility] BUN 39(H) 6 - 19 mg/dL [facility] CREATININE 2.00(H) 0.5 - 1.5 mg/dL [facility] GLUCOSE 194(H) 70 - 99 mg/dL [facility] CALCIUM 9.4 8.4 - 10.3 mg/dL [facility] EGFR 27(L) >59 mL/min/1.7 3m2 [facility] Comment:Estimated glomerular filtration rate calculated using the CKD-EPI refit equation. ANION GAP 17 10 - 20 mmol/L [facility] Blood 06/27/2023 3:12 PM EST 06/27/2023 3:18 PM EST Dorene Cliffordosa MEDIA RECONCILIATION SPECIALIST LAB BLOOD ORDERABLES Final Result [facility] [address] [place] [address] from Last 3 Months or Most Recently Relevant to Health Maintenance Insurance [facility] MEDICARE SUPPLEMENT MEDICARE PART A & B . [address] [place] [address] [facility] MEDICARE SUPPLEMENT MEDICARE PART A & B MEDICARE PART A & B MEDICARE PART A & B [facility] MEDICARE SUPPLEMENT MEDICARE PART A & B [facility] MEDICARE SUPPLEMENT MEDICARE PART A & B MEDICARE PART A & B [facility] MEDICARE SUPPLEMENT MEDICARE PART A & B [facility] MEDICARE SUPPLEMENT Member Subscriber Plan / Payer (Ef fective 2021-Present) Name:Darius Israel Relation to Subscriber:Self Name:Darius Israel Payer ID:Not on file Type:Indemnity Address: [place] [id number] MEDICARE PART A & B Advance Directives For more information, please contact: [phone] (9AM - 5PM [facility], Sunday-Sunday) Documents on File Type Date Recorded 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 Expl john Healthcare Proxy 08/20/2020 4:51 PM * Full Code (Latest Code Status on File) Date Activated Date Inactivated Comments 08/17/2020 10:14 PM Question Answer Comments Code Status Confirmed With: Patient * Full Code Date Activated Date Inactivated Comments 06/23/2020 8:32 PM 08/17/2020 10:14 PM Question Answer Comments Code Status Confirmed With: Patient * Full Code (Confirmed) Date Activated Date Inactivated Comments 01/17/2020 8:10 AM 06/23/2020 8:32 PM Question Answer Comments Code Status Confirmed With: Patient * No Code Status Date Activated Date Inactivated Comments 01/16/2020 9:30 PM 01/17/2020 8:10 AM Code Status: Full Code (Confirmed) Question Answer Comments Code Status Confirmed With: Patient * Full Code (Confirmed) Date Activated Date Inactivated Comments 12/26/2019 5:48 PM 01/16/2020 9:30 PM Question Answer Comments Code Status Confirmed With: Patient Healthcare Agents on File Name Relationship Healthcare Agent Relationshi p Communication Naif Israel Spouse .Primary Health Care Agent (Proxy form on file) Sasha Israel Daughter Alternate Health care Agent (Proxy form on file) Care Teams Freight Broker Agent Relationship Specialty Start Date End Date Femi Nielsen MD [address] [place] [id number] [email or web address] PCP - General Family Medicine 12/09/21 Additional Source Comments The information contained in this document represents components of the legal health record. It is not the complete legal health record.[facility]
== END 2025-03-18 16:51 | disposition home or self-care (01) ==
PROVIDERS: Emergency Provider Emergency Medicine
DX: S80.11XA Contusion of right lower leg, initial encounter (principal); W18.2XXA Fall in (into) shower or empty bathtub, initial encounter; Y93.89 Activity, other specified; Y92.89 Other specified places as the place of occurrence of the external cause; Y99.9 Unspecified external cause status; E04.9 Nontoxic goiter, unspecified; R51.9 Headache, unspecified; M79.661 Pain in right lower leg; I12.9 Hypertensive chronic kidney disease with stage 1 through stage 4 chronic kidney disease, or unspecified chronic kidney disease; E11.22 Type 2 diabetes mellitus with diabetic chronic kidney disease; N18.9 Chronic kidney disease, unspecified; N17.9 Acute kidney failure, unspecified; I48.91 Unspecified atrial fibrillation; Z79.01 Long term (current) use of anticoagulants; Z79.899 Other long term (current) drug therapy
CPT/HCPCS: 70450; 72125; 73590; 99284

== ENCOUNTER → 2025-03-18 13:50 | Outpatient (BNV) | payer MEDICARE, OTHER, SELFPAY | PROVIDERS: Visit Provider Radiology Diagnostic Radiology | DX: M50.022 Cervical disc disorder at C5-C6 level with myelopathy (principal) | CPT/HCPCS: 72125 ==

== ENCOUNTER 2025-05-15 14:11 | Outpatient (AMB) | payer MEDICARE, OTHER, SELFPAY ==
--- OUTSIDE RECORDS SUMMARY | 2024-02-08 09:15 | XMS_ITS ---
Author Organization [facility] Address [address] [place] [address] Care Team Providers Care Smoking Pipe Repairer Name Role Phone Femi Nielsen MD Primary Care Provider Unavail Taylor Dumont Unavailable [phone] Encounters Encounter Location Date Provider Diagnosis [address] [address] 02/08/2024 Taylor Jiménez Plan Of Treatment No Information Progress Notes * Alka ISRAEL LDOB:1955 (69 yo F)Acc No.[id number]:02/08/2024 Progress Note Patient: Emory BERMUDEZAlka LUONG Provider: Emory Jiménez DPM :1955 A ge:68 Y S ex:Female Date:02/08/2024 Address:[address] [place], [place] [id number] Pcp:Femi Nielsen MD Subjective: * Chief Complaints: * * Medical History: Objective: * Vitals: Assessment: Plan: * Treatment: * Images: * The named appointment provid er may or may not be the originator of this progress note, and it is not deemed complete until electronically signed by the appointment provider. Sign off status: Pending * Provider: Emory Jiménez DPM Date: 0 02/08/2024 Generated for Printi ng/Faxing/eTransmitting on: 04:13 PM EDT
--- OUTSIDE RECORDS SUMMARY | 2024-05-07 10:00 | XMS_ITS ---
Author Organization [facility] Address [address] [place] [address] Care Team Providers Care Manager Nursing Name Role Phone Morales MAN, Femi Primary Care Provider Unavail able Taylor Jiménez Unavailable [phone] Shreya Rich Unavailable [phone] Tejada Encounters Encounter Location Date Provider Diagnosis [facility] [address] [place] [address] 05/07/2024 Shreya Rich Plan Of Treatment No Information Progress Notes * Alka ISRAEL LDOB:1955 (69 yo F)Acc No.[id number]:05/07/2024 Progress Note Patient: Emory BERMUDEZAlka LUONG Provider: Alverto Rich DPM :1955 A ge:68 Y S ex:Female Date:05/07/2024 Address:[address] [place], [place] [phone] Pcp:Femi Nielsen MD Subjective: * Chief Complaints: [...] Pending * Provider: Alverto Rich DPM Date: Generated for Printi ng/Famary aliceg/eTransmitting on: 1 04:11 PM EDT
--- OUTSIDE RECORDS SUMMARY | 2024-05-09 09:00 | XMS_ITS ---
Author Organization [facility] Address [address] [place] [address] Care Team Providers Care Association Executive Name Role Phone Femi Nielsen MD Primary Care Provider Unavail able Taylor Jiménez Unavailable [phone] Shreya Rich Unavailable [phone] Encounters Encounter Location Date Provider Diagnosis [address] [address] 05/09/2024 Shreya Rich Plan Of Treatment No Information Progress Notes * Alka ISRAEL LDOB:1955 (69 yo F)Acc No.[id number]:05/09/2024 Progress Note Patient: Emory BERMUDEZAGAlka Emory Provider: Alverto Rich DPM :1955 A ge:68 Y S ex:Female Date:05/09/2024 Address:[address] [place], [place] [id number] Pcp:Femi Nielsen MD Subjective: * Chief Complaints: [...] Date: Generated for Printi ng/Famary aliceg/eTransmitting on: 04:12 PM EDT
--- OUTSIDE RECORDS SUMMARY | 2024-06-12 11:15 | XMS_ITS ---
Author Organization [facility] Address [address] [place] [address] Care Team Providers Care Skills Instructor Name Role Phone Femi Nielsen MD Primary Care Provider Unavail able Taylor Jiménez Unavailable [phone] Shreya Rich Unavailable [phone] Encounters Encounter Location Date Provider Diagnosis [address] [address] 06/12/2024 Shreya Rich Plan Of Treatment No Information Progress Notes * Alka ISRAEL LDOB:1955 (69 yo F)Acc No.[id number]:06/12/2024 Progress Note Patient: Emory BERMUDEZAGAlka Emory Provider: Alverto Rich DPM :1955 A ge:68 Y S ex:Female Date:06/12/2024 Address:[address] [place], [place] [phone] Pcp:Femi Nielsen MD Subjective: * Chief Complaints: [...] 08/12/2023 Generated for Printi ng/Famary aliceg/eTransmitting on: 04:11 PM EDT
--- OUTSIDE RECORDS SUMMARY | 2025-03-20 10:00 | XMS_ITS ---
Author Organization [facility] davin Address [address] [place] [address] Care Team Providers Care Charge Operator Name Role Phone Femi Nielsen Primary Care Provider [phone] REASON FOR VISIT call with [facility] Encounters Encounter Location Date Provider Diagnosis [facility] [address] [place] [address] 03/20/2025 Femi Nielsen Plan Of Treatment Next Appt Details Provider Name:Femi hdz, 07/29/2025 01:00:00 PM, [address] [place] [address], [phone], Provider Name:Femi hdz, 04/23/2026 01:30:00 PM, [address] [place] [address], [phone], Progress Notes * JOSE FRANCISCO LEIJADOB:1955 ( 69 yo F)Acc No.[id number]:03/20/2025 Patient: Emory JOSE FRANCISCO ALANIS Provider: Imer Nielsen MD :1955 A ge:69 Y S ex:Female Date:03/20/2025 C HN#:[id number] Address:[address] [place] [address], [address], [place], [id number] Subjective: * Chief Complaints: * c all with [facility] * Electronic signature of Ciro Nielsen MD on 05/15/2025 at 04:12 PM EDT Sign off status: Pending * Provider: Imer Nielsen MD Date: 0 03/20/2025 Generated for Josse curran/Estefany/Troy on: 1 04:12 PM EDT
--- OUTSIDE RECORDS SUMMARY | 2025-03-25 09:30 | XMS_ITS ---
Author Organization [facility] davin Address [address] [place] [address] Care Team Providers Care Shop Cooper Name Role Phone Femi Nielsen Primary Care Provider REASON FOR VISIT TCM 1-7 days Encounters Encounter Location Date Provider Diagnosis [facility] [address] [place] [phone] 03/25/2025 Femi Nielsen Assessments Encounter Date Diagnosis (ICD Code) Assessment Notes Treatment Notes Treatment Clinical Notes Section Notes 03/25/2025 Other Patient's medication as of hospital discharge reconciled today in office. Hospital discharge summary and associated documentation are on file and reviewed in detail. Review the need for diagnostic tests/treatments and/or follow-up on pending diagnostic tests/treatment. Reviewed need for new referrals, community resources, and/or durable medical equipment at this time. Patient education regarding signs/symptoms of worsening illness to report immediately or activate the EMS system provided during office visit. Patient is verbalizing good understanding of the instructions and will follow up as planned. Plan Of Treatment Treatment Notes Assessment Notes Other Patient's medication as of hospital discharge reconciled today in office. Hospital discharge summary and associated documentation are on file and reviewed in detail. Review the need for diagnostic tests/treatments and/or follow-up on pending diagnostic tests/treatment. Reviewed need for new referrals, community resources, and/or durable medical equipment at this time. Patient education regarding signs/symptoms of worsening illness to report immediately or activate the EMS system provided during office visit. Patient is verbalizing good understanding of the instructions and will follow up as planned. Next Appt Details Provider Name:Femi hdz, 07/29/2025 01:00:00 PM, [address] [place] [address], [phone], Provider Name:Femi hdz, 04/23/2026 01:30:00 PM, [address] [place], [phone], History and Physical Notes * HPI (History of Present Illness) Category Sub-Category Detail Notes Category Not es Interim History Hospitalizations Admit date: 02/20 04/16 Discharge Date: 03/15/25 Facility: [facility] Diagnosis: kidney failure Pending consults: Pending studies: Progress Notes * JOSE FRANCISCO LEIJADOB:1955 ( 69 yo F)Acc No.[id number]:03/25/2025 Patient: Emory JOSE FRANCISCO ALANIS Provider: Imer Nielsen MD :1955 A ge:69 Y S ex:Female Date:03/25/2025 [facility]#:[id number] Address:[address] [place] [address], [facility] [address] Subjective: * Chief Complaints: * T CM 1-7 days * HPI: I nterim History: 69 year old female presents with c/o Hospitalizations A dmit date: 03/10/25 D ischarge Date: 03/15/25 F acility: [facility] D iagnosis: kidney failure P ending consults: P ending studies:. Plan: * Treatment: * Procedure Codes: 9 9496 TCM 7 DAY DISCH [id number] MED LIST DOCD IN [id number] RVW MEDS BY RX/DR IN [facility] Billing Information: * Procedure Codes: 63408 TCM 7 DAY DISCH HOSP. 1159F MED LIST DOCD IN [facility]. 1160F RVW MEDS BY RX/DR IN [facility]. * Electronic signature of Ciro Nielsen MD on 05/15/2025 at 04:13 PM EDT Sign off status: Pending * Provider: Imer Nielsen MD Date: 0 03/25/2025 Generated for Printi ng/Faxing/eTransmitting on: 1 04:13 PM EDT
--- OUTSIDE RECORDS SUMMARY | 2025-04-13 06:30 | XMS_ITS ---
Author Organization [facility] davin Address [address] [place] [address] Care Team Providers Care Cupola Charger Name Role Phone Femi Nielsen Primary Care Provider REASON FOR VISIT call with [facility] Encounters Encounter Location Date Provider Diagnosis [facility] [address] [place] [address] 04/13/2025 Femi Nielsen Plan Of Treatment Next Appt Details Provider Name:Femi hdz, 07/29/2025 01:00:00 PM, [address] [place] [address], [phone], Provider Name:Femi hdz, 04/23/2026 01:30:00 PM, [address] [place] [address], [phone], Progress Notes * JOSE FRANCISCO LEIJADOB:1955 ( 69 yo F)Acc No.[id number]:04/13/2025 Patient: JOSE FRANCISCO SALINAS Provider: Imer Nielsen MD :1955 A ge:69 Y S ex:Female Date:04/13/2025 C HN#:[id number] Address:[address] [place] [address], [address], [place], [id number] Subjective: * Chief Complaints: * c all with [facility] * Electronic signature of Ciro Nielsen MD on 05/15/2025 at 04:13 PM EDT Sign off status: Pending * Provider: Imer Nielsen MD Date: 0 04/13/2025 Generated for Josse curran/Estefany/Troy on: 1 04:13 PM EDT
--- OUTSIDE RECORDS SUMMARY | 2025-04-15 07:00 | XMS_ITS ---
Author Organization [facility] Address [address] [place] [address] Care Team Providers Care Operations Associate Name Role Phone Femi Nielsen Primary Care Provider REASON FOR VISIT updates from [facility] care plan (1st attempt), [facility] caring for daily weights Encounters Encounter Location Date Provider Diagnosis [facility] [address] [place] [address] 04/15/2025 Femi Nielsen Plan Of Treatment Next Appt Details Provider Name:Femi hdz, 07/29/2025 01:00:00 PM, [address] [place] [address], [phone], Provider Name:Femi hdz, 04/23/2026 01:30:00 PM, [address] [place] [address], [phone], Progress Notes * JOSE FRANCISCO LEIJADOB:1955 ( 69 yo F)Acc No.[id number]:04/15/2025 Patient: JOSE FRANCISCO SALINAS Provider: Imer Nielsen MD :1955 A ge:69 Y S ex:Female Date:04/15/2025 C HN#:[id number] Address:[address] [place] [address], [address], [place], [id number] Subjective: * Chief Complaints: * u pdates from [facility] care plan (1st attempt), Sonu caring for daily weights * Electronic signature of Ciro Nielsen MD on 05/15/2025 at 04:11 PM EDT Sign off status: Pending * Provider: Imer Nielsen MD Date: 0 04/15/2025 Generated for Josse curran/Estefany/Troy on: 1 04:11 PM EDT
--- OUTSIDE RECORDS SUMMARY | 2025-04-17 11:06 | XMS_ITS ---
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 Assessments Encounter Date Diagnosis (ICD Code) Assessment Notes Treatment Notes Treatment Clinical Notes Section Notes 04/17/2025 Other specified disorders of bone density and structure, multiple sites (ICD-10 - M85.89) Plan Of Treatment Pending Test Test Name Order Date DEXA Bone density 04/17/2025 Next Appt Details Provider Name:Femi hdz, 07/29/2025 01:00:00 PM, [address] [place] [address], [phone], Provider Name:Femi hdz, 04/23/2026 01:30:00 PM, [address] [place] [address], [phone], Progress Notes * JENNIFER LEIJAB:1955 ( 69 yo F)Acc No.[id number]:04/17/2025 Patient: JOSE FRANCISCO SALINAS :1955 A ge:69 Y S ex:Female Address:[address] [facility], [address], [place], [address] Subjective: * Chief Complaints: * D EXA & mammo ([facility]) Assessment: * Assessment: 1. O ther specified disorders of bone density and structure, multiple sites - M85.89 (Primary)? Plan: * Treatment: * * Date:
--- OUTSIDE RECORDS SUMMARY | 2025-04-29 06:00 | XMS_ITS ---
Author Organization [facility] davin Address [address] [place] [address] Care Team Providers Care Beam Builder Helper Name Role Phone Femi Nielsen Primary Care Provider REASON FOR VISIT ccm check in (1st attempt)/med increase Encounters Encounter Location Date Provider Diagnosis Counts Include [facility] [address] [place] [address] 04/29/2025 Femi Nielsen Plan Of Treatment Next Appt Details Provider Name:Femi hdz, 07/29/2025 01:00:00 PM, [address] [place] [address], [phone], Provider Name:Femi hdz, 04/23/2026 01:30:00 PM, [address] [place] [address], [phone], Progress Notes * JOSE FRANCISCO LEIJADOB:1955 ( 69 yo F)Acc No.[id number]:04/29/2025 Patient: JOSE FRANCISCO SALINAS Provider: Imer Nielsen MD :1955 A ge:69 Y S ex:Female Date:04/29/2025 C HN#:[id number] Address:[address] [place] [address], [address], [place], [id number] Subjective: * Chief Complaints: * C cm check in (1st attempt)/med increase * Electronic signature of Ciro Nielsen MD on 05/15/2025 at 04:13 PM EDT Sign off status: Pending * Provider: Imer Nielsen MD Date: 1 Generated for Josse curran/Estefany/Troy on: 04:13 PM EDT
--- OUTSIDE RECORDS SUMMARY | 2025-05-01 04:00 | XMS_ITS ---
Author Organization [facility] davin Address [address] [place] [address] Care Team Providers Care Automobile Racer Name Role Phone Femi Nielsen Primary Care Provider REASON FOR VISIT ccm check in (2nd attempt)/med increase Encounters Encounter Location Date Provider Diagnosis [facility] [address] [place] [address] 05/01/2025 Femi Nielsen Plan Of Treatment Next Appt Details Provider Name:Femi hdz, 07/29/2025 01:00:00 PM, [address] [place] [address], [phone], Provider Name:Femi hdz, 04/23/2026 01:30:00 PM, [address] [place] [address], [phone], Progress Notes * JOSE FRANCISCO LEIJADOB:1955 ( 69 yo F)Acc No.[id number]:05/01/2025 Patient: JOSE FRANCISCO SALINAS Provider: Imer Nielsen MD :1955 A ge:69 Y S ex:Female Date:05/01/2025 C HN#:[id number] Address:[address] [place] [address], [address], [place], [id number] Subjective: * Chief Complaints: * C cm check in (2nd attempt)/med increase * Electronic signature of Ciro Nielsen MD on 05/15/2025 at 04:12 PM EDT Sign off status: Pending * Provider: Imer Nielsen MD Date: 1 Generated for Josse curran/Estefany/Troy on: 04:12 PM EDT
--- NOTE | 2025-05-15 14:15 | A.OFFVIS_ITS ---
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 Required: No Accompanied by: Self / Same As Patient Allergies adhesive (ADHESIVE) Allergy (Intermediate, Verified 05/15/25 14:20) RASH amitriptyline Allergy (Verified 05/15/25 14:20) Rash Medication List - Last Reconciled 05/15/25 by Blaine Don NP amlodipine 10 mg PO BEDTIME apixaban (Eliquis) 5 mg PO BID atorvastatin 80 mg PO BEDTIME bumetanide 2 mg See Protocol PO BID@0800,1700 empagliflozin (Jardiance) 10 mg PO DAILY gabapentin 300 mg PO BID PRN gabapentin 600 mg PO BEDTIME hydroxyzine HCl 25 mg PO QID PRN insulin glargine (Basaglar KwikPen U-100 Insulin) 40 units subcut BEDTIME insulin lispro (Admelog SoloStar U-100 Insulin lispro) See Protocol sliding scale doses subcut TIDAC PRN metoprolol succinate ER 25 mg See Protocol PO BEDTIME [Probiotic 1 gummy PO DAILY] tirzepatide (Mounjaro) 5 mg subcut TH trazodone 100 mg PO BEDTIME urea 20% 1 appl topical DAILY PRN HPI Comments Details: This is a 69-year-old female patient coming in for a hospital discharge follow- up. Patient lives in an independent facility at [facility] with a history of paroxysmal AFib on Eliquis and metoprolol, CKD, diabetes, hypertension, and chronic venous stasis with bilateral leg wounds, who was recently noted to be bradycardic in the 40s by her visiting nurse and was admitted in the hospital. Patient was also noted to be in decompensated heart failure and was diuresed and her metoprolol was adjusted. Today, patient is reporting feeling well overall without any symptoms of exertional chest pain, shortness of breath, palpitations, dizziness, orthopnea, PND, leg edema, presyncope, or syncope. Patient is reporting compliance with all her medications. [facility] Medical History Paroxysmal atrial fibrillation Bradycardia Cellulitis of right lower extremity Bacteremia Streptococcal infection group C Morbid obesity Myositis Achilles tendon infection Hyperlipidemia Chronic kidney disease Recurrent cellulitis of lower extremity Hypertension Type 2 diabetes mellitus Surgical History H/O hysterectomy for benign disease Status post debridement History of incision and drainage Family History Mother Hypertension Father Hypertension Social History Household Members: None Housing: Assisted Living Facility Do you presently have visiting nurse or other home services: Yes Alcohol intake: current Alcohol intake frequency: holidays/special occasions only Patient Tobacco Use Status: Current everyday Tobacco user Tobacco use type: Cigarette Cigarettes Per Day: 4 Years Smoked: 20 e-Cigarette/Vaping Use: Currently Using Second Hand Smoke Exposure: No service: No Review of Systems Const Denies daytime sleepiness, Denies difficulty sleeping, Denies snoring, Denies stops breathing during sleep and Denies weakness Card Denies chest pain, Denies rapid heart rate, Denies irregular heart rhythm, Denies claudication, Denies leg edema, Denies lightheadedness, Denies palpitations, Denies dyspnea, Denies dyspnea on exertion, Denies orthopnea, Denies paroxysmal nocturnal dyspnea and Denies slow heart rate Resp Denies cough, Denies dyspnea, Denies dyspnea on exertion and Denies snoring GI Reports no additional complaints, Denies hematochezia, Denies change in stool character and Denies dyspepsia Musc Denies abnormal gait, Denies muscle weakness and Denies numbness Neuro Denies abnormal gait, Denies numbness and Denies weakness Endo Denies palpitations Physical Exam Vital Signs: Last Vital Signs Pulse 57 05/15/25 14:16 BP 120/60 05/15/25 14:16 BMI result Body Mass Index 40.2 Const General: cooperative, healthy appearing, comfortable and no acute distress Orientation/consciousness: patient oriented x3 HEENT Head: Yes normal to inspection Neck Neck: Yes normal visual inspection, Yes trachea midline and Yes supple Chest Chest palpation & inspection: normal inspection of the chest Resp Effort & Inspection: normal respiratory effort Auscultation: clear to auscultation bilaterally, no crackles, no rales, no rhonchi and no wheezes Cardio Jugular venous distension: no JVD Palpation: normal PMI Rate: regular rate Rhythm: regular rhythm Heart sounds: S1 normal heart sound present, S2 normal heart sound present, no click, no gallops, no murmurs and no rubs Peripheral pulses: Peripheral pulses 2+ throughout GI Inspection: Yes normal to inspection Palpation (GI): Soft to palpation Auscultation: normal bowel sounds Skin General skin exam: no rashes or lesions noted Neuro General: patient oriented x3 Extrem Other: Bilateral lower extremity bandaged knee below for bilateral chronic wounds General: Yes normal to inspection and No calf tenderness Psych Appearance: grossly normal Mental Status: mental status grossly normal Speech and movement: Normal speech and movement present Office Procedures EKG Details: EKG today showed sinus bradycardia, rate at 57 beats per minute, nonspecific T- wave abnormality, normal [place], [place]. [id number], Complete Assessment & Plan Assessment & Plan (1) (HFpEF) heart failure with preserved ejection fraction: Code(s): I50.30 - Unspecified diastolic (congestive) heart failure Category: Medical Plan: 02/2025-echo study showed a normal LV systolic function with an ejection fraction between 60-65% with grade 2 diastolic dysfunction, moderately dilated left atrium, mild mitral regurgitation, moderately elevated right ventricular systolic pressure with significantly elevated right atrial pressures, and small pericardial effusion. Patient was noted to be in decompensated heart failure and was diuresed in the hospital. Clinically euvolemic and stable today. Continue with Bumex, Jardian ce, and metoprolol therapy. Advised on low-salt diet, daily weight monitoring, and wearing compression socks as needed. In the hospital, patient was recommended to complete sleep study to rule out chronic hyperventilation causing her symptoms. Patient at this time has not completed this and has been advised strongly to complete. Patient verbalizes understanding of the plan. (2) Paroxysmal atrial fibrillation: Code(s): I48.0 - Paroxysmal atrial fibrillation Category: Medical Plan: History of paroxysmal AFib on Eliquis. Continue Eliquis therapy for full anticoagulation. No reported signs of bleeding or falls. We will monitor her kidney function periodically. (3) Bradycardia: Code(s): R00.1 - Bradycardia, unspecified Category: Medical Plan: Given her bradycardia in the hospital, patient's metoprolol was reduced to 25 mg daily. Heart rate today in the high 50s. Continue the same. (4) Hospital discharge follow-up: Code(s): Z09 - Encounter for follow-up examination after completed treatment for conditions other than malignant neoplasm Plan: As above. Advised heart healthy diet, regular exercise as tolerated, losing weight, med compliance, and aggressive management of vascular risk factors. Follow up in 3 months. In the interim, patient will call the office with any concerns or change in symptoms. This note was generated using voice recognition software. While every effort has been made to ensure accuracy and proper cleaning handyman, there may be occasional errors that could affect the content or meaning of the described symptoms. Orders: Orders AMB EKG-In Office 05/15/25 I48.0 - Paroxysmal atrial fibrillation Coding Level of Care Code Est Pt Level 4 (92065) Complex EM visit Add On G2211 Diagnoses (HFpEF) heart failure with preserved ejection fraction I50.30 Paroxysmal atrial fibrillation I48.0 Bradycardia R00.1 Hospital discharge follow-up Z09 CPT Codes EKG - CPT: 09342-[id number], Complete ([id number]) Time Spent (min) 33 Comment Time spent in reviewing the chart, test results, assessment, counseling and documentation.
[2025-05-15 14:16] VITALS: BP 120/60; PULSE 57; BMI 40.2
--- OUTSIDE RECORDS SUMMARY | 2025-05-15 16:12 | XMS_ITS | Encounter Summary ---
Author Organization [facility] Address [address] [facility] [address] [place] [address] Phone Care Team Providers Care Asset Recovery Specialist Name Role Phone Ivana Cheung Primary Care Provider Femi Nielsen MD Primary Care Provider [phone] Encounter Details Date Type Department Care Team (Latest Contact Info) Description 11/29/2020 Transcribe Orders Virtual Department [address] [place], [place] [phone] Lawrence Rothman MD [address] [place] [address], [address] [place] [address] [email or web address] Calculus of kidney (Primary [...] Care Team (Late st Contact Info) Description 07/14/2025 2:00 PM EST Office Visit [facility] [address] [place] [address] Amanda Quinteros MD [address] [facility] 1[address] [place] [address] [email or web address] documented as of this encounter Visit Diagnoses Diagnosis Calculus of kidney- Primary documented in this encounter Care Teams Asset Recovery Specialist Relationship Specialty Start Date End Date Ivana Cheung PA [address] [place] [address] PCP - General Unknown Provider Specialty 12/26/19 Femi Nielsen MD [address] [place] [address] [email or web address] PCP - General Family Medicine 12/09/21 documented as of this encounter Additional Source Comments The information contained in this document represents components of the legal health record. It is not the complete legal health record.[facility]
--- OUTSIDE RECORDS SUMMARY | 2025-05-15 16:12 | XMS_ITS | Encounter Summary ---
Author Organization [facility] Address [address] [facility] [address] [place] [address] Phone Care Team Providers Care Pharmacy Salesperson Name Role Phone Ivana Cheung Primary Care Provider Femi Nielsen MD Primary Care Provider [phone] Encounter Details Date Type Department Care Team (Late st Contact Info) Description 2020 Procedure Pass OR Admitting Dept - Virtual Department [address] [place], [place] [id number] Social History Tobacco Use Types Packs/Day Years [...] 12:42 AM EST Cecille Espinoza, RN * [place] Suicide Severity Rating Scale (Screener/Recent Self-Report) Question Answer Date of Assessment Author 1. Wish to be (Past 1 Month) No 2020 12:42 AM EST Cecille Cline RN 2. Non-Specific Active Suici gladys Thoughts (Past 1 Month) No 2020 12:42 AM EST Ana Cline RN 6. Suicidal Behavior (Lifetime) No 0 12:42 AM EST Cecille Cline RN documented as of this encounter Plan of Treatment Upcoming Encounters Date Type Department Care Team (Late st Contact Info) Description 07/14/2025 2:00 PM EST Office Visit [facility] [address] [place] [address] Amanda Quinteros MD [address] [facility], 1st [place] [address] [email or web address] documented as of this encounter Visit Diagnoses Not on filedocumented in this encounter Care Teams Pharmacy Salesperson Relationship Specialty Start Date End Date Ivana Cheung PA [address] [place] [address] PCP - General Unknown Provider Specialty 12/26/19 Femi Nielsen MD [address] [place] [address] [email or web address] PCP - General Family Medicine 12/09/21 documented as of this encounter Additional Source Comments The information contained in this document represents components of the legal health record. It is not the complete legal health record.[facility]
--- OUTSIDE RECORDS SUMMARY | 2025-05-15 16:12 | XMS_ITS | Encounter Summary ---
Author Organization [facility] Address [address] [facility] [address] [place] [address] Phone Care Team Providers Care Asset Management Lead Name Role Phone Ivana Cheung Primary Care Provider Femi Nielsen MD Primary Care Provider [phone] Encounter Details Date Type Department Care Team (Late st Contact Info) Description 08/17/2020 Procedure Pass [facility], Ct Scan - [address] [address] Social History Tobacco Use Types Packs/Day Years [...] 08/17/2020 10:26 AM Cindy Ryan RN * [place] Suicide Severity Rating Scale (Screener/Recent Self-Report) Question [...] Description 07/14/2025 2:00 PM EST Office Visit [facility] [address] [place] [phone] Amanda Quinteros MD 22 [facility], [address]st [place] [address] [email or web address] documented as of this encounter Visit Diagnoses Not on filedocumented in this encounter Care Teams Asset Management Lead Relationship Specialty Start Date End Date Ivana Cheung PA [address] [place] [address] PCP - General Unknown Provider Specialty 12/26/19 Femi Nielsen MD [address] [place] [address] PCP - General Family Medicine 12/09/21 documented as of this encounter Additional Source Comments The information contained in this document represents components of the legal health record. It is not the complete legal health record.[facility]
--- OUTSIDE RECORDS SUMMARY | 2025-05-15 16:12 | XMS_ITS | Encounter Summary ---
Author Organization [facility] Address [address] [employer] [facility] [address] [place] [address] Phone Care Team Providers Care Engineering Professionals Name Role Phone Ivana Cheung Primary Care Provider Femi Nielsen MD Primary Care Provider [phone] Encounter Details Date Type Department Care Team (Late st Contact Info) Description 08/17/2020 Procedure Pass OR Admitting Dept - Virtual Department [address] [place], [place] [phone] Social History Tobacco Use Types Packs/Day Years [...] 08/17/2020 10:26 AM Cindy Ryan RN * [place] Suicide Severity Rating Scale (Screener/Recent Self-Report) Question [...] Description 07/14/2025 2:00 PM EST Office Visit [facility] [address] [place] [phone] Amanda Quinteros MD [address] [facility], [address] [place] [address] [email or web address] documented as of this encounter Visit Diagnoses Not on filedocumented in this encounter Care Teams Engineering Professionals Relationship Specialty Start Date End Date Ivana Cheung PA [address] [place] [address] PCP - General Unknown Provider Specialty 12/26/19 Femi Nielsen MD [address] [place] [address] PCP - General Family Medicine 12/09/21 documented as of this encounter Additional Source Comments The information contained in this document represents components of the legal health record. It is not the complete legal health record.[facility]
--- OUTSIDE RECORDS SUMMARY | 2025-05-15 16:12 | XMS_ITS | Patient Health Record ---
Author Organization [facility] davin Address [address] [place] [address] Care Team Providers Care Tool Distributor Name Role Phone Femi Nielsen Primary Care Provider Betzy Phipps Unavailable [phone] [email or web address] Unavailable [phone] Allergies Allergen (clinical drug ingredient) Drug/Non Drug Allergy documented on EMR Reaction Allergy Type Onset Date Status amitriptyline Amitriptyline HCl Unknown Drug Allergy Active Semaglutide stomach upset Drug Allergy A ctive metformin metFORMIN stomach upset Drug Allergy Act kacy Results Component Value Reference Range Flag Notes CARDIO IQ(R) HEMOGLOBIN A1c Reviewed date:04/28/2025 11:10:44 PM Interpretation: Performing Lab:[facility] [place], [place] [id number] Nadeen Dorman Notes/Report: Received Date: [id number] NON-FASTING; NON-FASTING; NON-FASTING FASTING:NO FASTING: NO HEMOGLOBIN A1c 6.0 <5.7 % H For someone without known diabetes, a hemoglobin A1c value between 5.7% and 6.4% is consistent with prediabetes and should be confirmed with a follow-up test. For someone with known diabetes, a value <7% indicates that their diabetes is well controlled. A1c targets should be individualized based on duration of diabetes, age, co-morbid conditions and other considerations. This assay result is consistent with an increased risk of diabetes. Currently, no consensus exists regarding use of hemoglobin A1c for diagnosis of diabetes in children. This test was performed on the Nafisa alexis c503 platform. Effective 09/25/2023, a change in test platforms from the [employer] [facility] [employer] to the Nafisa alexis c503 may have shifted HbA1c results compared to historical results. Based on laboratory validation testing conducted at [facility], the Nafisa platform relative to the [employer]erril platform had an average increase in HbA1c value of <=0.3%. This difference is within accepted variability established by the National Glycohemoglobin Standardization Program. Note that not all individuals will have had a shift in their results and direct comparisons between historical and current results for testing conducted on different platforms is not recommended. CARDIO IQ(R) VITAMIN D, 25 H YDROXY Reviewed date:04/28/2025 11:10:44 PM Interpretation: Performing Lab:[facility] [id number] Saw Garcia, [id number] Jared Morales M.D.,PhD Notes/Report: Received Date: [id number] NON-FASTING; NON-FASTING; NON-FASTING FASTING:NO FASTING: NO VITAMIN D, 25-OH, TOTAL 30 30-100 ng/mL Vitamin D, 25-Hydroxy reports concentrations of two common forms, 25-OHD2 and 25-OHD3. 25-OHD3 indicates both endogenous production and supplementation. 25-OHD2 is an indicator of exogenous sources such as diet or supplementation. Therapy is based on measurement of Total 25-OHD, with levels <20 ng/mL indicative of Vitamin D deficiency, while levels between 20 ng/mL and 30 ng/mL suggest insufficiency. Optimal levels are > or = 30 ng/mL. For additional information, please refer to http://education.[employer].Ouner/faq/KSF637 (This link is being provided for informational/ educational purposes only.) VITAMIN D, 25-OH, D3 30 This test was developed and its analytical performance characteristics have been determined by [facility] [place], [place]. It has not been cleared or approved by the U.S. Food and Drug Administration. This assay has been validated pursuant to the CLIA regulations and is used for clinical purposes. VITAMIN D, 25-OH, D2 <4 This test was developed and its analytical performance characteristics have been determined by [facility] [place]. It has not been cleared or approved by the U.S. Food and Drug Administration. This assay has been validated pursuant to the CLIA regulations and is used for clinical purposes. CARDIO IQ(R) LIPID PANEL Reviewed date:04/28/2025 11:10:44 PM Interpretation: Performing Lab:[facility], [address], [id number] Nadeen Dorman Notes/Report: Received Date: [id number] NON-FASTING; NON-FASTING; NON-FASTING FASTING:NO FASTING: NO CHOLESTEROL, TOTAL 121 <200 mg/dL HDL CHOLESTEROL 36 >49 mg/dL L TRIGLYCERIDES 169 <150 mg/dL H LDL-CHOLESTEROL 60 <100 mg/dL (calc) Desirable range <100 mg/dL for primary prevention; <70 mg/dL for patients with CHD or diabetic patients with >= 2 CHD risk factors. LDL-C is now calculated using the Dylan-Iqbal calculation, which is a validated novel method providing better accuracy than the Friedewald equation in the estimation of LDL-C. Dylan SS et al. LOBO. 2013;310(19): 5944-9797 (http://education.[facility].com/faq/KFM443) LDL-C is now calculated using the Dylan-Iqbal calculation, which is a validated novel method providing better accuracy than the Friedewald equation in the estimation of LDL-C. Dylan SS et al. LOBO. 2013;310(19): 5089-4339 (http://education.[facility] [employer].com/faq/SGS174) CHOL/HDLC RATIO 3.4 <5.0 calc NON HDL CHOLESTEROL 85 <130 mg/dL (calc) For patients with diabetes plus 1 major ASCVD risk factor, treating to a non-HDL-C goal of <100 mg/dL (LDL-C of <70 mg/dL) is considered a therapeutic option. For patients with diabetes plus 1 major ASCVD risk factor, treating to a non-HDL-C goal of <100 mg/dL (LDL-C of <70 mg/dL) is considered a therapeutic option. Reason For Referral No Information Medications Medication SIG (Take, Route, Frequency, Duration) Notes Start Date End Date Status Admelog Active Basaglar KwikPen 100 UNIT/ML Solution Pen-injector 60 units subcutaneously once a day 40units Active amLODIPine Besylate 10 MG Tablet 1 tab(s) orally once a day; Duration: 90 days Active Metoprolol Succinate ER 25 MG Tablet Extended Release 24 Hour 1 tablet Orally Once a day; Duration: 90 days 04/01/2025 Active Mounjaro 10 MG/0.5ML Solution Auto-injector as directed Subcutaneous Amanda Quinteros MD Active Empagliflozin 10 MG Tablet 1 tablet Orally Once a day; Duration: 90 days 03/19/2025 Active Tylenol 325 MG Tablet 2 tab(s) orally every 4 hours 500mg, PRN Active Gabapentin 600 MG Tablet 1 tab orally Once a day; Duration: 90 days Active traZODone HCl 100 MG Tablet TAKE 1 TABLET BY MOUTH EVERYDAY AT BEDTIME; Duration: 90 Active hydrOXYzine HCl 25 MG Tablet 1 tab(s) orally 4 times a day PRN; Duration: 15 days Active BD NEEDLE 20G 1.5 , 100 DIRECTED 3 TIMES A DAY; Duration: 30 DAYS 05/02/2022 Active Atorvastatin Calcium 80 MG Tablet 1 tablet Orally Once a day; Duration: 90 days Active MOBILITY SCOOTER MOBILITY DEVICE - DIRECTED - DEEMED NECESSARY; Duration: 365 DAYS Ht: 65 in; Wt: 277 lbs; Dx: Z91.81 History of falling *Please review for potential replacement for e-prescription and drug interaction check* 11/04/2021 Active Gabapentin 300 MG Capsule 1 cap(s) orally 2 times a day as needed for neuropathy pain; Duration: 90 days As needed breakthru pain PRN for breakthrough pain Active Eliquis 5 MG Tablet 1 tab Orally twice a day; Duration: 90 days Active Immunizations Vaccine Route Administration Date Status Comme nts TDAP history Unknown 07/23/2010 Administered RSV VACC HISTORY ADULT Unknown 04/19/2023 Administered PREVNAR 20 PURCHASED IM Intramuscular 02/26/2024 Administered PPD reading Unknown 12/22/2022 Administered PPD planted ID Intradermal 12/20/2022 Administered PCV15 Purchased ([facility]) IM Intramuscular 12/20/2022 Administered FLUZONE HIGH DOSE 65+ PURCHASED IM Intramuscular 03/31/2020 Administered FLUZONE HIGH DOSE 65+ PURCHASED IM Intramuscular 04/14/2023 Administered FLUZONE HIGH DOSE 65+ PURCHASED IM Intramuscular 04/17/2025 Administered Flu Vaccine; History Unknown 04/22/2016 Administered Flu Vaccine; History Unknown 06/07/2017 Administered Flu Vaccine; History Unknown 05/06/2018 Administered Flu Vaccine; History Unknown 10/01/2018 Administered COVID-19 Vaccine, Moderna, State Supplied IM Intramuscular 09/17/2020 Administered COVID-19 Vaccine, Moderna, State Supplied IM Intramuscular 10/15/2020 Administered COVID-19 Vaccine (Moderna), History IM Intramuscular 11/10/2021 Administered LOT NUMBER: [id number] COVID Vacc BIVALENT 12+ Pfizer IM Intramuscular 11/27/2022 Administered COVID VACC 19+ PFIZER PURCHASED IM Intramuscular 04/14/2023 Administered VACCINE GIVEN IN PT'S HOME COVID VACC 19+ PFIZER PURCHASED IM Intramuscular 04/17/2025 Administered Covid Vac Bivalent Moderna,History Unknown 04/08/2022 Administered Social History Tobacco Use: Social History Observation Description Date Details (start date - stop date) Former Smoker 06/22/1978 - 09/21/2019 Social History Social History Social Info Question Answer Notes AUDIT-C (Standard) Did you have a drink containing alcohol in the past year? Yes How often did you have a drink containing alcohol in the past year? 2 to 4 times a month (2 points) How many drinks did you have on a typical day when you were drinking in the past year? 1 or 2 drinks (0 point) How often did you have six or more drinks on one occasion in the past year? Never (0 point) Points 2 Interpretation Negative Smoking Smart Form: Are you a: former [...] 2 cups a day coffee Marital Status: spouse Naif elias sed away (11/06/22) Children: 1, Daughter and Son, live locally, grandkids Pets: Fish: lives assisted living in [place], formerly in [place] Ed: [employer] Section Notes: [...] Status W/U Status Risk Notes Problem Depression (17324966) Depression (F32.9) Active confirmed Problem Venous stasis ulcer of unspecified site (I83.009) Active confirmed Problem Hyperlipidemia (27408661) Hyperlipidemia, unspecified (E78.5) Active confirmed Problem Essential hypertension (88696790) Hypertension, essential (I10) Active confirmed Problem Atrial fibrillation (08428811) Atrial fibrillation, unspecified (I48.91) Active confirmed Problem Body mass index 40+ - severely obese (840773388) BMI 45.0-49.9, adult (Z68.42) Active confirmed Problem Vitamin D deficiency (84479238) Vitamin D deficiency, unspecified (E55.9) Active confirmed High Problem Ulcer Non-pressure chronic other part of right foot with fat layer exposed (L97.512) Active confirmed Problem Chronic kidney disease stage 4 (015737516) CKD, stage 4 (severe) (N18.4) Active confirmed Problem Menopause (389695587) Menopausal and female climacteric states (N95.1) Active confirmed Problem Long-term current use of insulin (634430188) nail setter (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) use of insulin (Z79.4) Active confirmed Problem History of fall (829833103) History of falling (Z91.81) Active confirmed Problem Hypertension (35780750) HTN (I10) Active confirmed Problem Urinary frequency (496448197) Urinary frequency (R35.0) Active confirmed Problem Urinary incontinence (885146271) Urinary incontinence, unspecified (R32) Active confirmed Problem Osteoporosis (31598133) Osteoporosis NOS (M81.0) Active confirmed Problem Pure hyperglyceridemia (054928341) Hypertriglyceride isai, essential (E78.1) Active confirmed Problem Hyperglycemia due to type 2 diabetes mellitus (037949288893652) Type 2 diabetes mellitus with hyperglycemia (E11.65) Active confirmed Problem Urinary incontinence (250332298) Incontinence urinary (R32) Active confirmed Problem Disorder due to type 2 diabetes mellitus (232145206) Type 2 diabetes mellitus with unspecified complications (E11.8) Active confirmed Problem Diabetic renal disease (680347710) Type 2 diabetes mellitus with diabetic chronic kidney disease (E11.22) Active confirmed Problem Chronic kidney disease stage 4 (936471502) Chronic kidney disease, stage 4 (severe) (N18.4) Active confirmed Problem Hyperosmolarity due to secondary diabetes mellitus (388800813888192) Type 2 diabetes mellitus with hyperosmolarity without nonketotic hyperglycemic-hyp erosmolar coma (NKHHC) (E11.00) Active confirmed Problem Dermopathy due to type 2 diabetes mellitus (disorder) (3742095777768) 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) Active confirmed Problem Skin ulcer associated with diabetes mellitus (160969738) Type 2 diabetes mellitus with other skin ulcer (E11.622) Active confirmed Problem Anemia (377014569) Anemia NOS (D64.9) Active confirmed Problem Dermopathy due to type 2 diabetes mellitus (disorder) (8399576470989) Type 2 diabetes mellitus with other skin complications (E11.628) Active confirmed Problem Long-term current use of anticoagulant (570328607) nail setter (current) use of anticoagulants (Z79.01) Active confirmed Problem Body mass index 40+ - severely obese (694505652) Body mass index [BMI] 45.0-49.9, adult (Z68.42) Active confirmed Problem Congestive heart failure (74333703) CHF (I50.9) Active confirmed Problem Kidney disease chronic stage 3B (N18.32) Active confirmed Problem Hydronephrosis with renal and ureteral calculous obstruction (N13.2) Inactive confirmed Problem Acute vaginitis (55409985) Vaginitis acute (N76.0) Problem resolved confirmed Problem Cellulitis of left lower limb (52880544117696877) Cellulitis lower limb, left (L03.116) Problem resolved confirmed Problem Other specified injury of left Achilles tendon, subsequent encounter (S86.562M) Problem resolved confirmed Vital Signs Temperature 96.3 degrees Fahrenheit 04/17/2025 Pt s ays weight today was 249.8 Oximetry 95 04/17/2025 Pt says weight today was 249.8 Blood pressure diastolic 60 mm Hg 04/17/2025 Pt says weight today was 249.8 Height 65 in 04/17/2025 Pt says weight today was 249.8 Blood pressure systolic 110 mm Hg 04/17/2025 Pt s ays weight today was 249.8 Weight 249.8 lbs 04/17/2025 Pt says weight today was 249.8 BMI 41.56 kg/m2 04/17/2025 Pt says weight today was 249.8 Encounters Encounter Location Date Provider Diagnosis Replaced By [facility] [address] [place] [address] 04/17/2025 Femi Nielsen Other specified disorders of bone density and structure, multiple sites M85.89 Replaced By [facility] [address] [place] [address] 05/08/2025 Femi Nielsen Replaced By [facility] [address] [place] [address] 05/16/2024 Femi Nielsen Replaced By [facility] [address] [place] [address] 05/16/2024 Femi Nielsen Replaced By [facility] [address] [place] [address] 05/21/2024 Femi Nielsen Replaced By [facility] [address] [place] [address] 05/22/2024 Femi Nielsen Replaced By [facility] [address] [place] [address] 05/26/2024 Femi Nielsen Replaced By [facility] [address] [place] [address] 07/08/2024 Femi Nielsen Replaced By [facility] [address] [place] [address] 07/08/2024 Femi Nielsen Replaced By [facility] [address] [place] [address] 07/14/2024 Femi Nielsen Replaced By [facility] [address] [place] [address] 07/14/2024 Femi Nielsen Replaced By [facility] [address] [place] [address] 07/15/2024 Femi Nielsen Replaced By [facility] [address] [place] [address] 07/15/2024 Femi Nielsen Replaced By [facility] [address] [place] [address] 07/25/2024 Femi Nielsen Replaced By [facility] [address] [place] [address] 07/25/2024 Femi Nielsen Replaced By [facility] [address] [place] [address] 08/06/2024 Femi Nielsen Replaced By [facility] [address] [place], [place] [address] 08/06/2024 Femi Nielsen Replaced By [facility] [address] [place] [address] 08/12/2024 Femi Nielsen Replaced By [facility] [address] [place] [address] 08/25/2024 Femi Nielsen Replaced By [facility] [address] [place], [place] [address] 09/17/2024 Femi Nielsen Replaced By [facility] [address] [place] [address] 09/18/2024 Femi Nielsen Replaced By [facility] [address] [place], [place] [address] 09/19/2024 Betzy [facility] [address] [place] [address] 09/19/2024 Betzy Phipps Replaced By [facility] [address] [place], [place] [address] 09/22/2024 Betzy [facility] [address] [place], [place] [address] 09/24/2024 Femi Nielsen Replaced By [facility] [address] [place], [place] [address] 11/07/2024 Femi Nielsen Replaced By [facility] [address] [place] [address] 11/13/2024 Femi Nielsen Fatigue R53.83 ; Vitamin D deficiency, unspecified E55.9 ; HTN I10 ; Hyperlipidemia, unspecified E78.5 and Hypertriglyceridemia, essential E78.1 Replaced By [facility] [address] [place] [address] 11/18/2024 Femi Nielsen Replaced By [facility] [address] [place] [address] 11/19/2024 Femi Nielsen Replaced By [facility] [address] [place] [address] 11/19/2024 Femi Nielsen Replaced By [facility] [address] [place], [place] [address] 11/19/2024 Femi Nielsen [facility] [address] [place], [place] [address] 11/24/2024 Femi Nielsen [facility] [address] [place] [address] 12/02/2024 Femi Nielsen [facility] [address] [place], [place] [address] 12/08/2024 Femi Nielsen [facility] [address] [place], [place] [address] 12/09/2024 Betzy Phipps [facility] [address] [place] [address] 12/09/2024 Betzy Phipps Replaced By [facility] [address] [place] [address] 01/06/2025 Femi Nielsen Replaced By [facility] [address] [place] [address] 01/09/2025 Femi Nielsen [facility] [address] [place] [address] 01/14/2025 Femi Nielsen [facility] [address] [place] [address] 01/20/2025 Femi Nielsen Replaced By [facility] [address] [place] [address] 01/26/2025 Femi Nielsen [facility] [address] [place] [address] 02/12/2025 Femi Nielsen [facility] [address] [place], [place] [address] 02/20/2025 Femi Nielsen [facility] [address] [place], [place] [address] 03/10/2025 Femi Nielsen [facility] [address] [place] [address] 03/17/2025 Femi Nielsen [facility] [address] [place] [address] 03/19/2025 Femi Nielsen [facility] [address] [place] [address] 03/19/2025 Femi Nielsen [facility] [address] [place], [place] [address] 03/25/2025 Femi Nielsen [facility] [address] [place] [address] 03/26/2025 Femi Nielsen Replaced By [facility] [address] [place], [place] [address] 03/26/2025 Femi Nielsen Replaced By [facility] [address] [place], [place] [address] 03/27/2025 Femi Nielsen Replaced By [facility] [address] [place] [address] 03/27/2025 Femi Nielsen Replaced By [facility] [address] [place], [place] [address] 04/01/2025 Femi Nielsen Replaced By [facility] [address] [place], [place] [address] 04/04/2025 Femi Nielsen Replaced By [facility] [address] [place], [place] [address] 04/06/2025 Femi Nielsen Replaced By [facility] [address] [place], [place] [address] 04/06/2025 Femi Nielsen Replaced By [facility] [address] [place] [address] 04/06/2025 Femi Nielsen Replaced By [facility] [address] [place], [place] [address] 04/06/2025 Femi Nielsen Replaced By [facility] [address] [place] [address] 04/09/2025 Femi Nielsen Replaced By [facility] [address] [place] [address] 04/13/2025 Femi Nielsen Replaced By [facility] [address] [place] [address] 04/20/2025 Femi Nielsen Replaced By [facility] [address] [place] [address] 04/24/2025 Femi Nielsen Replaced By [facility] [address] [place] [address] 04/28/2025 Femi Nielsen Hyperlipidemia, unspecified E78.5 Replaced By [facility] [address] [place] [address] 05/01/2025 Femi Nielsen Replaced By [facility] [address] [place] [address] 05/12/2025 Femi Nielsen Replaced By [facility] [address] [place] [address] 07/09/2024 Femi Nielsen Replaced By [facility] [address] [place] [address] 07/16/2024 Femi Nielsen [place] [address] [place] [address] 12/04/2024 Femi Nielsen [place] [address] [place] [address] 12/05/2024 Femi Nielsen [facility] [address] [place] [address] 02/23/2025 Femi Hargroveko [facility] [address] [place] [address] 02/23/2025 Femi Hargroveko [facility] [address] [place] [address] 03/18/2025 Femi Hargroveko [facility] [address] [place] [address] 03/23/2025 Femi Hargroveko [facility] [address] [place] [address] 04/01/2025 Femi Hargroveko [facility] [address] [place] [address] 04/01/2025 Femi Nielsen [place] [address] [place] [address] 04/29/2025 Femi Nielsen [facility] [address] [place] [address] 04/29/2025 Femi Nielsen Hyperlipidemia, unspecified E78.5 [place] [address] [place] [address] 05/01/2025 Femi Nielsen [place] [address] [place] [address] 04/13/2025 Femi Nielsen [place] [address] [place] [address] 04/15/2025 Femi Nielsen [place] [address] [place] [address] 03/20/2025 Femi Nielsen [facility] [address] [place] [address] 03/19/2025 Femi Nielsen Chronic kidney disease, stage 4 (severe) N18.4 ; Fall in (into) shower or empty bathtub, initial encounter W18.2XXA ; Type 2 diabetes mellitus with other skin ulcer E11.622 ; Type 2 diabetes mellitus with diabetic dermatitis E11.620 ; Bradycardia, unspecified R00.1 ; CHF I50.9 ; Hypertension, essential I10 ; Atrial fibrillation, unspecified I48.91 ; halfway (current) use of anticoagulants Z79.01 ; Cellulitis of right toe L03.031 and Hyperlipidemia, unspecified E78.[address] [address] 04/17/2025 Femi Morales Adult physical JENNYFER L Z00.00 ; Encounter for screening for other disorder Z13.89 ; Encounter for screening for osteoporosis Z13.820 ; Encounter for screening mammogram for malignant neoplasm of breast Z12.31 ; Colon cancer screening Z12.11 ; Encounter for immunization Z23 ; Type 2 diabetes mellitus with unspecified complications E11.8 ; Type 2 diabetes mellitus with hyperglycemia E11.65 ; CHF I50.9 ; CKD, stage 4 (severe) N18.4 ; Venous stasis ulcer of unspecified site I83.009 ; Atrial fibrillation, unspecified I48.91 ; Incontinence urinary R32 ; Xerosis cutis L85.3 ; Vitamin D deficiency, unspecified E55.9 ; Hyperlipidemia, unspecified E78.5 ; HTN I10 ; halfway (current) use of anticoagulants Z79.01 ; halfway (current) use of insulin Z79.4 and History of falling Z91.81 Replaced By [facility] [address] [place] [address] 05/15/2025 Femi Nielsen [address] [address] 12/23/2024 Trung Corriveau Anemia NOS D64.9 Assessments Encounter Date Diagnosis (ICD Code) Assessment Notes Treatment Notes Treatment Clinical Notes Section Notes 03/19/2025 Fall in (into) shower or empty bathtub, initial encounter (ICD-10 - W18.2XXA) After discharge, she did have a fall when transferring in the shower with the help of an aide. EMS transport and ED evaluation revealed no fractures, but she has several superficial lacerations and abrasions on the legs as well as some ecchymoses. None of these required suturing or further wound care. 03/19/2025 Chronic kidney disease, stage 4 (severe) (ICD-10 - N18.4) Jasmina is a 69-year-old female recently hospitalized with bradycardia, CHF, and lower extremity edema, who has long-standing CKD stage 4, type 2 diabetes requiring insulin, hypertension, hyperlipidemia, and a history of numerous lower extremity ulcers. She was treated with antibiotics for toe cellulitis, which is improving. She has completed a course of doxycycline. Empagliflozin was added to her CKD treatment plan. She has follow-up scheduled with nephrology. Her beta juan carlos was reduced due to bradycardia into the 40s. Cardiology requested a sleep study. We will update labs prior to the f/u appts with her specialists. She does have home care through [facility]. The home care nurses can draw her labs. She currently lives in an assisted living situation in [place] with good resources in place. 12/23/2024 Anemia NOS (ICD-10 - D64.9) -Normocytic [...] s/sx to contact us, when to f/up. 04/17/2025 Encounter for screening for other disorder (ICD-10 - Z13.89) AUDIT-C negative. Alcohol use is directly linked to over 40 medical conditions, including cancer, heart disease, stroke, liver disease, digestive problems, and mental health conditions. 04/17/2025 Adult physical NORMAL (ICD-10 - Z00.00) Jose Francisco 69 yo F here for annual wellness visit. We covered many complex topics today. She is doing well. She likes her living situations. Enjoys card games with other residents. We advise having an annual exam and visit to address age appropriate screening tests including screening for cardiovascular disease, cancers, mood disorders, sexually transmitted infections, and other appropriate conditions based upon age and personal risk factors. Cardiovascular risk assessment should occur periodically utilizing lipid panel and AHA/ACC risk based calculators, inflammatory markers when indicated, Lp(a) as a one time test for all adults, and coronary calcium score if appropriate for individual stratification. We recommend routine vaccines for patient of all ages based on guidance from the major medical organizations and evidence based research. Regular exercise helps lower the risk of almost all diseases, including cancer. Adults need at least 150 minutes of moderate physical activity or 75 minutes of vigorous activity each week. Any increase in activity is beneficial for health, especially for those under the target range. Adding/increasing strength training or incorporating HIIT workouts is important for bone health. Balancing training such as a Js Chi practice has been demonstrated to significantly reduce the risk of falls. Stress management, healthy relationships, quality sleep, and supportive communities are important factors in contributing to success for individual wellness goals. We had a discussion about preferences for resuscitation, life-sustaining treatment and end-of-life care. MOLST and HCP forms reviewed. Discussed ADLs and IADLs including dressing, bathing, feeding, toileting, mobility, housework, driving, shopping, meal prep, banking/financial, taking meds. See above. Denies memory issues. No hearing or vision impairment. Gets regular dental care and sees eye care provider at least annually. Fall risk with recent falls. See above. Using walker and scooter. Denies chronic pain. Meds reviewed and reconciled by clinician today. 04/17/2025 Other specified disorders of bone density and structure, multiple sites (ICD-10 - M85.89) 04/28/2025 Hyperlipidemia, unspecified (ICD-10 - E78.5) 11/13/2024 Vitamin D deficiency, unspecified (ICD-10 - E55.9) 11/13/2024 Fatigue (ICD-10 - R53.83) 04/29/2025 Hyperlipidemia, unspecified (ICD-10 - E78.5) 11/13/2024 HTN (ICD-10 - I10) 04/17/2025 Encounter for screening for osteoporosis (ICD-10 - Z13.820) The USPSTF recommends screening for osteoporosis with bone measurement testing to prevent osteoporotic fractures in women 65 years and older. 03/19/2025 Type 2 diabetes mellitus with other skin ulcer (ICD-10 - E11.622) Blood sugars have been high. Management is per [facility]. She did not tolerate GLP-1 or metformin therapy. 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 The USPSTF recommends screening mammography at least every two years for women aged 40 to 74 years. https://www.uspreve ntiveservicestaskfo rce.org/uspstf/carleen mmendation/breast-c ancer-screening 11/13/2024 Hyperlipidemia, unspecified (ICD-10 - E78.5) 11/13/2024 Hypertriglycerid emia, essential (ICD-10 - E78.1) 04/17/2025 Colon cancer screening (ICD-10 - Z12.11) The [employer] advises screening for colorectal cancer (CRC) with FIT, flexible sigmoidoscopy, or colonoscopy starting at 45 years of age and continuing until 75 years of age. She prefers annual FIT testing. 03/19/2025 Bradycardia, unspecified (ICD-10 - R00.1) Metoprolol reduced from 75 mg to 25 mg. She is on this for afib. 03/19/2025 CHF (ICD-10 - I50.9) Diuresis has been successful. Needs daily weight to avoid recurrence 04/17/2025 Encounter for immunization (ICD-10 - Z23) Patients with diabetes mellitus should receive: - influenza vaccination yearly, with adults 65 years of age and older administered the high-dose vaccine. In observational studies, influenza vaccine has been shown to be similarly effective in adults <65 years of age with diabetes as in older patients with or without diabetes. - Pneumococcal vaccination. - Hepatitis B vaccination for unvaccinated adults younger than 60 years of age without evidence of prior infection. For older adult patients with diabetes, vaccination can be administered at the discretion of the treating clinician based upon the risk of acquiring hepatitis B virus, including the need for blood glucose monitoring, and the likelihood of an adequate immune response to vaccination. The effectiveness of the hepatitis B vaccine decreases with age. - Tetanus and diphtheria vaccinations. - Herpes zoster, recombinant vaccine. - other seasonal respiratory vaccines 04/17/2025 Type 2 diabetes mellitus with unspecified complications (ICD-10 - E11.8) T2DM is currently managed with insulin and GLP-1, with weight loss in last year of [address] Patel. -We reviewed nutrition, exercise, and other lifestyle measures; to continue these efforts. -It is recommended that patients with DM meet blood pressure goals, achieve LDL goals of <55, incorporate exercise into their daily routines, and utilize sustainable nutrition practices for optimal glucose control and cardiometabolic risk reduction. -Discussed ongoing follow-up plans of every 3 months. -Dentist, eye doc up to date. -Kidney function will be evaluated w/ labs plus urinary microalbumin at least annually 03/19/2025 Hypertension, essential (ICD-10 - I10) stable despite beta juan carlos reduction. Continue current rx. Therapeutic lifestyle changes of proven benefit include weight loss, increased physical activity, dietary sodium restriction, and reduction or avoidance of alcohol. Eating a heart-healthy diet is important for managing your blood pressure and reducing your risk of heart attack, stroke and other health threats. Get quality nutrition from healthy food sources. Aim to eat a diet that's rich in: Fruits, Vegetables, Whole grains, Low-fat dairy products, Skinless poultry and fish, Nuts and legumes, Non-tropical vegetable oils. Limit: Saturated and trans fats, Alcoholic beverages, Sodium, Fatty meats, Items with added sugar such as sugar-sweetened beverages. Please call/report any symptoms such as increasing leg cramps, dizziness or lightheadedness, palpitations or chest pain or pressure. 03/19/2025 Atrial fibrillation, unspecified (ICD-10 - I48.91) see above 04/17/2025 Type 2 diabetes mellitus with hyperglycemia (ICD-10 - E11.65) see above 04/17/2025 CHF (ICD-10 - I50.9) f/u planned with cardiology following recent hospitalization to discuss congestive heart failure management and potential sleep study requirement. Is on Jardiance 03/19/2025 halfway (current) use of anticoagulants (ICD-10 - Z79.01) see above, for afib 03/19/2025 Cellulitis of right toe (ICD-10 - L03.031) see above 04/17/2025 CKD, stage 4 (severe) (ICD-10 - N18.4) Advised hydration, is on ACEi and SGLT2i. Monitor labs. Upcoming floor hand appointment with Dr. Starks in mid-April. Avoid NSAIDs and other nephrotoxic medications. Incorporate healthy lifestyle changes if your daily habits are suboptimal: https://www.kidney. org/phi/068073/heal /17314. Follow-up immediately for signs of kidney issue such as lower leg swelling, decreased urine output, dysuria, hematuria, flank pain, confusion, nausea, fatigue, weakness. Learn more about Chronic Kidney Disease (CKD) here: https://www.kidney. org/phi/631032/heal th/68350 04/17/2025 Venous stasis ulcer of unspecified site (ICD-10 - I83.009) Wound Care team remains involved. Visits weekly for dressing change and debridement 03/19/2025 Hyperlipidemia, unspecified (ICD-10 - E78.5) Stable. Continue statin. check labs to ensure LDL < 55. CV risk factors include CKD, T2DM, former nicotine use, obesity, HTN. Continue lifestyle modifications to optimize cardiovascular health. Attend to the 8 components of cardiovascular health: healthy diet, participation in physical activity, avoidance of nicotine, healthy sleep, healthy weight, and healthy levels of blood lipids, blood glucose, and blood pressure. Revisit risk assessment annually. This guide offers evidence-based information on healthy lifestyle choices: https://nutritionso urce.[facility].minden.e du/wp-content/uploa ds//HLGuide2 -2023.pdf 04/17/2025 Atrial fibrillation, unspecified (ICD-10 - I48.91) Rate well controlled. Remains on DOAC 04/17/2025 Incontinence urinary (ICD-10 - R32) Managing ok with pads when away from home. 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 To maintain skin hydration, emollients should be applied at least two times per day and immediately after bathing or handwashing. This is especially important for those with diabetes. Lotions, which have a high water and low oil content, can worsen xerosis via evaporation. In contrast, thick creams, which have a low water content, or ointments (eg, petroleum jelly), which have zero water content, better protect against xerosis, but some patients may complain that they are greasy. [place] oil is an effective emollient. Taking an omega3 FA supplement (fish oil) or eating salmon can improve dry skin as well 04/17/2025 Vitamin D deficiency, unspecified (ICD-10 - E55.9) Was taking Vit D 50,000 IU once/week but has not taken in the last 5-6 months.Was low on recent eval. Advise supplementing. We recommend a supplement to all patients due to [place]. Please take Vitamin D3 2000 IU daily unless alternate dose is indicated by lab values or suggested by your provider. Learn more at https://familydocto r.org/vitamin-d/. Vitamin D has many important health benefits including supporting a healthy immune system, strong bones, and balanced mood 04/17/2025 Hyperlipidemia, unspecified (ICD-10 - E78.5) LDL at goal 04/17/2025 HTN (ICD-10 - I10) Well controlled on three agents. Therapeutic lifestyle changes of proven benefit include weight loss, increased physical activity, dietary sodium restriction, and reduction or avoidance of alcohol. Eating a heart-healthy diet is important for managing your blood pressure and reducing your risk of heart attack, stroke and other health threats. Get quality nutrition from healthy food sources. Aim to eat a diet that's rich in: Fruits, Vegetables, Whole grains, Low-fat dairy products, Skinless poultry and fish, Nuts and legumes, Non-tropical vegetable oils. Limit: Saturated and trans fats, Alcoholic beverages, Sodium, Fatty meats, Items with added sugar such as sugar-sweetened beverages. Please call/report any symptoms such as increasing leg cramps, dizziness or lightheadedness, palpitations or chest pain or pressure. 04/17/2025 nail setter (current) use of anticoagulants (ICD-10 - Z79.01) Use of some chronic medications requires periodic monitoring of labs, nutrients, interactions, levels, etc. 04/17/2025 nail setter (current) use of insulin (ICD-10 - Z79.4) Use of some chronic medications requires periodic monitoring of labs, nutrients, interactions, levels, etc. 04/17/2025 History of falling (ICD-10 - Z91.81) She had a shower fall requiring ED eval but she and her aide have addressed the issue, and she feels comfortable with the new plan. We will update her DEXA. Monitor for sedation effects from gabapentin and adjust as necessary. Between 30 and 40 percent of community-dwelling people over the age of 65 years, and 50 percent of those in long-term facilities, fall each year. For patients with a history of falling, we suggest instituting a multidisciplinary risk factor screening/intervent ion program, home hazard assessment, and an exercise program combining several categories of exercise for muscle strengthening and balance. Older patients should be asked about dietary sources of vitamin D (oily fish, fortified juices, milk), their sun exposure, and the amount of vitamin D from multivitamins and supplements. We suggest daily supplementation with cholecalciferol (vitamin D3) for fall prevention in older patients who are at risk for low levels of vitamin D (based on diet and sun exposure history, history of malabsorption, or obesity), or who have impairments in physical function, such as slow gait speed, trouble standing up from a chair, a slow Timed Up and Go test 03/19/2025 Other Jose Francisco's medication as of hospital discharge reconciled today in office. Hospital discharge summary and associated documentation are on file and reviewed in detail. Reviewed the need for diagnostic tests/treatments and/or follow-up on pending diagnostic tests/treatment. Reviewed need for new referrals, community resources, and/or durable medical equipment at this time. Patient education regarding signs/symptoms of worsening illness to report immediately or activate the EMS system provided during office visit. Jose Farncisco is verbalizing good understanding of the instructions and will follow up as planned. Her original physical/annual wellness exam scheduled for today has been postponed until later in March. Medical decision-making was shared with the patient, and all questions were addressed. Please excuse any typos or grammatical errors. Contact our office for clarification if needed. We are the medical home for this patient. This visit is part of our ongoing, continuous relationship to manage and coordinate the patient's chronic and acute health conditions. which is essential for ensuring optimal health outcomes through comprehensive and coordinated multidisciplinary care. High type proof reproducer potential for morbidity and mortality impacts medical decision making.This visit may have included review of prior visits, testing, diagnostic studies, and consult notes before and during the visit, medical management, patient care coordination, counseling and education of patient and/or family members, interpretation of test results, discussion with colleagues involved in the patient's care, and documentation of the visit and plan going forward. All questions addressed to the extent possible. Pt expressed understanding and is agreeable to plan as stated 04/17/2025 Other This visit encompassed the management of the numerous chronic diseases based on the longitudinal relationship of the patient and this practice. Medical decision-making was shared with the patient, and all questions were addressed. Please excuse any typos or grammatical errors. Contact our office for clarification if needed. We are the medical home for this patient. This visit is part of our ongoing, continuous relationship to manage and coordinate the patient's chronic and acute health conditions. which is essential for ensuring optimal health outcomes through comprehensive and coordinated multidisciplinary care. 05/01/2025 Other CCM follow up in 2 weeks Office visit scheduled on 07/29/2025 f/u DM/CHF/CKD (doxy) All questions answered and concerns addressed Plan Of Treatment Pending Test Test Name Order Date Urine Dip --in house 03/23/2022 Bone density 10/13/2021 Bone density 09/15/2019 Mammogram 12/20/2022 URINE CULTURE (395 NOHO) 03/23/2022 Foot Exam (DM) 11/20/2023 Foot Exam (DM) 06/14/2022 Mammogram, routine annual screening 08/2020 Mammogram, routine annual screening 09/21 -OCCULT BLOOD, STOOL, SCREENING 04/17/20 25 stool: FECAL LEUKOCYTE STAIN 12/08/2019 hemoglobin A1C 10/13/2021 hemoglobin A1C 06/14/2022 TSH WITH REFLEX TO FT4 03/19/2025 CK (Creatine Kinase) ,TOTAL ONLY 021 FERRITIN 11/01/2020 FERRITIN 10/13/2021 FERRITIN 02/15/2023 FOLIC ACID 02/15/2023 FOLIC ACID 10/13/2021 FOLIC ACID 11/01/2020 IRON & TIBC 11/01/2020 IRON & TIBC 02/15/2023 PHOSPHORUS 11/01/2020 VITAMIN B12 11/01/2020 VITAMIN B12 10/13/2021 VITAMIN B12 02/15/2023 HEMOGLOBIN A1C 02/15/2023 HEMOGLOBIN A1C 05/03/2020 HEMOGLOBIN A1C 08/29/2022 HEMOGLOBIN A1C 10/13/2021 HEMOGLOBIN A1C 09/21/2020 ERYTHROPOIETIN 11/01/2020 ERYTHROPOIETIN 02/15/2023 HSCRP 05/03/2020 HSCRP 02/15/2023 HSCRP 11/01/2020 HSCRP 10/13/2021 BASIC METABOLIC PANEL 10/18/2020 COMPREHENSIVE METABOLIC PANL 09/21/2020 COMPREHENSIVE METABOLIC PANL 10/13/2021 COMPREHENSIVE METABOLIC PANL 11/01/2020 COMPREHENSIVE METABOLIC PANL 07/31/2023 COMPREHENSIVE METABOLIC PANL 05/03/2020 COMPREHENSIVE METABOLIC PANL 02/15/2023 RENAL FUNCTION PANEL 08/29/2022 LIPID PANEL 09/21/2020 LIPID PANEL 02/15/2023 LIPID PANEL 05/03/2020 HOMOCYSTEINE,PLASMA/SERUM 02/15/2023 TSH WITH REFLEX TO T4 02/15/2023 TSH WITH REFLEX TO T4 05/03/2020 TSH WITH REFLEX TO T4 10/13/2021 MICROALBUMIN 08/29/2022 MICROALBUMIN 09/21/2020 MICROALBUMIN 10/13/2021 MICROALBUMIN 05/03/2020 MICROALBUMIN 06/14/2022 Vitamin D25 OH 02/15/2023 Vitamin D25 OH 10/13/2021 Vitamin D25 OH 11/01/2020 CBC AUTO DIFF 11/01/2020 CBC AUTO DIFF 07/31/2023 CBC AUTO DIFF 10/13/2021 CBC AUTO DIFF 09/21/2020 CBC AUTO DIFF 02/15/2023 CBC AUTO DIFF 05/03/2020 SED RATE 11/01/2020 TRINA (ANTI-NUCLEAR ANTIBODY SCREEN) USE THIS ONE 11/01/2020 COMPLEMENT COMPONENT C3C 11/01/2020 COMPLEMENT C4 11/01/2020 CRP 11/01/2020 URINE CULTURE 10/05/2022 URINE CULTURE 08/29/2022 URINE CULTURE 12/08/2021 URINE CULTURE 03/10/2022 URINE CULTURE 03/24/2021 URINALYSIS, COMPLETE 07/03/2023 URINALYSIS, COMPLETE 10/05/2022 URINALYSIS, COMPLETE 08/29/2022 URINALYSIS, COMPLETE 12/08/2021 Dexa Bone Density (Axial) 10/13/2021 SODIUM, URINE MMOL/L 11/01/2020 MAGNESIUM RBC 11/01/2020 MAGNESIUM RBC 10/13/2021 IMMUNOFIXATION SERUM 11/01/2020 SERUM ELECTROPHERESIS (SPEP) 11/01/2020 TSH with reflex 11/13/2024 COMP MET PANEL 11/13/2024 COMP MET PANEL 03/19/2025 Hemoglobin A1c 03/19/2025 LIPID PANEL 03/19/2025 LIPID PANEL 11/13/2024 Urinalysis 11/13/2024 Urinalysis 03/24/2021 25-OH vitamin D 11/13/2024 Sedimentation rate (ESR) 03/19/2025 CRP 03/19/2025 Folate 11/13/2024 Vitamin B12 11/13/2024 CBC AND DIFFERENTIAL 03/19/2025 CBC AND DIFFERENTIAL 11/13/2024 IRON, TIBC AND FERRITIN PANEL 11/13/2024 CREATININE, URINE, QUANT 11/01/2020 EOSINOPHILS, URINE 11/01/2020 LIPID PANEL, REFLEX TO DIRECT LDL 2021 PROTEIN, URINE 11/01/2020 UREA NITROGEN, URINE, QUANT 11/01/2020 URINE MICROSCOPIC 11/01/2020 MICROALBUMIN/CREATININE, RANDOM URINE DEXA Bone density 04/17/2025 DEXA Bone density 04/17/2025 COMPLETE URINALYSIS 07/31/2023 mammogram screening , bilateral breast 0 04/17/2025 mammogram screening , bilateral breast 0 02/26/2024 Urine Culture, Routine-[id number] ([facility]) 02/26/2024 MICROALBUMIN, URINE 11/13/2024 Future Test Test Name Order Date URINE CULTURE 02/03/2021 URINALYSIS, COMPLETE 02/03/2021 Next Appt Details Provider Name:Femi Liz hdz, 07/29/2025 01:00:00 PM, [address] [place] [address], [phone], Provider Name:Femi hdz, 04/23/2026 01:30:00 PM, [address] [place] [address], [id number], Insurance Providers Payer Name Payer Address Payer Phone Subscriber Number Group Number Insured Name Patient Relationship to Insured Coverage Start Date Coverage End Date MEDICARE [address] [place] [phone] [id number] JOSE FRANCISCO LEIJA [place] - [place] [address] [phone] [id number] LINDROS, JOSE FRANCISCO Self - patient is the insured Medical (General) History Medical History History ICD Code ENDO/DM: Dr. Quinteros (as of ), previously Dr. Steele -> Type 2 DM, insulin, failed several orals, uses CGM, on insulin and GLP1 NEPHROLOGY - Dr. Starks -> CKD4, nephrol ithiasis CARDIOLOGY: pending consult -> HF, afib, hyperlipidemia, HTN (3 agents) WOUND CARE: / [facility], R IGHT great toe (November 2022) ID - Dr Luke (), Dr. Hardik christopher ([facility]) -> sepsis 10/12/2019, 12/26/2019, 01/16/2020, 12/06/2020 -> all related to LEFT achilles tendon rupture and dehiscence PT: deconditioned, Home PT (2020) - quad cane, walker, scooter UROLOGY: Dr. Calderon -> LEFT UPJ kidney stone s/p stent placement [facility] (08/17/2020) RESOURCES: Mei Welsh, [facility] keycase assembler ext [phone]. CLINICAL SUPPORT MANAGER on Mondays - Navya ORTHO: Edin Marinelli MD at [facility] -> LEFT achilles tendon abscess and rupture (06/26/2020) 2nd to floxin use, multiple OR debridements ASCVD 15.3% (on statin) November 2021 a fib, dx ~2009, cardioverte d, on metoprolol since; no palpitations. on Eliquis - not renal dosing/borderline Cr former tobacco smoker - quit 09/2019 eczema venous stasis with dermatitis insomnia urinary incontinence frequent yeast vaginitis frequent UTIs severe vit D deficiency (Mar 2023) b12 def (Mar 2023) elevated homocysteine hypertriglyceridemia, low HDL CXR (10/25/23): hazy density LEFT Lower ch est Other specified injury of le ft Achilles tendon, subsequent encounter (resolved 03/19/2025) S86.092D Cellulitis lower limb, left (resolved ) L03.116 Vaginitis acute (resolved 03/19/2025) N7 6.0 normal Cologuard October 2021, due 2024 Surgical History Surgery Date(Month/Year) Breast Left Bx (done twice) only calcium 2003 Tonsilectomy 1961 Hysterectomy 1995 oophorectomy 2007 Tubaligation [address] eyes [address] Reyna @ [place] 2018 b/l vascular ablation in legs Dr Villalpando at [facility] 2018 abscess in left Achilles Tendon Surgery at [facility]- Dr. Yves castaneda 06/23/2020 kidney stent placed 08/17/2020 I&D of left lower leg/achill es tendon infected wound at [facility]- Dr. Ladonna castaneda 08/19/2020 kidney stones removed/lasered @ [facility] 10/08 kidney stent removed 10/18/2020 Hospitalization History Reason Date(Month/Year) [facility] for kidney failure 03/10/25-03/15/25 [facility] ED for fall 03/18/25 [facility]- weakness, UTI 10/21/23 [place] due to sepsis on rig ht leg, she was on antibiotics and completed cefuroxime. 12/06-12/03/2020 [facility] for obstructing UPJ kidn ey stone & stent then transfered to [facility] for infected left lower leg wound 08/17/20 James Ruiz transferred to [facility] - left lower leg/achilles tendon abscess Jun 2020 [facility] sepsis 01/16/20 [facility] sepsis 12/26/19 [facility] sepsis 10/12/19 Lithotripsy (? 4 years ago) Unknown Nephrolithiasis Multiple
--- OUTSIDE RECORDS SUMMARY | 2025-05-15 16:12 | XMS_ITS | Encounter Summary ---
Author Organization [facility] Address [address] [place] [address] Phone Care Team Providers Care Wafer Fab Technician Name Role Phone Ivana Cheung Primary Care Provider Femi Nielsen MD Primary Care Provider [phone] Encounter Details Date Type Department Care Team (Late st Contact Info) Description 06/23/2020 Procedure Pass [facility], Ct Scan - [address] [address] Social History Tobacco Use Types Packs/Day Years [...] 12:42 AM EST Cecille Espinoza RN * [place] Suicide Severity Rating Scale (Screener/Recent Self-Report) Question [...] Description 07/14/2025 2:00 PM EST Office Visit [facility] [address] [place] [address] Amanda Quinteros MD [address] [facility], 1st [place] [address] [email or web address] documented as of this encounter Visit Diagnoses Not on filedocumented in this encounter Care Teams Wafer Fab Technician Relationship Specialty Start Date End Date Ivana Cheung PA [address] [place] [address] PCP - General Unknown Provider Specialty 12/26/19 Femi Nielsen MD [address] [place] [address] [email or web address] PCP - General Family Medicine 12/09/21 documented as of this encounter Additional Source Comments The information contained in this document represents components of the legal health record. It is not the complete legal health record.[facility]
--- OUTSIDE RECORDS SUMMARY | 2025-05-15 16:13 | XMS_ITS | Encounter Summary ---
Author Organization [facility] Address [facility] [address] [place] [address] Phone Care Team Providers Care Hand Mold Maker Name Role Phone Ivana Cheung Primary Care Provider Femi Nielsen MD Primary Care Provider [phone] Encounter Details Date Type Department Care Team (Late st Contact Info) Description 10/08/2020 Procedure Pass [place] Admitting Dept - Virtual Department [address] [place], [place] [id number] Social History Tobacco Use Types Packs/Day Years [...] Description 07/14/2025 2:00 PM EST Office Visit [facility] [address] [place] [address] Amanda Quinteros MD [address] [facility], 1st [place] [address] [email or web address] documented as of this encounter Visit Diagnoses Not on filedocumented in this encounter Care Teams Hand Mold Maker Relationship Specialty Start Date End Date Ivana Cheung PA [address] [place] [address] PCP - General Unknown Provider Specialty 12/26/19 Femi Nielsen MD [address] [place] [address] [email or web address] PCP - General Family Medicine 12/09/21 documented as of this encounter Additional Source Comments The information contained in this document represents components of the legal health record. It is not the complete legal health record.[facility]
--- OUTSIDE RECORDS SUMMARY | 2025-05-15 16:13 | XMS_ITS | Encounter Summary ---
Author Organization [facility] Address [address] [place] [address] Phone Care Team Providers Care Metal Pickling Equipment Operator Name Role Phone Betzy Phipps MD Primary Care Provider + Encounter Details Date Type Department Care Team (Late Contact Info) Description 12/07/2023 Documentation Only [facility], [address] [place] [address] [place] [address] [place] [phone] Social History Tobacco Use Types Packs/Day Years [...] Care Team (Late st Contact Info) Description 08/03/2025 2:15 PM EST Office Visit [facility] [address] [place] [address] Yonas Starks MD [address] [address] documented as of this encounter Visit Diagnoses Not on filedocumented in this encounter Care Teams Metal Pickling Equipment Operator Relationship Specialty Start Date End Date Betzy Phipps MD [address] [place] [address] PCP - General 08/02/20 documented as of this encounter
--- OUTSIDE RECORDS SUMMARY | 2025-05-15 16:13 | XMS_ITS | Clinical Summary ---
Author Organization [facility]. Address [address] [place] [phone] Phone Care Team Providers Care Information Systems Operator Name Role Phone Betzy Phipps MD Primary Care Provider + Allergies Active Allergy Reactions Criticality Noted Date Comments Amitriptyline Rash Low 01/16/2020 Metformin 04/05/2022 Other reaction(s): stomach upset Semaglutide 04/05/2022 Other reaction(s): stomach upset Medications traZODone (DESYREL) 100 MG tablet Take 1 tablet by mouth at bed time 7 Active metoprolol succinate XL (TOPROL-XL) 200 MG 24 hr tablet Take 200 mg by mouth 1 (one) time each day Active insulin lispro (HumaLOG KWIKPEN) 200 UNIT/ML solution pen-injector injection Comments: Filled Date: Dec 12 2016 12:00AM 6 Active insulin glargine (Lantus SoloStar) 100 UNIT/ML injection Comments: Filled Date: Nov 27 2016 12:00AM 7 Active amLODIPine (NORVASC) 10 MG tablet 1 Active Eliquis 5 MG tablet 1 Active atorvastatin (LIPITOR) 40 MG tablet Take 40 mg by mouth 1 (one) time each day 1 Active FLUoxetine (PROzac) 20 MG capsule Take by mouth 1 (one) time each day 1 Active hydrOXYzine (ATARAX) 25 MG tablet TAKE 1 TABLET BY MOUTH FOUR TIMES A DAY NEEDED 1 Active lisinopril 5 MG tablet TAKE 1 TABLET BY MOUTH EVERY DAY 90 tablet 2 3 Active Additional Information Patient not taking.Reported on 05/04/2025 gabapentin (NEURONTIN) 600 MG tablet 600 mg 5 Active gabapentin (NEURONTIN) 300 MG capsule if needed 5 Active Empagliflozin (Jardiance) 10 MG tablet Take 10 mg by mouth 1 (one) time each day in the morning Active bumetanide (BUMEX) 2 MG tablet Take 2 mg by mouth 1 (one) time each day Active Tirzepatide (Mounjaro) 10 MG/0.5ML solution auto-injector Inject under the skin 1 (one) time per week Active Active Problems Problem Noted Date Diagnosed Date Anemia in chronic kidney disease 05/04/2025 Type 2 diabetes mellitus with diabetic mononeuro carlyn 06/17/2024 Vitamin D deficiency 10/12/2022 Stage 3b chronic kidney disease 12/29/2020 Renal osteodystrophy 12/29/2020 Chronic kidney disease due to benign hypertensio n 12/29/2020 Acute nontraumatic kidney injury 12/28/2020 Cellulitis of right lower limb 12/28/2020 Chronic kidney disease, stage 4 (severe) 021 Overview (12/28/2020): Last Assessment & Plan: Stable on admission, creatinine at baseline, renally dose vancomycin Creatinine clearance is 82 Potassium is borderline elevated at 5.3, recheck in a.m. laboratory monitor Diabetic peripheral neuropathy 12/28/2020 Type 2 diabetes mellitus wit h diabetic chronic kidney disease 12/28/2020 Insulin treated type 2 diabetes mellitus 021 Overview (12/28/2020): Last Assessment & Plan: Blood sugar on metabolic panel earlier was 242, down to 179 on nkkel-xf-[id number] testing after IV fluid hydration. Last hemoglobin A1c 8.6, 2 months ago. Continue Lantus insulin, we will give half the dose this evening (28 units) as she has not been eating in the setting of her illness today. Monitor zsmeg-zs-yhns's with insulin sliding scale coverage. Type 2 [...] monitor respiratory status closely with pain medication. Dyspnea 01/19/2020 Overview (12/28/2020): Last Assessment & Plan: Some dyspnea with RVR, improved with rest and resolution of tachycardia. X-ray on 01/18 did not show any oh edema or airspace disease --She is off IV fluids. Could consider trial of Lasix if she has further exertional dyspnea. Given resolving [place], will plan to continue observation for now Atopic dermatitis 01/18/2020 Bacteremia caused by Gram-positive bacteria 12/22 Overview [...] that point --Continue wound care as scheduled Hypertension 12/27/2019 Overview (12/28/2020): Last Assessment & [...] Encounters Date Type Department Care Team Description 05/04/2025 3:15 PM EDT Office Visit [facility] [address] [place] [address] Yonas Starks MD Chronic kidney disease, stage 4 (severe) ([facility]) (Primary Dx); Type 2 diabetes mellitus with diabetic chronic kidney disease, without medication use (HCC); Renal osteodystrophy; Anemia in chronic kidney disease 03/12/2025 Orders Only [facility] [address] [facility] [address] [place] [phone] Yonas Starks MD from Last 3 Months Immunizations Immunization Administration Dates Next Due Influenza Split High Dose Pr eservative Free IM 03/31/2020 Influenza Vaccine, Quadrivalent, Adjuvanted 03/23,04/28/2021 Influenza, Quadrivalent, Pf, Pediatrics 06/01/20 19 Influenza, Quadrivalent, Preservative Free 06/01,05/06/2018,06/07/2017 Influenza, Quadrivalent, With Preservative 06/06,04/22/2016 Tdap 06/22/2012,07/23/2010 Family History Medical History Relation [...] Sign Reading Time Taken Comments Blood Pressure 120/64 05/04/2025 3:28 PM EDT Pulse 63 05/04/2025 3:28 PM EDT Temperature - - Respiratory Rate - - Oxygen Saturation 98% 05/04/2025 3:28 PM EDT Inhaled Oxygen Concentration - - Weight 113 kg (250 lb) 05/04/2025 3:28 PM EDT Height - - Body Mass Index - - Plan of Treatment Upcoming Encounters Date Type Department Care Team (Late st Contact Info) Description 08/03/2025 2:15 PM EST [facility] [address] [place] [address] [place] [address] Yonas Starks MD [address] [facility] [address] [place] [address] Health Maintenance Due Date Last Done Comments [...] Hemoglobin A1C 02/10/2025 11/11/2024, 05/23 Influenza Vaccine Completed 04/17/2025, , 04/08/2022, Additional history exists Hepatitis B Vaccine Aged [...] ORDERABLES Final Re sult Performing Organization Address [facility] de Phone Number [place] See order comments [place] [address] * Creatinine, urine, random (03/12/2025 5:53 PM EDT) Pathologist [facility] Creatinine, Urine 27.06 mg/dL See order comments 03/12/2025 5:53 PM EDT 03/12/2025 5:53 PM EDT Yonas Starks MD LAB URINE ORDERABLES Final Re sult Performing Organization Address [facility] de Phone Number [facility] See order comments [place] [address] * HEPATITIS B AND C (03/12/2025 5:23 [...] ORDERABLES Final Re sult Performing Organization Address [facility] de Phone Number [facility] See order comments [place] [address] * (ABNORMAL) PTH, Intact (03/12/2025 5:23 PM EDT) Parathyroid Hormone, Intact 376.9(H) 8.7 - 77.1 pg/mL See order comments 03/12/2025 5:23 PM EDT 03/12/2025 5:23 PM EDT us Yonas Starks MD LAB [id number] SOLICITED RESULTS Final Result [facility] See order comments [place] [address] * TRINA W/Reflex (03/12/2025 5:23 PM EDT) TRINA Screen NEGATIVE NEGATIVE See order comments [...] AC-0: Negative International Consensus on TRINA Patterns (https://doi.org/10.1515/nxlz-3248-8719) For additional information, please refer to http://education.Kiddify.FastCustomer/faq/TEQ311 (This link is being provided for informational/ educational purposes only.) THIS TEST WAS PERFORMED AT: [facility] [address] [place] [phone] VIKTOR POWELL MD TRINA TNP See order comments TRINA Pattern TNP See orde r comments TRINA TITER 2 TNP See orde r comments TRINA Pattern 2 TNP See or flower comments TRINA TITER 3 TNP See orde r comments TRINA Pattern 3 TNP See or flower comments 03/12/2025 5:23 PM EDT 03/12/2025 5:23 PM EDT us Yonas Starks MD LAB BLOOD ORDERABLES Final Re sult [place] See order comments [place] [address] * (ABNORMAL) [place]/Lambda free LT chains w/ratio, Serum (03/12/2025 5:23 PM EDT) [place] Free Light Chain 79.6(A) 3.3 - 19.4 mg/L See order comments Lambda Free Light Chain 71.6(A) 5.7 - 26.3 mg/L See order comments [place]/Lambda LC Ratio 1.11 0.26 - 1.65 See [...] these disorders. THIS TEST WAS PERFORMED AT: [facility] [address] [place] [phone] VIKTOR POWELL MD 03/12/2025 5:23 PM EDT 03/12/2025 5:23 PM EDT Yonas Starks MD LAB BLOOD ORDERABLES Final Re sult [place] See order comments [place] [address] * (ABNORMAL) Immunofixation electrophoresis (03/12/2025 5:23 PM EDT) IgG 1,124 600 - 1,540 mg/dL See order comments IgA 408(A) 70 - 320 mg/dL See order comments IgM 73 50 - 300 mg/dL See order comments Comment: THIS TEST WAS PERFORMED AT: [facility] [address] [place] [phone] VIKTOR POWELL MD Interpretation See o rder comments Comment:No monoclonal protei ns detected. 03/12/2025 5:23 PM EDT 03/12/2025 5:23 PM EDT us Yonas Starks MD LAB BLOOD ORDERABLES Final Re sult Performing Organization Address [facility] de Phone Number [place] See order comments [place] [address] * C3 Complement (03/12/2025 5:23 PM EDT) C3 Complement 134 83 - 193 mg/dL See order comments Comment: THIS TEST WAS PERFORMED AT: [facility] [address] [place] [phone] VIKTOR POWELL MD 03/12/2025 5:23 PM EDT 03/12/2025 5:23 PM EDT us Yonas Starks MD LAB BLOOD ORDERABLES Final Re sult Performing Organization Address [facility] Phone Number [place] See order comments [place] [address] * C4 Complement (03/12/2025 5:23 PM EDT) C4 Complement 29 15 - 57 mg/dL See order comments Comment: THIS TEST WAS PERFORMED AT: [facility] [address] [place] [phone] VIKTOR POWELL MD 03/12/2025 5:23 PM EDT 03/12/2025 5:23 PM EDT us Yonas Starks MD LAB BLOOD ORDERABLES Final Re sult Performing Organization Address [facility] de Phone Number [place] See order comments [place] [address] * (ABNORMAL) Albumin (03/12/2025 5:23 PM EDT) Albumin 3.4(L) 3.5 - 5.0 g/dL See order comments 03/12/2025 5:23 PM EDT 03/12/2025 5:23 PM EDT us Yonas Starks MD LAB BLOOD ORDERABLES Final Re sult [place] See order comments [place] [address] * (ABNORMAL) Blood Panel (06/03/2020 12:00 AM [...] mg/dl PVNMA 06/03/2020 us [facility] [id number] LICITED RESULTS Final Result LUPIS from Last 3 Months or Most Recently Relevant to Health Maintenance Insurance [address] [place] [address] [facility] Member Subscriber Plan / Payer (Ef fective 2019-Present) Name:Darius Israel Relation to Subscriber:Self Name:Darius Israel Payer ID:Not on file Type:Not on file Address: [address] [phone] Medicare [facility] Health [facility] Medicare Care Teams Information Systems Operator Relationship Specialty Start Date End Date Betzy Phipps MD [address] [place] [address] PCP - General 08/02/20
--- OUTSIDE RECORDS SUMMARY | 2025-05-15 16:13 | XMS_ITS | Clinical Summary ---
Author Organization [address] Address [address] [place] [address] Phone Care Team Providers Care Sash Finisher Name Role Phone Lacy Nielsen Primary Care Provider [phone] Social History Tobacco Use Types Packs/Day Years Used Date Smoking Tobacco: Never Assessed Comments Unknown Sex and Gender Information Value Date Recorded Sex Assigned at Not on file Legal Sex Female 10:35 PM EST Gender Identity Not on file Sexual Orientation Not on file Plan of Treatment Health Maintenance Due Date Last Done Comments Breast Cancer Screening 1955 Colorectal Cancer Screening: Colonoscopy 1955 DTaP,Tdap,and Td Vaccines (1 - Tdap) 1973 Pneumococcal Vaccine: 50+ Ye ars (1 of 1 - PCV) 2004 Zoster Vaccines (1 of 2) 2004 Falls Risk Assessment 06/25/2022 Hepatitis C Screening 06/25/2022 Medicare Annual Wellness Visit 06/25/2022 Osteoporosis Screening (Bone Density Screening) 06/25/2022 Social Influencers of Health Screening 06/25/2022 Depression Screening 07/23/2024 COVID-19 Vaccine (1 - 2023-2 5 season) 2025 Influenza Vaccine (#1) 2025 RSV Immunization Adult Patie nts (1 - [...] Procedure Name Priority Date/Time Associated Diagnosis Comments LIPID PANEL WITH REFLEX TO DIRECT LDL Routine 12/17/2024 7:45 AM EDT Other fatigue Vitamin D deficiency, unspecified Essential (primary) hypertension Hyperlipidemia, unspecified Pure hyperglyceridemia from Last 3 Months or Most Recently Relevant to Health Maintenance Results * (ABNORMAL) Lipid panel with reflex to direct LDL (12/17/2024 7:45 AM EDT) Cholesterol 115 0 - 200 mg/dL LAB CHEMISTRY METHOD 12/17/2024 12:58 PM [facility] Triglycerides 135 0 - 150 mg/dL LAB CHEMISTRY METHOD 12/17/2024 12:58 PM [facility] HDL 36(L) >=40 mg/dL LAB CHEMISTRY METHOD 12/17/2024 12:58 PM [facility] LDL Calculated 52 0 - 100 mg/dL LAB CHEMISTRY METHOD 12/17/2024 12:58 PM [facility] VLDL Cholesterol Fabian 27 mg/dL LAB CHEMISTRY METHOD 12/17/2024 12:58 PM [facility] Non HDL Chol. (LDL+VLDL) 79 <145 mg/dL LAB CHEMISTRY METHOD 12/17/2024 12:58 PM [facility] Chol/HDL Ratio 3.2 0.0 - 4.4 LAB CHEMISTRY METHOD 12/17/2024 12:58 PM [facility] Blood Venous blood specimen / Unknown Venipuncture / Unknown 12/17/2024 7:45 AM EDT 12/17/2024 9:51 AM EDT Lacy Nielsen LAB BLOOD ORDERABLES Final Resul t [facility] [address] [place] [address], from Last 3 Months or Most Recently Relevant to Health Maintenance Insurance MEDICARE Care Teams Sash Finisher Relationship Specialty Start Date End Date Lacy Nielsen [address] PCP - General Family Medicine 12/17/24
--- OUTSIDE RECORDS SUMMARY | 2025-05-15 16:13 | XMS_ITS | Patient Health Record ---
Author Organization [facility] Address [address] [place] [address] Care Team Providers Care Vest Front Presser Name Role Phone Femi Nielsen MD Primary Care Provider Unavail able Tino Taylor Unavailable [phone] Shreya Rich Unavailable [phone] Allergies Allergen (clinical drug ingredient) Drug/Non Drug Allergy documented on EMR Reaction Allergy Type Onset Date Status adhesive tape welts Drug Allergy Sikes ctive amitriptyline Amitriptyline rash Drug Allergy Active [...] Problem Acquired hammer toe of right foot (8529538832884318 ) Other hammer toe(s) (acquired), right foot (M20.41) Active confirmed Problem Acquired hammer toe of left foot (3844292370456305 ) Other hammer toe(s) (acquired), left foot (M20.42) Active confirmed Problem Non-pressure chronic ulcer of other part of right foot with fat layer exposed (L97.512) Active confirmed Problem Polyneuropathy due to diabetes mellitus type I (300699591) Type 1 diabetes mellitus with diabetic polyneuropathy (E10.42) Active confirmed Problem Neurological disorder associated with type I diabetes mellitus (479182493) Type 1 diabetes mellitus with other diabetic neurological complication (E10.49) Active confirmed Problem Peripheral venous insufficiency (24661329) Venous insufficiency of both lower extremities (I87.2) Active confirmed Problem Neuropathic ulce r of right foot with fat layer exposed (L97.512) Active confirmed Encounters Encounter Location Date Provider Diagnosis [facility] [address] [place] [address] 06/11/2024 Taylor Jiménez Plan Of Treatment Pending Test Test Name Order Date X ray : Foot, right 3V 02/27/2024 [id number] NAIL, 6 OR MORE 04/08/2018 03164-PDTNBPT NAIL, 6 OR MORE 08/01/2019 40905-QZPXIGA NAIL, 6 OR MORE 11/13/2011 97975-NMVSQAA NAIL, 6 OR MORE 01/15/2012 07491-XRTWWBY NAIL, 6 OR MORE 04/24/2012 03183-QWJLYBX NAIL, 6 OR MORE 02/26/2014 41113-XQJIJVP NAIL, 6 OR MORE 10/29/2014 73562-WZYCPNQ NAIL, 6 OR MORE 02/17/2015 35343-AHYEHEK NAIL, 6 OR MORE 06/16/2015 93442-Qttv Destruction, 1-14 04/24/2012 04878-Ctrc Destruction, 1-14 01/19/2014 06857-Acns Destruction, 1-14 01/15/2012 66586-Rkix Destruction, 1-14 02/19/2012 80999-Spjkixop Plate 04/08/2018 21939- Debride <25 sq cm 06/16/2015 57596- Debride <25 sq cm 01/14/2015 22440- Debride <25 sq cm 02/17/2015 78979- Debride <25 sq cm 10/29/2014 25420- Debride <25 sq cm 02/19/2012 96756- Debride <25 sq cm 11/28/2011 42915- Debride <25 sq cm 12/13/2011 32678- Debride <25 sq cm 01/15/2012 20299- Debride <25 sq cm 11/13/2011 78593- Debride <25 sq cm 04/24/2012 82403-PONSTEC SKIN/TISSUE 11/13/2011 28440-RXNTUKE SKIN/TISSUE 02/26/2014 89347-VBGQVDR SKIN/TISSUE 10/29/2014 96305-HJTAHYN SKIN/TISSUE 11/04/2014 52424-RVKRSEK SKIN/TISSUE 11/09/2014 71621-KWSEWSV SKIN/TISSUE 11/26/2014 44318-RVHYSQL SKIN/TISSUE 12/15/2014 28333-ICSNENU SKIN/TISSUE 01/01/2015 22968-BOZNKYK SKIN/TISSUE 01/30/2013 75676-FDIIZCN SKIN/TISSUE 08/01/2019 48312-ZQLPUTL SKIN/TISSUE 01/11/2023 19120-TDLC SKIN LESIONS, OVER 4 01/12/20 23 91137-IBYE SKIN LESIONS, OVER 4 08/01/19 20 75604-XDMF SKIN LESIONS, OVER 4 02/18/20 15 56839-DWCL SKIN LESIONS, OVER 4 10/30/19 15 50234-OWSL SKIN LESIONS, OVER 4 02/27/20 14 10951-FPVV SKIN LESIONS, OVER 4 04/24/20 12 41584-OBXU SKIN LESIONS, 2 TO 4 11/13/19 12 62984-HNZM SKIN LESIONS, 2 TO 4 01/15/20 12 44871-SMOO SKIN LESIONS, 2 TO 4 06/16/20 15 58227-ZXUT SKIN LESIONS, 2 TO 4 04/08/20 18 Insurance Providers Payer Name Payer Address Payer Phone Subscriber Number Group Number Insured Name Patient Relationship to Insured Coverage Start Date Coverage End Date Medicare National [employer] [address] [place] [address] [id number] Alka Israel Self - patient is the insured [facility] [address] [place] [address] [phone] [id number] Alka Israel Self - patient is the insured Medical (General) History Medical History History ICD Code depression type II diabetes chicken pox high blood pressure measles Broken bones Cataracts Depression Neuropathy Psoriasis/eczema ulcer Surgical History Surgery Date(Month/Year) hysterectomy 1996 kidney stones- stent placed 87,89,07,09, 05 oopherectomy 2004 cataract surgery 08/2018, 09/2018 tubal ligation 1988 achilles tendon repair 2020 Hospitalization History Reason Date(Month/Year) [facility]- Infection in blood 10/26/23 [facility]- kidney infection, k idney stone 08/30/13 [facility] - kidney infection 1 09/15/12
--- OUTSIDE RECORDS SUMMARY | 2025-05-15 16:13 | XMS_ITS | Encounter Summary ---
Author Organization [facility] Address [address] [place] [address] Care Team Providers Care Paper Bundler Name Role Phone Lacy Nielsen Primary Care Provider [phone] Encounter Details Date Type Department Care Team (Latest Contact Info) Description 12/17/2024 Lab Requisition [facility] - Main Lab [address] [facility] [place] [address] Lacy Nielsen [address] Other fatigue; Vitamin D deficiency, unspecified; [...] CBC auto differential (12/17/2024 7:45 AM EDT) [facility] WBC 9.0 4.8 - 10.8 K/mcL LAB HEMETOLOGY METHOD 12/17/2024 11:24 AM EDT [facility] RBC 3.30(L) 3.80 - 4.80 M/mcL LAB HEMETOLOGY METHOD 12/17/2024 11:24 AM EDT [facility] Hemoglobin 10.1(L) 11.5 - 16.0 [...] LAB HEMETOLOGY METHOD 12/17/2024 11:24 AM EDT [facility] Basophils Relative 0.3 % LAB HEMETOLOGY METHOD 12/17/2024 11:24 AM EDT [facility] Immature Granulocytes Relative 0.4 % LAB HEMETOLOGY METHOD 12/17/2024 11:24 AM EDT [facility] Neutrophils Absolute 6.55 1.50 - 7.00 K/mcL LAB HEMETOLOGY METHOD 12/17/2024 11:24 AM EDT [facility] Lymphocytes Absolute 1.68 1.00 - 5.00 K/mcL LAB HEMETOLOGY METHOD 12/17/2024 11:24 AM EDT [facility] Monocytes Absolute 0.51 0.20 - 1.00 K/mcL LAB HEMETOLOGY METHOD 12/17/2024 11:24 AM EDT [facility] Eosinophils Absolute 0.23 0.00 - 0.50 K/mcL LAB HEMETOLOGY METHOD 12/17/2024 11:24 AM EDT [facility] Basophils Absolute 0.03 0.00 - 0.20 K/mcL LAB HEMETOLOGY METHOD 12/17/2024 11:24 AM EDT [facility] Immature Granulocytes Absolute 0.04(H) 0.00 - 0.03 K/mcL LAB HEMETOLOGY METHOD 12/17/2024 11:24 AM EDT [facility] Blood Venous blood specimen / Unknown Venipuncture / Unknown 12/17/2024 7:45 AM EDT 12/17/2024 9:51 AM EDT us Lacy Nielsen LAB BLOOD ORDERABLES Final Resul t [facility] [address] [place] [address], * Ferritin (12/17/2024 7:45 AM EDT) Ferritin 99 8 - 252 ng/mL LAB CHEMISTRY METHOD 12/17/2024 12:58 PM EDT [facility] Blood Venous blood specimen / Unknown Venipuncture / Unknown 12/17/2024 7:45 AM EDT 12/17/2024 9:51 AM EDT [facility] BLOOD ORDERABLES Final Resul t [facility] [address] [place] [address], [place] [phone] * (ABNORMAL) Iron and TIBC (12/17/2024 7:45 AM EDT) Pathologist [facility] Iron 72 40 - 150 mcg/dL LAB CHEMISTRY METHOD 12/17/2024 12:58 PM EDT [facility] TIBC 227(L) 250 - 450 mcg/dL LAB CHEMISTRY METHOD 12/17/2024 12:58 PM EDT [facility] Iron Saturation 32 15 - 50 % LAB CHEMISTRY METHOD 12/17/2024 12:58 PM EDT [facility] Blood Venous blood specimen / Unknown Venipuncture / Unknown 12/17/2024 7:45 AM EDT 12/17/2024 9:51 AM EDT Lacy Nielsen LAB BLOOD ORDERABLES Final Resul t [facility] [address] [place] [address], [place] [phone] * Vitamin B12 (12/17/2024 7:45 AM EDT) Pathologist [facility] Vitamin B-12 331 250 - 900 pcg/mL LAB CHEMISTRY METHOD 12/17/2024 12:58 PM EDT [facility] Blood Venous blood specimen / Unknown Venipuncture / Unknown 12/17/2024 7:45 AM EDT 12/17/2024 9:51 AM EDT Lacy Nielsen LAB BLOOD ORDERABLES Final Resul t Performing Organization Address City/[facility]/ZIP Co de Phone Number [facility] [address] [place] [address], [place] [phone] * Folate (12/17/2024 7:45 AM EDT) Folate 6.3 2.8 - 17.0 ng/ml LAB CHEMISTRY METHOD 12/17/2024 12:58 PM EDT [facility] Blood Venous blood specimen / Unknown Venipuncture / Unknown 12/17/2024 7:45 AM EDT 12/17/2024 9:51 AM EDT Lacy Delvinandreina LAB BLOOD ORDERABLES Final Resul t Performing Organization Address City/[facility]/ZIP Co de Phone Number [facility] [address] [place] [address], [place] [phone] * (ABNORMAL) Vitamin D 25 hydroxy (12/17/2024 7:45 AM EDT) Pathologist [facility] Vit D, 25-Hydroxy 21.7(L) 30.0 - 80.0 ng/mL LAB CHEMISTRY METHOD 12/17/2024 3:01 PM EDT [facility] Blood Venous blood specimen / Unknown Venipuncture / Unknown 12/17/2024 7:45 AM EDT 12/17/2024 9:51 AM EDT Lacy Nielsen LAB BLOOD ORDERABLES Final Resul t Performing Organization Address City/[facility]/ZIP Co de Phone Number [facility] [address] [place] [address], [place] [phone] * (ABNORMAL) Lipid panel with reflex to direct LDL (12/17/2024 7:45 AM EDT) Cholesterol 115 0 - 200 mg/dL LAB CHEMISTRY METHOD 12/17/2024 12:58 PM EDT [facility] Triglycerides 135 0 - 150 mg/dL LAB CHEMISTRY METHOD 12/17/2024 12:58 PM EDT [facility] HDL 36(L) >=40 mg/dL LAB CHEMISTRY METHOD 12/17/2024 12:58 PM EDT [facility] LDL Calculated 52 0 - 100 mg/dL LAB CHEMISTRY METHOD 12/17/2024 12:58 PM EDT [facility] VLDL Cholesterol Fabian 27 mg/dL LAB CHEMISTRY METHOD 12/17/2024 12:58 PM [facility] Non HDL Chol. (LDL+VLDL) 79 <145 mg/dL LAB CHEMISTRY METHOD [facility]/17[facility]24 [facility] Chol/HDL Ratio 3.2 0.0 - 4.4 LAB CHEMISTRY METHOD 12/17/2024 12:58 PM [facility] Blood Venous blood specimen / Unknown Venipuncture / Unknown 12/17/2024 7:45 AM EDT 12/17/2024 9:51 AM EDT us Lacy Nielsen LAB BLOOD ORDERABLES Final Resul t [facility] [address] [place] [address], * (ABNORMAL) Comprehensive metabolic panel (12/17/2024 7:45 AM EDT) Sodium 139 133 - 145 mmol/L LAB CHEMISTRY METHOD 12/17/2024 12:58 PM [facility] Potassium 4.2 3.5 - 5.5 mmol/L LAB CHEMISTRY METHOD 12/17/2024 12:58 [facility] Chloride 106 96 - [...] LAB CHEMISTRY METHOD 12/17/2024 12:58 PM EDT [facility] Total Bilirubin 0.4 0.0 - 1.4 mg/dL LAB CHEMISTRY METHOD 12/17/2024 12:58 PM EDT [facility] Blood Venous blood specimen / Unknown Venipuncture / Unknown 12/17/2024 7:45 AM EDT 12/17/2024 9:51 AM EDT Lacy Delvinandreina LAB BLOOD ORDERABLES Final Resul t Performing Organization Address City/[facility]/ZIP Co de Phone Number [facility] [address] [place] [address], [place] [phone] * Thyroid stimulating hormone with reflex to free t4 and free t3 (12/17/2024 7:45 AM EDT) TSH 1.59 0.40 - 4.00 mcIU/mL LAB CHEMISTRY METHOD 12/17/2024 3:02 PM EDT [facility] Blood Venous blood specimen / Unknown Venipuncture / Unknown 12/17/2024 7:45 AM EDT 12/17/2024 9:51 AM EDT Lacy Nielsen LAB BLOOD ORDERABLES Final Resul t Performing Organization Address City/[facility]/ZIP Co de Phone Number [facility] [address] [place] [address], [place] [phone] documented in this encounter Visit Diagnoses Diagnosis Other fatigue Vitamin D deficiency, unspecified Essential (primary) hypertension Unspecified essential hypertension Hyperlipidemia, unspecified Pure hyperglyceridemia documented in this encounter Care Teams Paper Bundler Relationship Specialty Start Date End Date Lacy Nielsen [address] PCP - General Family Medicine 12/17/24 documented as of this encounter
--- OUTSIDE RECORDS SUMMARY | 2025-05-15 16:14 | XMS_ITS | Encounter Summary ---
Author Organization [facility] Address [address] [employer] [facility] [address] [place] [address] Phone Care Team Providers Care Media Center Assistant Name Role Phone Unknown, Unknown Primary Care Provider Ivana Saleh Primary Care Provider Femi Nielsen MD Primary Care Provider [phone] Encounter Details Date Type Department Care Team (Late st Contact Info) Description 09/16/2019 Ancillary Orders Virtual Department [address] [place] [address] Ivana Cheung PA [address] [place] [address] Menopausal and female climacteric states Social History [...] Description 07/14/2025 2:00 PM EST Office Visit [facility] [address] [place] [address] Amanda Quinteros MD [address] [facility], 1st [place] [address] [email or web address] documented as of this encounter Visit Diagnoses Diagnosis Menopausal and female climacteric states documented in this encounter Additional Health Concerns Infection Onset Date Last Indicated Resolved Time CoV-Risk 12/26/2019 12/26/2019 12/28/2019 9:38 AM EDT CoV-Risk 01/16/2020 01/16/2020 01/17/2020 10:1 2 AM EDT CoV-Exposed Comment:Recent close contact 05/27/2020 05/27/2020 06/10/2020 1:25 AM EST documented as of this encounter Care Teams Media Center Assistant Relationship Specialty Start Date End Date Unknown, Unknown, MD PCP - General 09/16/19 12/25/19 Ivana Cheung PA [address] [place] [id number] PCP - General Unknown Provider Specialty 12/26/19 Femi Nielsen MD [address] [place] [address] [email or web address] PCP - General Family Medicine 12/09/21 documented as of this encounter Additional Source Comments The information contained in this document represents components of the legal health record. It is not the complete legal health record.[facility]
--- OUTSIDE RECORDS SUMMARY | 2025-05-15 16:14 | XMS_ITS | Encounter Summary ---
Author Organization [facility] Address [address] [facility] [address] [place] [address] Phone Care Team Providers Care Sheep And Wheat Farmer Name Role Phone Ivana Cheung Primary Care Provider Femi Nielsen MD Primary Care Provider [phone] Encounter Details Date Type Department Care Team (Late Contact Info) Description 01/20/2020 Procedure Pass [facility] [address] [place], [place] [id number] Social History Tobacco Use Types Packs/Day Years [...] Department Care Team (Late Contact Info) Description 07/14/2025 2:00 PM EST Office Visit [facility] [address] [place] [phone] Amanda Quinteros MD [address] [facility], [address] [place] [address] [email or web address] documented as of this encounter Visit Diagnoses Not on filedocumented in this encounter Additional Health Concerns Infection Onset Date Last Indicated Resolved Time CoV-Exposed Comment:Recent close contact 05/27/2020 05/27/2020 06/10/2020 1:25 AM EST documented as of this encounter Care Teams Sheep And Wheat Farmer Relationship Specialty Start Date End Date Ivana Cheung PA [address] [place] [address] PCP - General Unknown Provider Specialty 12/26/19 Femi Nielsen MD [address] [place] [phone] [email or web address] PCP - General Family Medicine 12/09/21 documented as of this encounter Additional Source Comments The information contained in this document represents components of the legal health record. It is not the complete legal health record.[facility]
--- OUTSIDE RECORDS SUMMARY | 2025-05-15 16:14 | XMS_ITS | Clinical Summary ---
Author Organization [facility] Address [address] [facility] [address] [facility] [address] [place] [address] Phone Care Team Providers Care Bill Cutter Name Role Phone Femi Nielsen MD Primary Care Provider [phone] Allergies Active Allergy Reactions Criticality Noted Date [...] ONCE A WEEK FOR 84 12/03/19 Active [place] CK1 VERIO FLEX METER Misc meterIndications :Type 2 diabetes mellitus with diabetic mononeuropathy, with long-term current use of insulin by Miscellaneous route daily. E11.9 1 each 12/16/19 23 Active Environmental OperationsTOAlexandre [employer] [place] DELICA PLUS LANCET 33 gauge MiscIndications: Type 2 diabetes mellitus with diabetic mononeuropathy, with long-term current use of insulin Inject 1 each into the skin 3 (three) times a day before meals. E11.9 300 each 3 05/07/20 23 Active [place] CK1 VERIO Strp stripsIndication s:Type 2 diabetes mellitus [...] Assessment & Plan (11/11/2024 3:17 PM EDT): Alka is followed closely by wound management, foot nurse She is not active but is encouraged to do her best with this We discussed optimized Mounjaro which is likely to help prandial glucose and may impact effect of prandial SSI We discussed continuation of current dose of basal insulin as Akla's overnight patterns are stable in reasonable range, often in target range after midnight, with improved prandial control in afternoon/evening, this is likely to be more firmly in target range Alka will return in 4 months and she [...] to meals, has more structured meals at [facility] but the quality of these do [...] elevated Advised to follow up with nephrology Alka will return for follow up in 4 months Assessment & Plan (06/17/2024 4:02 PM EST): Most recent GFR on file is 27 Blood pressure is elevated today Continues with prandial hyperglycemia though overall control is improved, we revisited importance of taking mealtime insulin prior to meals, this should be easier now that Alka is living at [facility] since meals will be more structured [...] to schedule a follow up with nephrology Alka will return for follow up in 3-4 [...] will hopefully stabilize glucose and increase TIR, Alka will continue her mealtime dosing for now, [...] may lead to overall lower insulin requirement Alka will return for follow up in 4 [...] was 193 with 54% in target range. Alka is doing well despite higher amount of stress with her 's unexpected illness and . Tolerating optimized dosage of Trulicity well, this too should be offering prandial glucose support . We discussed memory aids to help her bolus early enough prior to her meals as she often forgets until care home through or after a meal. We also [...] up with Dr Quinteros in 3 months. Alka will return for follow up in 3 months Assessment & Plan (12/15/2022 5:42 PM EDT): Long history of type 2 diabetes, insulin requiring, currently with stressors and grieving since 's recent Alka has good support around her but much [...] and we will be in touch with Alka to adjust further as needed, she is also encouraged to reach out to me with any questions or concerns in the interim Tolerating optimized dosage of Trulicity well, currently at 3mg weekly, this too should be offering prandial glucose support FPG is mostly in good range but low normal at times, reduction in Basaglar dosage should help this Alka will return for follow up in 4 months Assessment & Plan (08/28/2022 8:34 AM EST): Long history of type 2 diabetes, insulin requiring Continues with some persistent prandial hyperglycemia though overall control has improved significantly since this fall with average glucose 192 versus 213 with 52% of sugar in target range versus 28% in fall. Alka is doing well despite higher amount of stress with her 's unexpected illness and surgery Tolerating optimized dosage of Trulicity well, this too should be offering prandial glucose support and will be further optimized today due to higher sugars from afternoon through evening FPG is mostly in good range Alka will return for follow up in 3 [...] a meal We discussed upcoming travel to [facility], provided travel letter and recommendations for packing insulin and supplies Alka will return for follow up with me [...] up in over a year, strongly recommend Alka scheduling appointments with both wound care and podiatry as soon as able Continues on higher dose basal insulin with moderate dose sliding scale rapid insulin meal coverage, just started initial dose of Trulicity and tolerating well Advised continuing on current dose of Trulicity, with possible optimization after initial startup period to aid in glycemic reduction Will follow up with Alka in 2 weeks to check in on glycemic control and if agreeable to optimization of Trulicity Alka will follow up as scheduled with Dr. [...] with CGM evaluation, we discussed CGM options, Alka has used FSL in the past but had difficulty keeping the sensors on, would like to reconsider CGM use again, received instruction on Dexcom G6 and pro placed today, unblinded Alka will return in 2 weeks to follow up with our electrical and instrumentation manager staff regarding CGM interpretation, diabetes education and nutrition counseling, Alka and I will follow up in the [...] earlier was 242, down to 179 on [id number] testing after IV fluid hydration. Last hemoglobin A1c 8.6, 2 months ago. Continue Lantus insulin, we will give half the dose this evening (28 units) as she has not been eating in the setting of her illness today. Monitor [id number] with insulin sliding scale coverage. Assessment & [...] borderline elevated at 5.3, recheck in a.m. hall monitor Assessment & Plan (12/27/2019 4:43 PM EDT): Records received from [facility]. 10/11/2019 creatinine 1.7. Her creatinine appears to [...] Streptococcus 06/17/2024 Cellulitis of right leg 05/24 Encounters Date Type Department Care Team Description 04/06/2025 Orders Only [facility] [address] [place] [address] Rachele Carpio [place] Chronic kidney disease, stage 4 (severe); Type 2 diabetes mellitus with other skin ulcer, unspecified whether manager long term care insulin use; Type 2 diabetes mellitus with diabetic dermatitis, unspecified whether skilled nursing insulin use; Bradycardia, unspecified; Congestive heart failure, unspecified HF chronicity, unspecified heart failure type 03/24/2025 Transcribe Orders [facility] [address] [place] [phone] Fmei Nielsen MD Chronic kidney disease, stage 4 (severe); Type 2 diabetes mellitus with other skin ulcer, unspecified whether skilled nursing insulin use; Type 2 diabetes mellitus with diabetic dermatitis, unspecified whether manager long term care insulin use; Bradycardia, unspecified; Congestive heart failure, unspecified HF chronicity, unspecified heart failure type from Last 3 Months Immunizations Immunization Administration Dates Next Due INFLUENZA, [...] PCV13 2020( ),01/16/2020(Deferred: Contraindication),12/26/2019(Deferred: Not Available From Land [employer]) Pneumococcal conjugate PCV15 12/20/2022 RSV Vaccine (monovalent, [...] Description 07/14/2025 2:00 PM EST Office Visit [facility] [address] [place] [address] Amanda Quinteros MD 22 [facility], 1st [place] [address] [email or web address] Due Date Last Done Comments [...] (2 of 2 - PPSV23) 12/21/2023 12/20/2022 INFLUENZA VACCINE (#1) 2025 , 04/08/2022, 04/28/2021, Additional history exists COVID-19 VACCINE ( season) 2025 04/14/2023, 11/27/2022, 04/08/2022, Additional history exists BLOOD PRESSURE 05/13/2025 11/11/2024 HEMOGLOBIN A1C 05/13/2025 11/11/2024, 11/2 12/2023, 06/27/2023, Additional history exists CREATININE LEVEL 03/28/2026 03/28/2025, 12/2022, 03/23/2023, Additional history exists RSV VACCINE Completed 04/19/2023 [...] this topic Medical Devices Implanted Type Area Land Surveying Manager Device Identifier Shelf Expiration Date Model / Serial / Lot Stent Ureteral 6fr 22 To 30cm Stretch Coated Teresa - [id number] Implanted:Qty: 1 on 08/17/2020 by Gemini Miguel MD at [facility] Left: Ureter [employer] 05/10/2023 [id number] / / [id number] Stent Ureteral 6fr 22 To 30cm Stretch Coated Teresa - [id number] Implanted:Qty: 1 on 10/08/2020 by Fab Mirza MD at [facility] Left: Ureter [employer] 05/17/2023 [id number] / / [id number] Procedures Procedure Name Priority Date/Time Associated Diagnosis Comments TSH WITH REFLEX Routine 03/28/2025 9:28 AM EDT Chronic kidney disease, stage 4 (severe) Type 2 diabetes mellitus with other skin ulcer, unspecified whether skilled nursing insulin use Type 2 diabetes mellitus with diabetic dermatitis, unspecified whether manager long term care insulin use Bradycardia, unspecified Congestive heart failure, unspecified HF chronicity, unspecified heart failure type LIPID PANEL Routine 03/28/2025 9:28 AM EDT Chronic kidney disease, stage 4 (severe) Type 2 diabetes mellitus with other skin ulcer, unspecified whether skilled nursing insulin use Type 2 diabetes mellitus with diabetic dermatitis, unspecified whether skilled nursing insulin use Bradycardia, unspecified Congestive heart failure, unspecified HF chronicity, unspecified heart failure type COMPREHENSIVE METABOLIC PANEL Routine 03/28/2025 9:28 AM EDT Chronic kidney disease, stage 4 (severe) Type 2 diabetes mellitus with other skin ulcer, unspecified whether manager long term care insulin use Type 2 diabetes mellitus with diabetic dermatitis, unspecified whether skilled nursing insulin use Bradycardia, unspecified Congestive heart failure, unspecified HF chronicity, unspecified heart failure type POCT HEMOGLOBIN A1C Routine 11/11/2024 2 :12 PM EDT Type 2 diabetes mellitus with diabetic mononeuropathy, 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, 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 from Last 3 Months or Most Recently Relevant to Health Maintenance Results * TSH with reflex (03/28/2025 9:28 AM EDT) Blood us Femi Nielsen MD LAB BLOOD ORDERABLES Final R esult Performing Organization Address [facility] Co de Phone Number [address] [phone] * Lipid panel (03/28/2025 9:28 AM EDT) Blood Femi Nielsen MD LAB BLOOD ORDERABLES Final R esult Performing Organization Address [facility] Co de Phone Number [address] [address] * Comprehensive metabolic panel (03/28/2025 9:28 AM EDT) Blood Femi Nielsen MD LAB BLOOD ORDERABLES Final R esult Performing Organization Address [facility] Co de Phone Number [address] [phone] * (ABNORMAL) POCT Hemoglobin A1c (11/11/2024 2:12 PM EDT) Hemoglobin A1c 7.2(A) 4.2 - 5.6 % Other 11/11/2024 2:12 PM EDT us Amanda Quinteros MD POINT OF CARE TEST ORDERABLES F inal Result from Last 3 Months or Most Recently Relevant to Health Maintenance Insurance [facility] MEDICARE SUPPLEMENT MEDICARE PART A & [place] [address] [place] [address] MEDICARE SUPPLEMENT MEDICARE PART A & B [facility] MEDICARE SUPPLEMENT MEDICARE PART A & B [facility] MEDICARE SUPPLEMENT MEDICARE PART A & B [facility] MEDICARE SUPPLEMENT MEDICARE PART A & B [facility] MEDICARE SUPPLEMENT MEDICARE PART A & B [facility] MEDICARE SUPPLEMENT MEDICARE PART A & B [facility] MEDICARE SUPPLEMENT MEDICARE PART A & B . [id number] [place] [phone] [place] [address] MEDICARE SUPPLEMENT MEDICARE PART A & B Advance Directives For more information, please contact: [phone] (9AM - 5PM [facility], Sunday-Sunday) Documents on File Type Date Recorded Patient Four H Agent Expl anation Healthcare Proxy 08/20/2020 4:51 PM * Full [...] Agent (Proxy form on file) Care Teams Bill Cutter Relationship Specialty Start Date End Date Femi Nielsen MD [address] [place] [address] [email or web address] PCP - General Family Medicine 12/09/21 Additional Source Comments The information contained in this document represents components of the legal health record. It is not the complete legal health record.[facility]
== END 2025-05-15 14:43 | disposition home or self-care (01) ==
LOC: HO.HCS 14:12
PROVIDERS: PCP Family Medicine
DX: I50.30 Unspecified diastolic (congestive) heart failure (principal)
CPT/HCPCS: 93010; 99214; G2211

== ENCOUNTER → 2025-05-15 14:11 | Outpatient (BNVA) | payer MEDICARE, OTHER, SELFPAY | PROVIDERS: PCP Family Medicine | DX: I50.30 Unspecified diastolic (congestive) heart failure (principal); I48.0 Paroxysmal atrial fibrillation; R00.1 Bradycardia, unspecified; Z09 Encounter for follow-up examination after completed treatment for conditions other than malignant neoplasm; Z79.01 Long term (current) use of anticoagulants; Z72.0 Tobacco use; E66.9 Obesity, unspecified; Z68.41 Body mass index [BMI] 40.0-44.9, adult | CPT/HCPCS: 93005; 99212 ==